=== PATIENT | male | born 1935 | race Caucasian/White ===

== ENCOUNTER 2018-08-16 12:52 | Emergency (ER) | payer MEDICARE, SELFPAY ==
[2018-08-16 13:16] VITALS: BP 107/66; PULSE 79; RESP 76; TEMP 36.6; O2SAT 97; BMI 37.2
--- NOTE | 2018-08-16 13:23 | PC.NURSE ---
Applied nose clamp in triage and educated correct way to try and stop nose bleeds.
[2018-08-16 15:07] VITALS: BP 114/58; PULSE 67; RESP 15; O2SAT 96
--- NOTE | 2018-08-16 15:34 | ED_ITS ---
HPI - Epistaxis <LARS Simeon-BC - Last Filed: 08/16/18 22:07> General Chief complaint: Nasal Problem Stated complaint: Bloody nose Time Seen by Provider: 08/16/18 15:15 Source: patient and family Mode of arrival: ambulatory Limitations: no limitations History of Present Illness HPI Narrative: Patient is an 83-year-old male with history of hypothyroid who presents with a chief complaint of a bloody nose. He states he blew his nose approximately 90 minutes prior to arrival and had a nose bleed. Patient states that he has been getting nose bleeds for the past couple months. Denies any lightheadedness or dizziness. Per family does not take any blood thinners, does have history of Parkinson's.Prior to arrival they put ice on his nose and put a towel over his nose. Related Data Home Medications Medication Instructions Recorded Confirmed atorvastatin [Lipitor] 20 mg PO DAILY #0 11/19/10 08/16/18 omeprazole 20 mg PO DAILY #0 11/19/10 08/16/18 tamsulosin [Flomax] 0.4 mg PO QDAY #0 03/13/11 hydrocodone-acetaminophen 2 tab PO Q6HP #0 12/24/11 levothyroxine [Synthroid] 112 mcg PO QAM #0 12/24/11 08/16/18 aspirin 81 mg PO QDAY #0 02/21/17 doxazosin [Cardura] 8 mg PO DAILY #0 02/21/17 08/16/18 sertraline 150 mg PO DAILY #0 02/21/17 08/16/18 carbidopa-levodopa 1 tab PO TID 08/16/18 08/16/18 Previous Rx's Medication Instructions Recorded folic acid 1 mg PO QDAY #90 tab 03/28/17 Review of Systems <AGUEDA SimeonBC - Last Filed: 08/16/18 22:07> Review of Systems GENERAL: Denies chills, fatigue, malaise, fever, sweats. HEENT: See HPI RESPIRATORY: Denies dyspnea, cough, wheezing, hemoptysis, sputum. CARDIOVASCULAR: Denies chest pain, palpitations, orthopnea, edema, GASTROINTESTINAL: Denies nausea, vomiting, abdominal pain, diarrhea, constipation, melena. : Denies dysuria, frequency, incontinence, hematuria, urinary retention. MUSCULOSKELETAL: denies weakness, joint pain, or bony pain SKIN: Denies rash, skin lesions, or other NEUROLOGIC: Denies weakness, headache, numbness, change in speech, confusion, seizures, incoordination. PSYCHIATRIC: No concerning psychosocial issues. 12 point review of systems is negative except for those stated above Exam <SWAPNIL SimeonP-BC - Last Filed: 08/16/18 22:07> Narrative Exam Narrative: GENERAL: This is a well-nourished, well-developed patient, with family at bedside HEAD: Atraumatic. Normocephalic. No temporal or scalp tenderness. EYES: Pupils equal round and reactive. Extraocular motions intact. No scleral icterus. No injection or drainage. ENT: Nose without purulent drainage or septal hematoma. Throat without erythema, tonsillar hypertrophy or exudate. Uvula midline. Airway patent. blood noted from right naris. Nose clamp is in place. NECK: Trachea midline. No JVD or lymphadenopathy. Supple, nontender, no meningeal signs. CARDIOVASCULAR: Regular rate and rhythm without murmurs, gallops, or rubs. RESPIRATORY: Clear to auscultation. Breath sounds equal bilaterally. No wheezes, rales, or rhonchi. GASTROINTESTINAL: Abdomen soft, non-tender, nondistended. No hepato- splenomegaly, or palpable masses. No guarding. EXTREMITIES: No clubbing, cyanosis, or edema. No joint tenderness, effusion, or edema noted. BACK: Nontender without deformity or crepitance. No flank tenderness. NEURO: AOx3. SKIN: No rash or erythema. Initial Vital Signs Initial Vital Signs: Vital Signs Temperature 98 F 08/16/18 13:16 Pulse Rate 79 08/16/18 13:16 Respiratory Rate 76 H 08/16/18 13:16 Blood Pressure 107/66 08/16/18 13:16 Pulse Oximetry 97 08/16/18 13:16 <Julieta Preston DO - Last Filed: 08/19/18 08:54> Initial Vital Signs Initial Vital Signs: Vital Signs Temperature 98 F 08/16/18 13:16 Pulse Rate 79 08/16/18 13:16 Respiratory Rate 76 H 08/16/18 13:16 Blood Pressure 107/66 08/16/18 13:16 Pulse Oximetry 97 08/16/18 13:16 Course <LARS Simeon-BC - Last Filed: 08/16/18 22:07> Orders Ordered: ED Orders 08/16/18 15:51 Complete Blood Count AUTO DIFF Stat Comprehensive Metabolic Panel Stat Vital Signs - 8 hr 08/16/18 15:07 08/16/18 16:57 Pulse Rate 67 60 Respiratory Rate 15 14 Blood Pressure [Right Arm] 114/58 L 138/83 Pulse Oximetry 96 98 <Julieta Preston DO - Last Filed: 08/19/18 08:54> Orders Ordered: ED Orders 08/16/18 15:51 Complete Blood Count AUTO DIFF Stat Comprehensive Metabolic Panel Stat Vital Signs - 8 hr 08/16/18 15:07 08/16/18 16:57 Pulse Rate 67 60 Respiratory Rate 15 14 Blood Pressure [Right Arm] 114/58 L 138/83 Pulse Oximetry 96 98 MDM - Epistaxis <LARS Simeon-BC - Last Filed: 08/16/18 22:07> Lab Data Result diagrams: 08/16/18 15:51 08/16/18 15:51 Lab Results 08/16/18 08/16/18 Range/Units 15:51 15:51 WBC 4.6 (4.5-11.0) X10^3/uL RBC 4.04 L (4.5-5.9) X10^6/uL Hgb 12.2 L (13.5-17.5) g/dL Hct 35.6 L (41-53) % MCV 88.3 (80-100) fL MCH 30.1 (26-34) PG MCHC 34.1 (30-36) % RDW 15.2 H (11.6-14.8) % Plt Count 92 L (150-400) X10^3/uL Neut % (Auto) 64.7 (50-75) % Lymph % (Auto) 25.3 (25-40) % [place] % (Auto) 6.5 (3-14) % Eos % (Auto) 3.3 (2-4) % Baso % (Auto) 0.2 (0-2) % Neut # (Auto) 3000 (1580-3202) /uL Lymph # (Auto) 1200 (0900-5850) /uL [place] # (Auto) 300 (0-900) /uL Eos # (Auto) 200 (0-450) /uL Baso # (Auto) 0 (0-100) /uL Sodium 138 (137-145) mmol/L Potassium 4.3 (3.4-5.1) mmol/L Chloride 104 (98-107) mmol/L Carbon Dioxide 29 (22-32) mmol/L BUN 26 H (9-20) mg/dL Creatinine 1.20 (0.66-1.25) mg/dL Estimated GFR 57.7 L (>60) mL/min BUN/Creatinine Ratio 21.7 (6-22) Glucose 98 (80-110) mg/dL Calcium 9.1 (8.4-10.2) mg/dL Total Bilirubin 0.7 (0.2-1.3) mg/dL AST 19 (17-59) IU/L ALT 20 L (21-72) IU/L Alkaline Phosphatase 52 (38-126) U/L Total Protein 6.7 (6.3-8.2) g/dL Albumin 3.8 (3.5-5.0) g/dL Globulin 2.9 (1.7-4.1) g/dL Albumin/Globulin Ratio 1.3 (1.0-2.8) MDM Narrative Medical decision making narrative: The patient has 83-year-old male who presents with chief complaint of epistaxis. After his nose was clamped, and he stepped blowing his nose and picking at his clamp, his nose bleed stopped. He had no drainage noted the back of his throat and had no bleeding from his nares. I discussed at length about what his nose, not picking at his nose, etc. Patient and family stated understanding. I encouraged them to follow up with primary care provider. We obtained a CBC in order to check his blood counts, they are comparable to baseline. Patient family had no questions or concerns upon disc harge return precautions were discussed. I encouraged him to follow up with with his primary care provider in a few days. <Julieta Preston, DO - Last Filed: 08/19/18 08:54> Lab Data Lab Results 08/16/18 08/16/18 Range/Units 15:51 15:51 WBC 4.6 (4.5-11.0) X10^3/uL RBC 4.04 L (4.5-5.9) X10^6/uL Hgb 12.2 L (13.5-17.5) g/dL Hct 35.6 L (41-53) % MCV 88.3 (80-100) fL MCH 30.1 (26-34) PG MCHC 34.1 (30-36) % RDW 15.2 H (11.6-14.8) % Plt Count 92 L (150-400) X10^3/uL Neut % (Auto) 64.7 (50-75) % Lymph % (Auto) 25.3 (25-40) % [place] % (Auto) 6.5 (3-14) % Eos % (Auto) 3.3 (2-4) % Baso % (Auto) 0.2 (0-2) % Neut # (Auto) 3000 (4019-4838) /uL Lymph # (Auto) 1200 (2645-5262) /uL [place] # (Auto) 300 (0-900) /uL Eos # (Auto) 200 (0-450) /uL Baso # (Auto) 0 (0-100) /uL Sodium 138 (137-145) mmol/L Potassium 4.3 (3.4-5.1) mmol/L Chloride 104 (98-107) mmol/L Carbon Dioxide 29 (22-32) mmol/L BUN 26 H (9-20) mg/dL Creatinine 1.20 (0.66-1.25) mg/dL Estimated GFR 57.7 L (>60) mL/min BUN/Creatinine Ratio 21.7 (6-22) Glucose 98 (80-110) mg/dL Calcium 9.1 (8.4-10.2) mg/dL Total Bilirubin 0.7 (0.2-1.3) mg/dL AST 19 (17-59) IU/L ALT 20 L (21-72) IU/L Alkaline Phosphatase 52 (38-126) U/L Total Protein 6.7 (6.3-8.2) g/dL Albumin 3.8 (3.5-5.0) g/dL Globulin 2.9 (1.7-4.1) g/dL Albumin/Globulin Ratio 1.3 (1.0-2.8) Discharge Plan Departure Patient Disposition: Home Clinical Impression: Epistaxis Discharge Date/Time: 08/16/18 17:10 Interventions: ED Discharge Assessment Last Done: 08/16/18 17:10 Instructions: DI for Nosebleed Activity Restrictions/Additional Instructions: Your nose bleed stopped today with the nose clip. Please do not blow her nose, pick at your nose, or do anything to remove the clot from her nose. please follow up with primary care provider in the next few days. Please come back to emergency department for any acute concerns. Prescriptions: No Action atorvastatin [Lipitor] 40 MG tablet 20 mg PO DAILY Qty: 0 RF: 0 omeprazole 20 MG capsule,delayed release(DR/EC) 20 mg PO DAILY Qty: 0 RF: 0 tamsulosin [Flomax] 0.4 MG capsule,extended release 24hr 0.4 mg PO QDAY Qty: 0 RF: 0 hydrocodone-acetaminophen 5 MG/325 MG tablet 2 tab PO Q6HP Qty: 0 RF: 0 levothyroxine [Synthroid] 112 MCG tablet 112 mcg PO QAM Qty: 0 RF: 0 aspirin 81 MG tablet,delayed release (DR/EC) 81 mg PO QDAY Qty: 0 RF: 0 doxazosin [Cardura] 8 MG tablet 8 mg PO DAILY Qty: 0 RF: 0 sertraline 100 MG tablet 150 mg PO DAILY Qty: 0 RF: 0 folic acid 1 MG tablet 1 mg PO QDAY Qty: 90 RF: 1 carbidopa-levodopa 25-100 mg tablet 1 tab PO TID RF: 0 Referrals: Reena Meraz PA-C [Family Provider] - <Julieta Preston DO - Last Filed: 08/19/18 08:54> Cosign ED Attending Cosmeronature Attestation: I was immediately available in the department for consultation. This documentation has been reviewed and I agree with assessment and plan. Supervised by Julieta Preston DO
[2018-08-16 16:02] LABS: Add Manual Diff / Slide Review NO; Basophils Absolute Auto 0 /uL (0-100); Basophils Percent Auto 0.2 % (0-2); Eosinophils Absolute Auto 200 /uL (0-450); Eosinophils Percent Auto 3.3 % (2-4); Hematocrit 35.6 % (41-53); Hemoglobin 12.2 g/dL (13.5-17.5); Lymphocytes Absolute Auto 1200 /uL (1100-4500); Lymphocytes Percent Auto 25.3 % (25-40); Mean Corpuscular HGB Conc 34.1 % (30-36); Mean Corpuscular Hemoglobin 30.1 PG (26-34); Mean Corpuscular Volume 88.3 fL (80-100); Monocytes Absolute Auto 300 /uL (0-900); Monocytes Percent Auto 6.5 % (3-14); Neutrophils Absolute Auto 3000 /uL (1500-7000); Neutrophils Percent Auto 64.7 % (50-75); Red Blood Cell Count 4.04 X10^6/uL (4.5-5.9); Red Cell Distribution Width 15.2 % (11.6-14.8); White Blood Cell Count 4.6 X10^3/uL (4.5-11.0)
[2018-08-16 16:14] LABS: Alanine Aminotransferase 20 IU/L (21-72); Albumin 3.8 g/dL (3.5-5.0); Albumin Globulin Ratio 1.3 (1.0-2.8); Alkaline Phosphatase 52 U/L (38-126); Aspartate Aminotransferase 19 IU/L (17-59); BUN Creatinine Ratio 21.7 (6-22); Bilirubin Total 0.7 mg/dL (0.2-1.3); Blood Urea Nitrogen 26 mg/dL (9-20); Calcium 9.1 mg/dL (8.4-10.2); Carbon Dioxide 29 mmol/L (22-32); Chloride 104 mmol/L (98-107); Estimated Glomerular Filt Rate 57.7 mL/min (>60); Globulin 2.9 g/dL (1.7-4.1); Glucose 98 mg/dL (80-110); HEMOLYSIS < 15 (0-50); Potassium 4.3 mmol/L (3.4-5.1); Sodium 138 mmol/L (137-145); Total Protein 6.7 g/dL (6.3-8.2)
[2018-08-16 16:25] LABS: Platelet Count 92 X10^3/uL (150-400)
[2018-08-16 16:57] VITALS: BP 138/83; PULSE 60; RESP 14; O2SAT 98
== END 2018-08-16 17:10 | disposition home or self-care (01) ==
PROVIDERS: Emergency Provider Nurse Practitioner Family; Family Provider Physician Assistant
DX: R04.0 Epistaxis (principal)
CPT/HCPCS: 36415; 80053; 85025; 99282; 99283

== ENCOUNTER 2018-09-25 12:59 | Emergency (ER) | payer MEDICARE, SELFPAY ==
[2018-09-25 13:05] VITALS: BP 108/72; PULSE 73; RESP 16; TEMP 36.9; O2SAT 97; BMI 33.9
--- NOTE | 2018-09-25 13:50 | DI.RAD.S_ITS ---
PROCEDURE: XR RIBS LT MIN 3V W CXR1V INDICATIONS: fall 4 days ago, left rib pain TECHNIQUE: 4 views of the left ribs were acquired, along with a single view chest. COMPARISON: None. FINDINGS: Surgical changes and devices: None. Bones and chest wall: No fractures or dislocations. No suspicious bony lesions. Overlying soft tissues appear unremarkable. Lungs and pleura: No pleural effusions or pneumothorax. Lungs appear clear. Mediastinum: Mediastinal contours appear normal. Heart size is normal. IMPRESSION: No displaced rib fracture. No acute cardiopulmonary disease process. Dictated by: Sasha Howell MD, PhD on 09/25/2018 at 14:56 Approved by: Sasha Howell MD, PhD on 09/25/2018 at 14:57
--- NOTE | 2018-09-25 13:51 | DI.RAD.S_ITS ---
PROCEDURE: XR PELVIS 1-2V INDICATIONS: glf 4 days ago, pain TECHNIQUE: 1 view(s) of the pelvis acquired. COMPARISON: None. FINDINGS: Bones: No fractures or dislocations. No suspicious bony lesions. Soft tissues: Visualized bowel gas pattern is normal. No suspicious soft tissue calcifications. IMPRESSION: No fracture. No acute osseous lesion. If symptoms and/or clinical suspicion for pathology persists, further assessment with repeat radiographs (7-10 days) or advanced imaging (e.g. CT, MRI or bone scan) may be helpful. Dictated by: Sasha Howell MD, PhD on 09/25/2018 at 14:58 Approved by: Sasha Howell MD, PhD on 09/25/2018 at 14:58
--- NOTE | 2018-09-25 13:59 | ED_ITS ---
HPI - Fall <LARS Simeon-BC - Last Filed: 09/25/18 16:34> General Chief Complaint: Fall Stated Complaint: fall, thinks he broke his right side ribs Time Seen by Provider: 09/25/18 13:43 Source: patient and family Mode of arrival: ambulatory Limitations: no limitations History of Present Illness HPI Narrative: The patient is an 83-year-old male who presents with his with history of Parkinson's who presents with a chief complaint of left-sided rib pain since he fell approximately 5 days ago. He states he had a mechanical fall, landing on a hardwood and thinks he broke some of his ribs on his left side. He denies any neck pain or back pain loss of consciousness taking blood thinners or any other acute injury from the fall. He states he has bruising in the area. He occasionally took an [id number] pain medication. He denies any shortness of breath. and daughter note that the patient also has a red and goopy on his right side that they just noticed. The patient states his eye is itchy. He denies any trauma to the eye. He states his vision is normal denies blurry vision or double vision etc. Related Data Home Medications Medication Instructions Recorded Confirmed atorvastatin [Lipitor] 40 mg PO DAILY #0 11/19/10 09/25/18 omeprazole 20 mg PO DAILY #0 11/19/10 09/25/18 levothyroxine [Synthroid] 112 mcg PO QAM #0 12/24/11 09/25/18 aspirin 81 mg PO QDAY #0 02/21/17 09/25/18 doxazosin [Cardura] 8 mg PO BEDTIME #0 02/21/17 09/25/18 sertraline 150 mg PO DAILY #0 02/21/17 09/25/18 carbidopa-levodopa 1 tab PO TID 08/16/18 09/25/18 oxycodone-acetaminophen 1 tab PO 1-2XD PRN 09/25/18 09/25/18 Previous Rx's Medication Instructions Recorded erythromycin 1 applictn OPHTHALMIC (EYE) 6XD 10 09/25/18 Days #3.5 gram Allergies Allergy/AdvReac Type Severity Reaction Status Date / Time No Known Drug Allergies Allergy Verified 09/25/18 13:13 Review of Systems <SWAPNIL SimeonP-BC - Last Filed: 09/25/18 16:34> Review of Systems GENERAL: Denies chills, fatigue, malaise, fever, sweats. HEENT: See HPI RESPIRATORY: Denies dyspnea, cough, wheezing, hemoptysis, sputum. CARDIOVASCULAR: Denies chest pain, palpitations, orthopnea, edema, GASTROINTESTINAL: Denies nausea, vomiting, abdominal pain, diarrhea, constipation, melena. : Denies dysuria, frequency, incontinence, hematuria, urinary retention. MUSCULOSKELETAL: denies weakness, joint pain, or bony pain SKIN: See HPI NEUROLOGIC: Denies weakness, headache, numbness, change in speech, confusion, seizures, incoordination. PSYCHIATRIC: No concerning psychosocial issues. 12 point review of systems is negative except for those stated above Exam <Julieta Florez [facility]-BC - Last Filed: 09/25/18 16:34> Narrative Exam Narrative: GENERAL: This is a well-nourished, well-developed patient, in mild distress. HEAD: Atraumatic. Normocephalic. No temporal or scalp tenderness. EYES: Pupils equal round and reactive. Extraocular motions intact. No scleral icterus. Right eye with purulent exudate, injection. ENT: Nose without bleeding, purulent drainage or septal hematoma. Throat without erythema, tonsillar hypertrophy or exudate. Uvula midline. Airway patent. NECK: Trachea midline. No JVD or lymphadenopathy. Supple, nontender, no meningeal signs. CARDIOVASCULAR: Regular rate and rhythm without murmurs, gallops, or rubs. RESPIRATORY: Clear to auscultation. Breath sounds equal bilaterally. No wheezes, rales, or rhonchi. No cough. No increased respiratory effort. Pain to palpation left lower ribs. Pain on lateral chest wall compression. Pain on anterior posterior chest wall compression GASTROINTESTINAL: Abdomen soft, non-tender, nondistended. No hepato- splenomegaly, or palpable masses. No guarding. EXTREMITIES: Positive pedal pulses bilaterally. Pain on palpation left hip. BACK: Nontender without deformity or crepitance. No flank tenderness. NEURO: AOx3. SKIN: Ecchymosis noted over left lower ribs.. Initial Vital Signs Initial Vital Signs: Vital Signs Temperature 98.4 F 09/25/18 13:05 Pulse Rate 73 09/25/18 13:05 Respiratory Rate 16 09/25/18 13:05 Blood Pressure 108/72 09/25/18 13:05 Pulse Oximetry 97 09/25/18 13:05 <Delmar Dyson DO - Last Filed: 09/26/18 08:47> Initial Vital Signs Initial Vital Signs: Vital Signs Temperature 98.4 F 09/25/18 13:05 Pulse Rate 73 09/25/18 13:05 Respiratory Rate 16 09/25/18 13:05 Blood Pressure 108/72 09/25/18 13:05 Pulse Oximetry 97 09/25/18 13:05 PFSH <HARRISON Simeon - Last Filed: 09/25/18 16:34> Social History Smoking Status: Former smoker Social History Smoking Status: Former smoker Course <HARRISON Simeon - Last Filed: 09/25/18 16:34> Orders Ordered: ED Orders 09/25/18 13:50 XR ribs LT min 3V w CXR1V Stat 09/25/18 13:51 XR pelvis 1-2V Stat Vital Signs - 8 hr 09/25/18 13:05 09/25/18 15:45 Temperature 98.4 F Pulse Rate 73 77 Respiratory Rate 16 17 Blood Pressure 108/72 114/67 Pulse Oximetry 97 99 <Delmar Dyson DO - Last Filed: 09/26/18 08:47> Orders Ordered: ED Orders 09/25/18 13:50 XR ribs LT min 3V w CXR1V Stat 09/25/18 13:51 XR pelvis 1-2V Stat Vital Signs - 8 hr 09/25/18 13:05 09/25/18 15:45 Temperature 98.4 F Pulse Rate 73 77 Respiratory Rate 16 17 Blood Pressure 108/72 114/67 Pulse Oximetry 97 99 MDM - Fall <HARRISON Simeon - Last Filed: 09/25/18 16:34> Imaging Data pelvis xray : Radiologist's impression: [address] [address] XRay Report Signed Patient: Serge Hunt [facility]#: [id number] : 5Acct:[id number] Age/Sex: 83 / MDate of Service: 09/25/18 Loc: ED Accession Number: [id number] Procedure: XR pelvis 1-2V Ordering Provider: Julieta Florez-QAMAR PROCEDURE: XR PELVIS 1-2V INDICATIONS: glf 4 days ago, pain TECHNIQUE: 1 view(s) of the pelvis acquired. COMPARISON: None. FINDINGS: Bones: No fractures or dislocations. No suspicious bony lesions. Soft tissues: Visualized bowel gas pattern is normal. No suspicious soft tissue calcifications. IMPRESSION: No fracture. No acute osseous lesion. If symptoms and/or clinical suspicion for pathology persists, further assessment with repeat radiographs (7-10 days) or advanced imaging (e.g. CT, MRI or bone scan) may be helpful. Dictated by: Sasha Howell MD, PhD on 09/25/2018 at 14:58 Approved by: Sasha Howell MD, PhD on 09/25/2018 at 14:58 rib xray : Radiologist's impression: [place] [address] XRay Report Signed Patient: Serge Hunt [facility]#: [id number] : 5Acct:[id number] Age/Sex: 83 / MDate of Service: 09/25/18 Loc: ED Accession Number: [id number] Procedure: XR ribs LT min 3V w CXR1V Ordering Provider: Julieta Florez-BC PROCEDURE: XR RIBS LT MIN 3V W CXR1V INDICATIONS: fall 4 days ago, left rib pain TECHNIQUE: 4 views of the left ribs were acquired, along with a single view chest. COMPARISON: None. FINDINGS: Surgical changes and devices: None. Bones and chest wall: No fractures or dislocations. No suspicious bony lesions. Overlying soft tissues appear unremarkable. Lungs and pleura: No pleural effusions or pneumothorax. Lungs appear clear. Mediastinum: Mediastinal contours appear normal. Heart size is normal. IMPRESSION: No displaced rib fracture. No acute cardiopulmonary disease process. Dictated by: Sasha Howell MD, PhD on 09/25/2018 at 14:56 Approved by: Sasha Howell MD, PhD on 09/25/2018 at 14:57 MDM Narrative Medical decision making narrative: Patient is an 83-year-old male who presents with a chief complaint of ?I think I broke my rib.He does have ecchymosis, but negative chest x-ray. He is hemodynamically stable. he received incentive spirometer teaching in the emergency department to help prevent development of pneumonia. He also does appear to have conjunctivitis, which started today. Started him on erythromycin for this. I discussed at length follow up with his primary care provider as well as the importance of using [id number] pain medications etc. The patient left his room in a wheelchair, stating he was leaving immediately after incentive spirometry teaching, so I did not give him any pain medication on discharge as I did not the chance. Patient has no questions or concerns. Encouraged patient to come back to emergency department for any acute concerns and follow up with primary care provider. Discharge Plan Departure Patient Disposition: Home Clinical Impression: Fall from ground level Contusion of rib on left side Qualifiers: Encounter type: initial encounter Qualified Code(s): S20.212A - Contusion of left front wall of thorax, initial encounter Conjunctivitis Qualifiers: Conjunctivitis type: acute Acute conjunctivitis type: bacterial Laterality: right Qualified Code(s): H10.31 - Unspecified acute conjunctivitis, right eye Discharge Date/Time: 09/25/18 15:46 Interventions: ED Discharge Assessment Last Done: 09/25/18 15:45 Instructions: How to Use an Incentive Spirometer, DI for Conjunctivitis, DI for Rib Contusion, How to Prevent Falls Activity Restrictions/Additional Instructions: Your x-ray show no fracture today. Please keep doing deep breathing with the incentive spirometer. This will help prevent development of pneumonia. Please follow up with primary care provider in the next few days. Please come back to emergency department for any acute concerns such as chest pain, shortness of breath etc. Please follow up with your PCP if her eye is not improving, and/or you have extending redness from her eye. Prescriptions: New erythromycin 5 mg/gram (0.5 %) ointment 1 applictn ophthalmic (eye) 6XD 10 Days Qty: 3.5 RF: 0 No Action atorvastatin [Lipitor] 40 MG tablet 40 mg PO DAILY Qty: 0 RF: 0 omeprazole 20 MG capsule,delayed release(DR/EC) 20 mg PO DAILY Qty: 0 RF: 0 levothyroxine [Synthroid] 112 MCG tablet 112 mcg PO QAM Qty: 0 RF: 0 aspirin 81 MG tablet,delayed release (DR/EC) 81 mg PO QDAY Qty: 0 RF: 0 doxazosin [Cardura] 8 MG tablet 8 mg PO BEDTIME Qty: 0 RF: 0 sertraline 100 MG tablet 150 mg PO DAILY Qty: 0 RF: 0 carbidopa-levodopa 25-100 mg tablet 1 tab PO TID RF: 0 oxycodone-acetaminophen 10-325 mg tablet 1 tab PO 1-2XD PRN (Reason: Back Pain) RF: 0 Referrals: Reena Meraz PA-C [Family Provider] - <Delmar Dyson DO - Last Filed: 09/26/18 08:47> Cosign ED Attending Ck Attestation: I was immediately available in the department for consultation. Documentation has been reviewed. I agree with assessment and plan.
[2018-09-25 15:45] VITALS: BP 114/67; PULSE 77; RESP 17; O2SAT 99
== END 2018-09-25 15:46 | disposition home or self-care (01) ==
PROVIDERS: Emergency Provider Nurse Practitioner Family; Family Provider Physician Assistant
DX: S20.212A Contusion of left front wall of thorax, initial encounter (principal); H10.31 Unspecified acute conjunctivitis, right eye; W18.30XA Fall on same level, unspecified, initial encounter
CPT/HCPCS: 71101; 72170; 99282; 99283

== ENCOUNTER → 2019-01-31 12:32 | Outpatient (CLI) | payer MEDICARE, SELFPAY ==
--- NOTE | 2019-01-31 16:05 | PM.PFT.1 ---
Pulmonary Function Test Referral & Results Date Patient Seen: 01/31/19 Requesting provider: Dinora Sampson Results: The spirometry demonstrates an FVC of 4.09 L which is 100% of predicted. The FEV1 was measured at 3.47 L which is 120% of predicted. The FEV1/FVC ratio was 85 which is 119% of predicted. Following the administration of bronchodilator there was no appreciable change to above normal numbers. Lung volumes show an SVC of 4.25 L which is 93% of predicted. The diffusing capacity was measured at 22.35 which is 65% of predicted. No hemoglobin value was provided, so no correction for potential anemia could be made, if appropriate. The maximum voluntary ventilation was normal Interpretation: This study demonstrates normal spirometry but significantly reduced diffusing capacity Compared to PFTs performed in June 2014, spirometry was equally normal on previous study and diffusing capacity is essentially unchanged
== END ==
PROVIDERS: PCP Internal Medicine; Visit Provider Internal Medicine
DX: R06.02 Shortness of breath (principal)
CPT/HCPCS: 94060; 94726; 94729

== ENCOUNTER → 2019-03-07 18:33 | Outpatient (ROUT) | payer MEDICARE, SELFPAY ==
[2019-03-07 19:01] LABS: Add Manual Diff / Slide Review NO; Basophils Absolute Auto 0 /uL (0-100); Basophils Percent Auto 0.8 % (0-2); Bilirubin Urine UA NEGATIVE (NEGATIVE); Color Urine UA YELLOW; Eosinophils Absolute Auto 300 /uL (0-450); Eosinophils Percent Auto 5.3 % (2-4); Glucose Urine UA NEGATIVE (Negative); Hematocrit 37.8 % (41-53); Hemoglobin 12.3 g/dL (13.5-17.5); Ketones Urine UA NEGATIVE (NEGATIVE); Leukocyte Esterase Urine UA 3+ (NEGATIVE); Lymphocytes Absolute Auto 1100 /uL (1100-4500); Lymphocytes Percent Auto 20.1 % (25-40); Mean Corpuscular HGB Conc 32.6 % (30-36); Mean Corpuscular Hemoglobin 27.4 PG (26-34); Monocytes Absolute Auto 300 /uL (0-900); Monocytes Percent Auto 6.6 % (3-14); Neutrophils Absolute Auto 3600 /uL (1500-7000); Neutrophils Percent Auto 67.2 % (50-75); Nitrite Urine UA POSITIVE (Negative); Occult Blood Urine UA TRACE-INTACT (Negative); Platelet Count 128 X10^3/uL (150-400); Protein Urine UA NEGATIVE (Negative); Red Cell Distribution Width 15.6 % (11.6-14.8); Urobilinogen Urine UA 0.2 E.U./dL (0.2); White Blood Cell Count 5.3 X10^3/uL (4.5-11.0)
[2019-03-07 19:03] LABS: Alanine Aminotransferase 16 IU/L (21-72); Albumin 4.2 g/dL (3.5-5.0); Albumin Globulin Ratio 1.4 (1.0-2.8); Alkaline Phosphatase 72 U/L (38-126); Appearance Urine UA CLOUDY; Aspartate Aminotransferase 24 IU/L (17-59); BUN Creatinine Ratio 19.1 (6-22); Bilirubin Total 0.8 mg/dL (0.2-1.3); Blood Urea Nitrogen 21 mg/dL (9-20); Calcium 9.5 mg/dL (8.4-10.2); Carbon Dioxide 25 mmol/L (22-32); Chloride 105 mmol/L (98-107); Estimated Glomerular Filt Rate > 60.0 mL/min (>60); Globulin 3.1 g/dL (1.7-4.1); Glucose 102 mg/dL (80-110); HEMOLYSIS < 15 (0-50); Potassium 4.3 mmol/L (3.4-5.1); Sodium 140 mmol/L (137-145); Total Protein 7.3 g/dL (6.3-8.2)
[2019-03-07 19:09] LABS: Bacteria Urine Many (>30); Culture Indicated Urine Cult Not Indicated; RBC Urine 1-5/HPF (0-5/HPF); Squamous Epithelial Cell Urine 1-5 /HPF (0-5/HPF); WBC Urine 30-100/HPF (0-5/HPF)
[2019-03-07 19:23] LABS: B Type Natriuretic Peptide 118 (<100)
[2019-03-07 19:32] LABS: Thyroid Stimulating Hormone 1.01 uIU/mL (0.47-4.68)
[2019-03-07 19:53] LABS: Vitamin D 25 Hydroxy (D3) 45.1 ng/mL (30.0-100.0)
== END ==
PROVIDERS: PCP Internal Medicine; Visit Provider Internal Medicine
DX: R53.1 Weakness (principal); R06.02 Shortness of breath; R55 Syncope and collapse; E55.9 Vitamin D deficiency, unspecified
CPT/HCPCS: 80053; 81001; 82306; 83880; 84443; 85025

== ENCOUNTER → 2019-03-14 08:57 | Outpatient (CLI) | payer MEDICARE, SELFPAY ==
--- NOTE | 2019-03-14 10:17 | PM.TREADMILL ---
Cardiac Stress Test Report Referral & Results Date Patient Seen: 03/14/19 Requesting provider: Dinora aSmpson Indication: Dyspnea upon exertion Rest ECG: Right bundle branch block Procedure Note: After both written and verbal informed consent the patient had an IV started by the diagnostic imaging RN, and then was hooked up to the treadmill monitoring system. The Lexiscan material, and then the Cardiolite tracer, were administered sequentially. An additional 3 min was spent monitoring the patient while supine on the gurney. The patient had a normal response to all infused materials. Impression: See perfusion imaging for details regarding possible ischemia Please note: Actual ECG tracings can be found in the PACS system.
--- NOTE | 2019-03-17 17:38 | DI.NM.S_ITS ---
DATE OF SERVICE: 03/14/2019 PROCEDURE: Pharmacological perfusion study. INDICATIONS: Shortness of breath with known history of coronary artery disease, LAD stent, hypertension, hyperlipidemia. RADIOPHARMACEUTICAL: 24.3 mCi technetium-99m Myoview IV was injected at stress and 25.7 mCi technetium-99m Myoview IV was injected at rest. CARDIAC STRESS: Patient underwent pharmacological perfusion study under the supervision of an attending staff. Patient received IV Lexiscan as per standard protocol. He remained hemodynamically stable. Baseline EKG revealed sinus rhythm with first-degree AV block and right bundle-branch block. Stress EKG did not reveal any convincing inducible ischemic changes. There were no new significant arrhythmias. RAW DATA: There is increased subdiaphragmatic activity. Patient's weight is 250 pounds. GATED STUDY: Resting stress LV ejection fraction 67% and stress LV ejection fraction 75% without obvious wall motion abnormalities. Resting LV end- diastolic volume is 124 mL. On visual inspection, I don't see any significant transient ischemic dilatation. Lung/heart ratio is 0.46, which is mildly abnormal. MYOCARDIAL PERFUSION SCAN: Please note, this patient doesn't have any prone images. Stress supine and resting supine were compared to each other. The resting supine images revealed moderate-sized moderately decreased perfusion of inferior wall and inferior apex. During stress, there was moderate-sized moderately decreased perfusion of inferior wall and inferior apex with slight reversibility of inferior apex. Patient had perfusion study in 02/2013. At that time also, the patient has predominantly fixed inferior wall, inferior apical, as well as inferoseptal defect. Patient's weight is 250 pounds. Increased subdiaphragmatic activity during raw images seen. CONCLUSION: Predominantly fixed inferior wall and inferior apical defect which was seen during both stress supine and stress prone images with very slight reversibility of the inferior apex likely due to attenuation artifact. His weight is 250 pounds. Increased diaphragmatic activity is seen during raw images. Inferior wall is moving well; hence, most likely we are dealing with tissue attenuation artifact. Normal wall motion goes against the diagnosis of previous transmural myocardial infarction. Patient had perfusion study in 02/2013. At that time also had similar perfusion defect. This patient doesn't have any prone images. Patient has history of left anterior descending (LAD) stent, and I don't see any significant perfusion defect in the LAD territory as well. During resting study, there was basal anterior septal defect that was not seen during stress supine images. Overall, left ventricular (LV) function is preserved. Lung/heart ratio is slightly abnormal. Consider 2-D echocardiogram to make sure there is no diastolic dysfunction or valvular pathology. As far as perfusion scan is concerned, I'll call this study likely a normal myocardial perfusion study. Clinical correlation is recommended. Serge Hunt - MOHINDER/afua/ doc#: [id number]/job#: [id number] dd: 03/17/2019 17:16:00 dt: 03/17/2019 17:20:00 DICTATING /COPIES TO: Ceci Villanueva MD COPIES MNE: ARASH
== END ==
PROVIDERS: PCP Internal Medicine; Visit Provider Internal Medicine
DX: R06.02 Shortness of breath (principal); R06.09 Other forms of dyspnea; I45.10 Unspecified right bundle-branch block; I25.10 Atherosclerotic heart disease of native coronary artery without angina pectoris; I10 Essential (primary) hypertension; E78.5 Hyperlipidemia, unspecified; Z95.5 Presence of coronary angioplasty implant and graft
CPT/HCPCS: 78452; 93016; 93017; 93018; A9502; J2785

== ENCOUNTER 2019-08-02 23:32 | Inpatient (IN) | payer MEDICARE, SELFPAY ==
[2019-08-02 23:36] VITALS: BP 162/85; PULSE 71; RESP 16; TEMP 36.5; O2SAT 94
--- NOTE | 2019-08-02 23:40 | DI.RAD.S_ITS ---
PROCEDURE: XR HIP W PEL IF DONE LT 2V INDICATIONS: fall with pain TECHNIQUE: AP pelvis with lateral view(s) of the left hip(s). COMPARISON: [facility], , XR PELVIS 1-2V, 09/25/2018, 14:02. FINDINGS: Bones: There is a comminuted, moderately displaced fracture of the intertrochanteric region of the left femur. Both trochanters appear avulsed. No definite fractures of the bones of the pelvis can be seen. There is persistent hyperdensity seen involving the L3-L4 level. Soft tissues: The visualized bowel gas pattern is normal. No suspicious soft tissue calcifications. IMPRESSION: Comminuted, moderately displaced intertrochanteric left femur fracture. Note: No significant discrepancy from the preliminary report. Dictated by: Alfred Carpio M.D. on 08/03/2019 at 7:29 Approved by: Alfred Carpio M.D. on 08/03/2019 at 7:30
--- NOTE | 2019-08-02 23:45 | ED.FALL ---
HPI - Fall General Chief Complaint: Fall Stated Complaint: fall left hip pain Time Seen by Provider: 08/02/19 23:40 Source: patient and EMS Mode of arrival: EMS Limitations: no limitations History of Present Illness HPI Narrative: Patient is an 84-year-old male. Is brought in by EMS for evaluation of left hip pain. Earlier this evening patient got tangled up in his robe falling on his left side. Did not hit his head. Did not have chest pain or shortness of breath or lightheadedness before small. Was unable to walk afterwards. EMS was called. Received 100 mcg of fentanyl EN route secondary to pain. Related Data Home Medications Medication Instructions Recorded Confirmed atorvastatin [Lipitor] 40 mg PO DAILY #0 11/19/10 08/03/19 omeprazole 20 mg PO DAILY #0 11/19/10 08/03/19 levothyroxine [Synthroid] 112 mcg PO QAM #0 12/24/11 08/03/19 aspirin 81 mg PO QDAY #0 02/21/17 08/03/19 doxazosin [Cardura] 8 mg PO BEDTIME #0 02/21/17 08/03/19 sertraline 150 mg PO DAILY #0 02/21/17 08/03/19 Allergies Allergy/AdvReac Type Severity Reaction Status Date / Time Opioids - Morphine Analogues Allergy Unknown ITCHING Verified 08/03/19 01:25 Review of Systems Constitutional Constitutional: Denies headache(s) ENT Ears, Nose, Mouth, and Throat: Denies vertigo, Denies headache(s) and Denies disequilibrium Cardiovascular Cardiovascular: Denies chest pain, Denies syncope, Denies rapid heart rate, Denies palpitations and Denies dyspnea Respiratory Respiratory: Denies cough and Denies dyspnea Musculoskeletal Comments: Left hip pain Integumentary/Breasts Skin/Breast: Denies rash Neurologic Neurologic: Denies behavioral changes, Denies vertigo, Denies syncope, Denies headache(s) and Denies disequilibrium Psychiatric Psychiatric: Denies behavioral changes Endocrine Endocrine: Denies palpitations Hematologic/Lymphatic Hematologic/Lymphatic: Denies easy bleeding and Denies easy bruising Patient History Medical History Balance disorder (Chronic) CAD (coronary artery disease) (Chronic) Chronic GERD (Chronic) Depression (Chronic) Gait disorder (Chronic) Hypothyroidism (Chronic) Surgical History (Updated 08/03/19 @ 01:34 by AMY Marti) History of right knee joint replacement (Acute) Family History (Updated 08/03/19 @ 01:36 by AMY Marti) Mother Breast cancer Father Kidney infection Social History household members: spouse Smoking Status: Former smoker Smoking Status: Former smoker alcohol intake frequency: 0-2 drinks per day Substance Use Type: does not use Exam Initial Vital Signs Initial Vital Signs: Vital Signs Temperature 97.7 F 08/02/19 23:36 Pulse Rate 71 08/02/19 23:36 Respiratory Rate 16 08/02/19 23:36 Blood Pressure 162/85 H 08/02/19 23:36 Pulse Oximetry 94 08/02/19 23:36 Const General: cooperative and comfortable Limitations: mental status not altered Resp Effort & Inspection: normal respiratory effort Cardio Pulses: dorsalis pedis present on the left Skin Lesions: no lesions Rashes: no rashes Neuro General: alert, awake and oriented x3 Cognition: normal cognition Extrem Other: Tenderness to palpation around the left hip. Left leg shortened and somewhat internally rotated Psych Appearance: grossly normal and well kempt Scores GCS [place] coma scale eye opening: Spontaneous [place] coma scale verbal response: Orientated [place] coma scale motor response: Obey commands [place] coma scale total score: 15 Course Orders Ordered: ED Orders 08/02/19 23:40 XR hip w pel if done LT 2V Stat 08/02/19 23:59 Basic Metabolic Panel Stat Complete Blood Count AUTO DIFF Stat Type and Screen Stat 08/03/19 00:45 Consult to Orthopedic Surgery Stat Acetaminophen (Tylenol) 650 mg PO Q6HR PRN PRN Reason: Fever/Mild Pain (1-3) Last Admin: 08/03/19 02:17 Dose: 650 mg Documented by: TAMIR Atorvastatin Calcium (Lipitor) 40 mg PO DAILY ENRIQUE Docusate Sodium (Colace) 100 mg PO BID ENRIQUE Fentanyl (Sublimaze) 12.5 mcg IV Q3H PRN PRN Reason: Pain, Severe (7-10) Lactated Ringer's (Lactated Ringers) 1,000 mls @ 100 mls/hr IV CONT ENRIQUE Last Admin: 08/03/19 01:55 Dose: 100 mls/hr Documented by: TAMIR Levothyroxine Sodium (Synthroid) 112 mcg PO QACBREAK [facility] Naloxone HCl (Narcan) 0.2 mg IV Q2MIN PRN PRN Reason: Opiate Reversal Ondansetron HCl (Zofran) 4 mg IV Q8HR PRN PRN Reason: Nausea And Vomiting Sertraline HCl (Zoloft) 150 mg PO DAILY ENRIQUE Discontinued Medications Diphenhydramine HCl (Benadryl) 25 mg IV NOW ONE Stop: 08/03/19 01:23 Last Admin: 08/03/19 01:26 Dose: 25 mg Documented by: FERNANDO Morphine Sulfate (Morphine) 4 mg IV NOW ONE Stop: 08/03/19 01:10 Last Admin: 08/03/19 01:17 Dose: 4 mg Documented by: FERNANDO Morphine Sulfate (Morphine) 4 mg IV Q4HR PRN PRN Reason: Pain, Severe (7-10) Vital Signs Vital signs: Vital Signs - 8 hr 08/02/19 23:36 08/03/19 00:59 Temperature 97.7 F Pulse Rate 71 65 Respiratory Rate 16 16 Blood Pressure 162/85 H Blood Pressure [Left Arm] 162/85 H Pulse Oximetry 94 94 MDM - Fall Lab Data Attestation: I reviewed the patient's lab results. Result diagrams: 08/02/19 23:59 08/02/19 23:59 Labs: Lab Results 08/02/19 08/02/19 08/02/19 Range/Units 23:59 23:59 23:59 WBC 7.8 (4.5-11.0) X10^3/uL RBC 4.41 L (4.5-5.9) X10^6/uL Hgb 12.2 L (13.5-17.5) g/dL Hct 37.5 L (41-53) % MCV 85.0 (80-100) fL MCH 27.7 (26-34) PG MCHC 32.6 (30-36) % RDW 15.6 H (11.6-14.8) % Plt Count 120 L (150-400) X10^3/uL Neut % (Auto) Not Reportable Lymph % (Auto) Not Reportable [place] % (Auto) Not Reportable Eos % (Auto) Not Reportable Baso % (Auto) Not Reportable Lymph # (Auto) Not Reportable [place] # (Auto) Not Reportable Baso # (Auto) Not Reportable Total Counted 100 Seg Neutrophils % 76.0 H (38-70) % Lymphocytes % (Manual) 15.0 L (25-45) % Monocytes % (Manual) 5.0 (2-11) % Eosinophils % (Manual) 4.0 (2-4) % Neutrophils # (Manual) 5928 H (7568-7305) /uL Platelet Estimate Decreased on smear RBC Morphology Normal morphology Sodium 138 (137-145) mmol/L Potassium 4.1 (3.4-5.1) mmol/L Chloride 106 (98-107) mmol/L Carbon Dioxide 27 (22-32) mmol/L BUN 19 (9-20) mg/dL Creatinine 1.22 (0.66-1.25) mg/dL Estimated GFR 56.5 L (>60) mL/min BUN/Creatinine Ratio 15.6 (6-22) Glucose 106 (80-110) mg/dL Calcium 9.3 (8.4-10.2) mg/dL Blood Type A Positive Antibody Screen Negative Imaging Data Extremity x-ray #1: Attestation: I personally reviewed and interpreted this imaging study as follows: My Impression: Left intertrochanteric hip fracture MDM Narrative Medical decision making narrative: Neurovascular intact, intratrochanteric hip fracture noted on the x-ray. Discussed the case with Dr. Decker with Orthopedics who reviewed the x-ray. As patient be admitted to the medicine service. A consult was placed for orthopedics. Discussed the case with [facility] provider who will admit for further evaluation and treatment. I did discuss the x-ray findings with the patient and the family who are at bedside. They expressed understanding and agreement. Discharge Plan Departure Patient Disposition: Admitted As Inpatient Clinical Impression: Closed hip fracture Qualifiers: Encounter type: initial encounter Laterality: left Qualified Code(s): S72.002A - Fracture of unspecified part of neck of left femur, initial encounter for closed fracture Discharge Date/Time: 08/03/19 01:37 Admit Date/Time: 08/03/19 01:05 Admit Provider: Scarlett Carrington
[2019-08-03] VITALS (23 sets, daily range): BP systolic 96–162; BP diastolic 66–95; PULSE 63–87; RESP 9–90; TEMP 36.1–37.1; O2SAT 16–100; BMI 34.9
--- NOTE | 2019-08-03 | DI.RAD.S_ITS ---
PROCEDURE: XR HIP W PEL IF DONE LT 2V INDICATIONS: LEFT HIP NAILING TECHNIQUE: Fluoroscopic images were obtained during an operative procedure and submitted for interpretation following the completion of the procedure. COMPARISON: [facility], , XR HIP W PEL IF DONE LT 2V, 08/03/2019, 0:11. FINDINGS: These fluoroscopic images were performed for intraoperative localization. On these images, postoperative fixation hardware is seen involving the left proximal femur. There is improved anatomic alignment. Please correlate with intraoperative findings. IMPRESSION: Normal intraoperative examination. Dictated by: Alfred Carpio M.D. on 08/03/2019 at 10:49 Approved by: Alfred Carpio M.D. on 08/03/2019 at 10:50
[2019-08-03 00:28] LABS: Add Manual Diff / Slide Review YES; BUN Creatinine Ratio 15.6 (6-22); Blood Urea Nitrogen 19 mg/dL (9-20); Calcium 9.3 mg/dL (8.4-10.2); Carbon Dioxide 27 mmol/L (22-32); Chloride 106 mmol/L (98-107); Estimated Glomerular Filt Rate 56.5 mL/min (>60); Glucose 106 mg/dL (80-110); HEMOLYSIS 15 (0-50); Hematocrit 37.5 % (41-53); Hemoglobin 12.2 g/dL (13.5-17.5); Mean Corpuscular HGB Conc 32.6 % (30-36); Mean Corpuscular Hemoglobin 27.7 PG (26-34); Potassium 4.1 mmol/L (3.4-5.1); Red Blood Cell Count 4.41 X10^6/uL (4.5-5.9); Red Cell Distribution Width 15.6 % (11.6-14.8); Sodium 138 mmol/L (137-145); White Blood Cell Count 7.8 X10^3/uL (4.5-11.0)
[2019-08-03 01:10] LABS: Neutrophils Absolute Manual 5928 /uL (3000-5900); Platelet Estimate Decreased on smear; RBC Morphology Normal Morphology; Total Cells Counted 100
[2019-08-03 01:11] LABS: Platelet Count 120 X10^3/uL (150-400)
[2019-08-03] MEDS: MORPHINE 4 MG/ML INJ IV (01:17)
[2019-08-03] MEDS: diphenhydrAMINE 50 MG/ML VIAL 25 MG IV ×2 (01:26→17:12)
--- NOTE | 2019-08-03 01:28 | PM.HP.1 ---
History of Present Illness History of Present Illness Date Patient Seen: 08/03/19 Time Patient Seen: 01:15 Chief complaint: fall left hip pain Narrative: Serge Hunt is an 84-year-old male who lives at home with his and was in his usual state of health when he got up to go to the bathroom, assisted by his , and thinks he may have tripped on his bathrobe and sustained a fall, fracturing his left hip. Patient is slightly confused per his however he is also received 2 doses of pain medications since arriving here. He denies blacking out, visual changes, neck pain, chest pain, shortness of breath, abdominal pain, nausea or vomiting, diarrhea or constipation. He does endorse having slow urinary stream that has been going on for approximately a year, states is currently being worked up. He also indicated that he does not have a diagnosis of Parkinson's disease however his daughter in the room states that 1 of his providers states that he does and another provider states that he does not have Parkinson's disease. He was taking carbidopa levodopa but denies taking it now. He does ambulate in his home with a walker. Patient sees , administrative job titles. He has a history of a stent placement though states that is not in his heart and is somewhere in his right upper chest. States that was done about 10 years ago. Patient History Medical History (Updated 08/03/19 @ 01:33 by AMY Marti) Balance disorder (Chronic) CAD (coronary artery disease) (Chronic) Chronic GERD (Chronic) Depression (Chronic) Gait disorder (Chronic) Hypothyroidism (Chronic) Surgical History (Updated 08/03/19 @ 01:34 by AMY Marti) History of right knee joint replacement (Acute) Family & Social History Family History (Updated 08/03/19 @ 01:36 by AMY Marti) Mother Breast cancer Father Kidney infection Safety & Behavioral: Feels Safe in Current Yes Environment Been Physically Hurt or No Threatened By a Person Tobacco & Substance use: Smoking Status Former smoker 2-3 packs a day, quit 20 years ago alcohol intake frequency 0-2 drinks per day Substance Use Type does not use Meds Home Medications and Allergies Home Medications Medication Instructions Recorded Confirmed Type atorvastatin [Lipitor] 40 mg PO DAILY #0 11/19/10 08/03/19 History omeprazole 20 mg PO DAILY #0 11/19/10 08/03/19 History levothyroxine [Synthroid] 112 mcg PO QAM #0 12/24/11 08/03/19 History aspirin 81 mg PO QDAY #0 02/21/17 08/03/19 History doxazosin [Cardura] 8 mg PO BEDTIME #0 02/21/17 08/03/19 History sertraline 150 mg PO DAILY #0 02/21/17 08/03/19 History Allergies Allergy/AdvReac Type Severity Reaction Status Date / Time Opioids - Morphine Analogues Allergy Unknown ITCHING Verified 08/03/19 01:25 Review of Systems Review of Systems ROS: Yes All systems reviewed with the patient and are negative except as otherwise documented Exam Vital Signs (past 8 hours): - 08/02/19 23:36 08/03/19 00:59 Temperature 97.7 F Pulse Rate 71 65 Respiratory Rate 16 16 Blood Pressure 162/85 H Blood Pressure [Left Arm] 162/85 H Pulse Oximetry 94 94 Oxygen Delivery Method Room Air Narrative Exam Narrative: General: Alert mildly confused, very pleasant 84-year-old male in moderate pain, worse with movement HEENT: Normocephalic atraumatic, conjunctiva is nonicteric, oral and nasal mucosa mildly dry Neck: Supple, no JVD Respirations: Lung sounds are clear to auscultation bilaterally no wheezes or rhonchi CV: Regular rate and rhythm, no murmur rubs, normal S1-S2 Abdomen: Soft and nontender, normoactive bowel sounds Extremities: He has full mobility of his upper extremities, movement inhibits lower extremity mobility due to pain Neuro: Alert and oriented x3, mildly confused regarding longer term events, family states this is not normal for him so suspect is due to pain medications Psych: Normal mood and affect Objective Labs Result Diagrams: 08/02/19 23:59 08/02/19 23:59 Labs: Laboratory Results - last 24 hr 08/02/19 08/02/19 08/02/19 23:59 23:59 23:59 WBC 7.8 RBC 4.41 L Hgb 12.2 L Hct 37.5 L MCV 85.0 MCH 27.7 MCHC 32.6 RDW 15.6 H Plt Count 120 L Neut % (Auto) Not Reportable Lymph % (Auto) Not Reportable [place] % (Auto) Not Reportable Eos % (Auto) Not Reportable Baso % (Auto) Not Reportable Lymph # (Auto) Not Reportable [place] # (Auto) Not Reportable Baso # (Auto) Not Reportable Total Counted 100 Seg Neutrophils % 76.0 H Lymphocytes % (Manual) 15.0 L Monocytes % (Manual) 5.0 Eosinophils % (Manual) 4.0 Neutrophils # (Manual) 5928 H Platelet Estimate Decreased on smear RBC Morphology Normal morphology Sodium 138 Potassium 4.1 Chloride 106 Carbon Dioxide 27 BUN 19 Creatinine 1.22 Estimated GFR 56.5 L BUN/Creatinine Ratio 15.6 Glucose 106 Calcium 9.3 Blood Type A Positive Antibody Screen Negative Assessment & Plan Assessment & Plan narrative: Serge Hunt will be admitted as an inpatient for surgical correction of a left intertrochanteric hip fracture. 1. Left intertrochanteric hip fracture -Dr. Decker plans to take him into the OR tomorrow -NPO except for ice chips x1 -patient experience urticaria with administration of morphine. He is written for fentanyl 12.5 mg IV q.3 hours as needed for pain -Benadryl 25 mg IV as needed for itching 2. 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 Gait/balance disorder suspected of Parkinson's Disease -patient denies currently taking carbidopa levodopa 4. Hypothyroidism -continue home dose of levothyroxine 112 mcg p.o. daily 5. Hyperlipidemia -continue home dose of atorvastatin 40 mg p.o. daily Serge Hunt is admitted inpatient as his stay is likely to exceed 2 midnights FEN: Lactated Ringer's at 100 mL/hour, NPO, chemistries on 08/03 VTE: Bilateral SCDs Disposition: Likely to rehab prior to eventual discharge to home Code status: Full code Quality VTE Deep Vein Thrombosis/Pulmonary Embolism Present on Admission: No
--- NOTE | 2019-08-03 01:31 | PC.NURSE ---
Pt given 4mg morphine IV per verbal order from AMY Carrington. Pt developed itching to R arm and pt given 25mg benedryl IV per verbal order from Dr Carrington with good relief.
[2019-08-03] MEDS: LACTATED RINGERS 1,000 ML 100 ML IV ×2 (01:55→17:43)
[2019-08-03] MEDS: ACETAMINOPHEN 325 MG TABLET 650 MG PO ×2 (02:17→19:41)
[2019-08-03] MEDS: fentaNYL 100 MCG/2 ML INJ 12.5 MCG IV (06:43)
--- NOTE | 2019-08-03 07:55 | PC.NURSE ---
Addendum entered by Cruz Mir R.N. 08/03/19 14:08: Pt returned from OR at 12:00 Pt initially sleepy wakes easily, answers questions, follows commands. Surgical site intact with two dressings of aquacel. IV patent and intact. IVF per orders. and Daughter in to visit. Shown IV site, SCD's and surgical site. Explained plan for afternoon. Addendum entered by Cruz Mir R.N. 08/03/19 09:24: 09:00 report given to OR crew. Spoke with Dr. Decker. Dr. Decker in speaking with pt. Pt escorted to OR via bed with OR crew. Addendum entered by Cruz Mir R.N. 08/03/19 08:06: Pt does have history with Dr. Quarles and has had a stent in the past. Pt presently on Tele. NSR [address] Morales in seeing Pt. presently. Original Note: Pt alert and oriented. Asking appropriate questions regarding surgery this morning. OR planned for 09:00 per Histology Technologist [place]. Pt has IV LR at 100cc running right wrist. SCDs on presently. Skin clean dry and intact. BS's clear slightly diminished in bases. BT's Hypoactive, abdomen soft. Pt offers no overt c/o voiding. Pt watching tv presently. OR team called in.
--- NOTE | 2019-08-03 08:51 | CM.DANOTE ---
Addendum entered by Ivonne Montoya R.N. 08/03/19 12:53: Left a message for patient's , Ilsa, to call back in order to go over Medicare Choice List and discuss alf options. Original Note: DCP: Case received, EMR reviewed and met with patient. Introduced self and role. Was able to briefly meet with patient to obtain information regarding baseline activity and living situation. DCP assessment completed with information currently available. Patient is an 84 year old female who admitted early this morning to the care of the hospitalist/orthopedic team. PCP: Dr. Sampson. Payer: confirmed: [facility] Patient came to the hospital via ambulance secondary to a ground level fall. According to notes, patient had gotten tangled up in his bathroom, resulting in a fall. Patient had been complaining of left hip, and holds current diagnosis of intratrochanteric hip fracture. He is scheduled for surgery today. Dr. Decker here, and is performing the surgery. Met briefly with patient in his room. He was laying in bed, alert and oriented, stated, he was in some pain. Confirmed with patient that he resides in [facility], with his , Ilsa. Patient stated that he does not drive. Asked him if he uses a walker or cane at baseline, and he stated that he has a walker, but doesn't always use it. He stated that his assists with meals, showers, and takes him to appointments. P: Patient may need skilled rehab. Is scheduled for surgery today. Patient has [employer], so facility will need to pre-authorize. Have not yet discussed medicare choice list, but will attempt to do so today. Ivonne Montoya RN/Coater Hand
--- NOTE | 2019-08-03 09:15 | P.CONS_ITS ---
History of Present Illness Consult details Date Patient Seen: 08/03/19 Time Patient Seen: 09:15 Chief complaint: fall left hip pain Reason for consult: L IT fracture Narrative: Patient is an 84-year-old male who had a ground level fall yesterday evening. Patient states that he does recall falling but does not recall the reason why. He sustained a left intertrochanteric femur fracture. He was seen at [facility] ER and was admitted overnight in anticipation of surgery today. Meds Home Medications and Allergies Home Medications Medication Instructions Recorded Confirmed Type atorvastatin [Lipitor] 40 mg PO DAILY #0 11/19/10 08/03/19 History omeprazole 20 mg PO DAILY #0 11/19/10 08/03/19 History levothyroxine [Synthroid] 112 mcg PO QAM #0 12/24/11 08/03/19 History aspirin 81 mg PO QDAY #0 02/21/17 08/03/19 History doxazosin [Cardura] 8 mg PO BEDTIME #0 02/21/17 08/03/19 History sertraline 150 mg PO DAILY #0 02/21/17 08/03/19 History Allergies Allergy/AdvReac Type Severity Reaction Status Date / Time Opioids - Morphine Analogues Allergy Unknown ITCHING Verified 08/03/19 01:25 Exam Vital Signs (past 8 hours): - 08/03/19 01:45 08/03/19 04:53 08/03/19 07:45 Temperature 98.1 F 97.8 F 97.6 F Pulse Rate 63 67 68 Respiratory Rate 18 18 18 Blood Pressure 152/95 H 127/75 120/70 Pulse Oximetry 98 98 97 Oxygen Delivery Method Nasal Cannula Oxygen Flow Rate 2.5 Narrative Exam Narrative: Neurovascular intact in left lower extremity. No skin breaks over the left hip. Leg is held in slightly external rotation position. Patient is able to wiggle toes. Objective Labs Result Diagrams: 08/02/19 23:59 08/02/19 23:59 Labs: Laboratory Results - last 24 hr 08/02/19 08/02/19 08/02/19 23:59 23:59 23:59 WBC 7.8 RBC 4.41 L Hgb 12.2 L Hct 37.5 L MCV 85.0 MCH 27.7 MCHC 32.6 RDW 15.6 H Plt Count 120 L Neut % (Auto) Not Reportable Lymph % (Auto) Not Reportable [place] % (Auto) Not Reportable Eos % (Auto) Not Reportable Baso % (Auto) Not Reportable Lymph # (Auto) Not Reportable [place] # (Auto) Not Reportable Baso # (Auto) Not Reportable Total Counted 100 Seg Neutrophils % 76.0 H Lymphocytes % (Manual) 15.0 L Monocytes % (Manual) 5.0 Eosinophils % (Manual) 4.0 Neutrophils # (Manual) 5928 H Platelet Estimate Decreased on smear RBC Morphology Normal morphology Sodium 138 Potassium 4.1 Chloride 106 Carbon Dioxide 27 BUN 19 Creatinine 1.22 Estimated GFR 56.5 L BUN/Creatinine Ratio 15.6 Glucose 106 Calcium 9.3 Blood Type A Positive Antibody Screen Negative Assessment & Plan Assessment & Plan narrative: Patient is a 84-year-old male who had a ground l evel fall yesterday evening. He sustained a left intertrochanteric femur fracture. I discussed operative intervention with the patient including the risks and benefits. Risks of surgery include damage to local structures such as vessels nerves, malunion, nonunion, need for future surgeries, etc. Patient demonstrates understanding of these risks and wishes to proceed with a left hip cephalomedullary nail. Time Spent With Patient Time with patient: 15-24 minutes
[2019-08-03] MEDS: LACTATED RINGERS 1,000 ML 42 ML IV ×2 (09:20→11:20)
[2019-08-03] MEDS: CEFAZOLIN 2 GM/100 ML FROZ.PIGGY IV (09:30)
--- NOTE | 2019-08-03 10:36 | SUR.OPER ---
Head on pillow. Supine on fracture table ([place]) with operative leg secured in traction. Other leg secured in gel padded stirrup. Left arm across chest with pillow underneath, secured with tape over sheet.
--- NOTE | 2019-08-03 11:34 | PM.OP.1 ---
Operative Date/Time/Diagnoses Date of procedure: 08/03/19 Time of procedure: 11:35 Pre-op diagnosis: L IT fracture Post-op diagnosis: same Procedure & Clinicians Procedure: Left CMN left femur Same procedure as scheduled: Yes Indications: left IT fracture Surgeon: Bolivar Decker Click Yes if Unassisted: Yes Anesthesia Type: General Operative Notes Findings: Displaced intertrochanteric fracture with free subtroch fragment Closure Type: primary Specimen(s): none sent Prosthetic devices, grafts, tissues, transplants, or devices: [employer] intertan nail size 13 x 18cm 115mm lag screw 110mm comrpession screw 42.5mm distal bolt Estimated Blood Loss (mL): 100 Blood products transfused: none Procedure in detail: Patient was met in the preoperative holding area where the site and side of surgery were marked by . Consent was reviewed and signed with the patient. All questions were answered. Patient is then brought back in the operating room where he was induced under general anesthesia on the gurney. Patient was then transferred onto the [place] table. The left foot was but the [place] table boot and the right leg was placed in a well leg gutierrez. X-ray was brought in to get tangential views of the hip and reduction through the [place] table was performed with fluoroscopic guidance. The left hip was then prepped and draped in normal sterile fashion. A time-out was performed verifying the site and side of surgery as well as the name of the patient. A 4 cm long incision in line with the long axis of the femur and about 6 cm proximal to the tip of the greater trochanter was made using 10. Blade through the skin and through the fascia. A sharp tipped awl was then used to gain our starting point and a threaded tipped wire was then passed inside the femur below the level of the lesser troch. Tangential views were obtained verifying that was in good position AP as well as on the AP view. The starting Reamer was then used to swallow the threaded tip guidewire and both removed. A size 13 mm x 18 cm enter barcenas nail was selected. This was then placed under fluoroscopic guidance. The targeting arm was then used to pass a guidewire on the AP and lateral views to get center center depth. This measured a depth of 120 minutes mm but we selected 115 mm screw as without we get some compression to the fracture site. The compression screw was then drilled for followed by drilling for the lag screw. Lag screw was placed under fluoroscopic guidance followed by the compression screw with a compression screw started to impinge on the nail there by providing compression against the fracture site we removed all traction from the leg. Got good amount of compression across the fracture site. We then placed the distal interlocking screws through the targeting arm. The targeting arm was then removed and final films were obtained. The lag and compression screw construct was left in a nonlocked position allowing further compression with weight-bearing. The surgical incisions were then irrigated with normal saline followed by 1 0 Vicryl in the deep fascia followed by 2 Vicryl in the subcutaneous tissue followed by anibal and Aquacel dressings. Complications: none Post-operative Condition: stable Disposition: PACU Plan for aftercare: WBAT LLE. 24 hours post-op abx. Likely DC to SNF.
[2019-08-03] MEDS: fentaNYL 100 MCG/2 ML INJ IV ×2 (11:58→12:17)
--- NOTE | 2019-08-03 12:02 | SUR.PHASEI ---
1158 Dr Xie OK 1/2 dose of pain med given for c/o left hip pain, doesn't give a number. Half dose given r/t intermittent O2 desat, responds readily with reminders to deep breath. Denies nausea.
[2019-08-03] MEDS: OXYCODONE/ACETAMINOPHEN 5/325 TABLET 1 TAB PO (12:19)
--- NOTE | 2019-08-03 12:21 | SUR.PHASEI ---
Pain worsening, IV rx and PO (after applesauce was given) meds given.
--- NOTE | 2019-08-03 12:28 | SUR.PHASEI ---
Dozing, Resp even and regular, maintain sat in mid 90s on 2LNP, skin warm and dry, tolerated PO intake well.
--- NOTE | 2019-08-03 13:04 | SUR.PHASEI ---
1243 to room 206, bed down and locked, call light within reach. O2 on 2LNP, SCDs on. VSS, No questions from pt or staff. Stable, oriented, pt voiced appreciation for care.
--- NOTE | 2019-08-03 13:25 | PM.PN.1 ---
Exam Vital Signs (past 8 hours): - 08/03/19 07:45 08/03/19 11:34 08/03/19 11:39 Temperature 97.6 F 98.7 F Pulse Rate 68 72 85 Respiratory Rate 18 16 90 H Blood Pressure 120/70 108/74 124/72 Pulse Oximetry 97 100 16 L 08/03/19 11:44 08/03/19 11:49 08/03/19 11:54 Temperature Pulse Rate 66 72 84 Respiratory Rate 10 L 11 L 16 Blood Pressure 119/78 122/71 117/74 Pulse Oximetry 97 94 95 08/03/19 11:59 08/03/19 12:09 08/03/19 12:24 Temperature Pulse Rate 67 66 66 Respiratory Rate 13 16 9 L Blood Pressure 132/72 130/71 119/66 Pulse Oximetry 94 96 96 08/03/19 12:39 Temperature 97.5 F L Pulse Rate 86 Respiratory Rate 10 L Blood Pressure 111/72 Pulse Oximetry 95 Oxygen Delivery Method Nasal Cannula Oxygen Flow Rate 2 Objective Labs Result Diagrams: 08/02/19 23:59 08/02/19 23:59 Labs: Laboratory Results - last 24 hr 08/02/19 08/02/19 08/02/19 23:59 23:59 23:59 WBC 7.8 RBC 4.41 L Hgb 12.2 L Hct 37.5 L MCV 85.0 MCH 27.7 MCHC 32.6 RDW 15.6 H Plt Count 120 L Neut % (Auto) Not Reportable Lymph % (Auto) Not Reportable [place] % (Auto) Not Reportable Eos % (Auto) Not Reportable Baso % (Auto) Not Reportable Lymph # (Auto) Not Reportable [place] # (Auto) Not Reportable Baso # (Auto) Not Reportable Total Counted 100 Seg Neutrophils % 76.0 H Lymphocytes % (Manual) 15.0 L Monocytes % (Manual) 5.0 Eosinophils % (Manual) 4.0 Neutrophils # (Manual) 5928 H Platelet Estimate Decreased on smear RBC Morphology Normal morphology Sodium 138 Potassium 4.1 Chloride 106 Carbon Dioxide 27 BUN 19 Creatinine 1.22 Estimated GFR 56.5 L BUN/Creatinine Ratio 15.6 Glucose 106 Calcium 9.3 Blood Type A Positive Antibody Screen Negative Assessment & Plan Assessment & Plan narrative: I have seen and evaluated the patient today and agree with the previously documented assessment and plan. The patient is an 84-year-old male with past medical history of CAD, hypothyroidism, and depression who presented after a fall and suffered a left intertrochanteric hip fracture. Patient states that he is able to walk about 5-10 minutes before getting short of breath, but this is been stable over the past many years. He denies any chest pain, palpitations, dizziness prior to his fall. He underwent operative intervention this morning. Patient will recover today, and initiate physical therapy and occupational therapy. Given his medical comorbidities he is likely to require SNF placement pending physical and occupational therapy evaluations. Quality VTE Deep Vein Thrombosis/Pulmonary Embolism Present on Admission: No
--- NOTE | 2019-08-03 16:46 | PT-IP ANOTE ---
Received PT orders and reviewed chart. Pt returned from OR early afternoon. Nursing advised PT to hold evaluation until morning of 08/04/19.
--- NOTE | 2019-08-03 16:49 | P.OP_ITS ---
Operative Date/Time/Diagnoses Date of procedure: 08/03/19 Time of procedure: 16:49 Pre-op diagnosis: Left extra-articular spiral distal femur fracture Post-op diagnosis: same Procedure & Clinicians Procedure: ORIF L distal femur fracture Same procedure as scheduled: Yes Indications: Left extra-articular distal femur fracture below a CMN Surgeon: Bolivar Decker Diagnostic Cardiac Sonographer: Jr Sharif Anesthesia Type: General Operative Notes Findings: displaced extra-articular left distal femur fracture Closure Type: primary Specimen(s): none sent Prosthetic devices, grafts, tissues, transplants, or devices: Jaime NCB 15-hole left distal femur plate 1x cable 5.0 screws (distal) 4.0 screws (proximal) Estimated Blood Loss (mL): 600 Procedure in detail: Patient was met in the preoperative holding area where the site and side of surgery marked by . I reviewed the consent with the patient and the daughter the patient who was power of divorce attorney. We had a long discussion regarding expected outcomes of operative and non operative treatment. I do not think that treating this non operatively would benefit the patient even at her advanced age due to her inability to mobilize if this was treated non operatively. Patient is DNR DNI which is suspended in the perioperative period. Patient and patient's daughter who is [id number] agreed to proceed with open reduction internal fixation of left distal femur fracture. Patient then brought back in the operating room where she was induced under general anesthesia. She was then transferred onto the operating room table. The left lower extremity was then prepped and draped in normal sterile fashion. A long lateral/anterolateral incision was made in line with the femur curving anteriorly near the tibial tubercle. Skin incision was made using 10. Blade followed by electrocautery down to the level of the ITB and. ITB band was split using a 10. Blade in line with its fibers. The vastus lateralis was then elevated anteriorly off the septum and retail cosmetics sales beauty advisor vessels were identified and coagulated. The long spiral fracture was identified and reduction was achieved using traction and a bump underneath the fracture site as well as some rotational fine tuning. Two large lobster claw clamps were used to hold the reduction and then 3x 3.5 cortical lag screws were placed. 2x in an anterior to posterior orientation and 1x from lateral to medial. These were lagged by technique. The clamps were then removed and fluoroscopy was brought in to verify maintenance of reduction. A 15 hole left distal femur and CV plate was then selected. It was provisionally held onto the bone using K-wires and again tangential fluoroscopic views were used to verify the plate position. The distal holes in the plate were drilled for a 500 cortical screw. These had good purchase and helped to suck the plate down the bone. After 2 these were placed I then moved proximally and placed a 5 a cortical screw distal to the cephalomedullary nail and in the proximal segment. I then returned to the distal segment verifying that these 5.0 screws were out of the joint and placed several more under fluoroscopic guidance. I then returned to the proximal segment and on lateral view could see that the best trajectory would be to shoot 4.0 cortical screws anterior to the cephalo medullary nail these were then placed in the proximal holes of the plate with exception of the 2nd most proximal plate a cable was passed instead of the screw in the hopes of reducing stress riser. Once this was complete locking hub caps were placed on 5x of the distal screw heads and 2x on the proximal screw heads. Final imaging was taken to verify maintenance of reduction as well as screw placement. Satisfied with final imaging. The wound was then copiously irrigated with a L and half of normal saline and good hemostasis was verified. The ITB band was then closed with 1 0 Vicryl in an interrupted fashion followed by 1 0 Vicryl in a running locking fashion. Two 0 Vicryl used in subcutaneous tissue and anibal on skin. Two Aquacel dressings were then placed over the incision. Patient was brought to PACU in stable condition Complications: none Post-operative Condition: stable Disposition: PACU Plan for aftercare: 24 hours of postop antibiotics. Aspirin 81 mg b.i.d. as initial post-op prophylaxis. Nonweightbearing left lower extremity.
[2019-08-03] MEDS: HYDROMORPHONE 2 MG TABLET PO ×3 (17:12→23:57)
[2019-08-03] MEDS: DOCUSATE 100 MG CAPSULE PO (19:41)
[2019-08-03] MEDS: ATORVASTATIN 20 MG TABLET 40 MG PO (19:41)
[2019-08-04] VITALS (10 sets, daily range): BP systolic 100–128; BP diastolic 59–77; PULSE 74–110; RESP 16–20; TEMP 36.2–37.3; O2SAT 92–98
[2019-08-04] MEDS: HYDROMORPHONE 2 MG TABLET PO ×5 (02:30→14:21)
[2019-08-04] MEDS: LEVOTHYROXINE 112 MCG TABLET PO (05:33)
[2019-08-04 06:23] LABS: Add Manual Diff / Slide Review NO; Basophils Absolute Auto 100 /uL (0-100); Basophils Percent Auto 0.8 % (0-2); Eosinophils Absolute Auto 200 /uL (0-450); Eosinophils Percent Auto 2.6 % (2-4); Hematocrit 28.1 % (41-53); Hemoglobin 9.2 g/dL (13.5-17.5); Lymphocytes Absolute Auto 900 /uL (1100-4500); Mean Corpuscular HGB Conc 32.8 % (30-36); Mean Corpuscular Hemoglobin 27.5 PG (26-34); Mean Corpuscular Volume 84.1 fL (80-100); Monocytes Absolute Auto 600 /uL (0-900); Neutrophils Absolute Auto 5400 /uL (1500-7000); Neutrophils Percent Auto 75.6 % (50-75); Platelet Count 108 X10^3/uL (150-400); Red Blood Cell Count 3.35 X10^6/uL (4.5-5.9); Red Cell Distribution Width 15.6 % (11.6-14.8); White Blood Cell Count 7.2 X10^3/uL (4.5-11.0)
[2019-08-04] MEDS: ASPIRIN EC 81 MG TABLET PO (09:17)
[2019-08-04] MEDS: ATORVASTATIN 20 MG TABLET 40 MG PO (09:17)
[2019-08-04] MEDS: ACETAMINOPHEN 325 MG TABLET 650 MG PO (09:20)
[2019-08-04] MEDS: DOCUSATE 100 MG CAPSULE PO ×2 (09:20→21:31)
[2019-08-04] MEDS: SERTRALINE 50 MG TABLET 150 MG PO (09:20)
--- NOTE | 2019-08-04 09:28 | P.PN_ITS ---
Subjective Subjective Date Patient Seen: 08/04/19 Time Patient Seen: 09:30 Interval history: Pain mild. Denies fever chills. No nausea vomiting. Exam Vital Signs (past 8 hours): - 08/04/19 04:45 Temperature 97.7 F Pulse Rate 93 H Respiratory Rate 20 Blood Pressure 124/70 Pulse Oximetry 92 Oxygen Delivery Method Room Air,Nasal Cannula Oxygen Flow Rate 2 Narrative Exam Narrative: Leg dressings are clean, dry and intact. Motor functions intact distal left lower extremity. Left leg is warm and dry. Sensation grossly intact to light touch distal left lower extremity. Objective Labs Result Diagrams: 08/04/19 05:45 08/02/19 23:59 Labs: Laboratory Results - last 24 hr 08/04/19 05:45 WBC 7.2 RBC 3.35 L Hgb 9.2 L Hct 28.1 L MCV 84.1 MCH 27.5 MCHC 32.8 RDW 15.6 H Plt Count 108 L Neut % (Auto) 75.6 H Lymph % (Auto) 12.0 L [place] % (Auto) 9.0 Eos % (Auto) 2.6 Baso % (Auto) 0.8 Neut # (Auto) 5400 Lymph # (Auto) 900 L [place] # (Auto) 600 Eos # (Auto) 200 Baso # (Auto) 100 Assessment & Plan Post-op Postoperative Procedures: Procedures Operation Date: 08/03/19 08:35 Actual Procedures Side Surgeon p Intramedullary Nailing Femur Left Bolivar Decker MD Postop day 1 status post CMN left femure. Weightbearing as tolerated left lower extremity. Aspirin for DVT prophylaxis. Quality VTE Deep Vein Thrombosis/Pulmonary Embolism Present on Admission: No
--- NOTE | 2019-08-04 10:54 | OT.IP.EVAL ---
Current Diagnoses Displaced intertrochanteric fracture of left femur, initial encounter for closed fracture (08/03/19) Surgery Performed Operation Date: 08/03/19 08:35 Actual Procedures p Intramedullary Nailing Femur(Left) - Bolivar Decker MD Past Medical History (Last Reviewed 08/03/19 @ 09:17 by Bolivar Decker MD) Balance disorder (Chronic) CAD (coronary artery disease) (Chronic) Chronic GERD (Chronic) Depression (Chronic) Gait disorder (Chronic) Hypothyroidism (Chronic) Surgical History (Last Reviewed 08/03/19 @ 09:17 by Bolivar Decker MD) History of right knee joint replacement (Acute) Occupational Therapy Inpatient Evaluation/Re-Eval M1 PT/OT-IP Prior Functional Status Start: 08/04/19 17:31 Freq: NEEDED Status: Active Protocol: Document 08/04/19 10:02 [facility] (Rec: 08/04/19 17:59 [facility] [id number]) Medical Review Prior Functional Status Medical History Reviewed Yes Communication Pt is able to make needs known . Pt's daughter, Lily states she has noticed a slight decline in his cognition lately. He will tell stories that seem to come out of nowhere. Mobility and Gait Pt states he was modified independent with 4WW or SPC 100% of the time when out of the house but less often inside. He admits to using de anda and countertops to steady himself when not using an AD. Daughter states his mobility has declined recently and he has had outpatient PT at [facility] in [place] . Activities of Daily Living and IADL's Independent Prior Functional Level (Other details) Pt has a lift recliner at home but sleeps in a flat bed. He manages his own finances and medications. Social History Household Members spouse Living Arrangements House Number of Floors (Floors) One Floor Number of Stairs To Enter/Railing? 2 or 3 TRAMAINE depending on entrance with no railings. Home Environment High Toilet,Tub/Shower Home Equipment Four Wheel Walker,Straight Cane,Shower Seat without Backrest,Lift Recliner,Grab Bars In Shower Employment Status Retired Additional Social History Comment Pt lives with his spouse, Rochelle, in [place]. One daughter, Lily lives nearby and checks on the couple daily. Other daughters live in [place] and [place]. M2 OT-IP Current Condition Start: 08/04/19 17:31 Freq: Status: Active Protocol: Document 08/04/19 10:02 [facility] (Rec: 08/04/19 17:59 [facility] [id number]) Occupational Therapy Current Condition Current Condition Evaluation Date 08/04/19 Treatment Diagnosis Left intertrochanteric fracture Diagnosis Onset Date 08/03/19 Post Operative Precautions Other Precautions LLE PWB 50% Weight Bearing Status Weight Bearing Status Partial Weight Bearing Allowed Weight Bearing Amount (enter % 50% for LLE or #) (%) M3 OT- IP Subjective and Pain Start: 08/04/19 17:31 Freq: Status: Active Protocol: Document 08/04/19 10:02 [facility] (Rec: 08/04/19 17:59 [facility] [id number]) OT- Subjective Occupational Therapy Visit Type Type Initial Evaluation Visit Start Time 10:02 Visit Stop Time 10:54 Total Visit Minutes 52 Occupational Therapy Visit Comments Patient Comments Pt's daughter in the room for the OT/PT eval. She was requesting that pt not be seen from 10-11AM daily so family able to visit pt. Pt's daughter also states noted increased difficulty doing his check book and having more difficulty to get around and a lift chair was recently bought. Patient/Caregiver Goals To go home. OT Pain Assessment Pain When Pain Assessed At Rest Pain Present Pain Present Pain Reported Location Left Hip Intensity 7 Scale Used Numeric (1 - 10) M4 OT- IP ADL's Start: 08/04/19 17:31 Freq: Status: Active Protocol: Document 08/04/19 10:02 [facility] (Rec: 08/04/19 17:59 [facility] [id number]) OT [id number] Comments OT Self-Feeding Comments Not at meal time. OT ADL-Grooming Comments OT Grooming Comments Not performed. OT ADL-Dressing General Eval Lower Body Dressing Ability Total Assistance Areas Needing Assistance Socks M5 OT- IP IADL's Start: 08/04/19 17:31 Freq: Status: Active Protocol: Document 08/04/19 10:02 [facility] (Rec: 08/04/19 17:59 [facility] [id number]) OT-Instrumental Activities of Daily Living Medication Management Medication Management Comments Pt states able to do his own medications. Money Management Money Management Comments Pt states able to do his own finances, but his daughter states that he is having more difficulty with his checkbook. Meal Preparation Meal Preparation Comments Pt states he and his cook together. M6 OT- IP Functional Cognition Start: 08/04/19 17:31 Freq: Status: Active Protocol: Document 08/04/19 10:02 [facility] (Rec: 08/04/19 17:59 [facility] [id number]) Cognitive Factors Limiting Selfcare Function Cognitive Ability Level of Alertness Alert Patient Orientation Name,Place,Situation Attention Span Ability Capable of Focused Attention, Capable of Sustained Attention Ability to Follow Commands Able to Follow One Step Commands Cognitive Comments Cognitive Assessment Comments Pt able to follow simple commands, however during the eval would state, I need more time, just give me a moment. At times seems to take pt longer to process information as well. Pt needing vc, tactile and hand over hand assist for safety cues and awareness. OT- Vision and Hearing OT- Hearing Assessment OT- Hearing Assessment WFL M7 OT- IP Mobility and Balance Start: 08/04/19 17:31 Freq: Status: Active Protocol: Document 08/04/19 10:02 [facility] (Rec: 08/04/19 17:59 [facility] [id number]) OT- Bed Mobility Assessment Supine to Sit Supine to Sit Assist Total Assistance,2 Person Assistance,Head of Bed Elevated,Bedrails Sit to Supine Sit to Supine Assist Total Assistance,2 Person Assistance Scooting Scooting to Edge of Bed Total Assistance,2 Person Assistance OT-Transfer Assessment Comments Mobility Comments Pt dependent to help move his left LE and in addition needing assist to help bend and move his RLE as well. Assist from behind to pull on green pad to help get pt upright. While sitting pt having difficulty to sit upright and needing from initially MODA to close SBA when able to help scoot pt forwards via pad to midline. Pt not able to stand with assist x3 at this time. Able to help scoot pt up in the bed with assist of pad and bed tilted. Pt dependent x3 to help get from sitting to supine. Pt's BP initially 139 /66 and then after treatment 112/66. OT- Balance Assessment Sitting Balance and Reactions Static Sitting Balance Ability Fair Dynamic Sitting Balance Ability Poor M8 OT- IP Objective Assessments Start: 08/04/19 17:31 Freq: Status: Active Protocol: Document 08/04/19 10:02 [facility] (Rec: 08/04/19 17:59 [facility] [id number]) OT Gross Range of Motion Upper Extremity Range of Motion Assessment Within Functional Limits OT Strength Upper Extremity Strength Assessment Within Functional Limits M9 OT- IP Assessment and Plan Start: 08/04/19 17:31 Freq: Status: Active Protocol: Document 08/04/19 10:02 [facility] (Rec: 08/04/19 17:59 [facility] [id number]) OT Summary Assessment and Plan Potential Rehabilitation Potential Good Analytic Complexity at Evaluation Low Summary OT Impairments Pain,Balance,Functional Cognition,Functional Mobility, Grooming,Dressing,Toileting, Bathing,Toilet Transfers, Shower Transfers,Activity Tolerance Progress Towards Goals Progressing Toward Goals,Slow Progress due to Medical Issues ,Slow Progress due to Activity Tolerance,Slow Progress due to Cognition Assessment Summary Pt low complexity and main barriers are now having LLE 50% PWB ,just able to tolerate sitting at the edge of he bed and dependent 2-3 for bed mobility needs. Pt prior having more difficulty with balance and going to outpt therapy and having bought a lift recliner. Pt will benefit from extensive skilled rehab prior to going home as currently too great of care for his family to assist him at home. Goals Grooming Goal Standby Assistance Dressing Goal Moderate Assistance Toileting Goal Moderate Assistance Bathing Goal Moderate Assistance Toilet Transfer Goal Minimal Assistance Shower Transfer Goal Moderate Assistance Patient/Caregiver Education Goal Demonstrate Post-Op Precautions Days to Meet Goals 20 Frequency of Treatment Frequency Of Treatment Once a Day Treatment Plan OT Treatment Plan ADL Training,Functional Cognition Training,Functional Mobility,Patient/Family Education,Discharge Planning Other Treatment Recommendations and Next Transfer to [facility] with MAX A X 2 Treatment Focus with FWW or use of sliding board MODA X 2. Discharge Recommendations OT Discharge Recommendations SNF Rehab Home Equipment Needs Defer to SNF Transportation Needs at Discharge Stretcher/Ambulance
--- NOTE | 2019-08-04 11:00 | PT.IIE ---
Current Diagnoses Displaced intertrochanteric fracture of left femur, initial encounter for closed fracture (08/03/19) Surgery Performed Operation Date: 08/03/19 08:35 Actual Procedures p Intramedullary Nailing Femur(Left) - Bolivar Decker MD Surgical History (Last Reviewed 08/03/19 @ 09:17 by Bolivar Decker MD) History of right knee joint replacement (Acute) Medical History (Last Reviewed 08/03/19 @ 09:17 by Bolivar Decker MD) Balance disorder (Chronic) CAD (coronary artery disease) (Chronic) Chronic GERD (Chronic) Depression (Chronic) Gait disorder (Chronic) Hypothyroidism (Chronic) Physical Therapy Inpatient Evaluation/Re-Eval M1 PT/OT-IP Prior Functional Status Start: 08/03/19 16:39 Freq: NEEDED Status: Active Protocol: Document 08/04/19 11:00 AW (Rec: 08/04/19 12:44 AW [id number]) Medical Review Prior Functional Status Medical History Reviewed Yes Communication Pt is able to make needs known . Pt's daughter, Lily states she has noticed a slight decline in his cognition lately. He will tell stories that seem to come out of nowhere. Mobility and Gait Pt states he was modified independent with 4WW or SPC 100% of the time when out of the house but less often inside. He admits to using de anda and countertops to steady himself when not using an AD. Daughter states his mobility has declined recently and he has had outpatient PT at [facility] in [place] . Activities of Daily Living and IADL's Independent Prior Functional Level (Other details) Pt has a lift recliner at home but sleeps in a flat bed. He manages his own finances and medications. Social History Household Members spouse Living Arrangements House Number of Floors (Floors) One Floor Number of Stairs To Enter/Railing? 2 or 3 TRAMAINE depending on entrance with no railings. Home Environment High Toilet,Tub/Shower Home Equipment Four Wheel Walker,Straight Cane,Shower Seat without Backrest,Lift Recliner,Grab Bars In Shower Employment Status Retired Additional Social History Comment Pt lives with his spouse, Rochelle, in [place]. One daughter, Lily lives nearby and checks on the couple daily. Other daughters live in [place] and [place]. M2 PT-IP Current Condition Start: 08/03/19 16:39 Freq: NEEDED Status: Active Protocol: Document 08/04/19 11:00 AW (Rec: 08/04/19 12:44 AW [id number]) Physical Therapy Current Condition Current Condition Evaluation Date 08/04/19 Treatment Diagnosis L intertrochanteric femur fracture s/p CMN, difficulty in walking Onset Date 08/02/2019 Weight Bearing Status Weight Bearing Status Partial Weight Bearing Allowed Weight Bearing Amount (enter % 50% PWB LLE per Dr. Decker or #) (%) M3 PT-IP Subjective Start: 08/03/19 16:39 Freq: NEEDED Status: Active Protocol: Document 08/04/19 11:00 AW (Rec: 08/04/19 12:44 AW [id number]) Subjective Physical Therapy Visit Type Type Initial Evaluation Visit Start Time 10:02 Visit Stop Time 10:54 Total Visit Minutes 52 Notes Co-eval with OT Liliana Number of STATE [employer]ATIONS DEPUTY DIRECTOR Visits 0 Physical Therapy Visit Comments Patient Comments Pt reports 7/10 pain at rest but is willing to attempt mobility with PT and OT. Therapy Pain Assessment Pain When Pain Assessed At Rest Pain Present Pain Present Pain Reported Location Left Hip Intensity 7 Scale Used Numeric (1 - 10) Pain Behaviors Calling Out,Facial Grimacing, Guarding,Wincing Pain Management Techniques Re-positioning,Timing of Activity with Medications M4 PT-IP Mobility and Gait Start: 08/03/19 16:39 Freq: NEEDED Status: Active Protocol: Document 08/04/19 11:00 AW (Rec: 08/04/19 12:44 AW [id number]) PT-Bed Mobility Assessment Supine to Sit Supine to Sit Total Assistance Sit to Supine Sit to Supine Total Assistance Scooting Scooting to Edge of Bed Dependent Scooting Up and Down in Bed Dependent PT-Transfer Assessment Comments Mobility Comments Pt sitting up in bed upon therapy arrival. With HOB elevated, he was unable to move his left leg toward the edge of the bed, requiring total assist with OT supporting from behind and PT pivoting his legs to sit EOB. He required continuous support in sitting to keep from leaning posteriorly and max assist to scoot toward the edge of the bed. While in sitting, OT changed bed linens around him before attempting to stand. PT educated the patient on his 50% PWB restrictions. With max A x 2-3 (nursing was called in for additional help), pt was unable to bear weight on his legs, unable to stand due to increased pain. On three attempts to stand, he was unable to lean his trunk forward far enough to accept weight on his feet. The bed was placed in trendelenberg so that the patient could assist with scooting toward the HOB which he completed with max assist x 2, requiring assist to move his legs into position and then to pull his hips using the draw sheet. Sit to supine and scooting toward HOB in supine was completed total assist with three people. Pt was positioned on his right side with bed tilt feature and left with RN attending. Gait Assessment Comments Gait Comments Pt unable Stair Climbing Assessment Comments Stair Climbing Comments Pt unable PT-Balance Assessment Sitting Balance and Reactions Static Sitting Balance Ability Fair M5 PT-IP Objective Assessments Start: 08/03/19 16:39 Freq: NEEDED Status: Active Protocol: Document 08/04/19 11:00 AW (Rec: 08/04/19 12:44 AW [id number]) Orientation Orientation/Cognition Level of Alertness Alert Orientation Name,Month,Place,Situation Language Function Ability No Deficits Noted Safety Awareness Decreased Safety Awareness Memory Description Short Term Impaired Comments Pt was oriented to self, place , and situation. Also oriented to the month but not day of week or date. He used humor to deflect and possibly compensate for difficulty with short term memory. He also over-reported his baseline mobility status. Gross Range of Motion Lower Extremity ROM Assessment Left Impaired Strength Lower Extremity Strength Assessment Left Impaired Hip R 4+/5 Knee R 4+/5 Ankle B 4+/5 Coordination Assessment Gross Coordination Gross Coordination WNL Sensation Assessment Sensation Gross Sensation WNL M6 PT-IP Treatment Start: 08/03/19 16:39 Freq: NEEDED Status: Active Protocol: Document 08/04/19 11:00 AW (Rec: 08/04/19 12:44 AW [id number]) Physical Therapy Treatment Education Education Provided Precautions,Safety Equipment Issued Equipment Type and Company Provided education on role of PT, plan of care, weightbearing status. Also initiated conversation with pt and daughter regarding discharge planning and need for SNF rehab. M7 PT-IP Assessment and Plan Start: 08/03/19 16:39 Freq: NEEDED Status: Active Protocol: Document 08/04/19 11:00 AW (Rec: 08/04/19 12:44 AW [id number]) PT Summary Assessment and Plan Potential Rehabilitation Potential Good Status of Condition at Evaluation Evolving Summary Impairments Pain,ROM,Strength,Balance, Cognition,Bed Mobility, Transfers,Gait,Activity Tolerance Assessment Summary Serge is an 84 yo man who sustained an intertrochanteric femur fracture and was seen for PT evaluation on POD1 following cephalomedullary nail fixation. At baseline, pt lives with his and was modified independent with AD for household mobility and short bouts of community mobility although his daughter reports increasing difficulty with mobility recently. On evaluation, pt required total or max assist x 2-3 for bed mobility and was unable to accept weight on his feet for attempts to stand. He is unsafe to return home at this time regardless of level of assist. He requires SNF rehab at discharge for increase of independence with functional mobility, for LE strengthening , and to decrease risks associated with continued immobility. Goals Bed Mobility Goal Minimal Assistance Transfer Goal Minimal Assistance,Front Wheeled Walker Gait Goal Minimal Assistance,Front Wheel Walker Gait Distance 75 Other Goals - up/down 3 steps with SPC and min assist Days to Meet Goals 15 Frequency of Treatment Frequency Of Treatment Twice a Day Treatment Plan Physical Therapy Treatment Plan Bed Mobility Training,Transfer Training,Gait Training, Therapeutic Exercise,Balance Retraining,Post Op Education, Discharge Planning,Hot or Cold Pack,Manual Therapy Other Recommendations and Next Treatment bed mobility, attempt to stand Focus , transfer if able Recommendations To Nursing Amount of Assist Needed Mechanical Lift Discharge Recommendations PT Discharge Recommendations SNF Rehab Transportation Needs at Discharge Stretcher/Ambulance
[2019-08-04] MEDS: fentaNYL 100 MCG/2 ML INJ 12.5 MCG IV (11:16)
[2019-08-04] MEDS: LACTATED RINGERS 1,000 ML 100 ML IV ×2 (11:28)
--- NOTE | 2019-08-04 15:08 | PT.IPTN ---
Current Diagnoses Displaced intertrochanteric fracture of left femur, initial encounter for closed fracture (08/03/19) Surgery Performed Operation Date: 08/03/19 08:35 Actual Procedures p Intramedullary Nailing Femur(Left) - Bolivar Decker MD Physical Therapy Treatment Note M2 PT-IP Current Condition Start: 08/03/19 16:39 Freq: NEEDED Status: Active Protocol: Document 08/04/19 11:00 AW (Rec: 08/04/19 12:44 AW [id number]) Physical Therapy Current Condition Current Condition Evaluation Date 08/04/19 Treatment Diagnosis L intertrochanteric femur fracture s/p CMN, difficulty in walking Onset Date 08/02/2019 Weight Bearing Status Weight Bearing Status Partial Weight Bearing Allowed Weight Bearing Amount (enter % 50% PWB LLE per Dr. Decker or #) (%) M3 PT-IP Subjective Start: 08/03/19 16:39 Freq: NEEDED Status: Active Protocol: Document 08/04/19 15:08 [facility] (Rec: 08/04/19 15:57 CLB [id number]) Subjective Physical Therapy Visit Type Type Treatment Note Visit Start Time 15:08 Visit Stop Time 15:37 Total Visit Minutes 29 Notes Co-treat with PT Number of DRAG OUT MAN Visits 1 Physical Therapy Visit Comments Patient Comments Pt willing to work with therapy. Therapy Pain Assessment Pain When Pain Assessed At Rest Pain Present Pain Present Pain Reported M4 PT-IP Mobility and Gait Start: 08/03/19 16:39 Freq: NEEDED Status: Active Protocol: Document 08/04/19 15:08 [facility] (Rec: 08/04/19 15:57 CLB [id number]) PT-Bed Mobility Assessment Supine to Sit Supine to Sit Total Assistance Sit to Supine Sit to Supine Total Assistance Scooting Scooting to Edge of Bed Dependent Scooting Up and Down in Bed Dependent PT-Transfer Assessment Comments Mobility Comments Pt required Total assist with HOB elevated and use of trapeze during supine-sit. Pt unable to move LLE and required assist moving leg off bed and required assist sitting up and scooting to EOB with use of draw sheet. Pt sat on EOB for several minutes with Max A to prevent posterior lean. Pt required total assist to return to supine with bed in trendelenburg then use of draw sheet to scoot pt to HOB. Pt was left in bed with alarm on and all needs within reach. [employer]WORK[employer] present. Gait Assessment Comments Gait Comments Pt unable Stair Climbing Assessment Comments Stair Climbing Comments Pt unable PT-Balance Assessment Sitting Balance and Reactions Static Sitting Balance Ability Fair M5 PT-IP Objective Assessments Start: 08/03/19 16:39 Freq: NEEDED Status: Active Protocol: Document 08/04/19 11:00 AW (Rec: 08/04/19 12:44 AW [id number]) Orientation Orientation/Cognition Level of Alertness Alert Orientation Name,Month,Place,Situation Language Function Ability No Deficits Noted Safety Awareness Decreased Safety Awareness Memory Description Short Term Impaired Comments Pt was oriented to self, place , and situation. Also oriented to the month but not day of week or date. He used humor to deflect and possibly compensate for difficulty with short term memory. He also over-reported his baseline mobility status. Gross Range of Motion Lower Extremity ROM Assessment Left Impaired Strength Lower Extremity Strength Assessment Left Impaired Hip R 4+/5 Knee R 4+/5 Ankle B 4+/5 Coordination Assessment Gross Coordination Gross Coordination WNL Sensation Assessment Sensation Gross Sensation WNL M6 PT-IP Treatment Start: 08/03/19 16:39 Freq: NEEDED Status: Active Protocol: Document 08/04/19 11:00 AW (Rec: 08/04/19 12:44 AW [id number]) Physical Therapy Treatment Education Education Provided Precautions,Safety Equipment Issued Equipment Type and Company Provided education on role of PT, plan of care, weightbearing status. Also initiated conversation with pt and daughter regarding discharge planning and need for SNF rehab. M7 PT-IP Assessment and Plan Start: 08/03/19 16:39 Freq: NEEDED Status: Active Protocol: Document 08/04/19 15:08 [facility] (Rec: 08/04/19 15:57 CLB [id number]) PT Summary Assessment and Plan Potential Rehabilitation Potential Good Status of Condition at Evaluation Evolving Summary Impairments Pain,ROM,Strength,Balance, Cognition,Bed Mobility, Transfers,Gait,Activity Tolerance Assessment Summary Pt remains dependent requiring 2-3 persons with all bed mobility and is limited due to pain. Pt required total assist to get to EOB, pt unable to put full weight on left hip in seated position with right sided and posterior lean. At this time pt's mobility is limited due to pain and decreased activity toleranc. Pt will require SNF rehab to improve functional mobility and strength. Goals Bed Mobility Goal Minimal Assistance Transfer Goal Minimal Assistance,Front Wheeled Walker Gait Goal Minimal Assistance,Front Wheel Walker Gait Distance 75 Other Goals - up/down 3 steps with SPC and min assist Days to Meet Goals 15 Frequency of Treatment Frequency Of Treatment Twice a Day Treatment Plan Physical Therapy Treatment Plan Bed Mobility Training,Transfer Training,Gait Training, Therapeutic Exercise,Balance Retraining,Post Op Education, Discharge Planning,Hot or Cold Pack,Manual Therapy Other Recommendations and Next Treatment bed mobility, attempt to stand Focus , transfer if able Recommendations To Nursing Amount of Assist Needed Mechanical Lift Discharge Recommendations PT Discharge Recommendations SNF Rehab Transportation Needs at Discharge Stretcher/Ambulance
--- NOTE | 2019-08-04 15:37 | P.PN_ITS ---
Subjective Subjective Interval history: Patient is an 84-year-old male who is status post left intertrochanteric fracture. Patient had cmn nail placed. Patient is up with PT and OT and having exquisite pain. He is able to tolerate oral intake. Once he is able to mobilize weight-bearing as tolerated he will be deemed appropriate for transfer to retirement. Exam Vital Signs (past 8 hours): - 08/04/19 09:00 08/04/19 13:30 Temperature 98.7 F 98.7 F Pulse Rate 97 H 104 H Respiratory Rate 16 16 Blood Pressure 128/77 111/70 Pulse Oximetry 95 94 Oxygen Delivery Method Nasal Cannula Oxygen Flow Rate 0 Narrative Exam Narrative: Elderly gentleman uncomfortable with pain Lungs: Decreased breath sounds but clear to auscultation Cardiac exam: Regular rate and rhythm normal S1-S2 with a 2/6 systolic ejection Abdomen: Soft nontender nondistended Extremities: Trace edema Objective Labs Result Diagrams: 08/04/19 05:45 08/02/19 23:59 Labs: Laboratory Results - last 24 hr 08/04/19 05:45 WBC 7.2 RBC 3.35 L Hgb 9.2 L Hct 28.1 L MCV 84.1 MCH 27.5 MCHC 32.8 RDW 15.6 H Plt Count 108 L Neut % (Auto) 75.6 H Lymph % (Auto) 12.0 L [place] % (Auto) 9.0 Eos % (Auto) 2.6 Baso % (Auto) 0.8 Neut # (Auto) 5400 Lymph # (Auto) 900 L [place] # (Auto) 600 Eos # (Auto) 200 Baso # (Auto) 100 Assessment & Plan Assessment & Plan narrative: Left intertrochanteric hip fracture - Post op Day # 1 -Still with significant pain -will schedule tylenol around the clock -Tordal 30 mg times one now -oxycodone 10 mg q 3 hours prn -D/c dilaudid and fentanyl 2. History of unspecified stent placement -patient sees Dr. 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 Gait/balance disorder suspected of Parkinson's Disease -patient denies currently taking carbidopa levodopa 4. Hypothyroidism -continue home dose of levothyroxine 112 mcg p.o. daily 5. Hyperlipidemia -continue home dose of atorvastatin 40 mg p.o. daily Anticipate discharge to SNF 1-2 days Quality VTE Deep Vein Thrombosis/Pulmonary Embolism Present on Admission: No
[2019-08-04] MEDS: OXYCODONE IR 10 MG TABLET PO (15:58)
[2019-08-04] MEDS: KETOROLAC 30 MG/ML VIAL IV (15:59)
[2019-08-04] MEDS: ACETAMINOPHEN 325 MG TABLET 975 MG PO (15:59)
--- NOTE | 2019-08-04 16:06 | CM.DPC ---
DCP SNF Planning: Per MD, pt to work with PT today and tolerated surgery yesterday well but has some pain management issues today and will need SNF. Ortho and Hospitalist involved. MORENA called pt's spouse as she was attempting to determine SNF preference for d/c and she was planning to maybe determine SNF within the next couple days and SW stressed the importance of SNF preference today as pt has [facility] and will need auth which could take a couple days. Spouse will call her Dtr to determine SNF preference. MORENA met bedside with pt, spouse, and adult Dtr and explained role again and further discussed how SNF auth works. Preference is currently [facility] and maybe [facility] and they are agreeable with SNF referral. MORENA called [facility] and confirmed that they are not currently contracted with [facility]. MORENA called [facility] and they ARE contracted with pt's insurance and agreeable to review and they have male openings. SW faxed clinicals to review. [facility] previously completed. Plan: SW to follow closely tomorrow with [facility] to determine if they will accept and begin [facility] auth for SNF otherwise further SNF referral needed. Lizette Daniels, FIELD REPRESENTATIVE/HEALTH EDUCATION
--- NOTE | 2019-08-04 21:12 | PM.EVENT ---
Event Note Event Note: Informed by nursing that patient is retaining greater than 500 mls of urine. He is POD 0 introchanteric hip fracture repair today. I have ordered insertion of a tilley catheter to be removed once he is ambulatory with PT.
[2019-08-05] VITALS (14 sets, daily range): BP systolic 96–135; BP diastolic 46–70; PULSE 75–98; RESP 16–20; TEMP 36.2–37.1; O2SAT 90–96
[2019-08-05 03:14] LABS: Bilirubin Urine UA NEGATIVE (NEGATIVE); Color Urine UA YELLOW; Glucose Urine UA NEGATIVE (Negative); Ketones Urine UA NEGATIVE (NEGATIVE); Leukocyte Esterase Urine UA 2+ (NEGATIVE); Nitrite Urine UA NEGATIVE (Negative); Occult Blood Urine UA 3+ (Negative); Protein Urine UA 1+ (Negative); Urobilinogen Urine UA 0.2 E.U./dL (0.2)
[2019-08-05 03:18] LABS: Appearance Urine UA Cloudy
[2019-08-05 03:37] LABS: Bacteria Urine Many (>30); RBC Urine 1-5/HPF (0-5/HPF); WBC Urine >100/HPF (0-5/HPF)
[2019-08-05 03:38] LABS: Culture Indicated Urine Specimen Cultured
[2019-08-05] MEDS: OXYCODONE IR 10 MG TABLET PO ×3 (03:41→16:05)
[2019-08-05] MEDS: cefTRIAXone 1,000 MG in DEXTROSE 5 % IN WATER 50 ML 100 ML IV (05:52)
[2019-08-05] MEDS: LEVOTHYROXINE 112 MCG TABLET PO (05:53)
[2019-08-05] MEDS: ACETAMINOPHEN 325 MG TABLET 975 MG PO ×2 (05:53→16:05)
[2019-08-05 09:01] LABS: Hematocrit 22.9 % (41-53); Hemoglobin 7.5 g/dL (13.5-17.5)
--- NOTE | 2019-08-05 09:09 | PC.NURSE ---
Patient refused Breakfast Tray
--- NOTE | 2019-08-05 09:12 | OT.IP.TRT ---
Current Diagnoses Other postprocedural complications and disorders of genitourinary system (08/03/19) Displaced intertrochanteric fracture of left femur, initial encounter for closed fracture (08/03/19) Surgery Performed Operation Date: 08/03/19 08:35 Actual Procedures p Intramedullary Nailing Femur(Left) - Bolivar Decker MD Occupational Therapy Treatment Note M2 OT-IP Current Condition Start: 08/04/19 17:31 Freq: Status: Active Protocol: Document 08/04/19 10:02 [facility] (Rec: 08/04/19 17:59 [facility] [id number]) Occupational Therapy Current Condition Current Condition Evaluation Date 08/04/19 Treatment Diagnosis Left intertrochanteric fracture Diagnosis Onset Date 08/03/19 Post Operative Precautions Other Precautions LLE PWB 50% Weight Bearing Status Weight Bearing Status Partial Weight Bearing Allowed Weight Bearing Amount (enter % 50% for LLE or #) (%) M3 OT- IP Subjective and Pain Start: 08/04/19 17:31 Freq: Status: Active Protocol: Document 08/05/19 11:26 [facility] (Rec: 08/05/19 11:46 [facility] [email or web address]) OT- Subjective Occupational Therapy Visit Type Type Treatment Note Visit Start Time 09:12 Visit Stop Time 10:02 Total Visit Minutes 40 Occupational Therapy Visit Comments Patient Comments Pt confused and states that he wanted to get to the sink and brush his teeth as his family suppose to pick him up in an hour to go home. Patient/Caregiver Goals To go home. OT Pain Assessment Pain When Pain Assessed At Rest Pain Present Pain Present Denied Pain M4 OT- IP ADL's Start: 08/04/19 17:31 Freq: Status: Active Protocol: Document 08/05/19 11:26 [facility] (Rec: 08/05/19 11:46 [facility] [id number]) OT ADL-Grooming General Evaluation Grooming Ability Standby Assistance Areas Needing Assistance Retrieving/Set-up of Grooming Items Comments OT Grooming Comments Set-up assist for items in front on him while sitting with HOB up. OT ADL-Oral Care General Eval Oral Care Ability Independent OT ADL-Toileting General Evaluation Toileting Ability Total Assistance Comments OT Toileting Comments Pt has tilley in. M5 OT- IP IADL's Start: 08/04/19 17:31 Freq: Status: Active Protocol: Document 08/04/19 10:02 [facility] (Rec: 08/04/19 17:59 [facility] [email or web address]) OT-Instrumental Activities of Daily Living Medication Management Medication Management Comments Pt states able to do his own medications. Money Management Money Management Comments Pt states able to do his own finances, but his daughter states that he is having more difficulty with his checkbook. Meal Preparation Meal Preparation Comments Pt states he and his cook together. M6 OT- IP Functional Cognition Start: 08/04/19 17:31 Freq: Status: Active Protocol: Document 08/05/19 11:26 [facility] (Rec: 08/05/19 11:46 [facility] [email or web address]) Cognitive Factors Limiting Selfcare Function Cognitive Ability Level of Alertness Alert,Confusional State Patient Orientation Name,Place,Situation Attention Span Ability Capable of Focused Attention, Capable of Sustained Attention Ability to Follow Commands Able to Follow One Step Commands with Increased Time, Able to Follow One Step Commands with Repetition Cognitive Comments Cognitive Assessment Comments Pt confused and thinking that his cat was under the bed as making motions to pet it. Pt initially not aware that he was leaning to the right and at times after education and cues was aware. M7 OT- IP Mobility and Balance Start: 08/04/19 17:31 Freq: Status: Active Protocol: Document 08/05/19 11:26 [facility] (Rec: 08/05/19 11:46 [facility] [email or web address]) OT- Bed Mobility Assessment Supine to Sit Supine to Sit Assist Moderate Assistance,Maximum Assistance,2 Person Assistance Scooting Scooting to Edge of Bed Maximum Assistance,2 Person Assistance OT-Transfer Assessment Sit to and From Stand Sit to and from Stand Maximum Assistance,2 Person Assistance Transfers Transfer Ability Total Assistance Technique Transfer Technique Mechanical Lift Comments Mobility Comments MAX A X 3 to stand with wide FWW. Pt not able to move his left foot and needs therapist to help slide his foot over. OT- Balance Assessment Sitting Balance and Reactions Static Sitting Balance Ability Poor Dynamic Sitting Balance Ability Poor Standing Balance and Reactions Static Standing Balance Ability Poor M8 OT- IP Objective Assessments Start: 08/04/19 17:31 Freq: Status: Active Protocol: Document 08/04/19 10:02 [facility] (Rec: 08/04/19 17:59 [facility] [email or web address]) OT Gross Range of Motion Upper Extremity Range of Motion Assessment Within Functional Limits OT Strength Upper Extremity Strength Assessment Within Functional Limits M9 OT- IP Assessment and Plan Start: 08/04/19 17:31 Freq: Status: Active Protocol: Document 08/05/19 11:26 [facility] (Rec: 08/05/19 11:46 [facility] [email or web address]) OT Summary Assessment and Plan Potential Rehabilitation Potential Good Analytic Complexity at Evaluation Low Summary OT Impairments Pain,Balance,Functional Cognition,Functional Mobility, Grooming,Dressing,Toileting, Bathing,Toilet Transfers, Shower Transfers,Activity Tolerance Progress Towards Goals Slow Progress due to Activity Tolerance,Slow Progress due to Cognition Assessment Summary Pt able to stand today with MAX A X 3 to fww however at this time unable to transfer as not able to move his left leg without assist. Pt needing to use estela lift to transfer to the recliner at this time. Pt continues to have posterior lean and leaning more to the right today. Pt will benefit from skilled rehab prior to going home. Goals Grooming Goal Standby Assistance Dressing Goal Moderate Assistance Toileting Goal Moderate Assistance Bathing Goal Moderate Assistance Toilet Transfer Goal Minimal Assistance Shower Transfer Goal Moderate Assistance Patient/Caregiver Education Goal Demonstrate Post-Op Precautions Days to Meet Goals 19 Frequency of Treatment Frequency Of Treatment Once a Day Treatment Plan OT Treatment Plan ADL Training,Functional Cognition Training,Functional Mobility,Patient/Family Education,Discharge Planning Other Treatment Recommendations and Next Transfer to [facility] with MAX A X 2 Treatment Focus with FWW or use of sliding board MODA X 2. Discharge Recommendations OT Discharge Recommendations SNF Rehab Home Equipment Needs Defer to SNF Transportation Needs at Discharge Stretcher/Ambulance
[2019-08-05] MEDS: SERTRALINE 50 MG TABLET 150 MG PO (10:30)
[2019-08-05] MEDS: DOCUSATE 100 MG CAPSULE PO ×2 (10:30→20:50)
[2019-08-05] MEDS: ATORVASTATIN 20 MG TABLET 40 MG PO (10:30)
[2019-08-05] MEDS: ASPIRIN EC 81 MG TABLET PO (10:30)
--- NOTE | 2019-08-05 10:47 | P.PN_ITS ---
Subjective Subjective Date Patient Seen: 08/05/19 Interval history: Patient is 84-year-old male status post ORIF left intertrochanteric fracture. He is maximal assist at this time. Patient states his pain is better controlled. He had Martinez catheter placed last night due to 500 cc urinary retention. He has been mildly confused at times. Exam Vital Signs (past 8 hours): - 08/05/19 04:49 08/05/19 08:00 Temperature 98.6 F 98.3 F Pulse Rate 87 96 H Respiratory Rate 16 16 Blood Pressure 99/62 Pulse Oximetry 90 L 96 Oxygen Delivery Method Room Air,Nasal Cannula Oxygen Flow Rate 0 Narrative Exam Narrative: General: Elderly male alert and in no obvious distress Lungs: Clear to auscultation Heart: Regular rhythm Abdomen: Soft, nontender Extremities: Significant edema in the left thigh, mild distal pretibial edema bilaterally Objective Labs Result Diagrams: 08/05/19 08:42 08/02/19 23:59 Labs: Laboratory Results - last 24 hr 08/02/19 08/05/19 08/05/19 23:59 03:00 08:42 Hgb 7.5 L Hct 22.9 L Urine Color Yellow Urine Appearance Cloudy Urine pH 5.0 Ur Specific [place] 1.020 Urine Protein 1+ H Urine Glucose (UA) Negative Urine Ketones Negative Urine Occult Blood 3+ H Urine Nitrate Negative Urine Bilirubin Negative Urine Urobilinogen 0.2 Ur Leukocyte Esterase 2+ H Urine RBC 1-5/hpf Urine WBC >100/hpf H Urine Bacteria Many (>30) H Ur Culture Indicated? Specimen cultured Blood Type A Positive Antibody Screen Negative Crossmatch See Detail Assessment & Plan Assessment & Plan narrative: 1. Left intertrochanteric hip fracture - Post op Day # 2 -improved pain control on Tylenol and oxycodone -oxycodone 10 mg q 3 hours prn -continue PT/OT evaluation 2. History of unspecified stent placement -patient sees Dr. Villanueva, affiliate marketing manager -ASA 81 mg daily, atorvastatin 40 mg daily 3. Acute blood loss anemia secondary to hip fracture, active -significant drop in hemoglobin 12.2 to 7.5 with blood pressure is on low side -transfuse 2 units PRBC with Lasix 40 mg IV in between units 4. Hypothyroidism -continue home dose of levothyroxine 112 mcg p.o. daily 5. Postop urinary retention, active -patient has history of BPH and takes Cardura -continue Martinez catheter -resume Cardura 8 mg HS 6. Postop delirium/encephalopathy, mild, active -patient with some confusion, saw his cat in the room, has not been anxious or agitated, delirium could be secondary to opioid analgesics, anemia, urinary retention -continue to monitor DVT prophylaxis: Lovenox 40 mg subcu daily Anticipate discharge to SNF tomorrow if stable Quality VTE Deep Vein Thrombosis/Pulmonary Embolism Present on Admission: No
--- NOTE | 2019-08-05 11:45 | PT.IPTN ---
Current Diagnoses Other postprocedural complications and disorders of genitourinary system (08/03/19) Displaced intertrochanteric fracture of left femur, initial encounter for closed fracture (08/03/19) Surgery Performed Operation Date: 08/03/19 08:35 Actual Procedures p Intramedullary Nailing Femur(Left) - Bolivar Decker MD Physical Therapy Treatment Note M2 PT-IP Current Condition Start: 08/03/19 16:39 Freq: NEEDED Status: Active Protocol: Document 08/04/19 11:00 AW (Rec: 08/04/19 12:44 AW [id number]) Physical Therapy Current Condition Current Condition Evaluation Date 08/04/19 Treatment Diagnosis L intertrochanteric femur fracture s/p CMN, difficulty in walking Onset Date 08/02/2019 Weight Bearing Status Weight Bearing Status Partial Weight Bearing Allowed Weight Bearing Amount (enter % 50% PWB LLE per Dr. Decker or #) (%) M3 PT-IP Subjective Start: 08/03/19 16:39 Freq: NEEDED Status: Active Protocol: Document 08/05/19 11:09 AW (Rec: 08/05/19 11:45 AW [id number]) Subjective Physical Therapy Visit Type Type Treatment Note Visit Start Time 09:20 Visit Stop Time 09:51 Total Visit Minutes 31 Notes Co-treat with ROSANNA Ford Number of [place] OF E[place] Visits 0 Physical Therapy Visit Comments Patient Comments Pt reporting minimal pain at rest, willing to participate with therapy. Therapy Pain Assessment Pain When Pain Assessed At Rest Pain Present Pain Present Pain Reported M4 PT-IP Mobility and Gait Start: 08/03/19 16:39 Freq: NEEDED Status: Active Protocol: Document 08/05/19 11:09 AW (Rec: 08/05/19 11:45 AW [id number]) PT-Bed Mobility Assessment Supine to Sit Supine to Sit Moderate Assistance,Maximum Assistance,2 Person Assistance ,Head of Bed Elevated,Bedrails Scooting Scooting to Edge of Bed Dependent PT-Transfer Assessment Sit to and From Stand Sit to and from Stand Maximum Assistance,2 Person Assistance,Use of Upper Extremities Equipment Transfer Assistive Device Gait Belt,Front Wheeled Walker Orthotic/Prosthetic Devices or Brace: No Transfers Transfer Destination Chair Transfer Technique Mechanical Lift Comments Mobility Comments Pt required mod to max assist x 2 for supine to sit using the trapeze, HOB elevated. He was able to participate by using his right leg to push toward the edge of the bed but needed assist with the draw sheet to rotate his hips toward EOB. In sitting, he leaned to the right and posteriorly, requiring min to mod A at all times to avoid slumping. Pt reported he could feel himself leaning to the right but was unable to find and hold midline for more than 2 seconds. Using the FWW and max assist x 3, pt stood with cues for quad activation. GRID INSPECTOR stood in front pulling the patient's weight anteriorly while PT and OT stood on either side for support and to block his feet/knees. In standing, he continued to exhibit strong lean to the right and to the back. Pt attempted to advance his left foot, but was unable, requiring OT assist to facilitate knee flexion and limb advancement. At that point, his right knee began to buckle so he was assisted to seated position EOB. Pt was then transferred to the chair via mechanical lift and reclined with pillows placed to correct rightward lean, fresh ice pack applied, chair alarm armed, call light and all needs within reach. Gait Assessment Comments Gait Comments Pt unable Stair Climbing Assessment Comments Stair Climbing Comments Pt unable PT-Balance Assessment Sitting Balance and Reactions Static Sitting Balance Ability Poor Dynamic Sitting Balance Ability Poor Standing Balance and Reactions Static Standing Balance Ability Poor Comments Other Balance Tests/Deviations/Treatment See mobility comments for : notes on pt's rightward and posterior lean in sitting and standing. M5 PT-IP Objective Assessments Start: 08/03/19 16:39 Freq: NEEDED Status: Active Protocol: Document 08/04/19 11:00 AW (Rec: 08/04/19 12:44 AW [id number]) Orientation Orientation/Cognition Level of Alertness Alert Orientation Name,Month,Place,Situation Language Function Ability No Deficits Noted Safety Awareness Decreased Safety Awareness Memory Description Short Term Impaired Comments Pt was oriented to self, place , and situation. Also oriented to the month but not day of week or date. He used humor to deflect and possibly compensate for difficulty with short term memory. He also over-reported his baseline mobility status. Gross Range of Motion Lower Extremity ROM Assessment Left Impaired Strength Lower Extremity Strength Assessment Left Impaired Hip R 4+/5 Knee R 4+/5 Ankle B 4+/5 Coordination Assessment Gross Coordination Gross Coordination WNL Sensation Assessment Sensation Gross Sensation WNL M6 PT-IP Treatment Start: 08/03/19 16:39 Freq: NEEDED Status: Active Protocol: Document 08/05/19 11:09 AW (Rec: 08/05/19 11:45 AW [id number]) Physical Therapy Treatment Education Education Provided Precautions,Weight Bearing Status,Safety M7 PT-IP Assessment and Plan Start: 08/03/19 16:39 Freq: NEEDED Status: Active Protocol: Document 08/05/19 11:09 AW (Rec: 08/05/19 11:45 AW [id number]) PT Summary Assessment and Plan Potential Rehabilitation Potential Good Status of Condition at Evaluation Evolving Summary Impairments Pain,ROM,Strength,Balance, Cognition,Bed Mobility, Transfers,Gait,Activity Tolerance Progress Towards Goals Slow Progress due to Pain,Slow Progress due to Medical Issues Assessment Summary Pt able to participate more with bed mobility due to improvement in pain control. He tolerated standing with max support ~2 minutes and attempted to take a step but was unable. He tolerated mechanical lift transfer but continued to exhibit right and posterior lean in sitting and standing, unable to find and maintain midline. MD informed of pt's lean and of pt's confusion (talking about his cat, Nida, in the room, and persistently asking where his went). Goals Bed Mobility Goal Minimal Assistance Transfer Goal Minimal Assistance,Front Wheeled Walker Gait Goal Minimal Assistance,Front Wheel Walker Gait Distance 75 Other Goals - up/down 3 steps with SPC and min assist Days to Meet Goals 15 Frequency of Treatment Frequency Of Treatment Twice a Day Treatment Plan Physical Therapy Treatment Plan Bed Mobility Training,Transfer Training,Gait Training, Therapeutic Exercise,Balance Retraining,Post Op Education, Discharge Planning,Hot or Cold Pack,Manual Therapy Other Recommendations and Next Treatment bed mobility, attempt to stand Focus , transfer if able Recommendations To Nursing Amount of Assist Needed Mechanical Lift Discharge Recommendations PT Discharge Recommendations SNF Rehab Transportation Needs at Discharge Stretcher/Ambulance
--- NOTE | 2019-08-05 13:13 | PC.NURSE ---
Dayshift Note: Pt checked on and assessed. Pt noted to have pronounced confusion and experiencing hallucinations this am that were not present yesterday. Pt with tilley catheter in place, + UTI. Denies pain. PO oxycodone used for pain when present. Pt helped to chair with estela lift by PT. Blood transfusion 2 units ordered with iv lasix in between units. Pt is now sitting up in chair, tolerating diet. Call light in reach. Chair alarm on and functioning. Will continue to monitor, notify MD changes.
--- NOTE | 2019-08-05 14:22 | PT.IPTN ---
Current Diagnoses Other postprocedural complications and disorders of genitourinary system (08/03/19) Displaced intertrochanteric fracture of left femur, initial encounter for closed fracture (08/03/19) Surgery Performed Operation Date: 08/03/19 08:35 Actual Procedures p Intramedullary Nailing Femur(Left) - Bolivar Decker MD Physical Therapy Treatment Note M2 PT-IP Current Condition Start: 08/03/19 16:39 Freq: NEEDED Status: Active Protocol: Document 08/04/19 11:00 AW (Rec: 08/04/19 12:44 AW [id number]) Physical Therapy Current Condition Current Condition Evaluation Date 08/04/19 Treatment Diagnosis L intertrochanteric femur fracture s/p CMN, difficulty in walking Onset Date 08/02/2019 Weight Bearing Status Weight Bearing Status Partial Weight Bearing Allowed Weight Bearing Amount (enter % 50% PWB LLE per Dr. Decker or #) (%) M3 PT-IP Subjective Start: 08/03/19 16:39 Freq: NEEDED Status: Active Protocol: Document 08/05/19 13:50 SP (Rec: 08/05/19 15:09 SP [id number]) Subjective Physical Therapy Visit Type Type Treatment Note Visit Start Time 13:50 Visit Stop Time 14:22 Total Visit Minutes 32 Notes PT Aide assisted mobility during treatment. 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 Therapy Pain Assessment Pain When Pain Assessed During Mobility Pain Present Pain Present Pain Reported Location Left Hip Intensity 5 Pain Behaviors Facial Grimacing,Guarding, Moaning,Wincing Pain Management Techniques Re-positioning,Timing of Activity with Medications M4 PT-IP Mobility and Gait Start: 08/03/19 16:39 Freq: NEEDED Status: Active Protocol: Document 08/05/19 13:50 SP (Rec: 08/05/19 15:09 SP [id number]) PT-Bed Mobility Assessment Sit to Supine Sit to Supine Maximum Assistance,2 Person Assistance,Bedrails PT-Transfer Assessment Sit to and From Stand Sit to and from Stand Maximum Assistance,2 Person Assistance,Use of Upper Extremities Equipment Transfer Assistive Device Gait Belt,Front Wheeled Walker Orthotic/Prosthetic Devices or Brace: No Transfers Transfer Destination Bed Transfer Technique Squat Pivot Transfer Ability Level of Assist Maximum Assistance,2 Person Assistance,Use of Upper Extremities Comments Mobility Comments Pt was seated reclined in chair when arrived. Max A of 2 persons with Max cuing and [place] for proper hand placement and support for trunk forward lean within precautions <90deg hip flexion seated then come to standing using FWW,cued for hand placement to push up from chair arms then transtion to fWW. Pt required heavy Max A of 2 persons x2 repetitions but unable to reposition RLE to pivot chair to bed so changed to R squat pivot transfer with [place] RUE positioning to bed handle for self support. Pt demonstrated LLE out in front <50% WB throughout transfers as directed. Pt was unable to complete lateral scoot EOB with Max A of 2 person. Completed sitting to supine Max A of 2 persons with support for trunk to transition to laying onto pillow and BLE into bed then repositioning LLE to center in bed. Pt required Max of of 2 persons to roll to R to reposition transfer pad and use of support to complete scoot up in bed, patient was encouraged to use RLE WB into bed and BUE on trapeze over head to provide opportunity to self performance. Pt was laying in bed when with bed alarm on, calll light and all needs in reach. Nurse was in room starting IV when left. Gait Assessment Comments Gait Comments Pt unable to reposition BLE in standing using fWW and Max A of 2 person, complete squat pivot chair to bed to R. Stair Climbing Assessment Comments Stair Climbing Comments Pt unable PT-Balance Assessment Sitting Balance and Reactions Static Sitting Balance Ability Poor Dynamic Sitting Balance Ability Poor Standing Balance and Reactions Static Standing Balance Ability Poor Dynamic Standing Balance Ability Poor Device Used FWW Comments Other Balance Tests/Deviations/Treatment See mobility comments on : patient's rightward and posterior lean in sitting and standing, requiring Max A of 2 persons with Max cuing for hip hinge foward, proper hand placement and sequencing with difficulty understaning and following directions. M5 PT-IP Objective Assessments Start: 08/03/19 16:39 Freq: NEEDED Status: Active Protocol: Document 08/04/19 11:00 AW (Rec: 08/04/19 12:44 AW [id number]) Orientation Orientation/Cognition Level of Alertness Alert Orientation Name,Month,Place,Situation Language Function Ability No Deficits Noted Safety Awareness Decreased Safety Awareness Memory Description Short Term Impaired Comments Pt was oriented to self, place , and situation. Also oriented to the month but not day of week or date. He used humor to deflect and possibly compensate for difficulty with short term memory. He also over-reported his baseline mobility status. Gross Range of Motion Lower Extremity ROM Assessment Left Impaired Strength Lower Extremity Strength Assessment Left Impaired Hip R 4+/5 Knee R 4+/5 Ankle B 4+/5 Coordination Assessment Gross Coordination Gross Coordination WNL Sensation Assessment Sensation Gross Sensation WNL M6 PT-IP Treatment Start: 08/03/19 16:39 Freq: NEEDED Status: Active Protocol: Document 08/05/19 13:50 SP (Rec: 08/05/19 15:09 SP [id number]) Physical Therapy Treatment Education Education Provided Precautions,Weight Bearing Status,Safety M7 PT-IP Assessment and Plan Start: 08/03/19 16:39 Freq: NEEDED Status: Active Protocol: Document 08/05/19 13:50 SP (Rec: 08/05/19 15:09 SP [id number]) PT Summary Assessment and Plan Potential Rehabilitation Potential Good Status of Condition at Evaluation Evolving Summary Impairments Pain,ROM,Strength,Balance, Cognition,Bed Mobility, Transfers,Gait,Activity Tolerance Progress Towards Goals Slow Progress due to Pain,Slow Progress due to Medical Issues,Slow Progress due to Activity Tolerance Assessment Summary Pt able to participate more with sit to stands Max A of 2 persons and cuing for forward wt shift secondary to retro and R lateral lean using heavy BUE WB on FWW but unable to reposition RLE, completed squat pivot Max A of 2 persons chair to bed. Pt required Mod - Max A of 1 person to maintain sitting balance with cuing for self participation. PT transfers only, Nursing use of mechanical lift. Pt requires continued acite skilled PT to progress strength, ROM to progress functional mobility. Goals Bed Mobility Goal Minimal Assistance Transfer Goal Minimal Assistance,Front Wheeled Walker Gait Goal Minimal Assistance,Front Wheel Walker Gait Distance 75 Other Goals - up/down 3 steps with SPC and min assist Days to Meet Goals 15 Frequency of Treatment Frequency Of Treatment Twice a Day Treatment Plan Physical Therapy Treatment Plan Bed Mobility Training,Transfer Training,Gait Training, Therapeutic Exercise,Balance Retraining,Post Op Education, Discharge Planning,Hot or Cold Pack,Manual Therapy Other Recommendations and Next Treatment bed mobility, sit to stands, Focus attempt transfer if able Recommendations To Nursing Amount of Assist Needed Mechanical Lift Discharge Recommendations PT Discharge Recommendations SNF Rehab Transportation Needs at Discharge Stretcher/Ambulance
--- NOTE | 2019-08-05 14:30 | CM.DPC ---
DCP: continued: case received and discuss in Bedside Team Rounds. Noted that Maryam TAVAREZ was reviewing pt for acceptance. Received a call from Rita/[facility] stating that pt has been accepted and she will now be working on the [facility] MED Adv auth. Called her back now to check on status of that auth. PT and OT are working with pt. PASRR: completed 08/02 by Dominique Coronado: review at d/c as per protocol. DCP team to continue to follow.
--- NOTE | 2019-08-05 14:41 | PM.PN.1 ---
Subjective Subjective Date Patient Seen: 08/05/19 Interval history: Patient is POD#2 s/p Left hip intertan nail with Dr. Decker. Pain has been well controlled on Oxycodone and Tylenol. He has been OOB with PT today. Having some confusion and hallucinating his cat. Urinalysis positive for UTI. Exam Vital Signs (past 8 hours): - 08/05/19 08:00 08/05/19 11:00 08/05/19 11:07 Temperature 98.3 F 98.7 F 98.7 F Pulse Rate 96 H 97 H 97 H Respiratory Rate 16 18 18 Blood Pressure 99/62 107/57 L 107/57 L Pulse Oximetry 96 91 08/05/19 11:23 08/05/19 13:29 Temperature 97.9 F 98.4 F Pulse Rate 95 H 96 H Respiratory Rate 16 16 Blood Pressure 103/51 L 120/50 L Pulse Oximetry 95 Oxygen Delivery Method Room Air Oxygen Flow Rate 1 Narrative Exam Narrative: 84 year old male resting in bed. Aquacel dressings in place over left lateral thigh with minimal drainage. Patient able to flex/extend the toes. Palpable pedal pulse. Objective Labs Result Diagrams: 08/05/19 08:42 08/02/19 23:59 Labs: Laboratory Results - last 24 hr 08/02/19 08/05/19 08/05/19 23:59 03:00 08:42 Hgb 7.5 L Hct 22.9 L Urine Color Yellow Urine Appearance Cloudy Urine pH 5.0 Ur Specific [place] 1.020 Urine Protein 1+ H Urine Glucose (UA) Negative Urine Ketones Negative Urine Occult Blood 3+ H Urine Nitrate Negative Urine Bilirubin Negative Urine Urobilinogen 0.2 Ur Leukocyte Esterase 2+ H Urine RBC 1-5/hpf Urine WBC >100/hpf H Urine Bacteria Many (>30) H Ur Culture Indicated? Specimen cultured Blood Type A Positive Antibody Screen Negative Crossmatch See Detail Assessment & Plan Assessment & Plan narrative: Patient progressing as expected. He may WBAT with PT/OT. Medicine is primary team. Will likely require discharge to SNF when medically stable. Outpatient follow up in [address] Decker. Quality VTE Deep Vein Thrombosis/Pulmonary Embolism Present on Admission: No
[2019-08-05] MEDS: FUROSEMIDE 40 MG/4 ML VIAL IV (15:35)
--- NOTE | 2019-08-05 21:47 | PC.NURSE ---
Indu shift note: Patient awake and alert, oriented to self, place, date, and situation, however, occasionally having auditory hallucinations. Spoke with via phone after dinner. Second unit of PRBC administered this shift, no s/sx of transfusion reaction, afebrile. Lasix dose admin in between units of PRBCs, no change in WOB or adventitious breath sounds noted. Continue on O2 at 1L via NC, sats 93%. Repositioning while in bed, ate 100% on dinner, good PO intake. OUtput > 1500ml via FC. Hiccups noted for approximately an hour, then stopped. No c/o heartburn or chest discomfort. C/O pain to left hip, lower back, medicated with Oxycodone as ordered with adequate relief. Bed alarm active, call light within reach.
[2019-08-06] VITALS (8 sets, daily range): BP systolic 101–133; BP diastolic 56–79; PULSE 68–83; RESP 16–20; TEMP 36.3–37.1; O2SAT 91–94
--- NOTE | 2019-08-06 02:24 | PC.NURSE ---
Addendum entered by Jaclyn Lezama R.N. 08/06/19 06:43: Karen REYES notified of patient's sodium level and she ordered a regular diet instead of heart healthy. Patient mental status still the same, Karen added a consult to social work. Original Note: Patient is very confused this night, state's can you see my cat, can you help get my cat down, he's right up there watching me. Patient has had no sleep on this shift. Patient is very restless. Karen REYES notified, 3mg Melatonin ordered PRN for bed time.
[2019-08-06] MEDS: MELATONIN 3 MG TABLET PO (02:34)
[2019-08-06 05:33] LABS: Add Manual Diff / Slide Review NO; Basophils Absolute Auto 0 /uL (0-100); Basophils Percent Auto 0.6 % (0-2); Eosinophils Absolute Auto 200 /uL (0-450); Eosinophils Percent Auto 2.1 % (2-4); Hemoglobin 9.5 g/dL (13.5-17.5); Lymphocytes Absolute Auto 800 /uL (1100-4500); Lymphocytes Percent Auto 9.8 % (25-40); Mean Corpuscular HGB Conc 33.9 % (30-36); Mean Corpuscular Hemoglobin 28.6 PG (26-34); Mean Corpuscular Volume 84.2 fL (80-100); Monocytes Absolute Auto 600 /uL (0-900); Monocytes Percent Auto 6.8 % (3-14); Neutrophils Absolute Auto 7000 /uL (1500-7000); Neutrophils Percent Auto 80.7 % (50-75); Platelet Count 120 X10^3/uL (150-400); Red Blood Cell Count 3.34 X10^6/uL (4.5-5.9); Red Cell Distribution Width 15.7 % (11.6-14.8); White Blood Cell Count 8.6 X10^3/uL (4.5-11.0)
[2019-08-06 05:41] LABS: BUN Creatinine Ratio 22.4 (6-22); Blood Urea Nitrogen 32 mg/dL (9-20); Calcium 8.3 mg/dL (8.4-10.2); Carbon Dioxide 24 mmol/L (22-32); Chloride 102 mmol/L (98-107); Glucose 121 mg/dL (80-110); HEMOLYSIS < 15 (0-50); Sodium 133 mmol/L (137-145)
[2019-08-06 05:49] LABS: Hematocrit 28.1 % (41-53)
[2019-08-06] MEDS: LEVOTHYROXINE 112 MCG TABLET PO (06:10)
[2019-08-06] MEDS: CEFTRIAXONE 1 GM/50 ML FROZ.PIGGY IV (06:10)
[2019-08-06] MEDS: POTASSIUM CHLORIDE 20 MEQ TAB PO ×2 (09:03→17:40)
[2019-08-06] MEDS: ASPIRIN EC 81 MG TABLET PO (09:03)
[2019-08-06] MEDS: ACETAMINOPHEN 325 MG TABLET 975 MG PO ×2 (09:03→15:29)
[2019-08-06] MEDS: DOCUSATE 100 MG CAPSULE PO ×2 (09:04→20:22)
[2019-08-06] MEDS: SENNOSIDES 8.6 MG TABLET 17.2 MG PO (09:04)
[2019-08-06] MEDS: ENOXAPARIN 40 MG/0.4 ML SYRINGE SUBCUT (09:04)
[2019-08-06] MEDS: ATORVASTATIN 20 MG TABLET 40 MG PO (09:04)
[2019-08-06] MEDS: FUROSEMIDE 40 MG/4 ML VIAL IV (09:07)
[2019-08-06] MEDS: SERTRALINE 50 MG TABLET 150 MG PO (09:07)
[2019-08-06] MEDS: MAGNESIUM HYDROXIDE 30 ML UDC PO (09:22)
--- NOTE | 2019-08-06 09:40 | P.PN_ITS ---
Subjective Subjective Date Patient Seen: 08/06/19 Time Patient Seen: 09:40 Interval history: Pain is mild. Denies fever chills. No nausea vomiting. Exam Vital Signs (past 8 hours): - 08/06/19 05:45 08/06/19 07:35 Temperature 97.4 F L 98.6 F Pulse Rate 75 75 Respiratory Rate 16 17 Blood Pressure 127/79 120/66 Pulse Oximetry 91 94 Oxygen Delivery Method Nasal Cannula Oxygen Flow Rate 1 Narrative Exam Narrative: 84-year-old male resting comfortably in bed in no apparent distress. Mild drainage noted on the dressing. Dressings are otherwise intact. Ecchymosis present generally about the left hip. Motor functions intact distal left lower extremity. Sensation grossly intact to light touch. Objective Labs Result Diagrams: 08/06/19 05:25 08/06/19 05:25 Labs: Laboratory Results - last 24 hr 08/02/19 08/06/19 08/06/19 23:59 05:25 05:25 WBC 8.6 RBC 3.34 L Hgb 9.5 L Hct 28.1 L MCV 84.2 MCH 28.6 MCHC 33.9 RDW 15.7 H Plt Count 120 L Neut % (Auto) 80.7 H Lymph % (Auto) 9.8 L Jackson % (Auto) 6.8 Eos % (Auto) 2.1 Baso % (Auto) 0.6 Neut # (Auto) 7000 Lymph # (Auto) 800 L Jackson # (Auto) 600 Eos # (Auto) 200 Baso # (Auto) 0 Sodium 133 L Potassium 4.0 Chloride 102 Carbon Dioxide 24 BUN 32 H Creatinine 1.43 H Estimated GFR 47.0 L BUN/Creatinine Ratio 22.4 H Glucose 121 H Calcium 8.3 L Blood Type A Positive Antibody Screen Negative Crossmatch See Detail Assessment & Plan Post-op Postoperative Procedures: Procedures Operation Date: 08/03/19 08:35 Actual Procedures Side Surgeon p Intramedullary Nailing Femur Left Bolivar Decker MD Postop day 3 status post CMN left femur. WBAT left LE. Follow-up with Dr. chandra PT in 2 weeks. Discharge per hospitalist when medically stable. Quality VTE Deep Vein Thrombosis/Pulmonary Embolism Present on Admission: No
--- NOTE | 2019-08-06 11:02 | P.PN_ITS ---
Subjective Subjective Date Patient Seen: 08/06/19 Interval history: Patient is 84-year-old male status post ORIF left intertrochanteric fracture. He remains maximal assist. Hospital course complicated by delirium. He has not been sleeping at nights. He wants to get his keys and drive himself home. He also had Martinez catheter reinserted due to 500 cc urinary retention. He has not had bowel movement for 4 days. Exam Vital Signs (past 8 hours): - 08/06/19 05:45 08/06/19 07:35 Temperature 97.4 F L 98.6 F Pulse Rate 75 75 Respiratory Rate 16 17 Blood Pressure 127/79 120/66 Pulse Oximetry 91 94 Oxygen Delivery Method Room Air Oxygen Flow Rate 1 Narrative Exam Narrative: General: Elderly male alert who is alert and in no obvious distress other than confusion Lungs: Bilateral expiratory wheeze Heart: Regular rhythm Abdomen: Soft, nontender Extremities: Significant edema in the left thigh, mild distal pretibial edema bilaterally Neurological: Oriented to person and place Objective Labs Result Diagrams: 08/06/19 05:25 08/06/19 05:25 Labs: Laboratory Results - last 24 hr 08/02/19 08/06/19 08/06/19 23:59 05:25 05:25 WBC 8.6 RBC 3.34 L Hgb 9.5 L Hct 28.1 L MCV 84.2 MCH 28.6 MCHC 33.9 RDW 15.7 H Plt Count 120 L Neut % (Auto) 80.7 H Lymph % (Auto) 9.8 L [place] % (Auto) 6.8 Eos % (Auto) 2.1 Baso % (Auto) 0.6 Neut # (Auto) 7000 Lymph # (Auto) 800 L [place] # (Auto) 600 Eos # (Auto) 200 Baso # (Auto) 0 Sodium 133 L Potassium 4.0 Chloride 102 Carbon Dioxide 24 BUN 32 H Creatinine 1.43 H Estimated GFR 47.0 L BUN/Creatinine Ratio 22.4 H Glucose 121 H Calcium 8.3 L Blood Type A Positive Antibody Screen Negative Crossmatch See Detail Assessment & Plan Assessment & Plan narrative: 1. Left intertrochanteric hip fracture - Post op Day # 3 -improved pain control on schedule Tylenol -oxycodone 5 mg q.6 hours as needed (dose reduced from 10 mg) -continue PT/OT evaluation 2. Acute postop delirium/encephalopathy, active -reasons unclear, urinary retention treated with Martinez catheter, urine culture negative, has received only a couple of doses of oxycodone a day, may be constipated -not agitated or combative but has not been sleeping at night -no diagnosis of dementia -melatonin 3 mg HS as needed -decreased oxycodone from 10 mg to 5 mg q.6 hours as needed -address constipation with MOM and senna 3. Acute pulmonary edema due to fluid overload, active -wheezing on exam and weight is up 5 kg since admission, sat 91% room air -received Lasix IV after blood transfusion 08/05/2019 -Lasix 40 mg IV reordered for a.m. 08/06/2019 with oral K supplementation 4. Postop urinary retention, active -patient has history of BPH and takes Cardura -continue Martinez catheter -continue Cardura 8 mg HS 5. Acute blood loss anemia secondary to hip fracture, active -significant drop in hemoglobin 12.2 to 7.5 with blood pressure on low side -transfused 2 units PRBC on 08/05/2019 with Lasix 40 mg IV in between units -improved H&H 6. History of unspecified stent placement -patient sees Dr. Villanueva, staff respiratory therapist -ASA 81 mg daily, atorvastatin 40 mg daily 7. Hypothyroidism -continue home dose of levothyroxine 112 mcg p.o. daily DVT prophylaxis: Lovenox 40 mg subcu daily Awaiting SNF rehab authorization. Anticipate discharge in next 1-2 days. I spoke by phone and updated Ilsa on patient's status and plan of care. Quality VTE Deep Vein Thrombosis/Pulmonary Embolism Present on Admission: No
--- NOTE | 2019-08-06 11:05 | OT.IP.TRT ---
Current Diagnoses Other postprocedural complications and disorders of genitourinary system (08/03/19) Displaced intertrochanteric fracture of left femur, initial encounter for closed fracture (08/03/19) Surgery Performed Operation Date: 08/03/19 08:35 Actual Procedures p Intramedullary Nailing Femur(Left) - Bolivar Decker MD Occupational Therapy Treatment Note M2 OT-IP Current Condition Start: 08/04/19 17:31 Freq: Status: Active Protocol: Document 08/04/19 10:02 [facility] (Rec: 08/04/19 17:59 [facility] [id number]) Occupational Therapy Current Condition Current Condition Evaluation Date 08/04/19 Treatment Diagnosis Left intertrochanteric fracture Diagnosis Onset Date 08/03/19 Post Operative Precautions Other Precautions LLE PWB 50% Weight Bearing Status Weight Bearing Status Partial Weight Bearing Allowed Weight Bearing Amount (enter % 50% for LLE or #) (%) M3 OT- IP Subjective and Pain Start: 08/04/19 17:31 Freq: Status: Active Protocol: Document 08/06/19 11:05 [facility] (Rec: 08/06/19 16:27 [facility] [id number]) OT- Subjective Occupational Therapy Visit Type Type Treatment Note Visit Start Time 10:15 Visit Stop Time 11:05 Total Visit Minutes 50 Notes Pt in bed when therapist arrived, leaning far to R in bed. Occupational Therapy Visit Comments Patient Comments Where is my family? Patient/Caregiver Goals pt unable to verbalize goal due to confusion OT Pain Assessment Pain When Pain Assessed After Treatment Pain Present Pain Present Reassessed FLACC Pain Scale Face Frequent/constant frown Legs Uneasy, restless, tense Activity Squirming,shifting Cry No cry (awake or asleep) Consolability Reassurable with touch FLACC Total 5 M4 OT- IP ADL's Start: 08/04/19 17:31 Freq: Status: Active Protocol: Document 08/06/19 11:05 [facility] (Rec: 08/06/19 16:27 [facility] [id number]) OT [id number] General Evaluation Self-Feeding Ability Maximum Assistance Comments OT Self-Feeding Comments Pt needs 1:1 assist for eating due to confusion, inability to attend to task and apraxia. Pt needs max verbal cues to attend to drinking protein shake from straw and needs hand over hand assist to bring container with straw to mouth . Discussed with RN/[employer]PECT[employer] FINAL. OT ADL-Grooming General Evaluation Grooming Ability Moderate Assistance Areas Needing Assistance Combing/Brushing Hair,Face Washing Comments OT Grooming Comments Pt uses washcloth and comb correctly when presented but with poor throughness due to inattention to task. OT ADL-Oral Care Comments Oral Care Comments did not occur this session OT ADL-Dressing General Eval Upper Body Dressing Ability Total Assistance Lower Body Dressing Ability Total Assistance Comments OT Dressing Comments total assist with gown management due to confusion OT ADL-Toileting General Evaluation Toileting Ability Total Assistance Comments OT Toileting Comments tilley in place OT ADL-Bathing Bathing Type Bathing Type Bed Bath General Evaluation Bathing Ability Total Assistance M6 OT- IP Functional Cognition Start: 08/04/19 17:31 Freq: Status: Active Protocol: Document 08/06/19 11:[address] [facility] (Rec: 08/06/19 16:[address] [facility] [id number]) Cognitive Factors Limiting Selfcare Function Cognitive Ability Level of Alertness Confusional State Patient Orientation Name Attention Span Ability Capable of Focused Attention, Unable to Sustain Attention Ability to Follow Commands Able to Follow One Step Commands with Increased Time, Able to Follow One Step Commands with Repetition Memory Description Immediate Impaired,Short Term Impaired,Working Impaired Safety Awareness Decreased Recall of Precautions Problem Solving Ability Unable to Identify Errors Executive Function Ability Unable to Hold Focus,Unable to Filter Distractions,Unable to Remember Details Cognitive Comments Cognitive Assessment Comments Pt oriented to self only and appears delirious with some visual hallucinations noted. Pt appears to be seeing persons in room that are not there, and later pt reported seeing live monkey in room. RN aware. M7 OT- IP Mobility and Balance Start: 08/04/19 17:31 Freq: Status: Active Protocol: Document 08/06/19 11:05 [facility] (Rec: 08/06/19 16:[address] [facility] [id number]) OT- Bed Mobility Assessment Rolling Type of Rolling Roll to Right,Roll to Left Level of Assistance Maximum Assistance,2 Person Assistance OT-Transfer Assessment Transfers Transfer Ability Total Assistance Technique Transfer Technique Mechanical Lift Comments Mobility Comments Ceiling lift needed for transfers at present due to poor sitting balance and inability to bring trunk to midline in sitting.Pt leaning away from painful L hip. OT- Gait Assessment Comments Gait Ability Comments pt non ambulatory at present OT- Balance Assessment Sitting Balance and Reactions Static Sitting Balance Ability Poor Comments Other Balance Tests/Deviations/Treatment Worked on bringing trunk towards midline in chair via dynamic reaching activities to L. Pt does best with sub cortical automatic tasks due to current level of confusion. M8 OT- IP Objective Assessments Start: 08/04/19 17:31 Freq: Status: Active Protocol: Document 08/04/19 10:02 [facility] (Rec: 08/04/19 17:59 [facility] [id number]) OT Gross Range of Motion Upper Extremity Range of Motion Assessment Within Functional Limits OT Strength Upper Extremity Strength Assessment Within Functional Limits M9 OT- IP Assessment and Plan Start: 08/04/19 17:31 Freq: Status: Active Protocol: Document 08/06/19 11:05 [facility] (Rec: 08/06/19 16:27 [facility] [id number]) OT Summary Assessment and Plan Summary OT Impairments Pain,Strength,Balance, Functional Cognition, Functional Mobility,Self- Feeding,Grooming,Dressing, Toileting,Bathing,Toilet Transfers,Shower Transfers, Activity Tolerance Progress Towards Goals Slow Progress due to Pain,Slow Progress due to Medical Issues,Slow Progress due to Activity Tolerance,Slow Progress due to Cognition Assessment Summary Pt oriented to self only this session and appears delirious with visual hallucinations noted as described above with RN/MD aware. Pt does follow one step commands with increased time and repetition. Pt total assist with all self care at present including self feeding due to inability to sustain attention to task. Nursing aware and will provide 1:1 assist to pt for meals to ensure adequate oral intake. Pt able to participate in dynamic sitting balance activities after ceiling lift transfer to chair. Pt tends to lean away from painful L hip. He does best with subcortical automatic tasks at present due to current cognitive status. Pt will need SNF for further care and rehab services at d/c . Goals Self-Feeding Goal Standby Assistance Grooming Goal Standby Assistance Dressing Goal Moderate Assistance Toileting Goal Moderate Assistance Bathing Goal Moderate Assistance Toilet Transfer Goal Minimal Assistance Shower Transfer Goal Moderate Assistance Patient/Caregiver Education Goal Demonstrate Post-Op Precautions Days to Meet Goals 20 Frequency of Treatment Frequency Of Treatment Once a Day Treatment Plan OT Treatment Plan ADL Training,Functional Cognition Training,Functional Mobility,Patient/Family Education,Discharge Planning Other Treatment Recommendations and Next see at meal, ceiling lift to Treatment Focus chair Discharge Recommendations OT Discharge Recommendations SNF Rehab Home Equipment Needs Defer to SNF Transportation Needs at Discharge Stretcher/Ambulance
--- NOTE | 2019-08-06 11:12 | CM.DPC ---
DCP Cont: Was informed that patient has noted some confusion here in hospital. At times, will ask where his car is. Last conversation between this planner intern and , she did mention that patient does have history of some confusion, but not diagnosed with dementia. Attempted to call today to discuss further, but phone continued to ring with no voice mail. Spoke to Nury at [facility] to follow up with admission. Nury stated that she should hear back from insurance today, but not sure what time. They are confirming that they will accept patient once authorization is complete. P: DCP to continue to follow. Plan is for [facility] once that insurance authorization is complete. Ivonne Montoya RN/Nuclear Powerplant Mechanic Helper
--- NOTE | 2019-08-06 11:15 | PT.IPTN ---
Current Diagnoses Other postprocedural complications and disorders of genitourinary system (08/03/19) Displaced intertrochanteric fracture of left femur, initial encounter for closed fracture (08/03/19) Surgery Performed Operation Date: 08/03/19 08:35 Actual Procedures p Intramedullary Nailing Femur(Left) - Bolivar Decker MD Physical Therapy Treatment Note M2 PT-IP Current Condition Start: 08/03/19 16:39 Freq: NEEDED Status: Active Protocol: Document 08/04/19 11:00 AW (Rec: 08/04/19 12:44 AW [id number]) Physical Therapy Current Condition Current Condition Evaluation Date 08/04/19 Treatment Diagnosis L intertrochanteric femur fracture s/p CMN, difficulty in walking Onset Date 08/02/2019 Weight Bearing Status Weight Bearing Status Partial Weight Bearing Allowed Weight Bearing Amount (enter % 50% PWB LLE per Dr. Decker or #) (%) M3 PT-IP Subjective Start: 08/03/19 16:39 Freq: NEEDED Status: Active Protocol: Document 08/06/19 12:04 AW (Rec: 08/06/19 12:26 AW [id number]) Subjective Physical Therapy Visit Type Type Treatment Note Visit Start Time 10:20 Visit Stop Time 11:01 Total Visit Minutes 41 Notes Co-treat with OT Shy. ALEX's progress note states pt may WBAT, but activity order has not been changed from 50% PWB. Number of SKIDDER Visits 0 Physical Therapy Visit Comments Patient Comments Pt not complaining of pain, but winces with movement. Willing to work with therapy. Therapy Pain Assessment Pain When Pain Assessed During Mobility Pain Present Pain Present Pain Reported Location Left Hip Pain Behaviors Facial Grimacing,Guarding, Wincing Pain Management Techniques Re-positioning,Timing of Activity with Medications M4 PT-IP Mobility and Gait Start: 08/03/19 16:39 Freq: NEEDED Status: Active Protocol: Document 08/06/19 12:04 AW (Rec: 08/06/19 12:26 AW [id number]) PT-Bed Mobility Assessment Rolling Type of Rolling Bilateral Level of Assist Maximal Assistance,2 Person Assistance PT-Transfer Assessment Transfers Transfer Destination Chair Transfer Technique Mechanical Lift Comments Mobility Comments Pt sitting up in bed upon PT/ OT arrival. He required max assist x 2 to roll side to side for placement of the lift sling. Using the estela, he was transferred to the chair where he was noted to be leaning toward the right. The chair was moved to in front of the sink/mirror for visual feedback. Pt asked if he could see his rightward lean. He stated Yes, of course, I've always been like that. However, any shift toward midline resulted in visible facial grimacing. Pt was asked to correct his lean. He reached for the sink with his right arm but did not shift toward midline. OT positioned herself on pt's left side and encouraged him to lean toward her, using wadded up paper towels and asking pt to reach and place them in the waste basket at first and then in a cup. She held the cup below the pt's sight line so that he had to attempt to lean toward his left to view the target. On 10 attempts, pt had 3 successful trials, requiring PT min assist from the right to push toward his left. He was encouraged with simple commands and tactile cues to push himself with his right hand toward his left. At end of treatment, pt was positioned in the chair with pillows on his right side to partially correct his lean. Table with all needs was placed to his left in an attempt to habituate him to leftward leaning. Pt was able to use his left hand to hold an Ensure bottle and use a straw to finish the entire serving with no overt signs of aspiration. Gait Assessment Comments Gait Comments Holding standing attempts and gait until pt able to find and maintain midline in sitting. PT-Balance Assessment Sitting Balance and Reactions Static Sitting Balance Ability Poor Dynamic Sitting Balance Ability Poor Comments Other Balance Tests/Deviations/Treatment See mobility comments : M5 PT-IP Objective Assessments Start: 08/03/19 16:39 Freq: NEEDED Status: Active Protocol: Document 08/04/19 11:00 AW (Rec: 08/04/19 12:44 AW [id number]) Orientation Orientation/Cognition Level of Alertness Alert Orientation Name,Month,Place,Situation Language Function Ability No Deficits Noted Safety Awareness Decreased Safety Awareness Memory Description Short Term Impaired Comments Pt was oriented to self, place , and situation. Also oriented to the month but not day of week or date. He used humor to deflect and possibly compensate for difficulty with short term memory. He also over-reported his baseline mobility status. Gross Range of Motion Lower Extremity ROM Assessment Left Impaired Strength Lower Extremity Strength Assessment Left Impaired Hip R 4+/5 Knee R 4+/5 Ankle B 4+/5 Coordination Assessment Gross Coordination Gross Coordination WNL Sensation Assessment Sensation Gross Sensation WNL M6 PT-IP Treatment Start: 08/03/19 16:39 Freq: NEEDED Status: Active Protocol: Document 08/06/19 12:04 AW (Rec: 08/06/19 12:26 AW [id number]) Physical Therapy Treatment Education Education Provided Safety M7 PT-IP Assessment and Plan Start: 08/03/19 16:39 Freq: NEEDED Status: Active Protocol: Document 08/06/19 12:04 AW (Rec: 08/06/19 12:26 AW [id number]) PT Summary Assessment and Plan Summary Impairments Pain,ROM,Strength,Balance, Cognition,Bed Mobility, Transfers,Gait,Activity Tolerance Progress Towards Goals Slow Progress due to Pain,Slow Progress due to Medical Issues,Slow Progress due to Activity Tolerance Assessment Summary Pt unable to find and maintain midline in sitting. Will change focus of treatment to sitting balance and dynamic weight shift at this time in preparation for standing and gait activities. Also awaiting clarification from ortho on weightbearing status. Pt is confused and reports auditory and visual hallucinations (I found a live monkey. Look. Over there). He does best with simple one-step commands coming from a single source. Recommend all items be placed to his left side as much as possible at this time and 1:1 feeds due to pt's poor ability to attend to task. Discussed these recommendations with nursing. Added new sitting goal to POC. Goals Bed Mobility Goal Minimal Assistance Transfer Goal Minimal Assistance,Front Wheeled Walker Gait Goal Minimal Assistance,Front Wheel Walker Gait Distance 75 Other Goals - Pt will sit midline with or without UE support for 1 minute - up/down 3 steps with SPC and min assist Days to Meet Goals 15 Frequency of Treatment Frequency Of Treatment Twice a Day Treatment Plan Physical Therapy Treatment Plan Bed Mobility Training,Transfer Training,Gait Training, Therapeutic Exercise,Balance Retraining,Post Op Education, Discharge Planning,Hot or Cold Pack,Manual Therapy Other Recommendations and Next Treatment bed mobility, sitting balance, Focus dynamic weight shift to the left side Recommendations To Nursing Amount of Assist Needed Mechanical Lift Discharge Recommendations PT Discharge Recommendations SNF Rehab Transportation Needs at Discharge Stretcher/Ambulance
--- NOTE | 2019-08-06 15:03 | PT.IPTN ---
Current Diagnoses Other postprocedural complications and disorders of genitourinary system (08/03/19) Displaced intertrochanteric fracture of left femur, initial encounter for closed fracture (08/03/19) Surgery Performed Operation Date: 08/03/19 08:35 Actual Procedures p Intramedullary Nailing Femur(Left) - Bolivar Decker MD Physical Therapy Treatment Note M2 PT-IP Current Condition Start: 08/03/19 16:39 Freq: NEEDED Status: Active Protocol: Document 08/04/19 11:00 AW (Rec: 08/04/19 12:44 AW [id number]) Physical Therapy Current Condition Current Condition Evaluation Date 08/04/19 Treatment Diagnosis L intertrochanteric femur fracture s/p CMN, difficulty in walking Onset Date 08/02/2019 Weight Bearing Status Weight Bearing Status Partial Weight Bearing Allowed Weight Bearing Amount (enter % 50% PWB LLE per Dr. Decker or #) (%) M3 PT-IP Subjective Start: 08/03/19 16:39 Freq: NEEDED Status: Active Protocol: Document 08/06/19 14:39 SP (Rec: 08/06/19 15:41 SP [id number]) Subjective Physical Therapy Visit Type Type Treatment Note Visit Start Time 14:39 Visit Stop Time 15:03 Total Visit Minutes 36 Notes WELT BUTTER HAND in room assisting mobility with during tx. Physical Therapy Visit Comments Patient Comments Pt no complaints of pain at rest but winces and little moaning with movement. Pt willing to work with therapy. Therapy Pain Assessment Pain When Pain Assessed During Mobility Pain Present Pain Present Pain Reported Location Left Hip Intensity 5 Scale Used 0/10 at rest, 5/10 with movement Pain Behaviors Facial Grimacing,Moaning, Wincing Pain Management Techniques Re-positioning,Timing of Activity with Medications M4 PT-IP Mobility and Gait Start: 08/03/19 16:39 Freq: NEEDED Status: Active Protocol: Document 08/06/19 14:39 SP (Rec: 08/06/19 15:41 SP [id number]) PT-Bed Mobility Assessment Rolling Type of Rolling Bilateral Level of Assist Moderate Assistance,Maximal Assistance,2 Person Assistance PT-Transfer Assessment Comments Mobility Comments Pt was reclined in chair when arrived. WELT BUTTER HAND in room answering call light and willing to assist with mobility during treatment. PT placed hold on standing and transfers until able to increase sitting self performance and finding midline. Pt required total assist of LLE gently descent to floor while Max A of 2 person repostioned chair upright. Pt required Max A of 2 persons to assist trunk flexion to sit upright in chair for sititng balance then repositioning of sling downward behind his back with cuing and Max A of 1 for L>R wt shift and [place] cues for BUE use of chair arms for self assist. GENERALIST and WELT BUTTER HAND assisted patient to bed via mechanical lift, support by GENERALIST to L>R LE during transfer. Pt required Max A x1, Mod A x1 while educating patient use bed rails and trapeze and RLE bent WB on bed for self performance during log roll L then R to remove gait belt and sling from under patient. GENERALIST instructed patient on LE exercises with dependence support to LLE required, see notes. GENERALIST donned SCD's to calves for circulation support BLE. Pt had bed alarm on and call light and all needs in reach. Gait Assessment Comments Gait Comments Holding standing attempts and gait until pt able to find and maintain midline in sitting. Stair Climbing Assessment Comments Stair Climbing Comments Pt unable PT-Balance Assessment Sitting Balance and Reactions Static Sitting Balance Ability Poor Dynamic Sitting Balance Ability Poor Comments Other Balance Tests/Deviations/Treatment See mobility comments : M5 PT-IP Objective Assessments Start: 08/03/19 16:39 Freq: NEEDED Status: Active Protocol: Document 08/04/19 11:00 AW (Rec: 08/04/19 12:44 AW [id number]) Orientation Orientation/Cognition Level of Alertness Alert Orientation Name,Month,Place,Situation Language Function Ability No Deficits Noted Safety Awareness Decreased Safety Awareness Memory Description Short Term Impaired Comments Pt was oriented to self, place , and situation. Also oriented to the month but not day of week or date. He used humor to deflect and possibly compensate for difficulty with short term memory. He also over-reported his baseline mobility status. Gross Range of Motion Lower Extremity ROM Assessment Left Impaired Strength Lower Extremity Strength Assessment Left Impaired Hip R 4+/5 Knee R 4+/5 Ankle B 4+/5 Coordination Assessment Gross Coordination Gross Coordination WNL Sensation Assessment Sensation Gross Sensation WNL M6 PT-IP Treatment Start: 08/03/19 16:39 Freq: NEEDED Status: Active Protocol: Document 08/06/19 14:39 SP (Rec: 08/06/19 15:41 SP [id number]) Physical Therapy Treatment Exercises Exercises Ankle Pumps,Gluteal Sets,Quad Sets,Heel Slides,Seated Knee Flexion/Extension Education Education Provided Safety M7 PT-IP Assessment and Plan Start: 08/03/19 16:39 Freq: NEEDED Status: Active Protocol: Document 08/06/19 14:39 SP (Rec: 08/06/19 15:41 SP [id number]) PT Summary Assessment and Plan Potential Rehabilitation Potential Good Status of Condition at Evaluation Evolving Summary Impairments Pain,ROM,Strength,Balance, Cognition,Bed Mobility, Transfers,Gait,Activity Tolerance Progress Towards Goals Slow Progress due to Pain,Slow Progress due to Medical Issues,Slow Progress due to Activity Tolerance Assessment Summary Pt unable to find and maintain midline in sitting. Will change focus of treatment to sitting balance and dynamic weight shift at this time in preparation for standing and gait activities. Also awaiting clarification from ortho on weightbearing status. Pt is confused and makes statements not appropriate to task at hand move that can I kicked it, can 3 feet away from him when trying to report what will try to complete in PT session. He does best with simple one-step commands coming from a single source. Recommend all items be placed to his left side as much as possible at this time and 1:1 feeds due to pt's poor ability to attend to task. Goals Bed Mobility Goal Minimal Assistance Transfer Goal Minimal Assistance,Front Wheeled Walker Gait Goal Minimal Assistance,Front Wheel Walker Gait Distance 75 Other Goals - Pt will sit midline with or without UE support for 1 minute - up/down 3 steps with SPC and min assist Days to Meet Goals 15 Frequency of Treatment Frequency Of Treatment Twice a Day Treatment Plan Physical Therapy Treatment Plan Bed Mobility Training,Transfer Training,Gait Training, Therapeutic Exercise,Balance Retraining,Post Op Education, Discharge Planning,Hot or Cold Pack,Manual Therapy Other Recommendations and Next Treatment bed mobility, sitting balance, Focus dynamic weight shift to the left side Recommendations To Nursing Amount of Assist Needed Mechanical Lift Discharge Recommendations PT Discharge Recommendations SNF Rehab Transportation Needs at Discharge Stretcher/Ambulance
--- NOTE | 2019-08-06 18:43 | PC.NURSE ---
Addendum entered by Anitra Jefferson R.N. 08/06/19 21:24: No BM this shift, last noted BM documented on 08/01, notified Karen REYES, suggested AR Supp. No new order obtained. Patient taking senna, MOM, and colace as ordered PO. Original Note: Indu shift note: Patient awake, alert, oriented to self, situation, and year only. He is calm, and cooperative, confused at times and needs reorientation. He is wide awake at each recheck, encouraged to nap and decreased environmental stimuli. On RA, 96%, exp WH noted diffused. Clear yellow urine to FC, draining. Large bruising post op to left lateral thigh, healing. SCDs in place. No c/o pain, no discomfort noted. High fall risk precautions maintained. Repositioning frequently, cooperative with staff. Edema to Left upper thigh, 4+, CMS intact to LLE.
[2019-08-06] MEDS: DOXAZOSIN 4 MG TABLET 8 MG PO (20:22)
[2019-08-06] MEDS: OLANZapine 2.5 MG TABLET 5 MG PO (20:24)
[2019-08-07] MEDS: ACETAMINOPHEN 325 MG TABLET 975 MG PO ×2 (00:02→09:54)
--- NOTE | 2019-08-07 00:16 | PC.NURSE ---
Patient is awake; oriented to self, birthdate and year only. Seems to be hallucinating as picking at things in the air and talking in room when no one in there; states he needs to talk with his people. Breath sounds with expiratory wheezing throughout; RA sat 92%. HRR. Denies nausea. BT present; abdomen is soft. Has had no BM since 08/01 and has received MOM, Colace and Senna. Indwelling catheter is patent; urine is clear yellow. Aquacel dressings to left hip are intact with drainage noted and outlined. Left LE is edematous. Bruising around dressings, posterior knee, back and coccyx. Small abrasion on left cheek noted. Denies pain when asked; medicated with scheduled Tylenol. Wearing bilateral calf SCD's. Is assisted to reposition as making only small changes by himself. Out of bed with PT only. Fall risk score is high and bed alarm is activated.
[2019-08-07 03:00] VITALS: BP 102/55; PULSE 71; RESP 16; TEMP 37.3; O2SAT 94
[2019-08-07] MEDS: LEVOTHYROXINE 112 MCG TABLET PO (06:10)
[2019-08-07] MEDS: PANTOPRAZOLE 20 MG TABLET PO (06:11)
[2019-08-07 07:40] VITALS: BP 133/62; PULSE 80; RESP 17; TEMP 37.3; O2SAT 93
--- NOTE | 2019-08-07 08:55 | PC.NURSE ---
Addendum entered by Norma Chatterjee R.N. 08/07/19 13:35: Patient appears to still be sleeping, breathing unlabored, resting comfortably. Brief checked post suppository. No BM at this time. FC is patent and draining. Bed alarm on, SCD's on. Original Note: Patient appears asleep at this time. Snoring, breathing is unlabored. Eyes are closed. SCD's on bilaterally. Saline locked. FC is patent and draining. Patient appears comfortable, no signs of pain. Once patient is awake, this RN will administer AM medications
--- NOTE | 2019-08-07 09:19 | CM.DPC ---
Addendum entered by Ivonne Montoya R.N. 08/07/19 10:42: Nury from [facility] left a message during team rounds. Stated that she has been having a hard time getting authorization due to his plan, but is continuing to work on it. Discussed patient during team rounds, and according to hospitalist, Dr. Correa, should be stable for discharge tomorrow. Left Nury at [facility] a message, for she didn't answer, letting her know that patient will be stable for discharge, and inquired if she needed any assistance getting this authorization. Awaiting return call back. Discussed patient with Diane in P.T, who mentioned that patient is slow to progress, and max assist, and will not be able to sit up in wheel-chair, recommending stretcher transfer. Called , Ilsa, and let her know that this would be the safest transfer, and that it is most likely not covered by his insurance. She is aware of this. Updated her on discharge, and that [facility] is continuing to work on his insurance authorization. Original Note: DCP Cont: Left a message with Nury at [facility] to inquire if they have received authorization as of yet. If no response from [facility] in a couple of hours, will have Nadya, care program resident, call [facility] to check on status. P: DCP will continue to follow up with [facility] and will attempt to call insurance company as well, if no response within the next couple of hours. Ivonne Montoya RN/Airbrush Artist Technical
[2019-08-07] MEDS: ENOXAPARIN 40 MG/0.4 ML SYRINGE SUBCUT (09:52)
[2019-08-07] MEDS: SENNOSIDES 8.6 MG TABLET 17.2 MG PO (09:52)
[2019-08-07] MEDS: ATORVASTATIN 20 MG TABLET 40 MG PO (09:52)
[2019-08-07] MEDS: DOCUSATE 100 MG CAPSULE PO ×2 (09:52→22:19)
[2019-08-07] MEDS: ASPIRIN EC 81 MG TABLET PO (09:52)
[2019-08-07] MEDS: SODIUM CHLORIDE 0.9% FLUSH 10 ML IV ×2 (09:53→20:08)
[2019-08-07] MEDS: SERTRALINE 50 MG TABLET 150 MG PO (09:53)
[2019-08-07] MEDS: BISACODYL 10 MG SUPP PR ×2 (10:00→10:09)
--- NOTE | 2019-08-07 10:09 | PM.PN.1 ---
Subjective Subjective Date Patient Seen: 08/07/19 Time Patient Seen: 10:09 Interval history: Patient is 84-year-old male status post CMN left intertrochanteric fracture. He remains maximal assist. He has not had bowel movement for 4 days. Very tired this am. Exam Vital Signs (past 8 hours): - 08/07/19 03:00 08/07/19 07:40 Temperature 99.1 F 99.1 F Pulse Rate 71 80 Respiratory Rate 16 17 Blood Pressure 102/55 L 133/62 Pulse Oximetry 94 93 Oxygen Delivery Method Room Air Oxygen Flow Rate 0 Narrative Exam Narrative: NV intact in LLE. Able to wiggle toes and ankle. Dressings c/d/i with small amount of strike-through Objective Labs Result Diagrams: 08/06/19 05:25 08/06/19 05:25 Assessment & Plan Assessment & Plan narrative: Postop day 4 status post CMN left femur. 50% weight bearing on LLE. Follow-up with Dr. Decker in 2 weeks. Discharge per hospitalist when medically stable. Time Spent With Patient Time with patient: less than 15 minutes Quality VTE Deep Vein Thrombosis/Pulmonary Embolism Present on Admission: No
--- NOTE | 2019-08-07 10:29 | P.PN_ITS ---
Subjective Subjective Date Patient Seen: 08/07/19 Interval history: Serge Hunt is an 84-year-old male with a past medical history significant for CAD status post stenting, hypothyroidism, GERD, and depression who presented after ground level fall with left hip fracture. Patient is sitting in bed sleeping but arousable. His confusion seems to be resolving and he is alert oriented to person and time. He is no longer having hallucinations. He has no complaints and denies headache, chest pain, shortness of breath, abdominal pain, nausea, vomiting, fever, chills, dysuria or diarrhea. He is voiding via Martinez catheter without difficulty. He has not had a bowel movement since admission and a bowel regimen has been implemented and plan to use suppository today. Continue physical and occupational therapy. Exam Vital Signs (past 8 hours): - 08/07/19 03:00 08/07/19 07:40 Temperature 99.1 F 99.1 F Pulse Rate 71 80 Respiratory Rate 16 17 Blood Pressure 102/55 L 133/62 Pulse Oximetry 94 93 Oxygen Delivery Method Room Air Oxygen Flow Rate 0 Narrative Exam Narrative: General: Elderly gentleman sitting in bed and in no acute distress, mildly somnolent but arousable, well-developed, well-nourished, confusion resolving and appropriately interactive. HEENT: Normocephalic, atraumatic. External ears without defect. Pupils equal, round, and reactive to light. Anicteric sclerae, moist conjunctivae, and no lid lag. Oropharynx free of erythema and cobble stoning with moist mucosa. Neck: Supple with full range of motion. No jugular venous distension. No lymphadenopathy or thyromegaly. Cardiovascular: Regular rate and rhythm without murmurs, rubs, or gallops appreciated Pulmonary: Clear to auscultation bilaterally without crackles, wheezes, or rhonchi. Normal respiratory effort with no use of accessory muscles. Abdomen: Soft, bowel sounds present, nontender, nondistended. No hepatosplenomegaly or masses appreciated. Extremities: No clubbing, cyanosis, or edema. Left hip with bandage in place C/D/I without significant surrounding erythema or edema. Skin: Normal temperature, turgor, and texture; no rash, ulcers, or subcutaneous nodules appreciated. Neurological: Cranial nerves grossly intact. Psychiatric: Normal mood and affect. Alert and oriented to person and time. Confusion resolving. Objective Labs Result Diagrams: 08/06/19 05:25 08/06/19 05:25 Assessment & Plan Assessment & Plan narrative: Serge Hunt is an 84-year-old male with a past medical history significant for CAD status post stenting, hypothyroidism, GERD, and depression who presented after ground level fall with left hip fracture. 1. Acute pathological left intertrochanteric hip fracture, present on admission. Active. -patient presented after ground level fall with left hip pain and inability to ambulate. -left hip x-ray demonstrated comminuted, moderately displaced intertrochanteric left femur fracture. -Continue postoperative, DVT and pain management per per Orthopedic surgery. Continue scheduled Tylenol 975 mg every 8 hours and oxycodone 5 mg every 6 hours as needed for severe breakthrough pain. -Continue vitamin-D and calcium supplementation. Patient will need to be worked up and treated for osteoporosis. -Continue physical therapy and occupational therapy evaluation and treatment. 2. Acute postop delirium/encephalopathy, not present on admission. Active -Likely multifactorial and secondary to significant sleep deprivation, narcotic administration, possibly urinary retention treated with Martinez catheter with urine culture negative, and possibly constipation. -The patient is not agitated or combative and his confusion seems to be improving now that he has slept once given Zyprexa. -No previous diagnosis of dementia but likely has mild cognitive impairment v ersus dementia. -Decreased oxycodone from 10 mg to 5 mg every 6 hours as needed. -Continue to address constipation and plan to give suppository today. 3. Acute pulmonary edema due to fluid overload, not present on admission. Resolved. -Patient was previously wheezing on exam with increase in weight by 5 kg since admission. -Received Lasix 40 mg IV x 2 on 08/05/2019. 4. Postop urinary retention, present on admission. Active -Patient has history of BPH and takes Cardura. -Continue Martinez catheter and will plan voiding trial prior to discharge. -Continue Cardura 8 mg daily at bedtime. 5. Acute blood loss anemia, secondary to hip fracture, present on admission. Stable. -Significant drop in hemoglobin 12.2 to 7.5 with blood pressure on low side. -Received 2 units PRBC on 08/05/2019 with Lasix 40 mg IV in between units. Transfusion goal hemoglobin > 8.0. -Hemoglobin and hematocrit have improved. Patient is hemodynamically stable and no overt signs of bleeding. 6. Coronary artery disease with history of stent placement. -Followed by cardiology, Dr. Villanueva. -Continue aspirin 81 mg daily and atorvastatin 40 mg daily. 7. Hypothyroidism, chronic, present on admission. Stable. -Continue home dose of levothyroxine 112 mcg daily. DVT prophylaxis: Lovenox 40 mg subcu daily Disposition: Awaiting insurance authorization for intermediate facility for continued rehabilitation. Patient will likely discharge tomorrow. Quality VTE Deep Vein Thrombosis/Pulmonary Embolism Present on Admission: No
--- NOTE | 2019-08-07 11:23 | OT.IPNOTE ---
Per nursing to allow pt to sleep this AM, therefore to check on pt in PM for OT.
--- NOTE | 2019-08-07 11:29 | PT-IP ANOTE ---
OT discussed this pt with nursing who noted he was sleeping soundly for the first time in days and asked to let him sleep. Will check on this pt for PM treatment.
[2019-08-07 12:30] VITALS: BP 114/55; PULSE 65; RESP 17; TEMP 37.2; O2SAT 95
[2019-08-07 15:00] VITALS: BP 110/67; PULSE 82; RESP 18; TEMP 36.6
--- NOTE | 2019-08-07 15:30 | CM.DPC ---
Addendum entered by Ivonne Montoya R.N. 08/07/19 15:38: Confirmed with Yaneli Desouza, and Erickson Ford that patient should go BLS. Original Note: DCP Cont: Caldwell back from [facility] in admissions. Confirmed that she did receive authorization and can accept tomorrow. Let her know that BLS transportation would need to be arranged by care management, due to decreased mobility and inability to sit up, unless any changes are noted tomorrow. [facility] is stating that they would like to take patient in the morning if possible. P: BLS form is completed. Can call [facility] to set up, was updated regarding transportation not being covered. Update hospitalist, and have orders signed. Send to [employer] with [employer]. Call [employer] back with time of rock picker, and update , Ilsa. Ivonne Montoya, RN/[place] [facility]
--- NOTE | 2019-08-07 16:08 | OT.IP.TRT ---
Current Diagnoses Other postprocedural complications and disorders of genitourinary system (08/03/19) Displaced intertrochanteric fracture of left femur, initial encounter for closed fracture (08/03/19) Surgery Performed Operation Date: 08/03/19 08:35 Actual Procedures p Intramedullary Nailing Femur(Left) - Bolivar Decker MD Occupational Therapy Treatment Note M2 OT-IP Current Condition Start: 08/04/19 17:31 Freq: Status: Active Protocol: Document 08/04/19 10:02 [facility] (Rec: 08/04/19 17:59 [facility] [id number]) Occupational Therapy Current Condition Current Condition Evaluation Date 08/04/19 Treatment Diagnosis Left intertrochanteric fracture Diagnosis Onset Date 08/03/19 Post Operative Precautions Other Precautions LLE PWB 50% Weight Bearing Status Weight Bearing Status Partial Weight Bearing Allowed Weight Bearing Amount (enter % 50% for LLE or #) (%) M3 OT- IP Subjective and Pain Start: 08/04/19 17:31 Freq: Status: Active Protocol: Document 08/07/19 15:46 [facility] (Rec: 08/07/19 16:08 [facility] [id number]) OT- Subjective Occupational Therapy Visit Type Type Treatment Note Visit Start Time 14:45 Visit Stop Time 15:34 Total Visit Minutes 49 Occupational Therapy Visit Comments Patient Comments Pt very sleepy, groggy and having difficulty to wake up, but once awake agreeable to try to get up. OT Pain Assessment Pain When Pain Assessed During Mobility Pain Present Pain Present Pain Reported Location Left Hip Pain Behaviors Facial Grimacing,Wincing M4 OT- IP ADL's Start: 08/04/19 17:31 Freq: Status: Active Protocol: Document 08/07/19 15:46 [facility] (Rec: 08/07/19 16:08 [facility] [id number]) OT [id number] Comments OT Self-Feeding Comments Not at meal time, however based on grooming needs, pt will continue to benefit from 1:1 feeding at this time due to confusion. OT ADL-Grooming General Evaluation Grooming Ability Minimal Assistance Areas Needing Assistance Combing/Brushing Hair,Face Washing Comments OT Grooming Comments Assist for completeness to brush his hair. OT ADL-Oral Care General Eval Oral Care Ability Minimal Assistance Comments Oral Care Comments Assist to put toothpaste on the toothbrush, cues to sequence through task as pt very groggy and having trouble following directions. OT ADL-Dressing General Eval Lower Body Dressing Ability Total Assistance OT ADL-Toileting General Evaluation Toileting Ability Total Assistance Comments OT Toileting Comments tilley in place M5 OT- IP IADL's Start: 08/04/19 17:31 Freq: Status: Active Protocol: Document 08/04/19 10:02 [facility] (Rec: 08/04/19 17:59 [facility] [id number]) OT-Instrumental Activities of Daily Living Medication Management Medication Management Comments Pt states able to do his own medications. Money Management Money Management Comments Pt states able to do his own finances, but his daughter states that he is having more difficulty with his checkbook. Meal Preparation Meal Preparation Comments Pt states he and his cook together. M6 OT- IP Functional Cognition Start: 08/04/19 17:31 Freq: Status: Active Protocol: Document 08/07/19 15:46 [facility] (Rec: 08/07/19 16:08 [facility] [id number]) Cognitive Factors Limiting Selfcare Function Cognitive Ability Level of Alertness Confusional State Patient Orientation Name Attention Span Ability Capable of Focused Attention, Unable to Sustain Attention Ability to Follow Commands Able to Follow One Step Commands with Increased Time, Able to Follow One Step Commands with Repetition Memory Description Short Term Impaired,Working Impaired Safety Awareness Decreased Recall of Precautions Problem Solving Ability Unable to Identify Errors Executive Function Ability Unable to Hold Focus,Unable to Filter Distractions,Unable to Remember Details Cognitive Comments Cognitive Assessment Comments Pt did not have any hallucinations today and appropriate to follow simple commands. Pt when told to wait before trying to get up, able to wait . Pt also able to states his needs better today as able to tell therapist that he needed a blanket and also told therapist not to talk too loud. M7 OT- IP Mobility and Balance Start: 08/04/19 17:31 Freq: Status: Active Protocol: Document 08/07/19 15:46 [facility] (Rec: 08/07/19 16:08 [facility] [id number]) OT- Bed Mobility Assessment Supine to Sit Supine to Sit Assist Maximum Assistance,2 Person Assistance,Head of Bed Elevated,Bedrails Scooting Scooting to Edge of Bed Moderate Assistance,2 Person Assistance OT-Transfer Assessment Sit to and From Stand Sit to and from Stand Moderate Assistance,2 Person Assistance Transfers Transfer Ability Total Assistance Technique Transfer Technique Mechanical Lift Comments Mobility Comments Pt able to initiate a little more to move his left LE, and able to use RLE to help bridge for bed mobility but needing therapist to use the green pad to help slide him over. Today much improved to come to stand from high bed MAX A X 2 to MODA X 2 with FWW and able with assist from therapist able to help slide his left foot inward. Pt able to stand with MODA X 2 with FWW for 1 minute x2. Use of mechanical lift to transfer to the recliner. OT- Gait Assessment Comments Gait Ability Comments pt non ambulatory at present OT- Balance Assessment Sitting Balance and Reactions Static Sitting Balance Ability Fair Dynamic Sitting Balance Ability Poor Standing Balance and Reactions Static Standing Balance Ability Poor Comments Other Balance Tests/Deviations/Treatment Pt sitting balance improved : after getting him positioned to the edge of the bed and bed raised to accommodate his long legs. Pt still leans to the rignt to off weight his left hip due to pain. Pt able to sit with SBA from initial MODA . Pt will still benefit from stretcher/ambulance for transfers due to decreased sitting balance, and safety awareness. M8 OT- IP Objective Assessments Start: 08/04/19 17:31 Freq: Status: Active Protocol: Document 08/04/19 10:02 [facility] (Rec: 08/04/19 17:59 [facility] [id number]) OT Gross Range of Motion Upper Extremity Range of Motion Assessment Within Functional Limits OT Strength Upper Extremity Strength Assessment Within Functional Limits M9 OT- IP Assessment and Plan Start: 08/04/19 17:31 Freq: Status: Active Protocol: Document 08/07/19 15:46 [facility] (Rec: 08/07/19 16:08 [facility] [id number]) OT Summary Assessment and Plan Potential Rehabilitation Potential Good Analytic Complexity at Evaluation Low Summary OT Impairments Pain,Strength,Balance, Functional Cognition, Functional Mobility,Self- Feeding,Grooming,Dressing, Toileting,Bathing,Toilet Transfers,Shower Transfers, Activity Tolerance Progress Towards Goals Progressing Toward Goals,Slow Progress due to Pain,Slow Progress due to Activity Tolerance,Slow Progress due to Cognition Assessment Summary Pt able to tolerate standing with FWW x2 for one minute with MODA X 2 today. Pt not able to transfer at this time due to pain and inability to lift up his LLE at this time. Pt still needing extensive assist for ADl needs due to decreased ability to sequence through tasks and having trouble coordination his LUE> RUE movement due to being groggy. Pt will benefit from skilled rehab prior to going home. Goals Self-Feeding Goal Standby Assistance Grooming Goal Standby Assistance Dressing Goal Moderate Assistance Toileting Goal Moderate Assistance Bathing Goal Moderate Assistance Toilet Transfer Goal Minimal Assistance Shower Transfer Goal Moderate Assistance Patient/Caregiver Education Goal Demonstrate Post-Op Precautions Days to Meet Goals 20 Frequency of Treatment Frequency Of Treatment Once a Day Treatment Plan OT Treatment Plan ADL Training,Functional Cognition Training,Functional Mobility,Patient/Family Education,Discharge Planning Other Treatment Recommendations and Next see at meal, ceiling lift to Treatment Focus chair Discharge Recommendations OT Discharge Recommendations SNF Rehab Home Equipment Needs Defer to SNF Transportation Needs at Discharge Stretcher/Ambulance
--- NOTE | 2019-08-07 16:51 | PT.IPTN ---
Current Diagnoses Other postprocedural complications and disorders of genitourinary system (08/03/19) Displaced intertrochanteric fracture of left femur, initial encounter for closed fracture (08/03/19) Surgery Performed Operation Date: 08/03/19 08:35 Actual Procedures p Intramedullary Nailing Femur(Left) - Bolivar Decker MD Physical Therapy Treatment Note M2 PT-IP Current Condition Start: 08/03/19 16:39 Freq: NEEDED Status: Active Protocol: Document 08/04/19 11:00 AW (Rec: 08/04/19 12:44 AW [id number]) Physical Therapy Current Condition Current Condition Evaluation Date 08/04/19 Treatment Diagnosis L intertrochanteric femur fracture s/p CMN, difficulty in walking Onset Date 08/02/2019 Weight Bearing Status Weight Bearing Status Partial Weight Bearing Allowed Weight Bearing Amount (enter % 50% PWB LLE per Dr. Decker or #) (%) M3 PT-IP Subjective Start: 08/03/19 16:39 Freq: NEEDED Status: Active Protocol: Document 08/07/19 16:29 AW (Rec: 08/07/19 16:51 AW [id number]) Subjective Physical Therapy Visit Type Type Treatment Note Visit Start Time 14:45 Visit Stop Time 15:25 Total Visit Minutes 40 Notes Co-treat with OT Carolyn. ALARCON also assisted with mobility Physical Therapy Visit Comments Patient Comments Pt has been sleeping soundly all day, was difficult to rouse initially, but was fully oriented to time of day and self once awake. Therapy Pain Assessment Pain When Pain Assessed During Mobility Pain Present Pain Present Pain Reported FLACC Pain Scale Face Occasional grimace/frown Legs Uneasy, restless, tense Activity Squirming,shifting Cry No cry (awake or asleep) Consolability Reassurable with touch FLACC Total 4 M4 PT-IP Mobility and Gait Start: 08/03/19 16:39 Freq: NEEDED Status: Active Protocol: Document 08/07/19 16:29 AW (Rec: 08/07/19 16:51 AW [id number]) PT-Bed Mobility Assessment Rolling Type of Rolling Bilateral Level of Assist Moderate Assistance,Maximal Assistance,2 Person Assistance Supine to Sit Supine to Sit Maximum Assistance,2 Person Assistance,Head of Bed Elevated,Bedrails Scooting Scooting to Edge of Bed Moderate Assistance PT-Transfer Assessment Sit to and From Stand Sit to and from Stand Maximum Assistance,2 Person Assistance Transfers Transfer Destination Chair Transfer Technique Mechanical Lift Comments Mobility Comments Pt sleeping in bed upon PT and OT arrival, requiring verbal and tactile stimulation to rouse. Once awake, he required max A x 2 to roll side to side for change of briefs. HOB was then fully elevated and pt was able to abduct his left leg weakly with therapist support to guide the limb. Supine to sit required max A x 2 with HOB elevated. In sitting, pt had improved ability to support himself both with hands on the bed and with arms resting on the FWW in front of him. With bed height raised, pt was able to shift his weight forward in order to initiate weight acceptance on his feet bilaterally. He completed sit to stand twice with max A x 2 and was able to shift his weight toward the right in order to move his left foot a few inches. Each standing trial lasted ~60 seconds. After second trial, pt was transferred to the chair with mechanical lift and positioned with legs elevated. Rightward lean was less significant at this session. Pt was left with OT for further treatment. Gait Assessment Comments Gait Comments Pt unable at this time M5 PT-IP Objective Assessments Start: 08/03/19 16:39 Freq: NEEDED Status: Active Protocol: Document 08/04/19 11:00 AW (Rec: 08/04/19 12:44 AW [id number]) Orientation Orientation/Cognition Level of Alertness Alert Orientation Name,Month,Place,Situation Language Function Ability No Deficits Noted Safety Awareness Decreased Safety Awareness Memory Description Short Term Impaired Comments Pt was oriented to self, place , and situation. Also oriented to the month but not day of week or date. He used humor to deflect and possibly compensate for difficulty with short term memory. He also over-reported his baseline mobility status. Gross Range of Motion Lower Extremity ROM Assessment Left Impaired Strength Lower Extremity Strength Assessment Left Impaired Hip R 4+/5 Knee R 4+/5 Ankle B 4+/5 Coordination Assessment Gross Coordination Gross Coordination WNL Sensation Assessment Sensation Gross Sensation WNL M6 PT-IP Treatment Start: 08/03/19 16:39 Freq: NEEDED Status: Active Protocol: Document 08/07/19 16:29 AW (Rec: 08/07/19 16:51 AW [id number]) Physical Therapy Treatment Education Education Provided Safety M7 PT-IP Assessment and Plan Start: 08/03/19 16:39 Freq: NEEDED Status: Active Protocol: Document 08/07/19 16:29 AW (Rec: 08/07/19 16:51 AW [id number]) PT Summary Assessment and Plan Potential Rehabilitation Potential Good Status of Condition at Evaluation Evolving Summary Impairments Pain,ROM,Strength,Balance, Cognition,Bed Mobility, Transfers,Gait,Activity Tolerance Progress Towards Goals Slow Progress due to Pain,Slow Progress due to Medical Issues,Slow Progress due to Activity Tolerance Assessment Summary Pt more attentive this session and did not exbibit any signs of delirium during treatment. He was better able to approximate midline sitting and then to stand ~ 1 minute with successful rightward weight shift in order to move his left foot, even if only a few inches. Pt remains an excellent candidate for SNF rehab. Due to seated balance concerns and pt's size, he is not appropriate for wheelchair transport and will likely require BLS at discharge to SNF setting. Goals Bed Mobility Goal Minimal Assistance Transfer Goal Minimal Assistance,Front Wheeled Walker Gait Goal Minimal Assistance,Front Wheel Walker Gait Distance 75 Other Goals - Pt will sit midline with or without UE support for 1 minute - up/down 3 steps with SPC and min assist Days to Meet Goals 15 Frequency of Treatment Frequency Of Treatment Twice a Day Treatment Plan Physical Therapy Treatment Plan Bed Mobility Training,Transfer Training,Gait Training, Therapeutic Exercise,Balance Retraining,Post Op Education, Discharge Planning,Hot or Cold Pack,Manual Therapy Other Recommendations and Next Treatment bed mobility, seated balance, Focus standing tolerance, lateral weight shifts in standing Recommendations To Nursing Amount of Assist Needed Mechanical Lift Discharge Recommendations PT Discharge Recommendations SNF Rehab Transportation Needs at Discharge Stretcher/Ambulance
[2019-08-07 19:25] VITALS: BP 123/60; PULSE 72; RESP 18; TEMP 36.9; O2SAT 93
[2019-08-07] MEDS: MINERAL OIL 1 EACH ENEMA PR (20:20)
[2019-08-07] MEDS: DOXAZOSIN 4 MG TABLET 8 MG PO (22:19)
[2019-08-07] MEDS: OLANZapine 2.5 MG TABLET 5 MG PO (22:20)
[2019-08-07] MEDS: OXYCODONE IR 10 MG TABLET 5 MG PO (22:42)
[2019-08-07 23:15] VITALS: BP 122/70; PULSE 66; RESP 18; TEMP 36.7; O2SAT 94
--- NOTE | 2019-08-08 00:52 | PC.NURSE ---
Patient's mentation much improved tonight; is oriented except to day of week. Able to carry on conversation. Minimally forgetful stating I need to go to my bed but very cooperative when told he was going to sleep here tonight. Breath sounds still with expiratory wheezes but denies SOB and RA sat is 94%. HRR. Denies nausea. BT present but still has not had BM since 08/01; did have suppository + enema yesterday without results. Indwelling catheter is patent. Is able to turn with assist but wanting to lie on back. Bruises noted to coccyx and right buttock as well as around incision site on left thigh. Aquacel dressings to left thigh are intact with no new drainage. Leg is swollen. CMS is intact. Wearing bilateral calf SCD's. Denies pain. Refused scheduled Tylenol stating it upsets his stomach. Fall risk score is high and bed alarm is activated.
[2019-08-08 03:29] VITALS: BP 112/67; PULSE 71; RESP 18; TEMP 36.9; O2SAT 96
[2019-08-08] MEDS: LEVOTHYROXINE 112 MCG TABLET PO (06:06)
[2019-08-08 07:25] VITALS: BP 139/67; PULSE 67; RESP 18; TEMP 37.2; O2SAT 93
--- NOTE | 2019-08-08 08:20 | CM.DPNOTE ---
Addendum entered by Karla Kothari LPN 08/08/19 11:19: Just received a call from Rita saying she did not received any of the orders expect for one page. Do have fax receipt showing 15 and then 5 pages went through at 10:45 and 11:05. She says they have been very busy and she cannot find the pages. Nadya kindly agrees to remove needed documents from the snf packet, refax them, and return them to the packet. Ambulance is expected within 15 minutes. Addendum entered by Karla Kothari LPN 08/08/19 10:49: PASRR: reviewed and updated. DC summary still in draft and [facility] agrees to fax this when it is availble to [facility]. Addendum entered by Karla Kothari LPN 08/08/19 09:18: Dr. Stovall is here seeing pt and is updated re the d/c plan for today. He is doing the orders now. Ambulance/NW is set for draft roller picker at 1145. Have spoken now with Ilsa and given her the [facility] phone number. She will try to contact pt by phone in his room. Agreed to let him know that she is aware of the d/c today. RN Dena confirms bowels are still needing to move. [facility] is aware and says their facility will follow up re this process. Martinez catheter remains in place at this time. PASRR: still to be addressed pending d/c orders. Have discussed with Dr. Stovall. Original Note: DCP: continued: case received, EMR for last few days is reviewed. See that a d/c to [facility] is anticipated for today and that snf admission has been auth'd by [facility]. Left a this morning 0800 for admissions/[facility] to confirm this. ? of no bowel movement since admission and with the care team members working with pt on this. See also that ambulance is anticipated. Note that [id number] has been used in the hospital. Unclear how this will affect PASRR: will discuss in Bedside Rounds with Dr. Correa, following today as hospitalist. Will update pt and spouse Ilsa when more is known. No d/c order is in place at this time.
[2019-08-08] MEDS: SENNOSIDES 8.6 MG TABLET 17.2 MG PO (08:27)
[2019-08-08] MEDS: polyethylene glycoL 3350 17 GM POWD.PACK PO (08:27)
--- NOTE | 2019-08-08 09:19 | P.PN_ITS ---
Subjective Subjective Date Patient Seen: 08/08/19 Time Patient Seen: 09:19 Interval history: He is doing better. Still requiring assist for any mobility, even moving his leg out of bed. Exam Vital Signs (past 8 hours): - 08/08/19 03:29 08/08/19 07:25 Temperature 98.5 F 98.9 F Pulse Rate 71 67 Respiratory Rate 18 18 Blood Pressure 112/67 139/67 Pulse Oximetry 96 93 Oxygen Delivery Method Room Air Oxygen Flow Rate 0 Const Orientation: alert Extrem Other: Left hip dressing mild dry drainage. Soft calf. Easily wiggles toes Objective Labs Result Diagrams: 08/06/19 05:25 08/06/19 05:25 Assessment & Plan Post-op Postoperative Procedures: Procedures Operation Date: 08/03/19 08:35 Actual Procedures Side Surgeon p Intramedullary Nailing Femur Left Bolivar Decker MD postoperative day 5 after left hip ORIF. Still requiring maximal assistance. Stable from an orthopedic standpoint. Plan for discharge to custodial when cleared medically. Quality VTE Deep Vein Thrombosis/Pulmonary Embolism Present on Admission: No
--- NOTE | 2019-08-08 09:30 | P.DS_ITS ---
History of Present Illness History of Present Illness Date Patient Seen: 08/08/19 Chief complaint: fall left hip pain Narrative: Serge Hunt is an 84-year-old male who lives at home with his and was in his usual state of health when he got up to go to the bathroom, assisted by his , and thinks he may have tripped on his bathrobe and sustained a fall, fracturing his left hip. Patient is slightly confused per his however he is also received 2 doses of pain medications since arriving here. He denies blacking out, visual changes, neck pain, chest pain, shortness of agata ath, abdominal pain, nausea or vomiting, diarrhea or constipation. He does endorse having slow urinary stream that has been going on for approximately a year, states is currently being worked up. He also indicated that he does not have a diagnosis of Parkinson's disease however his daughter in the room states that 1 of his providers states that he does and another provider states that he does not have Parkinson's disease. He was taking carbidopa levodopa but denies taking it now. He does ambulate in his home with a walker. Patient sees , real estate account executive. He has a history of a stent placement though states that is not in his heart and is somewhere in his right upper chest. States that was done about 10 years ago. Discharge Providers Provider Date of admission: 08/03/19 01:05 Discharge Date: 08/08/19 Primary care physician: Dinora Sampson MD Consults: 08/03/19 00:45 Consult to Orthopedic Surgery Stat Comment: Consulting Provider: Bolivar Decker Reason for consultation: hip fx Has provider been notified: Yes 08/03/19 01:16 Consult to Physician Routine Comment: Consulting Provider: Bolivar Decker Reason for consultation: left hip intertrochanteric fracture Has provider been notified: Yes 08/03/19 13:28 Consult to Occupational Therapy Evaluate & Treat Comment: Physician Instructions: Evaluate and treat Consult to Physical Therapy Evaluate & Treat Comment: Physician Instructions: Evaluate and Treat 08/06/19 Consult to LIGHT EQUIPMENT OPERATOR - Search Engine Optimization Specialist Urgent Comment: Confusion, need to disc w/family re: baseline LIGHT EQUIPMENT OPERATOR Consult: Behavioral Health Assess Discharge provider: Harley Stovall MD Summary Hospital Course Discharge Diagnosis: 1. Acute pathological left intertrochanteric hip fracture, present on admission. Active. 2. Acute postop delirium/encephalopathy, not present on admission. Active 3. Acute pulmonary edema due to fluid overload, not present on admission. Resolved. 4. Postop urinary retention, present on admission. Active 5. Acute blood loss anemia, secondary to hip fracture, present on admission. Stable. 6. Coronary artery disease with history of stent placement. 7. Hypothyroidism, chronic, present on admission. Stable. DVT prophylaxis: Lovenox 40 mg subcu daily Hospital Course: 1. Acute pathological left intertrochanteric hip fracture, present on admission. Active. -patient presented after ground level fall with left hip pain and inability to ambulate. -left hip x-ray demonstrated comminuted, moderately displaced intertrochanteric left femur fracture. -Continue scheduled Tylenol 975 mg every 8 hours and oxycodone 5 mg every 6 hours as needed for severe breakthrough pain. -Continue vitamin-D and calcium supplementation. Patient will need to be worked up and treated for osteoporosis. -Continue physical therapy and occupational therapy evaluation and treatment. -discharge to [facility] for rehab today 2. Acute postop delirium/encephalopathy, not present on admission. Active -Likely multifactorial and secondary to significant sleep deprivation, narcotic administration, possibly urinary retention treated with Martinez catheter with urine culture negative, and possibly constipation. -The patient is not agitated or combative and his confusion seems to be improving now that he has slept once given Zyprexa - that will be stopped in 10 days. -No previous diagnosis of dementia but likely has mild cognitive impairment versus dementia. -Decreased oxycodone from 10 mg to 5 mg every 6 hours as needed. -Continue to address constipation 3. Acute pulmonary edema due to fluid overload, not present on admission. Resolved. -Patient was previously wheezing on exam with increase in weight by 5 kg since admission. -Received Lasix 40 mg IV x 2 on 08/05/2019. 4. Postop urinary retention, present on admission. Active -Patient has history of BPH and takes Cardura. -Continue Martinez catheter and will plan voiding trial after 2 days at [facility] as the SNF facility requested he be discharged early today instead of waiting for his voiding trial this morning. -Continue Cardura 8 mg daily at bedtime. 5. Acute blood loss anemia, secondary to hip fracture, present on admission. Stable. -Significant drop in hemoglobin 12.2 to 7.5 with blood pressure on low side. -Received 2 units PRBC on 08/05/2019 with Lasix 40 mg IV in between units. Now 9.5. -Hemoglobin and hematocrit have improved. Patient is hemodynamically stable and no overt signs of bleeding. 6. Coronary artery disease with history of stent placement. -Followed by cardiology, Dr. Villanueva. -Continue aspirin 81 mg daily and atorvastatin 40 mg daily. 7. Hypothyroidism, chronic, present on admission. Stable. -Continue home dose of levothyroxine 112 mcg daily. DVT prophylaxis: Lovenox 40 mg subcu daily Status at Discharge Cognitive/behavioral status at discharge: confused Functional status at discharge: uses cane/walker Overall status at discharge: patient is not back to baseline Time Spent with Patient Time spent: Greater than 30 minutes Exam Vital Signs (past 8 hours): - 08/08/19 03:29 08/08/19 07:25 Temperature 98.5 F 98.9 F Pulse Rate 71 67 Respiratory Rate 18 18 Blood Pressure 112/67 139/67 Pulse Oximetry 96 93 Oxygen Delivery Method Room Air Oxygen Flow Rate 0 Narrative Exam Narrative: He is alert and asks me appropriate questions such as, Is there anything else I have to do before I leave today? but at the same time is not oriented to location or date. Heart: RRR without murmur Lungs: CTAB Ext: No ankle edema. Left hip surgery site negative. Martinez Catheter in place. Objective Labs Result Diagrams: 08/06/19 05:25 08/06/19 05:25 Discharge Plan Discharge Plan Patient Disposition: SNF Transfer to: [facility] Under care of provider: Dr. Zacarias Discharge comment: Make appointment with Dr. Decker in 2 weeks. Plan trial off of Olanzapine in 10 days. Trial of removal of Martinez catheter in 2 days. Discharge orders & Medications Prescriptions: New sennosides [senna] 8.6 mg Tablet 17.2 mg PO DAILY Qty: 60 RF: 0 acetaminophen 325 mg Tablet 975 mg PO Q8H Qty: 90 RF: 0 polyethylene glycol 3350 17 gram Powder In Packet 17 gram PO DAILY PRN (Reason: Constipation) Qty: 510 RF: 0 olanzapine 2.5 mg Tablet 5 mg PO BEDTIME Qty: 10 RF: 0 docusate sodium [DOK] 100 mg Capsule 100 mg PO BID Qty: 60 RF: 0 enoxaparin [Lovenox] 40 mg/0.4 mL Syringe 40 mg SUBCUT DAILY Qty: 10 RF: 0 calcium carbonate-vitamin D3 [Oyster Shell Calcium-Vit D3] 500 mg(1,250mg) -200 unit Tablet 1 tab PO BIDWM Qty: 60 RF: 0 ondansetron HCl (PF) 4 mg/2 mL Solution 4 mg IV Q8HR PRN (Reason: Nausea And Vomiting) Qty: 30 RF: 0 oxycodone 10 mg Tablet 5 mg PO Q6H PRN (Reason: Pain, Severe (7-10)) Qty: 30 RF: 0 Continued atorvastatin [Lipitor] 40 MG tablet 40 mg PO DAILY Qty: 0 RF: 0 omeprazole 20 MG capsule,delayed release(DR/EC) 20 mg PO DAILY Qty: 0 RF: 0 levothyroxine [Synthroid] 112 MCG tablet 112 mcg PO QAM Qty: 0 RF: 0 aspirin 81 MG tablet,delayed release (DR/EC) 81 mg PO QDAY Qty: 0 RF: 0 doxazosin [Cardura] 8 MG tablet 8 mg PO BEDTIME Qty: 0 RF: 0 sertraline 100 MG tablet 150 mg PO DAILY Qty: 0 RF: 0 Follow up/Referrals: Dinora Sampson MD [Primary Care Provider] - Diet/Activity/Treatments Diet: Diet as Tolerated Activity: 50% weight bearing on left leg [facility] Rehab type: Physical therapy, Occupational therapy and Speech therapy Restrictions to mobility: 50% weight bearing on left leg until appointment with Dr. Decker in 2 weeks Discharge Data Primary Care Provider: Dinora Sampson Quality VTE Deep Vein Thrombosis/Pulmonary Embolism Present on Admission: No
--- NOTE | 2019-08-08 09:32 | PT.IPTN ---
Current Diagnoses Other postprocedural complications and disorders of genitourinary system (08/03/19) Displaced intertrochanteric fracture of left femur, initial encounter for closed fracture (08/03/19) Surgery Performed Operation Date: 08/03/19 08:35 Actual Procedures p Intramedullary Nailing Femur(Left) - Bolivar Decker MD Physical Therapy Treatment Note M2 PT-IP Current Condition Start: 08/03/19 16:39 Freq: NEEDED Status: Active Protocol: Document 08/04/19 11:00 AW (Rec: 08/04/19 12:44 AW [id number]) Physical Therapy Current Condition Current Condition Evaluation Date 08/04/19 Treatment Diagnosis L intertrochanteric femur fracture s/p CMN, difficulty in walking Onset Date 08/02/2019 Weight Bearing Status Weight Bearing Status Partial Weight Bearing Allowed Weight Bearing Amount (enter % 50% PWB LLE per Dr. Decker or #) (%) M3 PT-IP Subjective Start: 08/03/19 16:39 Freq: NEEDED Status: Active Protocol: Document 08/08/19 09:06 DCW (Rec: 08/08/19 10:33 DCW [id number]) Subjective Physical Therapy Visit Type Type Treatment Note Visit Start Time 09:06 Visit Stop Time 09:32 Total Visit Minutes 26 Notes Co-treat with ROSANNA Ford. TAX FORM PREPARER also assisted with mobility Physical Therapy Visit Comments Patient Comments Pt complaining that he would be able to move around with no difficulty if it weren't for all his medications. Therapy Pain Assessment Pain When Pain Assessed During Mobility Pain Present Pain Present Pain Reported M4 PT-IP Mobility and Gait Start: 08/03/19 16:39 Freq: NEEDED Status: Active Protocol: Document 08/08/19 09:06 DCW (Rec: 08/08/19 10:33 DCW [id number]) PT-Bed Mobility Assessment Supine to Sit Supine to Sit Moderate Assistance,Maximum Assistance,2 Person Assistance ,Head of Bed Elevated,Bedrails PT-Transfer Assessment Sit to and From Stand Sit to and from Stand Moderate Assistance,2 Person Assistance Transfers Transfer Destination Bed,Bedside Commode Transfer Technique Stand Step Pivot Transfer Ability Level of Assist Maximum Assistance,2 Person Assistance,Use of Upper Extremities Comments Mobility Comments Max A for supine->sit due to need for PT to move LE, although pt was able to partivipate in AAROM of hip. Pt performed sit<->stand transfer Mod Ax2, verbal cues to lean forward and limit retropulsion, which pt was performing due to hip pain. Stand-pivot transfer to [facility] Max Ax2 with additional TAX FORM PREPARER support, VCs to remind pt to move left foot during pivot and steps. Gait Assessment Comments Gait Comments Pt unable at this time PT-Balance Assessment Sitting Balance and Reactions Static Sitting Balance Ability Poor Dynamic Sitting Balance Ability Poor M5 PT-IP Objective Assessments Start: 08/03/19 16:39 Freq: NEEDED Status: Active Protocol: Document 08/04/19 11:00 AW (Rec: 08/04/19 12:44 AW [id number]) Orientation Orientation/Cognition Level of Alertness Alert Orientation Name,Month,Place,Situation Language Function Ability No Deficits Noted Safety Awareness Decreased Safety Awareness Memory Description Short Term Impaired Comments Pt was oriented to self, place , and situation. Also oriented to the month but not day of week or date. He used humor to deflect and possibly compensate for difficulty with short term memory. He also over-reported his baseline mobility status. Gross Range of Motion Lower Extremity ROM Assessment Left Impaired Strength Lower Extremity Strength Assessment Left Impaired Hip R 4+/5 Knee R 4+/5 Ankle B 4+/5 Coordination Assessment Gross Coordination Gross Coordination WNL Sensation Assessment Sensation Gross Sensation WNL M6 PT-IP Treatment Start: 08/03/19 16:39 Freq: NEEDED Status: Active Protocol: Document 08/08/19 09:06 DCW (Rec: 08/08/19 10:33 DCW [id number]) Physical Therapy Treatment Education Education Provided Safety M7 PT-IP Assessment and Plan Start: 08/03/19 16:39 Freq: NEEDED Status: Active Protocol: Document 08/08/19 09:06 DCW (Rec: 08/08/19 10:33 DCW [id number]) PT Summary Assessment and Plan Summary Impairments Pain,ROM,Strength,Balance, Cognition,Bed Mobility, Transfers,Gait,Activity Tolerance Progress Towards Goals Slow Progress due to Pain,Slow Progress due to Medical Issues,Slow Progress due to Activity Tolerance Assessment Summary Pt exhibited improved mobility today, was able to follow direction better and was able to transfer to [facility] with Max Ax2-3. Pt still requires near- constant verbal cues during pivot and stepping, as well as sequencing for FWW use. Planning for pt to d/c to SNF later today, will still recommend stretcher transport vs W/C, although pt is showing potential to improve. Goals Bed Mobility Goal Minimal Assistance Transfer Goal Minimal Assistance,Front Wheeled Walker Gait Goal Minimal Assistance,Front Wheel Walker Gait Distance 75 Other Goals - Pt will sit midline with or without UE support for 1 minute - up/down 3 steps with SPC and min assist Days to Meet Goals 15 Frequency of Treatment Frequency Of Treatment Twice a Day Treatment Plan Physical Therapy Treatment Plan Bed Mobility Training,Transfer Training,Gait Training, Therapeutic Exercise,Balance Retraining,Post Op Education, Discharge Planning,Hot or Cold Pack,Manual Therapy Other Recommendations and Next Treatment bed mobility, seated balance, Focus standing tolerance, lateral weight shifts in standing Recommendations To Nursing Amount of Assist Needed Mechanical Lift Discharge Recommendations PT Discharge Recommendations SNF Rehab Transportation Needs at Discharge Stretcher/Ambulance
--- NOTE | 2019-08-08 09:32 | OT.IP.TRT ---
Current Diagnoses Other postprocedural complications and disorders of genitourinary system (08/03/19) Displaced intertrochanteric fracture of left femur, initial encounter for closed fracture (08/03/19) Surgery Performed Operation Date: 08/03/19 08:35 Actual Procedures p Intramedullary Nailing Femur(Left) - Bolivar Decker MD Occupational Therapy Treatment Note M2 OT-IP Current Condition Start: 08/04/19 17:31 Freq: Status: Active Protocol: Document 08/04/19 10:02 [facility] (Rec: 08/04/19 17:59 [facility] [id number]) Occupational Therapy Current Condition Current Condition Evaluation Date 08/04/19 Treatment Diagnosis Left intertrochanteric fracture Diagnosis Onset Date 08/03/19 Post Operative Precautions Other Precautions LLE PWB 50% Weight Bearing Status Weight Bearing Status Partial Weight Bearing Allowed Weight Bearing Amount (enter % 50% for LLE or #) (%) M3 OT- IP Subjective and Pain Start: 08/04/19 17:31 Freq: Status: Active Protocol: Document 08/08/19 09:38 [facility] (Rec: 08/08/19 09:58 [facility] [id number]) OT- Subjective Occupational Therapy Visit Type Type Treatment Note Visit Start Time 09:06 Visit Stop Time 09:32 Total Visit Minutes 26 Occupational Therapy Visit Comments Patient Comments Pt agreeable to try to get up. PT/OT able to see together due to needing extensive assist for mobility needs. Patient/Caregiver Goals Pt wanting to go home. OT Pain Assessment Pain When Pain Assessed At Rest Pain Present Pain Present Denied Pain M4 OT- IP ADL's Start: 08/04/19 17:31 Freq: Status: Active Protocol: Document 08/08/19 09:38 [facility] (Rec: 08/08/19 09:58 [facility] [id number]) OT [id number] Comments OT Self-Feeding Comments Pt states not hungry and has been refusing to eat , however per aid has been drinking some ensure. OT ADL-Grooming General Evaluation Grooming Ability Standby Assistance Areas Needing Assistance Combing/Brushing Hair,Face Washing Comments OT Grooming Comments Set-up assist. OT ADL-Oral Care Comments Oral Care Comments Did not occur during the session. OT ADL-Dressing General Eval Lower Body Dressing Ability Total Assistance OT ADL-Toileting General Evaluation Toileting Ability Total Assistance Areas Needing Assistance Manage Clothing,Perform Perineal Hygiene Comments OT Toileting Comments tilley in place M5 OT- IP IADL's Start: 08/04/19 17:31 Freq: Status: Active Protocol: Document 08/04/19 10:02 [facility] (Rec: 08/04/19 17:59 [facility] [id number]) OT-Instrumental Activities of Daily Living Medication Management Medication Management Comments Pt states able to do his own medications. Money Management Money Management Comments Pt states able to do his own finances, but his daughter states that he is having more difficulty with his checkbook. Meal Preparation Meal Preparation Comments Pt states he and his cook together. M6 OT- IP Functional Cognition Start: 08/04/19 17:31 Freq: Status: Active Protocol: Document 08/08/19 09:38 [facility] (Rec: 08/08/19 09:58 [facility] [id number]) Cognitive Factors Limiting Selfcare Function Cognitive Ability Level of Alertness Alert Patient Orientation Name Attention Span Ability Capable of Focused Attention, Capable of Sustained Attention Ability to Follow Commands Able to Follow One Step Commands with Increased Time, Able to Follow One Step Commands with Repetition Memory Description Short Term Impaired Safety Awareness Decreased Recall of Precautions Problem Solving Ability Unable to Identify Errors Executive Function Ability Unable to Hold Focus,Unable to Filter Distractions,Unable to Remember Details Cognitive Comments Cognitive Assessment Comments Pt doing better to follow directions for bed mobility and transfer needs today. Pt does appear to need increased time to process information and for motor planning during mobility needs. M7 OT- IP Mobility and Balance Start: 08/04/19 17:31 Freq: Status: Active Protocol: Document 08/08/19 09:38 [facility] (Rec: 08/08/19 09:58 [facility] [id number]) OT- Bed Mobility Assessment Supine to Sit Supine to Sit Assist Moderate Assistance,Maximum Assistance,2 Person Assistance ,Head of Bed Elevated OT-Transfer Assessment Sit to and From Stand Sit to and from Stand Moderate Assistance,2 Person Assistance Transfers Transfer Ability Maximum Assistance,2 Person Assistance,Use of Upper Extremities Technique Transfer Destination Bed,Bedside Commode Transfer Technique Stand Step Pivot Devices Transfer Assistive Devices Gait Belt,Front Wheeled Walker Comments Mobility Comments Pt able to help initiate movement of LLE more today and needing less assist for therapist to move his left leg to the edge of the bed. Sit to stand MOD X 2 from the high bed and also from the [facility] when having armrest to help push up from. Pt needing MAX AX 2-3 and with FWW and able to take small steps and at times sliding his feet from side to side to help to transfer. MAX A x2 for balance, helping to keep pt upright, vc for safety awareness, assist to guide fww and at times assist to help move his feet. OT- Gait Assessment Comments Gait Ability Comments Just able to transfer only at this time OT- Balance Assessment Sitting Balance and Reactions Static Sitting Balance Ability Fair Dynamic Sitting Balance Ability Poor Standing Balance and Reactions Static Standing Balance Ability Poor Comments Other Balance Tests/Deviations/Treatment Pt still lean to the right due : to left hip pain, however better sitting balance and able to sit unsupported after scooting pt forwards to the edge of the bed close SBA. M8 OT- IP Objective Assessments Start: 08/04/19 17:31 Freq: Status: Active Protocol: Document 08/04/19 10:02 [facility] (Rec: 08/04/19 17:59 [facility] [id number]) OT Gross Range of Motion Upper Extremity Range of Motion Assessment Within Functional Limits OT Strength Upper Extremity Strength Assessment Within Functional Limits M9 OT- IP Assessment and Plan Start: 08/04/19 17:31 Freq: Status: Active Protocol: Document 08/08/19 09:38 [facility] (Rec: 08/08/19 09:58 [facility] [id number]) OT Summary Assessment and Plan Potential Rehabilitation Potential Good Analytic Complexity at Evaluation Low Summary OT Impairments Pain,Strength,Balance, Functional Cognition, Functional Mobility,Self- Feeding,Grooming,Dressing, Toileting,Bathing,Toilet Transfers,Shower Transfers, Activity Tolerance Progress Towards Goals Progressing Toward Goals Assessment Summary Pt able to tolerate transfer today MAX X 2-3 with FWW. Pt very cooperative and motivated to get better and wanting to get to the next stop,rehab. Pt will benefit form extensive skilled rehab prior to going home. Goals Self-Feeding Goal Independent Grooming Goal Independent Dressing Goal Moderate Assistance Toileting Goal Moderate Assistance Bathing Goal Moderate Assistance Toilet Transfer Goal Minimal Assistance Patient/Caregiver Education Goal Demonstrate Post-Op Precautions Days to Meet Goals 18 Frequency of Treatment Frequency Of Treatment Once a Day Treatment Plan OT Treatment Plan ADL Training,Functional Cognition Training,Functional Mobility,Patient/Family Education,Discharge Planning Other Treatment Recommendations and Next Go over LB dressing equipment Treatment Focus needs. Discharge Recommendations OT Discharge Recommendations SNF Rehab Home Equipment Needs Defer to SNF Transportation Needs at Discharge Stretcher/Ambulance
--- NOTE | 2019-08-08 10:33 | PT.IPTN ---
Current Diagnoses Other postprocedural complications and disorders of genitourinary system (08/03/19) Displaced intertrochanteric fracture of left femur, initial encounter for closed fracture (08/03/19) Surgery Performed Operation Date: 08/03/19 08:35 Actual Procedures p Intramedullary Nailing Femur(Left) - Bolivar Decker MD Physical Therapy Treatment Note M2 PT-IP Current Condition Start: 08/03/19 16:39 Freq: NEEDED Status: Active Protocol: Document 08/04/19 11:00 AW (Rec: 08/04/19 12:44 AW [id number]) Physical Therapy Current Condition Current Condition Evaluation Date 08/04/19 Treatment Diagnosis L intertrochanteric femur fracture s/p CMN, difficulty in walking Onset Date 08/02/2019 Weight Bearing Status Weight Bearing Status Partial Weight Bearing Allowed Weight Bearing Amount (enter % 50% PWB LLE per Dr. Decker or #) (%) M3 PT-IP Subjective Start: 08/03/19 16:39 Freq: NEEDED Status: Active Protocol: Document 08/08/19 09:06 [facility] (Rec: 08/08/19 10:33 [facility] [id number]) Subjective Physical Therapy Visit Type Type Treatment Note Visit Start Time 09:06 Visit Stop Time 09:32 Total Visit Minutes 26 Notes Co-treat with ROSANNA Ford. PHARMACY INFORMATICS MANAGER also assisted with mobility Physical Therapy Visit Comments Patient Comments Pt complaining that he would be able to move around with no difficulty if it weren't for all his medications. Therapy Pain Assessment Pain When Pain Assessed During Mobility Pain Present Pain Present Pain Reported M4 PT-IP Mobility and Gait Start: 08/03/19 16:39 Freq: NEEDED Status: Active Protocol: Document 08/08/19 09:06 [facility] (Rec: 08/08/19 10:33 [facility] [id number]) PT-Bed Mobility Assessment Supine to Sit Supine to Sit Moderate Assistance,Maximum Assistance,2 Person Assistance ,Head of Bed Elevated,Bedrails PT-Transfer Assessment Sit to and From Stand Sit to and from Stand Moderate Assistance,2 Person Assistance Transfers Transfer Destination Bed,Bedside Commode Transfer Technique Stand Step Pivot Transfer Ability Level of Assist Maximum Assistance,2 Person Assistance,Use of Upper Extremities Comments Mobility Comments Max A for supine->sit due to need for PT to move LE, although pt was able to partivipate in AAROM of hip. Pt performed sit<->stand transfer Mod Ax2, verbal cues to lean forward and limit retropulsion, which pt was performing due to hip pain. Stand-pivot transfer to [facility] Max Ax2 with additional PHARMACY INFORMATICS MANAGER support, VCs to remind pt to move left foot during pivot and steps. Gait Assessment Comments Gait Comments Pt unable at this time PT-Balance Assessment Sitting Balance and Reactions Static Sitting Balance Ability Poor Dynamic Sitting Balance Ability Poor M5 PT-IP Objective Assessments Start: 08/03/19 16:39 Freq: NEEDED Status: Active Protocol: Document 08/04/19 11:00 AW (Rec: 08/04/19 12:44 AW [id number]) Orientation Orientation/Cognition Level of Alertness Alert Orientation Name,Month,Place,Situation Language Function Ability No Deficits Noted Safety Awareness Decreased Safety Awareness Memory Description Short Term Impaired Comments Pt was oriented to self, place , and situation. Also oriented to the month but not day of week or date. He used humor to deflect and possibly compensate for difficulty with short term memory. He also over-reported his baseline mobility status. Gross Range of Motion Lower Extremity ROM Assessment Left Impaired Strength Lower Extremity Strength Assessment Left Impaired Hip R 4+/5 Knee R 4+/5 Ankle B 4+/5 Coordination Assessment Gross Coordination Gross Coordination WNL Sensation Assessment Sensation Gross Sensation WNL M6 PT-IP Treatment Start: 08/03/19 16:39 Freq: NEEDED Status: Active Protocol: Document 08/08/19 09:06 DC[facility] (Rec: 08/08/19 10:33 DCW [id number]) Physical Therapy Treatment Education Education Provided Safety M7 PT-IP Assessment and Plan Start: 08/03/19 16:39 Freq: NEEDED Status: Active Protocol: Document 08/08/19 09:06 [facility] (Rec: 08/08/19 10:33 DCW [id number]) PT Summary Assessment and Plan Summary Impairments Pain,ROM,Strength,Balance, Cognition,Bed Mobility, Transfers,Gait,Activity Tolerance Progress Towards Goals Slow Progress due to Pain,Slow Progress due to Medical Issues,Slow Progress due to Activity Tolerance Assessment Summary Pt exhibited improved mobility today, was able to follow direction better and was able to transfer to [facility] with Max Ax2-3. Pt still requires near- constant verbal cues during pivot and stepping, as well as sequencing for FWW use. Planning for pt to d/c to SNF later today, will still recommend stretcher transport vs W/C, although pt is showing potential to improve. Goals Bed Mobility Goal Minimal Assistance Transfer Goal Minimal Assistance,Front Wheeled Walker Gait Goal Minimal Assistance,Front Wheel Walker Gait Distance 75 Other Goals - Pt will sit midline with or without UE support for 1 minute - up/down 3 steps with SPC and min assist Days to Meet Goals 15 Frequency of Treatment Frequency Of Treatment Twice a Day Treatment Plan Physical Therapy Treatment Plan Bed Mobility Training,Transfer Training,Gait Training, Therapeutic Exercise,Balance Retraining,Post Op Education, Discharge Planning,Hot or Cold Pack,Manual Therapy Other Recommendations and Next Treatment bed mobility, seated balance, Focus standing tolerance, lateral weight shifts in standing Recommendations To Nursing Amount of Assist Needed Mechanical Lift Discharge Recommendations PT Discharge Recommendations SNF Rehab Transportation Needs at Discharge Stretcher/Ambulance
--- NOTE | 2019-08-08 11:46 | PC.NURSE ---
Am shift Pt is A/o to self only, refusing AM meds. Denies pain, though wincing noted with movement. Martinez patent with yellow urine. IV removed for pending DC. Pt took Miralax in juice, and senna refused with other am meds. Feels these have added to his confusion since coming to hospital. BA active. Pt on bedpan, unable to have BM. PT in to assist Pt into BSC, [facility] lift used. Ensure given, as Pt ate less than 25% of meal. Transported to [facility] via Ambulance @ 1145 am.
== END 2019-08-08 12:45 | DRG 480 ==
LOC: ED 08-03 01:00 → AC 08-03 01:07
PROVIDERS: Internal Medicine; Orthopaedic Surgery Adult Reconstructive Orthopaedic Surgery; Admitting Provider Nurse Practitioner Family; Emergency Provider Emergency Medicine; PCP Internal Medicine; Referring Provider Emergency Medicine; Visit Provider Nurse Practitioner Family
PROC: 0QS706Z Reposition Left Upper Femur with Intramedullary Internal Fixation Device, Open Approach (ICD-10-PCS; CPT 27245; principal; 2019-08-03 08:35)
DX: M84.452A Pathological fracture, left femur, initial encounter for fracture (principal); G92 Toxic encephalopathy; J81.0 Acute pulmonary edema; D62 Acute posthemorrhagic anemia; G93.49 Other encephalopathy; N40.1 Benign prostatic hyperplasia with lower urinary tract symptoms; R33.8 Other retention of urine; T40.605A Adverse effect of unspecified narcotics, initial encounter; W01.0XXA Fall on same level from slipping, tripping and stumbling without subsequent striking against object, initial encounter; Y92.009 Unspecified place in unspecified non-institutional (private) residence as the place of occurrence of the external cause; I25.10 Atherosclerotic heart disease of native coronary artery without angina pectoris; K21.9 Gastro-esophageal reflux disease without esophagitis; R26.9 Unspecified abnormalities of gait and mobility; E03.9 Hypothyroidism, unspecified; Z87.891 Personal history of nicotine dependence; E78.5 Hyperlipidemia, unspecified; E87.70 Fluid overload, unspecified; Z95.818 Presence of other cardiac implants and grafts
CPT/HCPCS: 36415; 36430; 73502; 76000; 80048; 81001; 85014; 85018; 85025; 86850; 86900; 86901; 87086; 94760; 94762; 96374; 97110; 97161; 97165; 97530; 97535; 99283; 99284; P9016; J0690; J0696; J1200; J1650; J1885; J1940; J2270; J2704; J3010

== ENCOUNTER 2019-09-20 15:35 | Emergency (ER) | payer MEDICARE, SELFPAY ==
[2019-08-03 01:12] VITALS: BMI 34.9
[2019-09-20 15:45] VITALS: BP 126/61; PULSE 72; RESP 14; TEMP 36.8; O2SAT 98; BMI 31.8
[2019-09-20 16:05] VITALS: BP 117/71; PULSE 68; RESP 20; O2SAT 96
--- NOTE | 2019-09-20 16:09 | DI.RAD.S_ITS ---
PROCEDURE: XR HIP W PEL IF DONE LT 2V INDICATIONS: pain sp fall TECHNIQUE: 2 views of the hip were acquired. COMPARISON: [facility] Outside Film, RG, HIP COMP MIN 2VW (LT), 08/22/2019, 16:40. FINDINGS: Bones: Postoperative changes are again identified related to previous open reduction and internal fixation of a proximal intertrochanteric left femur fracture. There is a trochanteric nail secured in place by a dynamic hip screw device and the distal interlocking screw. An additional orthopedic screw is seen along the proximal aspect of the femur. Orthopedic hardware is intact. The alignment of the fracture fragments is unchanged. No new fractures are identified. Avulsion of the lesser trochanter is evident. No suspicious osseous lesions are identified. Soft tissues: No suspicious soft tissue calcifications or masses. No radiopaque foreign bodies are evident. Previous skin anibal have been removed. IMPRESSION: Unchanged alignment of an intertrochanteric left femur fracture, status post ORIF. Dictated by: Fidel Zavala M.D. on 09/20/2019 at 15:44 Approved by: Fidel Zavala M.D. on 09/20/2019 at 15:48
[2019-09-20] MEDS: ACETAMINOPHEN 325 MG TABLET 975 MG PO (17:48)
[2019-09-20] MEDS: LIDOCAINE PATCH 1 EACH ADH..PATCH TOP (17:48)
[2019-09-20 18:03] VITALS: BP 126/65; PULSE 73; RESP 16; O2SAT 97
--- NOTE | 2019-09-20 18:05 | ED.LOWEXIN ---
HPI - Extremity Injury (Lower) <Julietachrissie Sheamer, VISITOR SERVICES INFORMATION ASSISTANT-BC - Last Filed: 09/20/19 19:05> General Chief Complaint: Extremity Injury, Lower Stated Complaint: Can't walk after fall out of bed 3 days ago Time Seen by Provider: 09/20/19 15:59 Source: patient Mode of arrival: Wheelchair Limitations: no limitations History of Present Illness HPI Narrative: The patient is an 83-year-old male former smoker status post ORIF from a left hip fracture. The patient and comes with his they state that the patient slid out of bed of 5 days ago landed on his left hip. They state that he was here in mid July with a hip fracture had surgery with repair. They are concerned about increasing pain, were seen by visiting nurse yesterday who encourage them to get an x-ray done. He has not taken anything for pain. He states it hurts with ambulation. He has not had anything for pain today as he does not like to take pain medications. He landed slowly on his hip, did not hit his head or his neck denies any neck or back pain. He recalls the entire event his was with him also witnessed the event as she was helping him transition from wheelchair to the bed. She states that the patient just missed his bed and slid down the side of his bed landing on his hip. Related Data Home Medications Medication Instructions Recorded Confirmed atorvastatin [Lipitor] 40 mg PO DAILY #0 11/19/10 08/03/19 omeprazole 20 mg PO DAILY #0 11/19/10 08/03/19 levothyroxine [Synthroid] 112 mcg PO QAM #0 12/24/11 08/03/19 aspirin 81 mg PO QDAY #0 02/21/17 08/03/19 doxazosin [Cardura] 8 mg PO BEDTIME #0 02/21/17 08/03/19 sertraline 150 mg PO DAILY #0 02/21/17 08/03/19 Previous Rx's Medication Instructions Recorded acetaminophen 975 mg PO Q8H #90 tab 08/08/19 calcium carbonate-vitamin D3 1 tab PO BIDWM #60 tab 08/08/19 [Oyster Shell Calcium-Vit D3] docusate sodium [DOK] 100 mg PO BID #60 cap 08/08/19 enoxaparin [Lovenox] 40 mg SUBCUT DAILY #10 ml 08/08/19 olanzapine 5 mg PO BEDTIME #10 tab 08/08/19 ondansetron HCl (PF) 4 mg IV Q8HR PRN #30 ml 08/08/19 oxycodone 5 mg PO Q6H PRN #30 tab 08/08/19 polyethylene glycol 3350 17 gram PO DAILY PRN #510 gram 08/08/19 sennosides [senna] 17.2 mg PO DAILY #60 tab 08/08/19 lidocaine 1 patch TOP DAILY PRN #15 each 09/20/19 Allergies Allergy/AdvReac Type Severity Reaction Status Date / Time Opioids - Morphine Analogues Allergy Unknown ITCHING Verified 09/20/19 15:52 Review of Systems <HARRISON Simeon - Last Filed: 09/20/19 19:05> Review of Systems Narrative: GENERAL: Denies chills, fatigue, malaise, fever, sweats. HEENT: Denies sinus pain, ear pain, sore throat, difficulty swallowing, dizziness. RESPIRATORY: Denies dyspnea, cough, wheezing, hemoptysis, sputum. CARDIOVASCULAR: Denies chest pain, palpitations, orthopnea, edema, GASTROINTESTINAL: Denies nausea, vomiting, abdominal pain, diarrhea, constipation, melena. : Denies dysuria, frequency, incontinence, hematuria, urinary retention. MUSCULOSKELETAL: See HPI SKIN: Denies rash, skin lesions, or other NEUROLOGIC: Denies weakness, headache, numbness, change in speech, confusion, seizures, incoordination. PSYCHIATRIC: No concerning psychosocial issues. 12 point review of systems is negative except for those stated above Patient History <HARRISON Simeon - Last Filed: 09/20/19 19:05> Medical History Balance disorder (Chronic) CAD (coronary artery disease) (Chronic) Chronic GERD (Chronic) Depression (Chronic) Gait disorder (Chronic) Hypothyroidism (Chronic) Surgical History History of right knee joint replacement (Acute) Family History Mother Breast cancer Father Kidney infection Social History household members: spouse Smoking Status: Former smoker Smoking Status: Former smoker alcohol intake frequency: 0-2 drinks per day Substance Use Type: does not use Exam <HARRISON Simeon - Last Filed: 09/20/19 19:05> Narrative Exam Narrative: GENERAL: This is a well-nourished, well-developed patient, in no acute distress HEAD: Atraumatic. Normocephalic. No temporal or scalp tenderness. EYES: Pupils equal round and reactive. Extraocular motions intact. No scleral icterus. No injection or drainage. ENT: Nose without bleeding, purulent drainage or septal hematoma. Throat without erythema, tonsillar hypertrophy or exudate. Uvula midline. Airway patent. NECK: Trachea midline. No JVD or lymphadenopathy. Supple, nontender, no meningeal signs. CARDIOVASCULAR: Regular rate and rhythm without murmurs, gallops, or rubs. RESPIRATORY: Clear to auscultation. Breath sounds equal bilaterally. No wheezes, rales, or rhonchi. No cough. No increased respiratory effort. No accessory muscle use. GASTROINTESTINAL: Abdomen soft, non-tender, nondistended. No hepato-splenomegaly, or palpable masses. No guarding. Urine catheter in place through pants. EXTREMITIES: Decreased range of motion all castaneda left hip. Positive pedal pulses. General pain to palpation left hip. BACK: Nontender without deformity or crepitance. No flank tenderness. No pain to CT or L-spine palpation. NEURO: AOx3. SKIN: No rash or erythema or ecchymosis on visible skin. Surgical scar on the left hip clean, dry, well approximated with no signs or symptoms of infection, no erythema no drainage Initial Vital Signs Initial Vital Signs: Vital Signs Temperature 98.2 F 09/20/19 15:45 Pulse Rate 72 09/20/19 15:45 Respiratory Rate 14 09/20/19 15:45 Blood Pressure 126/61 09/20/19 15:45 Pulse Oximetry 98 09/20/19 15:45 <Jozef Moreno DO - Last Filed: 09/20/19 19:21> Initial Vital Signs Initial Vital Signs: Vital Signs Temperature 98.2 F 09/20/19 15:45 Pulse Rate 72 09/20/19 15:45 Respiratory Rate 14 09/20/19 15:45 Blood Pressure 126/61 09/20/19 15:45 Pulse Oximetry 98 09/20/19 15:45 Course <LARS Simeon-BC - Last Filed: 09/20/19 19:05> Orders Ordered: ED Orders 09/20/19 16:09 XR hip w pel if done LT 2V Stat Discontinued Medications Acetaminophen (Tylenol) 975 mg PO NOW ONE Stop: 09/20/19 17:17 Last Admin: 09/20/19 17:48 Dose: 975 mg Documented by: CTRFRANKY Lidocaine (Lidoderm) 1 each TOP NOW ONE Stop: 09/20/19 17:16 Last Admin: 09/20/19 17:48 Dose: 1 each Documented by: CTRFRANKY Vital Signs Vital signs: Vital Signs - 8 hr 09/20/19 15:45 09/20/19 16:05 09/20/19 18:03 Temperature 98.2 F Pulse Rate 72 68 73 Respiratory Rate 14 20 16 Blood Pressure 126/61 Blood Pressure [Right Arm] 117/71 126/65 Pulse Oximetry 98 96 97 09/20/19 18:55 Temperature Pulse Rate 71 Respiratory Rate 20 Blood Pressure 106/67 Blood Pressure [Right Arm] Pulse Oximetry 96 <Jozef Moreno DO - Last Filed: 09/20/19 19:21> Orders Ordered: ED Orders 09/20/19 16:09 XR hip w pel if done LT 2V Stat Discontinued Medications Acetaminophen (Tylenol) 975 mg PO NOW ONE Stop: 09/20/19 17:17 Last Admin: 09/20/19 17:48 Dose: 975 mg Documented by: CTRFRANKY Lidocaine (Lidoderm) 1 each TOP NOW ONE Stop: 09/20/19 17:16 Last Admin: 09/20/19 17:48 Dose: 1 each Documented by: CTRFRANKY Vital Signs Vital signs: Vital Signs - 8 hr 09/20/19 15:45 09/20/19 16:05 09/20/19 18:03 Temperature 98.2 F Pulse Rate 72 68 73 Respiratory Rate 14 20 16 Blood Pressure 126/61 Blood Pressure [Right Arm] 117/71 126/65 Pulse Oximetry 98 96 97 09/20/19 18:55 Temperature Pulse Rate 71 Respiratory Rate 20 Blood Pressure 106/67 Blood Pressure [Right Arm] Pulse Oximetry 96 MDM - Extremity Injury (Lower) <HARRISON Simeon - Last Filed: 09/20/19 19:05> Imaging Data Extremity x-ray #1: Radiologist's Impression: [address] [place] [id number] XRay Report Signed Patient: Serge Hunt DMR#: [id number] : 5Acct:[id number] Age/Sex: 84 / MDate of Service: 09/20/19 Loc: ED Accession Number: [id number] Procedure: XR hip w pel if done LT 2V Ordering Provider: Julieta Florez PROCEDURE: XR HIP W PEL IF DONE LT 2V INDICATIONS: pain sp fall TECHNIQUE: 2 views of the hip were acquired. COMPARISON: [facility] Outside Film, RG, HIP COMP MIN 2VW (LT), 08/22/2019, 16:40. FINDINGS: Bones: Postoperative changes are again identified related to previous open reduction and internal fixation of a proximal intertrochanteric left femur fracture. There is a trochanteric nail secured in place by a dynamic hip screw device and the distal interlocking screw. An additional orthopedic screw is seen along the proximal aspect of the femur. Orthopedic hardware is intact. The alignment of the fracture fragments is unchanged. No new fractures are identified. Avulsion of the lesser trochanter is evident. No suspicious osseous lesions are identified. Soft tissues: No suspicious soft tissue calcifications or masses. No radiopaque foreign bodies are evident. Previous skin anibal have been removed. IMPRESSION: Unchanged alignment of an intertrochanteric left femur fracture, status post ORIF. Dictated by: Fidel Zavala M.D. on 09/20/2019 at 15:44 Approved by: Fidel Zavala M.D. on 09/20/2019 at 15:48 [facility] Narrative Medical decision making narrative: The patient is an 84-year-old male who presents with a chief complaint of left-sided hip pain. He has history of a broken hip with repair back in July. He presents 5 days after sliding out of bed and landing on his hip with a chief complaint of pain and concern for fracture. His fall was witnessed, by his family and they reaffirmed that it was a slide out of the bed, did not fall and hit his head or neck. They stated was a soft impact. Patient has been able to bear weight home. X-ray confirms no fracture. He is able to ambulate with no acute distress and would like to go home. I discussed at length the importance of following up with primary care provider and surgeon. Coming back to the emergency department for any acute concerns and provided a prescription of lidocaine patches. Patient and daughter have no questions or concerns upon discharge states understanding return precautions as well as follow-up care. Discharge Plan Departure Patient Disposition: Home Clinical Impression: Acute hip pain Qualifiers: Laterality: left Qualified Code(s): M25.552 - Pain in left hip Discharge Date/Time: 09/20/19 18:55 Instructions: Help for Hip Pain, How to Prevent Falls, DI for Hip Pain Activity Restrictions/Additional Instructions: Thank you for trusting us with your care today As I discussed, your x-ray shows no new fracture. This does not rule out a soft tissue injury such as a ligament or tendon injury. It is important that you follow up with primary care provider, especially if worsening or no improvement. There can be fractures that did not show up on initial x-ray. Please follow-up with primary care provider and surgeon as we discussed I sent a prescription of lidocaine patches to [facility] Please come back to the emergency department for any acute concerns Prescriptions: New lidocaine 5 % adhesive patch,medicated 1 patch TOP DAILY PRN (Reason: pain) Qty: 15 RF: 0 No Action atorvastatin [Lipitor] 40 MG tablet 40 mg PO DAILY Qty: 0 RF: 0 omeprazole 20 MG capsule,delayed release(DR/EC) 20 mg PO DAILY Qty: 0 RF: 0 levothyroxine [Synthroid] 112 MCG tablet 112 mcg PO QAM Qty: 0 RF: 0 aspirin 81 MG tablet,delayed release (DR/EC) 81 mg PO QDAY Qty: 0 RF: 0 doxazosin [Cardura] 8 MG tablet 8 mg PO BEDTIME Qty: 0 RF: 0 sertraline 100 MG tablet 150 mg PO DAILY Qty: 0 RF: 0 sennosides [senna] 8.6 mg Tablet 17.2 mg PO DAILY Qty: 60 RF: 0 acetaminophen 325 mg Tablet 975 mg PO Q8H Qty: 90 RF: 0 polyethylene glycol 3350 17 gram Powder In Packet 17 gram PO DAILY PRN (Reason: Constipation) Qty: 510 RF: 0 olanzapine 2.5 mg Tablet 5 mg PO BEDTIME Qty: 10 RF: 0 docusate sodium [DOK] 100 mg Capsule 100 mg PO BID Qty: 60 RF: 0 enoxaparin [Lovenox] 40 mg/0.4 mL Syringe 40 mg SUBCUT DAILY Qty: 10 RF: 0 calcium carbonate-vitamin D3 [Oyster Shell Calcium-Vit D3] 500 mg(1,250mg) -200 unit Tablet 1 tab PO BIDWM Qty: 60 RF: 0 ondansetron HCl (PF) 4 mg/2 mL Solution 4 mg IV Q8HR PRN (Reason: Nausea And Vomiting) Qty: 30 RF: 0 oxycodone 10 mg Tablet 5 mg PO Q6H PRN (Reason: Pain, Severe (7-10)) Qty: 30 RF: 0 Referrals: Dinora Sampson MD [Primary Care Provider] - <Jozef Moreno DO - Last Filed: 09/20/19 19:21> Cosign ED Attending Cosignature Attestation: Dr Moreno Co-Sign Statement: I was available for consultation during this patient's emergency department visit. This chart is signed by myself for administrative purposes only. I did not have direct contact with this patient during this visit. They were seen independently by the APC.
[2019-09-20 18:55] VITALS: BP 106/67; PULSE 71; RESP 20; O2SAT 96
== END 2019-09-20 18:55 | disposition home or self-care (01) ==
PROVIDERS: Emergency Provider Nurse Practitioner Family; PCP Internal Medicine
DX: M25.552 Pain in left hip (principal); W06.XXXA Fall from bed, initial encounter
CPT/HCPCS: 73502; 99283

== ENCOUNTER 2019-09-24 14:36 | Emergency (ER) | payer MEDICARE, SELFPAY ==
[2019-08-03 01:12] VITALS: BMI 34.9
--- NOTE | 2019-09-24 14:41 | ED_ITS ---
HPI - Nausea/Vomiting/Diarrhea General Chief complaint: Nausea/Vomiting/Diarrhea Stated complaint: N/V/D Time Seen by Provider: 09/24/19 14:50 History of Present Illness HPI Narrative: 84-year-old gentleman with a history of Parkinson's, dementia, hyperlipidemia, hypertension, BPH with a hip fracture sustained after a fall on August 03. Had ORIF of the hip done and was discharged to [facility]. During his hospital stay his BPH caused postop retention and a Martinez catheter was placed. He also had some difficulty with pulmonary edema. He states that after [facility] stay he was discharged home was seen again in the emergency department on September 19 with a complaint of falling out of bed 5 days prior and increasing hip pain. There is no evidence of additional fracture and hardware looked to be appropriately placed he was able to ambulate and he was discharged home. He presents today saying he has been having significant vomiting. His dementia makes his history somewhat challenging to fully understand he tells me he has not taken pain medication for at least 5 days because he was vomiting from it. He tells the nurse that he took some this morning. Says that a doctor saw him at home today and suggested he come to the ER because he was continuing to vomit and not do well. Will need to corroborate story with his . 16:20 daughter is now available. She notes that since his episode on September 19 where he slid out of bed he has been increasingly weak, unable to get out of bed or ambulate by himself, refusing to take any of his medications, not eating or drinking and globally declining. She states that his is no longer able to care for him at home. Related Data Home Medications Medication Instructions Recorded Confirmed atorvastatin [Lipitor] 40 mg PO DAILY #0 11/19/10 08/03/19 omeprazole 20 mg PO DAILY #0 11/19/10 08/03/19 levothyroxine [Synthroid] 112 mcg PO QAM #0 12/24/11 08/03/19 aspirin 81 mg PO QDAY #0 02/21/17 08/03/19 doxazosin [Cardura] 8 mg PO BEDTIME #0 02/21/17 08/03/19 sertraline 150 mg PO DAILY #0 02/21/17 08/03/19 Previous Rx's Medication Instructions Recorded acetaminophen 975 mg PO Q8H #90 tab 08/08/19 calcium carbonate-vitamin D3 1 tab PO BIDWM #60 tab 08/08/19 [Oyster Shell Calcium-Vit D3] docusate sodium [DOK] 100 mg PO BID #60 cap 08/08/19 enoxaparin [Lovenox] 40 mg SUBCUT DAILY #10 ml 08/08/19 olanzapine 5 mg PO BEDTIME #10 tab 08/08/19 ondansetron HCl (PF) 4 mg IV Q8HR PRN #30 ml 08/08/19 oxycodone 5 mg PO Q6H PRN #30 tab 08/08/19 polyethylene glycol 3350 17 gram PO DAILY PRN #510 gram 08/08/19 sennosides [senna] 17.2 mg PO DAILY #60 tab 08/08/19 lidocaine 1 patch TOP DAILY PRN #15 each 09/20/19 Allergies Allergy/AdvReac Type Severity Reaction Status Date / Time Opioids - Morphine Analogues Allergy Unknown ITCHING Verified 09/20/19 15:52 Review of Systems Review of Systems Narrative: His dementia makes reliable review of systems questions challenging Is fairly consistent that he has been vomiting ROS Unobtainable: Unobtainable due to mental condition Patient History Medical History (Updated 09/24/19 @ 17:53 by Siri Lux MD) Balance disorder (Chronic) CAD (coronary artery disease) (Chronic) Chronic GERD (Chronic) Closed hip fracture (Inactive) Depression (Chronic) Gait disorder (Chronic) Hypothyroidism (Chronic) Surgical History History of right knee joint replacement (Acute) Social History household members: spouse Smoking Status: Former smoker Smoking Status: Former smoker alcohol intake frequency: 0-2 drinks per day Substance Use Type: does not use Exam Narrative Exam Narrative: General: Healthy appearing, in no acute distress. Mild dysarthria with a slight accent (daughter states this is his baseline) HEENT: Moist mucous membranes, normal sclera with reactive pupils, Neck: No JVD, supple Respiratory: Lungs are clear to auscultation, no wheezing no rales no rhonchi. Full and symmetrical air movement Cardiac: Regular rate and rhythm no murmurs no bruits Abdomen: Soft nontender good bowel tones, no flank pain Skin: Warm and dry, no rashes Neurologic: Grossly neurologically intact with no obvious asymmetries or abnormalities, mild dementia with some confusion Extremities: No trauma, well perfused, 3+ lower extremity edema on the left (surgical site) and 2+ on the right. Surgical site is healing nicely on the left Psych: Cooperative, mildly confused Initial Vital Signs Initial Vital Signs: Vital Signs Temperature 98.5 F 09/24/19 14:43 Pulse Rate 65 09/24/19 14:43 Respiratory Rate 16 09/24/19 14:43 Blood Pressure 127/65 09/24/19 14:43 Pulse Oximetry 94 09/24/19 14:43 Course Orders Ordered: ED Orders 09/24/19 14:55 Complete Blood Count AUTO DIFF Stat Comprehensive Metabolic Panel Stat NT-proBNP (BNP-Adult 18+) Stat Troponin I Stat 09/24/19 16:30 Consult to STEEL CUTTER - Geek Squad Manager Stat 09/24/19 16:31 XR chest 1V Stat 09/24/19 16:33 Urine Culture Stat Urine Microscopic Stat Discontinued Medications Sodium Chloride (Normal Saline 0.9%) 1,000 mls @ 1,000 mls/hr IV BOLUS ONE Stop: 09/24/19 16:19 Last Infusion: 09/24/19 17:26 Dose: 0 mls/hr Documented by: Admin: 09/24/19 15:30 Dose: 1,000 mls/hr Documented by: PATRICK Ondansetron HCl (Zofran) 4 mg IV NOW ONE Stop: 09/24/19 15:21 Last Admin: 09/24/19 17:26 Dose: Not Given Documented by: PATRICK Vital Signs Vital signs: Vital Signs - 8 hr 09/24/19 14:43 09/24/19 16:30 09/24/19 18:00 Temperature 98.5 F Pulse Rate 65 64 69 Respiratory Rate 16 18 17 Blood Pressure 127/65 Blood Pressure [Left Arm] 136/62 107/61 Pulse Oximetry 94 98 100 MDM - Nausea/Vomiting/Diarrhea Medical Records Attestation: I reviewed the patient's medical records. Lab Data Attestation: I reviewed the patient's lab results. Lab results narrative: Improving anemia postop without elevated white blood cell count Urine does have leukocyte esterase, bacteria, white cells however Martinez catheter is in place. No elevated white cell count, no suprapubic or flank tenderness. No significant electrolyte abnormalities and normal renal function Result diagrams: 09/24/19 14:55 09/24/19 14:55 Labs: Lab Results 09/24/19 09/24/19 09/24/19 Range/Units 14:55 14:55 14:55 WBC 7.6 (4.5-11.0) X10^3/uL RBC 3.96 L (4.5-5.9) X10^6/uL Hgb 11.3 L (13.5-17.5) g/dL Hct 33.3 L (41-53) % MCV 84.1 (80-100) fL MCH 28.5 (26-34) PG MCHC 33.9 (30-36) % RDW 15.8 H (11.6-14.8) % Plt Count 157 (150-400) X10^3/uL Neut % (Auto) 73.0 (50-75) % Lymph % (Auto) 14.3 L (25-40) % Divide % (Auto) 8.1 (3-14) % Eos % (Auto) 4.1 H (2-4) % Baso % (Auto) 0.5 (0-2) % Neut # (Auto) 5500 (3280-1858) /uL Lymph # (Auto) 1100 (5975-4659) /uL Divide # (Auto) 600 (0-900) /uL Eos # (Auto) 300 (0-450) /uL Baso # (Auto) 0 (0-100) /uL Sodium 138 (137-145) mmol/L Potassium 4.1 (3.4-5.1) mmol/L Chloride 101 (98-107) mmol/L Carbon Dioxide 27 (22-32) mmol/L BUN 23 H (9-20) mg/dL Creatinine 1.02 (0.66-1.25) mg/dL Estimated GFR > 60.0 (>60) mL/min BUN/Creatinine Ratio 22.5 H (6-22) Glucose 105 (80-110) mg/dL Calcium 9.0 (8.4-10.2) mg/dL Total Bilirubin 0.6 (0.2-1.3) mg/dL AST 29 (17-59) IU/L ALT 13 (<50) IU/L Alkaline Phosphatase 115 (38-126) U/L Troponin I < 0.012 (0.01-0.034) ng/mL NT-Pro-B Natriuret Pep 1340 H (<450) pg/mL Total Protein 7.2 (6.3-8.2) g/dL Albumin 3.5 (3.5-5.0) g/dL Globulin 3.7 (1.7-4.1) g/dL Albumin/Globulin Ratio 0.9 L (1.0-2.8) Urine RBC (0-5/HPF) Urine WBC (0-5/HPF) Ur Squamous Epith Cells (0-5/HPF) Amorphous Sediment Urine Bacteria (None) Urine Mucus (Negative) Ur Culture Indicated? 09/24/19 Range/Units 16:33 WBC (4.5-11.0) X10^3/uL RBC (4.5-5.9) X10^6/uL Hgb (13.5-17.5) g/dL Hct (41-53) % MCV (80-100) fL MCH (26-34) PG MCHC (30-36) % RDW (11.6-14.8) % Plt Count (150-400) X10^3/uL Neut % (Auto) (50-75) % Lymph % (Auto) (25-40) % Divide % (Auto) (3-14) % Eos % (Auto) (2-4) % Baso % (Auto) (0-2) % Neut # (Auto) (1128-4850) /uL Lymph # (Auto) (8943-1440) /uL Divide # (Auto) (0-900) /uL Eos # (Auto) (0-450) /uL Baso # (Auto) (0-100) /uL Sodium (137-145) mmol/L Potassium (3.4-5.1) mmol/L Chloride (98-107) mmol/L Carbon Dioxide (22-32) mmol/L BUN (9-20) mg/dL Creatinine (0.66-1.25) mg/dL Estimated GFR (>60) mL/min BUN/Creatinine Ratio (6-22) Glucose (80-110) mg/dL Calcium (8.4-10.2) mg/dL Total Bilirubin (0.2-1.3) mg/dL AST (17-59) IU/L ALT (<50) IU/L Alkaline Phosphatase (38-126) U/L Troponin I (0.01-0.034) ng/mL NT-Pro-B Natriuret Pep (<450) pg/mL Total Protein (6.3-8.2) g/dL Albumin (3.5-5.0) g/dL Globulin (1.7-4.1) g/dL Albumin/Globulin Ratio (1.0-2.8) Urine RBC 5-10/hpf H (0-5/HPF) Urine WBC >100/hpf H (0-5/HPF) Ur Squamous Epith Cells 0-1 /hpf (0-5/HPF) Amorphous Sediment 1+ Urine Bacteria Many (>30) H (None) Urine Mucus 1+ H (Negative) Ur Culture Indicated? Specimen cultured Urine Dip Bedside Urine Glucose Negative Bedside Urine Bilirubin - Negative Bedside Urine Ketone - Negative Urine Specific [place] 1.015 Bedside Urine Occult Blood +++ Bedside Urine pH 6.0 Bedside Urine Protein ++ 100 Bedside Urine Urobilinogen +/- 1mg Bedside Urine Nitrite + Positive Bedside Urine Leukocytes +++ 500 Esterase MDM Narrative Medical decision making narrative: Pt has home health/OT/PT at home currently. Since his hip fracture August 03 with subsequent hospitalization, 3 weeks at [facility], discharged and readmitted for another 3 weeks, discharge home with subsequent fall and than home health services set up to our current situation of not able to get out of bed by himself, not able to walk, not eating not drinking and unable to physically lift him and adjust him and daughter trying to help as much as possible STEEL CUTTER consult: discussed with Daughter and . They have [facility]. They are concerned about finances (too much money for medicaid and not enough to pay for memory care). Just started home health, OT/PT first visit is tomorrow. Aid will come out weekly to help with bathing. Offered help with sheild medical care to help with incontinence supplies. Our STEEL CUTTER will call and request help with medical reception specialist to help with looking for long wall shear operator care options. felt this was a reasonable compromise, daughter was a bit more frustrated. Discharge Plan Departure Patient Disposition: Home Clinical Impression: Adult failure to thrive, Weakness Instructions: DI for Failure to Thrive Activity Restrictions/Additional Instructions: Thank you for coming in today I am sorry I was unable to find an acute issue that I could help with or fixed today. It is very frustrating when everything seems to be working wrong and are family members are not doing well. This older adult social work specialist was involved today. She is going to do a consult to home health medical social work to continue that discussion. We will also work on increasing some of your home health services including help with supplies for incontinence so that you do not have to work so hard in getting your up to the bathroom regularly. If you notice a new or different change, he has another significant fall, develops a significant cough or fevers please feel free to have him return to the emergency department for further evaluation I wish you the best Prescriptions: No Action atorvastatin [Lipitor] 40 MG tablet 40 mg PO DAILY Qty: 0 RF: 0 omeprazole 20 MG capsule,delayed release(DR/EC) 20 mg PO DAILY Qty: 0 RF: 0 levothyroxine [Synthroid] 112 MCG tablet 112 mcg PO QAM Qty: 0 RF: 0 aspirin 81 MG tablet,delayed release (DR/EC) 81 mg PO QDAY Qty: 0 RF: 0 doxazosin [Cardura] 8 MG tablet 8 mg PO BEDTIME Qty: 0 RF: 0 sertraline 100 MG tablet 150 mg PO DAILY Qty: 0 RF: 0 sennosides [senna] 8.6 mg Tablet 17.2 mg PO DAILY Qty: 60 RF: 0 acetaminophen 325 mg Tablet 975 mg PO Q8H Qty: 90 RF: 0 polyethylene glycol 3350 17 gram Powder In Packet 17 gram PO DAILY PRN (Reason: Constipation) Qty: 510 RF: 0 olanzapine 2.5 mg Tablet 5 mg PO BEDTIME Qty: 10 RF: 0 docusate sodium [DOK] 100 mg Capsule 100 mg PO BID Qty: 60 RF: 0 enoxaparin [Lovenox] 40 mg/0.4 mL Syringe 40 mg SUBCUT DAILY Qty: 10 RF: 0 calcium carbonate-vitamin D3 [Oyster Shell Calcium-Vit D3] 500 mg(1,250mg) - 200 unit Tablet 1 tab PO BIDWM Qty: 60 RF: 0 ondansetron HCl (PF) 4 mg/2 mL Solution 4 mg IV Q8HR PRN (Reason: Nausea And Vomiting) Qty: 30 RF: 0 oxycodone 10 mg Tablet 5 mg PO Q6H PRN (Reason: Pain, Severe (7-10)) Qty: 30 RF: 0 lidocaine 5 % adhesive patch,medicated 1 patch TOP DAILY PRN (Reason: pain) Qty: 15 RF: 0 Referrals: Dinora Sampson MD [Primary Care Provider] -
[2019-09-24 14:43] VITALS: BP 127/65; PULSE 65; RESP 16; TEMP 36.9; O2SAT 94; BMI 31.6
[2019-09-24 15:29] LABS: Add Manual Diff / Slide Review NO; Basophils Absolute Auto 0 /uL (0-100); Basophils Percent Auto 0.5 % (0-2); Eosinophils Absolute Auto 300 /uL (0-450); Eosinophils Percent Auto 4.1 % (2-4); Hematocrit 33.3 % (41-53); Hemoglobin 11.3 g/dL (13.5-17.5); Lymphocytes Absolute Auto 1100 /uL (1100-4500); Lymphocytes Percent Auto 14.3 % (25-40); Mean Corpuscular HGB Conc 33.9 % (30-36); Mean Corpuscular Hemoglobin 28.5 PG (26-34); Mean Corpuscular Volume 84.1 fL (80-100); Monocytes Absolute Auto 600 /uL (0-900); Monocytes Percent Auto 8.1 % (3-14); Neutrophils Absolute Auto 5500 /uL (1500-7000); Platelet Count 157 X10^3/uL (150-400); Red Blood Cell Count 3.96 X10^6/uL (4.5-5.9); Red Cell Distribution Width 15.8 % (11.6-14.8); White Blood Cell Count 7.6 X10^3/uL (4.5-11.0)
[2019-09-24] MEDS: SODIUM CHLORIDE 0.9% 1,000 ML 1000 ML IV (15:30)
[2019-09-24 15:32] LABS: Alanine Aminotransferase 13 IU/L (<50); Albumin 3.5 g/dL (3.5-5.0); Albumin Globulin Ratio 0.9 (1.0-2.8); Alkaline Phosphatase 115 U/L (38-126); Aspartate Aminotransferase 29 IU/L (17-59); BUN Creatinine Ratio 22.5 (6-22); Bilirubin Total 0.6 mg/dL (0.2-1.3); Blood Urea Nitrogen 23 mg/dL (9-20); Carbon Dioxide 27 mmol/L (22-32); Chloride 101 mmol/L (98-107); Estimated Glomerular Filt Rate > 60.0 mL/min (>60); Globulin 3.7 g/dL (1.7-4.1); Glucose 105 mg/dL (80-110); HEMOLYSIS < 15 (0-50); Potassium 4.1 mmol/L (3.4-5.1); Sodium 138 mmol/L (137-145); Total Protein 7.2 g/dL (6.3-8.2)
[2019-09-24 16:30] VITALS: BP 136/62; PULSE 64; RESP 18; O2SAT 98
--- NOTE | 2019-09-24 16:31 | DI.RAD.S_ITS ---
PROCEDURE: XR CHEST 1V INDICATIONS: Failure to thrive TECHNIQUE: One view of the chest was acquired. COMPARISON: [facility], , CHEST 2 VIEW, 01/11/2017, 12:11. FINDINGS: Surgical changes and devices: None. Lungs and pleura: Scattered subsegmental atelectasis and/or scarring. No focal consolidation. No pleural effusions or pneumothorax. Mediastinum: Mediastinal contours appear normal. Heart size is normal. Bones and chest wall: No suspicious bony lesions. Overlying soft tissues appear unremarkable. IMPRESSION: Scattered subsegmental atelectasis and/or scarring. No focal consolidation. Dictated by: Pepe Carrington M.D. on 09/24/2019 at 17:07 Approved by: Pepe Carrington M.D. on 09/24/2019 at 17:08
[2019-09-24 17:14] LABS: NT-proBNP (BNP-Adult 18+) 1340 pg/mL (<450); Troponin I < 0.012 ng/mL (0.01-0.034)
[2019-09-24 17:37] LABS: Amorphous Sediment Urine 1+; Bacteria Urine Many (>30); Culture Indicated Urine Specimen Cultured; Mucus Urine 1+ (Negative); RBC Urine 5-10/HPF (0-5/HPF); Squamous Epithelial Cell Urine 0-1 /HPF (0-5/HPF); WBC Urine >100/HPF (0-5/HPF)
[2019-09-24 18:00] VITALS: BP 107/61; PULSE 69; RESP 17; O2SAT 100
--- NOTE | 2019-09-24 18:04 | CM.SWNOTE ---
[employer] note: CM/RN: EMR reviewed: patient is a 84 yr old male who was brought into the ED for failure to thrive after a hip fracture and SNF stay at [facility]. Patient returned home two weeks ago and has been steadily going down hill since then. CM/Rn met with patients and daughter to discuss a plan for D/C home from the ED. Patient is currently medically cleared to go home according to ED provider. During this discussion patients daughter explained that patient was at [facility] for 6 weeks then D/C home after that. Patient daughter and do not feel they are capable of caring for the patient at home any longer. CM/Rn discussed options for resources that maybe available to them. CM/RN gave information to the family about private pay Caregivers, [facility] to help with incontinence supply and a medicaid application to see if they would qualify for some added help like CRICKET or assistant terminal manager health care. Patient currently gets HH services from [facility]. He gets Nursing, OT, PT and a shower aid currently. Family also asked if CM/Rn would call [facility] and add protective services case worker to services they provide. CM/Rn called [facility] and asked for the ED provider for them to add a protective services case worker to services the patient receives so maybe they can get some help with long-term placement options for the patient. Libra Harrell RN.
[2019-09-24 18:35] VITALS: BP 114/71; PULSE 89; RESP 14; O2SAT 98
== END 2019-09-24 18:54 | disposition home or self-care (01) ==
PROVIDERS: Emergency Provider Emergency Medicine; PCP Internal Medicine
DX: R62.7 Adult failure to thrive (principal); R53.1 Weakness; G20 Parkinson's disease; F02.80 Dementia in other diseases classified elsewhere, unspecified severity, without behavioral disturbance, psychotic disturbance, mood disturbance, and anxiety; E78.5 Hyperlipidemia, unspecified; I10 Essential (primary) hypertension
CPT/HCPCS: 36415; 71045; 80053; 81003; 81015; 83880; 84484; 85025; 87077; 87086; 87186; 96360; 96361; 99284

== ENCOUNTER → 2019-11-27 10:28 | Outpatient (CLI) | payer MEDICARE, SELFPAY ==
[2019-08-03 01:12] VITALS: BMI 34.9
--- NOTE | 2019-11-27 | DI.RAD.S_ITS ---
PROCEDURE: XR KNEE RT 3V INDICATIONS: BILATERAL KNEE PAIN TECHNIQUE: 2 views of the knee were acquired. COMPARISON: [facility], , KNEE 3V RIGHT, 04/17/2017, 10:18. [facility], , KNEE 3V LEFT, 04/17/2017, 10:18. FINDINGS: Bones: Tibial fixation plate and multiple fixation screws present in expected unchanged positions. No periprosthetic fractures or evidence of loosening/infection. Moderate tricompartmental knee joint narrowing with periarticular osteophyte formation. Soft tissues: Small joint effusion. No suspicious soft tissue calcifications. IMPRESSION: 1. Stable postsurgical sequelae of the proximal tibia and tricompartmental knee joint degeneration. Dictated by: Stevie Travis [facility] Interpreted: Sumeet Guzman MD on 11/27/2019 at 11:17 Approved by: Sumeet Guzman M.D. on 11/27/2019 at 12:28
--- NOTE | 2019-11-27 | DI.RAD.S_ITS ---
PROCEDURE: XR KNEE LT 3V INDICATIONS: BILATERAL KNEE PAIN TECHNIQUE: 2 views of the knee were acquired. COMPARISON: [facility], , KNEE 3V LEFT, 04/17/2017, 10:18. FINDINGS: Bones: No fractures or dislocations. No suspicious bony lesions. Mild tricompartmental knee joint narrowing with periarticular osteophyte formation. Soft tissues: No joint effusion. No suspicious soft tissue calcifications. IMPRESSION: 1. Mild tricompartmental knee joint degeneration. 2. Chondrocalcinosis. Differential diagnosis includes but is not limited to hemochromatosis, hyperparathyroidism and CPPD. Dictated by: Stevie Travis [facility] Interpreted: Sumeet Guzman MD on 11/27/2019 at 11:18 Approved by: Sumeet Guzman M.D. on 11/27/2019 at 12:28
== END ==
PROVIDERS: PCP Internal Medicine; Referring Provider Internal Medicine; Visit Provider Internal Medicine
DX: M25.561 Pain in right knee (principal); M25.562 Pain in left knee; M17.0 Bilateral primary osteoarthritis of knee; M11.262 Other chondrocalcinosis, left knee
CPT/HCPCS: 73562

== ENCOUNTER 2020-04-24 16:53 | Observation (INO) | payer MEDICARE, MEDICAID, SELFPAY ==
[2019-08-03 01:12] VITALS: BMI 34.9
[2020-04-24] VITALS (17 sets, daily range): BP systolic 116–169; BP diastolic 58–75; PULSE 51–64; RESP 14–27; TEMP 36.2–37.1; O2SAT 95–98; BMI 34.8; BMI 34.7
--- NOTE | 2020-04-24 17:10 | DI.RAD.S_ITS ---
PROCEDURE: XR CHEST 1V INDICATIONS: leg swelling TECHNIQUE: One view of the chest was acquired. COMPARISON: [facility], , CHEST 2 VIEW, 03/17/2013, 13:49. [facility], , CHEST 2 VIEW, 01/11/2017, 12:11. [facility], , XR CHEST 1V, 09/24/2019, 16:36. FINDINGS: Surgical changes and devices: None. Lungs and pleura: Minimal interstitial prominence can be seen, right worse than left. No pleural effusions or pneumothorax. Mediastinum: The cardiac contours are mildly enlarged. The aorta demonstrates calcification and tortuosity. Bones and chest wall: No suspicious bony lesions. Degenerative changes are seen throughout, which are worst involving the right shoulder. Overlying soft tissues appear unremarkable. IMPRESSION: Minimal interstitial prominence can be seen, right worse than left. Please consider pulmonary edema versus atypical/viral infection. Mild cardiomegaly. Dictated by: Alfred Carpio M.D. on 04/24/2020 at 16:59 Approved by: Alfred Carpio M.D. on 04/24/2020 at 17:00
--- NOTE | 2020-04-24 17:10 | DI.US.S_ITS ---
PROCEDURE: US PERIPH VENOUS LOW EXTREM BI INDICATIONS: EDEMA, PAIN TECHNIQUE: Real-time imaging, as well as color and pulse Doppler interrogation, were performed of the deep veins of both legs from the inguinal ligament to the popliteal fossa. COMPARISON: None. FINDINGS: There is thrombus seen within the left common femoral and superficial femoral veins. No evidence of DVT within the right lower extremity. IMPRESSION: 1. Left lower extremity DVT. 2. No evidence of right lower extremity DVT. Dictated by: Jaquan Cervantes M.D. on 04/24/2020 at 19:08 Approved by: Jaquan Cervantes M.D. on 04/24/2020 at 19:09
--- NOTE | 2020-04-24 17:15 | ED_ITS ---
HPI - Extremity Injury (Lower) <AMY Nieves - Last Filed: 04/24/20 20:54> General Chief Complaint: Extremity Problem,Nontraumatic Stated Complaint: Bilateral Lower Extremity Swelling Time Seen by Provider: 04/24/20 17:10 Source: EMS Mode of arrival: EMS Limitations: no limitations History of Present Illness HPI Narrative: This is a 84 year male, former smoker, who has past medical history significant for CAD, depression, GERD, BPH, gait disorder, hypothyroidism presents to ED with chief complain of bilateral leg swelling and pain. Patient reports he has not been ambulatory for last 2 weeks using a walker as usual. Patient used to walk to the bathroom at least using a walker. Patient reports intact sensation in bilateral foot and is able to move toes. Now he has been staying in the living room and make a bed as a recliner during day which flattens out as a bed at night. Patient denies chest pain, dyspnea, abdominal pain, back pain, fever, chills, nausea or vomiting. Denies symptoms of COVID illness. Patient denies recent trauma or falls and stating last fall was in September. He states otherwise everything is fine. Patient denies recent weight gain or abdominal bloatedness. He has history of left hip replacement in July this year by Dr. Decker and right tibia surgery in 1999. Patient denies taking anticoagulants. Patient states he has taken oxycodone a few doses for pain. Is not able to recall current medications. He lives at home with his . PCP Dr. Sampson. 1845-The patient's arrived with daughter, she states patient has not been able to walk last 5-6 weeks rather than 2 weeks. She has been his caregiver and she is not able to take him home. The patient not able to even ambulate to the bathroom, he uses urinal and he has bowel movements in chair and she cleans him up after. Currently, patient is not receiving any home health or physical therapy services and these services ended in November. Related Data Home Medications Medication Instructions Recorded Confirmed omeprazole 20 mg PO DAILY #0 11/19/10 04/24/20 levothyroxine [Synthroid] 112 mcg PO QAM #0 12/24/11 04/24/20 aspirin 81 mg PO QDAY #0 02/21/17 04/25/20 doxazosin [Cardura] 8 mg PO BEDTIME #0 02/21/17 04/24/20 sertraline 150 mg PO DAILY #0 02/21/17 04/24/20 atorvastatin 40 mg PO BEDTIME 04/24/20 04/24/20 mirtazapine 15 mg ONCE HS 04/24/20 04/24/20 Previous Rx's Medication Instructions Recorded calcium carbonate-vitamin D3 1 tab PO BIDWM #60 tab 08/08/19 [Oyster Shell Calcium-Vit D3] docusate sodium [DOK] 100 mg PO BID #60 cap 08/08/19 polyethylene glycol 3350 17 gram PO DAILY PRN #510 gram 08/08/19 sennosides [senna] 17.2 mg PO DAILY #60 tab 08/08/19 acetaminophen 650 mg PO Q6HR PRN 30 Days #60 tab 04/26/20 apixaban See Rx Instructions .ROUTE 04/26/20 .COMPLEX 30 Days #120 tab furosemide 20 mg PO DAILY 30 Days #30 tab 04/26/20 oxycodone 5 mg PO Q4HR PRN 7 Days #25 tab 04/26/20 Allergies Allergy/AdvReac Type Severity Reaction Status Date / Time Opioids - Morphine Analogues Allergy Unknown ITCHING Verified 09/20/19 15:52 Review of Systems <AMY Nieves - Last Filed: 04/24/20 20:54> Review of Systems Narrative: General: Denies fever, chills, fatigue, malaise, sweats. HEENT: Denies sinus pain, ear pain, sore throat, difficulty swallowing, dizziness. Respiratory: Denies dyspnea, cough, wheezing, hemoptysis, sputum. Cardiovascular: Denies chest pain, palpitations, orthopnea, edema. Gastrointestinal: Denies nausea, vomiting, abdominal pain, diarrhea, constipation, melena. : Denies dysuria, frequency, incontinence, hematuria, urinary retention. Musculoskeletal: See HPI Skin: Denies rash, skin lesions, or other. Neurologic: Denies weakness, headache, numbness, change in speech, confusion, seizures, incoordination. Psychiatric: No concerning psychosocial issues. 12-point review of systems is negative except for those stated above. Patient History <AMY Nieves - Last Filed: 04/24/20 20:54> Medical History Balance disorder CAD (coronary artery disease) Chronic GERD Closed hip fracture Depression Gait disorder Hypothyroidism Surgical History History of right knee joint replacement Family History Mother Breast cancer Father Kidney infection Social History household members: spouse Smoking Status: Former smoker alcohol intake: current Smoking Status: Former smoker alcohol intake frequency: 0-2 drinks per day Substance Use Type: does not use Exam <AMY Nieves - Last Filed: 04/24/20 20:54> Narrative Exam Narrative: GEN: Alert, oriented x 3, well nourished, and in no acute distress. Head: Normal cephalic, atraumatic. No scalp or temporal tenderness, palpable mass or rash. EYES: Pupils are equal, round, and reactive to light and accommodation. Extraocular muscles are intact bilaterally. There is no subconjunctival hemorrhage, exudate and sclera non-icteric. ENT: Hearing grossly intact. Nose without bleeding, purulent discharge or deviation. Facial sinuses nontender to palpate. Mucous membrane moist, no mucosal lesion. Throat without erythema, tonsillar hypertrophy or exudate. Uvula in midline, airway patent. Neck: Trachea in midline. No JVD, non-tender without lymphadenopathy. No masses or thyroid megaly. Supple, non-tender and no meningeal signs. CARDIAC: Normal gustavo rate and regular rhythm without murmurs, gallops, or rubs. No chest wall tenderness. 2+ bilateral leg edema RESPIRATORY: Lungs are clear to auscultate bilaterally. No cough, wheezes, rales, or rhonchi. No stridor, respiratory distress, increase work of breathing, or accessary muscle used. ABD: Abdomen soft, nontender and non-distended. No guarding or rebound tenderness to palpate. Bowel sounds are normal in all 4 quadrants. There is no palpable masses or organomegaly. EXT: Cool extremities and in skye color. Faint pulse in bilateral dorsalis pedis worse in left foot. Intact sensation in lower extremities bilaterally. Is able to plantar and dorsal flex. SKIN: Warm, dry, normal color for patient except lower extremities. No erythema, lesions or rash over visible areas. No pressure lesions on back, buttocks. BACK: Nontender without deformity or crepitance. No flank tenderness. NEUROLOGICAL: Alert and oriented to place, time and person. Sensation and motor function intact bilaterally. No facial droops, dysphasia. PSYCHIATRIC: Good judgement and reason, without hallucinations, abnormal affect or abnormal behaviors during the examination. Patient is not suicidal. Initial Vital Signs Initial Vital Signs: Vital Signs Pulse Oximetry 97 04/24/20 16:56 <Live Morales DO - Last Filed: 04/25/20 11:07> Initial Vital Signs Initial Vital Signs: Vital Signs Pulse Oximetry 97 04/24/20 16:56 <Siri Lux MD - Last Filed: 05/01/20 07:26> Initial Vital Signs Initial Vital Signs: Vital Signs Pulse Oximetry 97 04/24/20 16:56 Scores <AMY Nieves - Last Filed: 04/24/20 20:54> GCS Kobe coma scale eye opening: Spontaneous Kobe coma scale verbal response: Orientated Kobe coma scale motor response: Obey commands [place] coma scale total score: 15 PERC Score Age greater than or equal to 50 years: Yes Heart rate greater than or equal to 100 bpm: No Room Air O2 Sat less than 95%: No Unilateral leg swelling: No Recent trauma or surgery: No Hemoptysis: No Prior PE or DVT: No Hormone Use: No Total PERC Score: 1 qSOFA Altered Mental Status (GCS <15): No Respiratory rate greater than/equal to 22: No Systolic blood pressure less than or equal to 100: No qSOFA Total: 0 0-1 Not High Risk 1-3 High risk Wells' Criteria for DVT Active Cancer (Treatment within 6 months): No Bedridden recently >3 days or major surgery within 4 weeks: Yes Calf Swelling >3cm compared to other leg: No Collateral (nonvericose) superficial veins present: No Entire leg swollen: Yes Localized tenderness along the deep vein system: Yes Pitting edema, confined to symtomatic leg: Yes Paralysis, paresis, or recent plaster immobilization of ext: No Previously documented DVT: No Alternative dx to DVT as likely or more likely: No Wells' criteria for DVT: 4 Course <AMY Nieves - Last Filed: 04/24/20 20:54> Orders Ordered: Discontinued Medications Acetaminophen (Acetaminophen 325 Mg Tablet) 650 mg PO Q6HR PRN PRN Reason: Fever/Mild Pain (1-3) Last Admin: 04/25/20 18:31 Dose: 650 mg Documented by: JASMINA Al Hydrox/Mg Hydrox/Simethicone (Mag Hydrox/Alum/Simeth 30 Ml Udc) 30 ml PO Q6HR PRN PRN Reason: Dyspepsia Last Admin: 04/26/20 09:59 Dose: 30 ml Documented by: CURT Apixaban (Apixaban 5 Mg Tablet) 10 mg PO NOW ONE Stop: 04/24/20 19:42 Last Admin: 04/24/20 20:05 Dose: 10 mg Documented by: JASON Apixaban (Apixaban 5 Mg Tablet) 10 mg PO BID [facility] Apixaban (Apixaban 5 Mg Tablet) 10 mg PO BID [facility] Last Admin: 04/27/20 08:48 Dose: 10 mg Documented by: Admin: 04/26/20 21:10 Dose: 10 mg Documented by: Admin: 04/26/20 09:58 Dose: 10 mg Documented by: Admin: 04/25/20 20:18 Dose: 10 mg Documented by: Admin: 04/25/20 09:44 Dose: 10 mg Documented by: CURT Atorvastatin Calcium (Atorvastatin 20 Mg Tablet) 40 mg PO BEDTIME [facility] Last Admin: 04/26/20 21:10 Dose: 40 mg Documented by: Admin: 04/25/20 20:18 Dose: 40 mg Documented by: Admin: 04/24/20 21:48 Dose: 40 mg Documented by: JASMINA Bisacodyl (Bisacodyl 5 Mg Tablet) 10 mg PO DAILY PRN PRN Reason: Constipation Last Admin: 04/26/20 10:39 Dose: 10 mg Documented by: CURT Bisacodyl (Bisacodyl 10 Mg Supp) 10 mg [place] DAILY PRN PRN Reason: Constipation Calcium Carbonate (Calcium Carbonate 500 Mg Tab) 1,000 mg PO Q4HR PRN PRN Reason: Dyspepsia Docusate Sodium (Docusate 100 Mg Capsule) 100 mg PO BID [facility] Last Admin: 04/27/20 08:46 Dose: 100 mg Documented by: Admin: 04/26/20 21:10 Dose: 100 mg Documented by: Admin: 04/26/20 09:58 Dose: 100 mg Documented by: Admin: 04/25/20 20:18 Dose: 100 mg Documented by: Admin: 04/25/20 09:44 Dose: 100 mg Documented by: Admin: 04/24/20 21:48 Dose: 100 mg Documented by: JASMINA Doxazosin Mesylate (Doxazosin 4 Mg Tablet) 8 mg PO BEDTIME [facility] Last Admin: 04/26/20 21:10 Dose: 8 mg Documented by: Admin: 04/25/20 20:18 Dose: 8 mg Documented by: Admin: 04/24/20 21:47 Dose: 8 mg Documented by: JASMINA Famotidine (Famotidine 20 Mg Tablet) 20 mg PO BEDTIME [facility] Last Admin: 04/26/20 21:10 Dose: 20 mg Documented by: Admin: 04/25/20 20:18 Dose: 20 mg Documented by: JASMINA Furosemide (Furosemide 20 Mg/2 Ml Vial) 20 mg IV NOW ONE Stop: 04/24/20 20:17 Last Admin: 04/24/20 21:49 Dose: 20 mg Documented by: JASMINA Furosemide (Furosemide 20 Mg/2 Ml Vial) 20 mg IV DAILY [facility] Last Admin: 04/27/20 08:46 Dose: 20 mg Documented by: Admin: 04/26/20 09:58 Dose: 20 mg Documented by: Admin: 04/25/20 09:45 Dose: 20 mg Documented by: CURT Levofloxacin (Levaquin) 750 mg in 150 mls @ 100 mls/hr IV Q24H [facility] Last Infusion: 04/26/20 22:45 Dose: 0 mls/hr Documented by: Admin: 04/26/20 21:11 Dose: 100 mls/hr Documented by: Infusion: 04/25/20 23:22 Dose: 100 mls/hr Documented by: Admin: 04/25/20 21:52 Dose: 100 mls/hr Documented by: Infusion: 04/24/20 23:19 Dose: 100 mls/hr Documented by: Admin: 04/24/20 21:49 Dose: 100 mls/hr Documented by: JASMINA Levothyroxine Sodium (Levothyroxine 112 Mcg Tablet) 112 mcg PO QACBREAK [facility] Last Admin: 04/27/20 06:38 Dose: 112 mcg Documented by: Admin: 04/26/20 06:17 Dose: 112 mcg Documented by: Admin: 04/25/20 06:51 Dose: 112 mcg Documented by: ROBERT Naloxone HCl (Naloxone 0.4 Mg/Ml Vial) 0.2 mg IV Q2MIN PRN PRN Reason: Opiate Reversal Ondansetron HCl (Ondansetron 4 Mg/2 Ml Inj) 4 mg IV Q8HR PRN PRN Reason: Nausea And Vomiting Oxycodone HCl (Oxycodone Ir 5 Mg Tablet) 5 mg PO Q4HR PRN PRN Reason: Pain, Moderate (4-6) Last Admin: 04/25/20 23:57 Dose: 5 mg Documented by: Admin: 04/25/20 18:32 Dose: 5 mg Documented by: JASMINA Polyethylene Glycol (Polyethylene Glycol 3350 17 Gm Powd.Pack) 17 gm PO DAILY PRN PRN Reason: Constipation Last Admin: 04/26/20 10:39 Dose: 17 gm Documented by: CURT Polyethylene Glycol (Polyethylene Glycol 3350 17 Gm Powd.Pack) 17 gm PO NOW ONE Stop: 04/26/20 06:11 Last Admin: 04/26/20 06:17 Dose: 17 gm Documented by: JUANCARLOS Prochlorperazine (Prochlorperazine 10 Mg/2 Ml Vial) 10 mg IV Q6HR PRN PRN Reason: Nausea Sertraline HCl (Sertraline 50 Mg Tablet) 150 mg PO DAILY [facility] Last Admin: 04/27/20 08:45 Dose: 150 mg Documented by: Admin: 04/26/20 09:58 Dose: 150 mg Documented by: Admin: 04/25/20 09:47 Dose: 150 mg Documented by: CURT Consultations Consultation #1: Consulted with Dr. Morales and [facility] for admission for DVT, new onset of CHF, immobility and requiring physical therapy evaluation and social Work consult for home assistance. After reviewing the new findings, past visit history, home situations thoroughly, [facility] kindly accepted the patient's care. Time: 20:23 Vital Signs Vital signs: Vital Signs - 8 hr 04/24/20 16:56 04/24/20 16:57 04/24/20 16:59 Temperature 98.3 F Pulse Rate 63 64 Respiratory Rate 14 Blood Pressure 169/74 H 169/74 H Pulse Oximetry 97 97 96 04/24/20 17:00 04/24/20 17:30 04/24/20 17:31 Temperature Pulse Rate 60 59 L 61 Respiratory Rate 18 22 Blood Pressure 157/59 H 116/61 Pulse Oximetry 98 95 95 04/24/20 18:00 04/24/20 18:01 04/24/20 18:30 Temperature Pulse Rate 58 L 58 L 52 L Respiratory Rate 23 18 18 Blood Pressure 119/58 L 132/60 Pulse Oximetry 95 96 95 04/24/20 19:00 04/24/20 19:15 04/24/20 19:29 Temperature Pulse Rate 51 L 52 L 62 Respiratory Rate 18 27 H Blood Pressure 139/69 139/63 Pulse Oximetry 97 96 97 04/24/20 19:30 Temperature Pulse Rate Respiratory Rate Blood Pressure 144/66 H Pulse Oximetry <Live Morales, DO - Last Filed: 04/25/20 11:07> Orders Ordered: Discontinued Medications Acetaminophen (Acetaminophen 325 Mg Tablet) 650 mg PO Q6HR PRN PRN Reason: Fever/Mild Pain (1-3) Last Admin: 04/25/20 18:31 Dose: 650 mg Documented by: JASMINA Al Hydrox/Mg Hydrox/Simethicone (Mag Hydrox/Alum/Simeth 30 Ml Udc) 30 ml PO Q6HR PRN PRN Reason: Dyspepsia Last Admin: 04/26/20 09:59 Dose: 30 ml Documented by: CURT Apixaban (Apixaban 5 Mg Tablet) 10 mg PO NOW ONE Stop: 04/24/20 19:42 Last Admin: 04/24/20 20:05 Dose: 10 mg Documented by: JASON Apixaban (Apixaban 5 Mg Tablet) 10 mg PO BID [facility] Apixaban (Apixaban 5 Mg Tablet) 10 mg PO BID [facility] Last Admin: 04/27/20 08:48 Dose: 10 mg Documented by: Admin: 04/26/20 21:10 Dose: 10 mg Documented by: Admin: 04/26/20 09:58 Dose: 10 mg Documented by: Admin: 04/25/20 20:18 Dose: 10 mg Documented by: Admin: 04/25/20 09:44 Dose: 10 mg Documented by: CURT Atorvastatin Calcium (Atorvastatin 20 Mg Tablet) 40 mg PO BEDTIME [facility] Last Admin: 04/26/20 21:10 Dose: 40 mg Documented by: Admin: 04/25/20 20:18 Dose: 40 mg Documented by: Admin: 04/24/20 21:48 Dose: 40 mg Documented by: JASMINA Bisacodyl (Bisacodyl 5 Mg Tablet) 10 mg PO DAILY PRN PRN Reason: Constipation Last Admin: 04/26/20 10:39 Dose: 10 mg Documented by: CURT Bisacodyl (Bisacodyl 10 Mg Supp) 10 mg [place] DAILY PRN PRN Reason: Constipation Calcium Carbonate (Calcium Carbonate 500 Mg Tab) 1,000 mg PO Q4HR PRN PRN Reason: Dyspepsia Docusate Sodium (Docusate 100 Mg Capsule) 100 mg PO BID [facility] Last Admin: 04/27/20 08:46 Dose: 100 mg Documented by: Admin: 04/26/20 21:10 Dose: 100 mg Documented by: Admin: 04/26/20 09:58 Dose: 100 mg Documented by: Admin: 04/25/20 20:18 Dose: 100 mg Documented by: Admin: 04/25/20 09:44 Dose: 100 mg Documented by: Admin: 04/24/20 21:48 Dose: 100 mg Documented by: JASMINA Doxazosin Mesylate (Doxazosin 4 Mg Tablet) 8 mg PO BEDTIME [facility] Last Admin: 04/26/20 21:10 Dose: 8 mg Documented by: Admin: 04/25/20 20:18 Dose: 8 mg Documented by: Admin: 04/24/20 21:47 Dose: 8 mg Documented by: JASMINA Famotidine (Famotidine 20 Mg Tablet) 20 mg PO BEDTIME [facility] Admin: 04/26/20 21:10 Dose: 20 mg Documented by: Admin: 04/25/20 20:18 Dose: 20 mg Documented by: JASMINA Furosemide (Furosemide 20 Mg/2 Ml Vial) 20 mg IV NOW ONE Stop: 04/24/20 20:17 Last Admin: 04/24/20 21:49 Dose: 20 mg Documented by: JASMINA Furosemide (Furosemide 20 Mg/2 Ml Vial) 20 mg IV DAILY [facility] Admin: 04/27/20 08:46 Dose: 20 mg Documented by: Admin: 04/26/20 09:58 Dose: 20 mg Documented by: Admin: 04/25/20 09:45 Dose: 20 mg Documented by: CURT Levofloxacin (Levaquin) 750 mg in 150 mls @ 100 mls/hr IV Q24H [facility] Infusion: 04/26/20 22:45 Dose: 0 mls/hr Documented by: Admin: 04/26/20 21:11 Dose: 100 mls/hr Documented by: Infusion: 04/25/20 23:22 Dose: 100 mls/hr Documented by: Admin: 04/25/20 21:52 Dose: 100 mls/hr Documented by: Infusion: 04/24/20 23:19 Dose: 100 mls/hr Documented by: Admin: 04/24/20 21:49 Dose: 100 mls/hr Documented by: JASMINA Levothyroxine Sodium (Levothyroxine 112 Mcg Tablet) 112 mcg PO QACBREAK [facility] Admin: 04/27/20 06:38 Dose: 112 mcg Documented by: Admin: 04/26/20 06:17 Dose: 112 mcg Documented by: Admin: 04/25/20 06:51 Dose: 112 mcg Documented by: ROBERT Naloxone HCl (Naloxone 0.4 Mg/Ml Vial) 0.2 mg IV Q2MIN PRN PRN Reason: Opiate Reversal Ondansetron HCl (Ondansetron 4 Mg/2 Ml Inj) 4 mg IV Q8HR PRN PRN Reason: Nausea And Vomiting Oxycodone HCl (Oxycodone Ir 5 Mg Tablet) 5 mg PO Q4HR PRN PRN Reason: Pain, Moderate (4-6) Last Admin: 04/25/20 23:57 Dose: 5 mg Documented by: Admin: 04/25/20 18:32 Dose: 5 mg Documented by: JASMINA Polyethylene Glycol (Polyethylene Glycol 3350 17 Gm Powd.Pack) 17 gm PO DAILY PRN PRN Reason: Constipation Last Admin: 04/26/20 10:39 Dose: 17 gm Documented by: CURT Polyethylene Glycol (Polyethylene Glycol 3350 17 Gm Powd.Pack) 17 gm PO NOW ONE Stop: 04/26/20 06:11 Last Admin: 04/26/20 06:17 Dose: 17 gm Documented by: JUANCARLOS Prochlorperazine (Prochlorperazine 10 Mg/2 Ml Vial) 10 mg IV Q6HR PRN PRN Reason: Nausea Sertraline HCl (Sertraline 50 Mg Tablet) 150 mg PO DAILY [facility] Last Admin: 04/27/20 08:45 Dose: 150 mg Documented by: Admin: 04/26/20 09:58 Dose: 150 mg Documented by: Admin: 04/25/20 09:47 Dose: 150 mg Documented by: CURT Vital Signs Vital signs: Vital Signs - 8 hr 04/24/20 16:56 04/24/20 16:57 04/24/20 16:59 Temperature 98.3 F Pulse Rate 63 64 Respiratory Rate 14 Blood Pressure 169/74 H 169/74 H Pulse Oximetry 97 97 96 04/24/20 17:00 04/24/20 17:30 04/24/20 17:31 Temperature Pulse Rate 60 59 L 61 Respiratory Rate 18 22 Blood Pressure 157/59 H 116/61 Pulse Oximetry 98 95 95 04/24/20 18:00 04/24/20 18:01 04/24/20 18:30 Temperature Pulse Rate 58 L 58 L 52 L Respiratory Rate 23 18 18 Blood Pressure 119/58 L 132/60 Pulse Oximetry 95 96 95 04/24/20 19:00 04/24/20 19:15 04/24/20 19:29 Temperature Pulse Rate 51 L 52 L 62 Respiratory Rate 18 27 H Blood Pressure 139/69 139/63 Pulse Oximetry 97 96 97 04/24/20 19:30 Temperature Pulse Rate Respiratory Rate Blood Pressure 144/66 H Pulse Oximetry <Siri Lux MD - Last Filed: 05/01/20 07:26> Orders Ordered: Discontinued Medications Acetaminophen (Acetaminophen 325 Mg Tablet) 650 mg PO Q6HR PRN PRN Reason: Fever/Mild Pain (1-3) Last Admin: 04/25/20 18:31 Dose: 650 mg Documented by: JASMINA Al Hydrox/Mg Hydrox/Simethicone (Mag Hydrox/Alum/Simeth 30 Ml Udc) 30 ml PO Q6HR PRN PRN Reason: Dyspepsia Last Admin: 04/26/20 09:59 Dose: 30 ml Documented by: CURT Apixaban (Apixaban 5 Mg Tablet) 10 mg PO NOW ONE Stop: 04/24/20 19:42 Last Admin: 04/24/20 20:05 Dose: 10 mg Documented by: JASON Apixaban (Apixaban 5 Mg Tablet) 10 mg PO BID [facility] Apixaban (Apixaban 5 Mg Tablet) 10 mg PO BID [facility] Last Admin: 04/27/20 08:48 Dose: 10 mg Documented by: Admin: 04/26/20 21:10 Dose: 10 mg Documented by: Admin: 04/26/20 09:58 Dose: 10 mg Documented by: Admin: 04/25/20 20:18 Dose: 10 mg Documented by: Admin: 04/25/20 09:44 Dose: 10 mg Documented by: CURT Atorvastatin Calcium (Atorvastatin 20 Mg Tablet) 40 mg PO BEDTIME [facility] Last Admin: 04/26/20 21:10 Dose: 40 mg Documented by: Admin: 04/25/20 20:18 Dose: 40 mg Documented by: Admin: 04/24/20 21:48 Dose: 40 mg Documented by: JASMINA Bisacodyl (Bisacodyl 5 Mg Tablet) 10 mg PO DAILY PRN PRN Reason: Constipation Last Admin: 04/26/20 10:39 Dose: 10 mg Documented by: CURT Bisacodyl (Bisacodyl 10 Mg Supp) 10 mg [place] DAILY PRN PRN Reason: Constipation Calcium Carbonate (Calcium Carbonate 500 Mg Tab) 1,000 mg PO Q4HR PRN PRN Reason: Dyspepsia Docusate Sodium (Docusate 100 Mg Capsule) 100 mg PO BID [facility] Last Admin: 04/27/20 08:46 Dose: 100 mg Documented by: Admin: 04/26/20 21:10 Dose: 100 mg Documented by: Admin: 04/26/20 09:58 Dose: 100 mg Documented by: Admin: 04/25/20 20:18 Dose: 100 mg Documented by: Admin: 04/25/20 09:44 Dose: 100 mg Documented by: Admin: 04/24/20 21:48 Dose: 100 mg Documented by: JASMNIA Doxazosin Mesylate (Doxazosin 4 Mg Tablet) 8 mg PO BEDTIME [facility] Last Admin: 04/26/20 21:10 Dose: 8 mg Documented by: Admin: 04/25/20 20:18 Dose: 8 mg Documented by: Admin: 04/24/20 21:47 Dose: 8 mg Documented by: JASMINA Famotidine (Famotidine 20 Mg Tablet) 20 mg PO BEDTIME [facility] Last Admin: 04/26/20 21:10 Dose: 20 mg Documented by: Admin: 04/25/20 20:18 Dose: 20 mg Documented by: JASMINA Furosemide (Furosemide 20 Mg/2 Ml Vial) 20 mg IV NOW ONE Stop: 04/24/20 20:17 Last Admin: 04/24/20 21:49 Dose: 20 mg Documented by: JASMINA Furosemide (Furosemide 20 Mg/2 Ml Vial) 20 mg IV DAILY [facility] Last Admin: 04/27/20 08:46 Dose: 20 mg Documented by: Admin: 04/26/20 09:58 Dose: 20 mg Documented by: Admin: 04/25/20 09:45 Dose: 20 mg Documented by: CURT Levofloxacin (Levaquin) 750 mg in 150 mls @ 100 mls/hr IV Q24H [facility] Last Infusion: 04/26/20 22:45 Dose: 0 mls/hr Documented by: Admin: 04/26/20 21:11 Dose: 100 mls/hr Documented by: Infusion: 04/25/20 23:22 Dose: 100 mls/hr Documented by: Admin: 04/25/20 21:52 Dose: 100 mls/hr Documented by: Infusion: 04/24/20 23:19 Dose: 100 mls/hr Documented by: Admin: 04/24/20 21:49 Dose: 100 mls/hr Documented by: JASMINA Levothyroxine Sodium (Levothyroxine 112 Mcg Tablet) 112 mcg PO QACBREAK [facility] Last Admin: 04/27/20 06:38 Dose: 112 mcg Documented by: Admin: 04/26/20 06:17 Dose: 112 mcg Documented by: Admin: 04/25/20 06:51 Dose: 112 mcg Documented by: ROBERT Naloxone HCl (Naloxone 0.4 Mg/Ml Vial) 0.2 mg IV Q2MIN PRN PRN Reason: Opiate Reversal Ondansetron HCl (Ondansetron 4 Mg/2 Ml Inj) 4 mg IV Q8HR PRN PRN Reason: Nausea And Vomiting Oxycodone HCl (Oxycodone Ir 5 Mg Tablet) 5 mg PO Q4HR PRN PRN Reason: Pain, Moderate (4-6) Last Admin: 04/25/20 23:57 Dose: 5 mg Documented by: Admin: 04/25/20 18:32 Dose: 5 mg Documented by: JASMINA Polyethylene Glycol (Polyethylene Glycol 3350 17 Gm Powd.Pack) 17 gm PO DAILY PRN PRN Reason: Constipation Last Admin: 04/26/20 10:39 Dose: 17 gm Documented by: CURT Polyethylene Glycol (Polyethylene Glycol 3350 17 Gm Powd.Pack) 17 gm PO NOW ONE Stop: 04/26/20 06:11 Last Admin: 04/26/20 06:17 Dose: 17 gm Documented by: JUANCARLOS Prochlorperazine (Prochlorperazine 10 Mg/2 Ml Vial) 10 mg IV Q6HR PRN PRN Reason: Nausea Sertraline HCl (Sertraline 50 Mg Tablet) 150 mg PO DAILY [facility] Last Admin: 04/27/20 08:45 Dose: 150 mg Documented by: Admin: 04/26/20 09:58 Dose: 150 mg Documented by: Admin: 04/25/20 09:47 Dose: 150 mg Documented by: CURT Vital Signs Vital signs: Vital Signs - 8 hr 04/24/20 16:56 04/24/20 16:57 04/24/20 16:59 Temperature 98.3 F Pulse Rate 63 64 Respiratory Rate 14 Blood Pressure 169/74 H 169/74 H Pulse Oximetry 97 97 96 04/24/20 17:00 04/24/20 17:30 04/24/20 17:31 Temperature Pulse Rate 60 59 L 61 Respiratory Rate 18 22 Blood Pressure 157/59 H 116/61 Pulse Oximetry 98 95 95 04/24/20 18:00 04/24/20 18:01 04/24/20 18:30 Temperature Pulse Rate 58 L 58 L 52 L Respiratory Rate 23 18 18 Blood Pressure 119/58 L 132/60 Pulse Oximetry 95 96 95 04/24/20 19:00 04/24/20 19:15 04/24/20 19:29 Temperature Pulse Rate 51 L 52 L 62 Respiratory Rate 18 27 H Blood Pressure 139/69 139/63 Pulse Oximetry 97 96 97 04/24/20 19:30 Temperature Pulse Rate Respiratory Rate Blood Pressure 144/66 H Pulse Oximetry MDM - Extremity Injury (Lower) <AYM Nieves - Last Filed: 04/24/20 20:54> Differential Diagnosis Differential diagnosis: Likely other (DVT, venous insufficiency, CHF, cellulitis, fraility) Medical Records Attestation: I reviewed the patient's medical records. Lab Data Attestation: I reviewed the patient's lab results. Result diagrams: 04/27/20 05:25 04/27/20 05:25 Labs: Lab Results 04/24/20 04/24/20 04/24/20 Range/Units 17:15 17:15 17:15 WBC 6.1 (4.5-11.0) X10^3/uL RBC 4.49 L (4.5-5.9) X10^6/uL Hgb 12.2 L (13.5-17.5) g/dL Hct 38.4 L (41-53) % MCV 85.6 (80-100) fL MCH 27.2 (26-34) PG MCHC 31.8 (30-36) % RDW 15.4 H (11.6-14.8) % Plt Count 121 L (150-400) X10^3/uL Neut % (Auto) 66.3 (50-75) % Lymph % (Auto) 21.3 L (25-40) % [place] % (Auto) 5.2 (3-14) % Eos % (Auto) 5.6 H (2-4) % Baso % (Auto) 1.6 (0-2) % Neut # (Auto) 4000 (5450-6693) /uL Lymph # (Auto) 1300 (9798-5295) /uL [place] # (Auto) 300 (0-900) /uL Eos # (Auto) 300 (0-450) /uL Baso # (Auto) 100 (0-100) /uL PT 12.4 (10.1-12.7) SECONDS INR 1.1 (0.9-1.3) APTT 32 (26.4-36.2) SECONDS Sodium 140 (137-145) mmol/L Potassium 4.2 (3.4-5.1) mmol/L Chloride 106 (98-107) mmol/L Carbon Dioxide 27 (22-32) mmol/L BUN 27 H (9-20) mg/dL Creatinine 1.18 (0.66-1.25) mg/dL Estimated GFR 58.7 L (>60) mL/min BUN/Creatinine Ratio 22.9 H (6-22) Glucose 107 (80-110) mg/dL Lactate (0.7-2.1) mmol/L Calcium 9.4 (8.4-10.2) mg/dL Magnesium 2.0 (1.6-2.3) mg/dL Total Bilirubin 0.7 (0.2-1.3) mg/dL AST 22 (17-59) IU/L ALT 12 (<50) IU/L Alkaline Phosphatase 92 (38-126) U/L Total Creatine Kinase 52 L (55-170) U/L CK-MB (CK-2) TNP CK-MB (CK-2) Rel Index TNP Troponin I < 0.012 (0.01-0.034) ng/mL NT-Pro-B Natriuret Pep (<450) pg/mL Total Protein 8.2 (6.3-8.2) g/dL Albumin 4.3 (3.5-5.0) g/dL Globulin 3.9 (1.7-4.1) g/dL Albumin/Globulin Ratio 1.1 (1.0-2.8) TSH (0.47-4.68) uIU/mL Free T4 (0.78-2.19) ng/dL Urine RBC (0-5/HPF) Urine WBC (0-5/HPF) Ur Transition Epith Cell (0-5/HPF) Urine Bacteria (None) Ur Culture Indicated? COVID-19 PCR (Negative) 04/24/20 04/24/20 04/24/20 Range/Units 17:15 17:15 17:15 WBC (4.5-11.0) X10^3/uL RBC (4.5-5.9) X10^6/uL Hgb (13.5-17.5) g/dL Hct (41-53) % MCV (80-100) fL MCH (26-34) PG MCHC (30-36) % RDW (11.6-14.8) % Plt Count (150-400) X10^3/uL Neut % (Auto) (50-75) % Lymph % (Auto) (25-40) % [place] % (Auto) (3-14) % Eos % (Auto) (2-4) % Baso % (Auto) (0-2) % Neut # (Auto) (4991-9420) /uL Lymph # (Auto) (4256-6718) /uL [place] # (Auto) (0-900) /uL Eos # (Auto) (0-450) /uL Baso # (Auto) (0-100) /uL PT (10.1-12.7) SECONDS INR (0.9-1.3) APTT (26.4-36.2) SECONDS Sodium (137-145) mmol/L Potassium (3.4-5.1) mmol/L Chloride (98-107) mmol/L Carbon Dioxide (22-32) mmol/L BUN (9-20) mg/dL Creatinine (0.66-1.25) mg/dL Estimated GFR (>60) mL/min BUN/Creatinine Ratio (6-22) Glucose (80-110) mg/dL Lactate 1.8 (0.7-2.1) mmol/L Calcium (8.4-10.2) mg/dL Magnesium (1.6-2.3) mg/dL Total Bilirubin (0.2-1.3) mg/dL AST (17-59) IU/L ALT (<50) IU/L Alkaline Phosphatase (38-126) U/L Total Creatine Kinase (55-170) U/L CK-MB (CK-2) CK-MB (CK-2) Rel Index Troponin I (0.01-0.034) ng/mL NT-Pro-B Natriuret Pep (<450) pg/mL Total Protein (6.3-8.2) g/dL Albumin (3.5-5.0) g/dL Globulin (1.7-4.1) g/dL Albumin/Globulin Ratio (1.0-2.8) TSH 8.08 H (0.47-4.68) uIU/mL Free T4 (0.78-2.19) ng/dL Urine RBC (0-5/HPF) Urine WBC (0-5/HPF) Ur Transition Epith Cell (0-5/HPF) Urine Bacteria (None) Ur Culture Indicated? COVID-19 PCR Negative (Negative) 04/24/20 04/24/20 04/24/20 Range/Units 17:15 17:15 19:20 WBC (4.5-11.0) X10^3/uL RBC (4.5-5.9) X10^6/uL Hgb (13.5-17.5) g/dL Hct (41-53) % MCV (80-100) fL MCH (26-34) PG MCHC (30-36) % RDW (11.6-14.8) % Plt Count (150-400) X10^3/uL Neut % (Auto) (50-75) % Lymph % (Auto) (25-40) % [place] % (Auto) (3-14) % Eos % (Auto) (2-4) % Baso % (Auto) (0-2) % Neut # (Auto) (4843-3788) /uL Lymph # (Auto) (1421-4269) /uL [place] # (Auto) (0-900) /uL Eos # (Auto) (0-450) /uL Baso # (Auto) (0-100) /uL PT (10.1-12.7) SECONDS INR (0.9-1.3) APTT (26.4-36.2) SECONDS Sodium (137-145) mmol/L Potassium (3.4-5.1) mmol/L Chloride (98-107) mmol/L Carbon Dioxide (22-32) mmol/L BUN (9-20) mg/dL Creatinine (0.66-1.25) mg/dL Estimated GFR (>60) mL/min BUN/Creatinine Ratio (6-22) Glucose (80-110) mg/dL Lactate (0.7-2.1) mmol/L Calcium (8.4-10.2) mg/dL Magnesium (1.6-2.3) mg/dL Total Bilirubin (0.2-1.3) mg/dL AST (17-59) IU/L ALT (<50) IU/L Alkaline Phosphatase (38-126) U/L Total Creatine Kinase (55-170) U/L CK-MB (CK-2) CK-MB (CK-2) Rel Index Troponin I (0.01-0.034) ng/mL NT-Pro-B Natriuret Pep 1130 H (<450) pg/mL Total Protein (6.3-8.2) g/dL Albumin (3.5-5.0) g/dL Globulin (1.7-4.1) g/dL Albumin/Globulin Ratio (1.0-2.8) TSH (0.47-4.68) uIU/mL Free T4 1.07 (0.78-2.19) ng/dL Urine RBC 5-10/hpf H (0-5/HPF) Urine WBC 10-30/hpf H (0-5/HPF) Ur Transition Epith Cell 5-10/hpf H (0-5/HPF) Urine Bacteria Many (>30) H (None) Ur Culture Indicated? Specimen cultured COVID-19 PCR (Negative) Urine Dip Bedside Urine Glucose Negative Bedside Urine Bilirubin - Negative Bedside Urine Ketone - Negative Urine Specific [place] 1.020 Bedside Urine Occult Blood +/- Bedside Urine pH 6.5 Bedside Urine Protein +/- 15 Bedside Urine Urobilinogen - Negative Bedside Urine Nitrite - Negative Bedside Urine Leukocytes ++ 125 Esterase ECG Data Attestation: I personally reviewed and interpreted this ECG as follows: Prior ECG tracings: available for review Interpretation: Sinus Gustavo rare at 56 with PVC RBB. Normal [place]. QRS duration 162, QT QTC 448/432. No acute ST changes Baseline artifacts. Previous EKGs in December 2011 and 2010 first-degree AV block with right bundle- branch block. MDM Narrative Medical decision making narrative: This is a 84 year male presents to ED with from home with chief complain of nontraumatic bilateral leg pain that is so bad that he has not been able to walk for last 5-6 weeks according to the patient's spouse and the patient. Physical exam appreciated bilteral leg swelling, cool bilateral foot, skye color with faint pulses in bilateral foot worse in left and concerned for DVT, heart failure and less likely cellulitis. Well's criteria for DVT score is 4 with PERC score 1. CBC shows mild anemia with H/H of 12.2/38.4. Mild thrombocytopenia with platelet count 121. Normal PT and PTT. Chemistry test indicates mild dehydration with elevated BUN of 27 with BUN/creatinine ratio of 22.9. Normal kidney function test with creatinine of 1.18. Today's TSH level is 8.08 but has normal FT4 of 1.07 and is currently taking levothyroxine daily. Cardiac enzyme was negative. ProBNP was elevated to 1130. US test on bilateral lower extremity ordered and shows DVT on left common femoral and superficial femoral veins. There was no evidence of DVT within right lower extremity. Chest x-ray showed mild cardiomegaly with minimal interstitial prominence for worsen right-sided than left. The patient was started on Eliquis 10 mg this evening. Urine POC test shows leuks of 125 without nitrite. Urine micro test shows 10- 30/hpf and many bacteria but also 5-10hpf of epithelia cells. Urine culture is pending. Previous urine culture in September came back with E coli, Pseudomonas aeruginosa, Klebsiella pneumonia. The patient was admitted to hospitalist for new onset of CHF for futher evaluation, DVT with leg pain, inability to ambulate and is requiring physical therapy evaluation, social consult to set up home health, PT services. <Live Morales, DO - Last Filed: 04/25/20 11:07> Lab Data Labs: Lab Results 04/24/20 04/24/20 04/24/20 Range/Units 17:15 17:15 17:15 WBC 6.1 (4.5-11.0) X10^3/uL RBC 4.49 L (4.5-5.9) X10^6/uL Hgb 12.2 L (13.5-17.5) g/dL Hct 38.4 L (41-53) % MCV 85.6 (80-100) fL MCH 27.2 (26-34) PG MCHC 31.8 (30-36) % RDW 15.4 H (11.6-14.8) % Plt Count 121 L (150-400) X10^3/uL Neut % (Auto) 66.3 (50-75) % Lymph % (Auto) 21.3 L (25-40) % [place] % (Auto) 5.2 (3-14) % Eos % (Auto) 5.6 H (2-4) % Baso % (Auto) 1.6 (0-2) % Neut # (Auto) 4000 (4013-9163) /uL Lymph # (Auto) 1300 (4598-4543) /uL [place] # (Auto) 300 (0-900) /uL Eos # (Auto) 300 (0-450) /uL Baso # (Auto) 100 (0-100) /uL PT 12.4 (10.1-12.7) SECONDS INR 1.1 (0.9-1.3) APTT 32 (26.4-36.2) SECONDS Sodium 140 (137-145) mmol/L Potassium 4.2 (3.4-5.1) mmol/L Chloride 106 (98-107) mmol/L Carbon Dioxide 27 (22-32) mmol/L BUN 27 H (9-20) mg/dL Creatinine 1.18 (0.66-1.25) mg/dL Estimated GFR 58.7 L (>60) mL/min BUN/Creatinine Ratio 22.9 H (6-22) Glucose 107 (80-110) mg/dL Lactate (0.7-2.1) mmol/L Calcium 9.4 (8.4-10.2) mg/dL Magnesium 2.0 (1.6-2.3) mg/dL Total Bilirubin 0.7 (0.2-1.3) mg/dL AST 22 (17-59) IU/L ALT 12 (<50) IU/L Alkaline Phosphatase 92 (38-126) U/L Total Creatine Kinase 52 L (55-170) U/L CK-MB (CK-2) TNP CK-MB (CK-2) Rel Index TNP Troponin I < 0.012 (0.01-0.034) ng/mL NT-Pro-B Natriuret Pep (<450) pg/mL Total Protein 8.2 (6.3-8.2) g/dL Albumin 4.3 (3.5-5.0) g/dL Globulin 3.9 (1.7-4.1) g/dL Albumin/Globulin Ratio 1.1 (1.0-2.8) TSH (0.47-4.68) uIU/mL Free T4 (0.78-2.19) ng/dL Urine RBC (0-5/HPF) Urine WBC (0-5/HPF) Ur Transition Epith Cell (0-5/HPF) Urine Bacteria (None) Ur Culture Indicated? COVID-19 PCR (Negative) 04/24/20 04/24/20 04/24/20 Range/Units 17:15 17:15 17:15 WBC (4.5-11.0) X10^3/uL RBC (4.5-5.9) X10^6/uL Hgb (13.5-17.5) g/dL Hct (41-53) % MCV (80-100) fL MCH (26-34) PG MCHC (30-36) % RDW (11.6-14.8) % Plt Count (150-400) X10^3/uL Neut % (Auto) (50-75) % Lymph % (Auto) (25-40) % [place] % (Auto) (3-14) % Eos % (Auto) (2-4) % Baso % (Auto) (0-2) % Neut # (Auto) (7178-6821) /uL Lymph # (Auto) (7923-9222) /uL [place] # (Auto) (0-900) /uL Eos # (Auto) (0-450) /uL Baso # (Auto) (0-100) /uL PT (10.1-12.7) SECONDS INR (0.9-1.3) APTT (26.4-36.2) SECONDS Sodium (137-145) mmol/L Potassium (3.4-5.1) mmol/L Chloride (98-107) mmol/L Carbon Dioxide (22-32) mmol/L BUN (9-20) mg/dL Creatinine (0.66-1.25) mg/dL Estimated GFR (>60) mL/min BUN/Creatinine Ratio (6-22) Glucose (80-110) mg/dL Lactate 1.8 (0.7-2.1) mmol/L Calcium (8.4-10.2) mg/dL Magnesium (1.6-2.3) mg/dL Total Bilirubin (0.2-1.3) mg/dL AST (17-59) IU/L ALT (<50) IU/L Alkaline Phosphatase (38-126) U/L Total Creatine Kinase (55-170) U/L CK-MB (CK-2) CK-MB (CK-2) Rel Index Troponin I (0.01-0.034) ng/mL NT-Pro-B Natriuret Pep (<450) pg/mL Total Protein (6.3-8.2) g/dL Albumin (3.5-5.0) g/dL Globulin (1.7-4.1) g/dL Albumin/Globulin Ratio (1.0-2.8) TSH 8.08 H (0.47-4.68) uIU/mL Free T4 (0.78-2.19) ng/dL Urine RBC (0-5/HPF) Urine WBC (0-5/HPF) Ur Transition Epith Cell (0-5/HPF) Urine Bacteria (None) Ur Culture Indicated? COVID-19 PCR Negative (Negative) 04/24/20 04/24/20 04/24/20 Range/Units 17:15 17:15 19:20 WBC (4.5-11.0) X10^3/uL RBC (4.5-5.9) X10^6/uL Hgb (13.5-17.5) g/dL Hct (41-53) % MCV (80-100) fL MCH (26-34) PG MCHC (30-36) % RDW (11.6-14.8) % Plt Count (150-400) X10^3/uL Neut % (Auto) (50-75) % Lymph % (Auto) (25-40) % [place] % (Auto) (3-14) % Eos % (Auto) (2-4) % Baso % (Auto) (0-2) % Neut # (Auto) (6699-3892) /uL Lymph # (Auto) (4721-0727) /uL [place] # (Auto) (0-900) /uL Eos # (Auto) (0-450) /uL Baso # (Auto) (0-100) /uL PT (10.1-12.7) SECONDS INR (0.9-1.3) APTT (26.4-36.2) SECONDS Sodium (137-145) mmol/L Potassium (3.4-5.1) mmol/L Chloride (98-107) mmol/L Carbon Dioxide (22-32) mmol/L BUN (9-20) mg/dL Creatinine (0.66-1.25) mg/dL Estimated GFR (>60) mL/min BUN/Creatinine Ratio (6-22) Glucose (80-110) mg/dL Lactate (0.7-2.1) mmol/L Calcium (8.4-10.2) mg/dL Magnesium (1.6-2.3) mg/dL Total Bilirubin (0.2-1.3) mg/dL AST (17-59) IU/L ALT (<50) IU/L Alkaline Phosphatase (38-126) U/L Total Creatine Kinase (55-170) U/L CK-MB (CK-2) CK-MB (CK-2) Rel Index Troponin I (0.01-0.034) ng/mL NT-Pro-B Natriuret Pep 1130 H (<450) pg/mL Total Protein (6.3-8.2) g/dL Albumin (3.5-5.0) g/dL Globulin (1.7-4.1) g/dL Albumin/Globulin Ratio (1.0-2.8) TSH (0.47-4.68) uIU/mL Free T4 1.07 (0.78-2.19) ng/dL Urine RBC 5-10/hpf H (0-5/HPF) Urine WBC 10-30/hpf H (0-5/HPF) Ur Transition Epith Cell 5-10/hpf H (0-5/HPF) Urine Bacteria Many (>30) H (None) Ur Culture Indicated? Specimen cultured COVID-19 PCR (Negative) Urine Dip Bedside Urine Glucose Negative Bedside Urine Bilirubin - Negative Bedside Urine Ketone - Negative Urine Specific [place] 1.020 Bedside Urine Occult Blood +/- Bedside Urine pH 6.5 Bedside Urine Protein +/- 15 Bedside Urine Urobilinogen - Negative Bedside Urine Nitrite - Negative Bedside Urine Leukocytes ++ 125 Esterase <Siri Lux MD - Last Filed: 05/01/20 07:26> Lab Data Labs: Lab Results 04/24/20 04/24/20 04/24/20 Range/Units 17:15 17:15 17:15 WBC 6.1 (4.5-11.0) X10^3/uL RBC 4.49 L (4.5-5.9) X10^6/uL Hgb 12.2 L (13.5-17.5) g/dL Hct 38.4 L (41-53) % MCV 85.6 (80-100) fL MCH 27.2 (26-34) PG MCHC 31.8 (30-36) % RDW 15.4 H (11.6-14.8) % Plt Count 121 L (150-400) X10^3/uL Neut % (Auto) 66.3 (50-75) % Lymph % (Auto) 21.3 L (25-40) % [place] % (Auto) 5.2 (3-14) % Eos % (Auto) 5.6 H (2-4) % Baso % (Auto) 1.6 (0-2) % Neut # (Auto) 4000 (1194-5432) /uL Lymph # (Auto) 1300 (5662-8065) /uL [place] # (Auto) 300 (0-900) /uL Eos # (Auto) 300 (0-450) /uL Baso # (Auto) 100 (0-100) /uL PT 12.4 (10.1-12.7) SECONDS INR 1.1 (0.9-1.3) APTT 32 (26.4-36.2) SECONDS Sodium 140 (137-145) mmol/L Potassium 4.2 (3.4-5.1) mmol/L Chloride 106 (98-107) mmol/L Carbon Dioxide 27 (22-32) mmol/L BUN 27 H (9-20) mg/dL Creatinine 1.18 (0.66-1.25) mg/dL Estimated GFR 58.7 L (>60) mL/min BUN/Creatinine Ratio 22.9 H (6-22) Glucose 107 (80-110) mg/dL Lactate (0.7-2.1) mmol/L Calcium 9.4 (8.4-10.2) mg/dL Magnesium 2.0 (1.6-2.3) mg/dL Total Bilirubin 0.7 (0.2-1.3) mg/dL AST 22 (17-59) IU/L ALT 12 (<50) IU/L Alkaline Phosphatase 92 (38-126) U/L Total Creatine Kinase 52 L (55-170) U/L CK-MB (CK-2) TNP CK-MB (CK-2) Rel Index TNP Troponin I < 0.012 (0.01-0.034) ng/mL NT-Pro-B Natriuret Pep (<450) pg/mL Total Protein 8.2 (6.3-8.2) g/dL Albumin 4.3 (3.5-5.0) g/dL Globulin 3.9 (1.7-4.1) g/dL Albumin/Globulin Ratio 1.1 (1.0-2.8) TSH (0.47-4.68) uIU/mL Free T4 (0.78-2.19) ng/dL Urine RBC (0-5/HPF) Urine WBC (0-5/HPF) Ur Transition Epith Cell (0-5/HPF) Urine Bacteria (None) Ur Culture Indicated? COVID-19 PCR (Negative) 04/24/20 04/24/20 04/24/20 Range/Units 17:15 17:15 17:15 WBC (4.5-11.0) X10^3/uL RBC (4.5-5.9) X10^6/uL Hgb (13.5-17.5) g/dL Hct (41-53) % MCV (80-100) fL MCH (26-34) PG MCHC (30-36) % RDW (11.6-14.8) % Plt Count (150-400) X10^3/uL Neut % (Auto) (50-75) % Lymph % (Auto) (25-40) % [place] % (Auto) (3-14) % Eos % (Auto) (2-4) % Baso % (Auto) (0-2) % Neut # (Auto) (6368-8442) /uL Lymph # (Auto) (3356-7752) /uL [place] # (Auto) (0-900) /uL Eos # (Auto) (0-450) /uL Baso # (Auto) (0-100) /uL PT (10.1-12.7) SECONDS INR (0.9-1.3) APTT (26.4-36.2) SECONDS Sodium (137-145) mmol/L Potassium (3.4-5.1) mmol/L Chloride (98-107) mmol/L Carbon Dioxide (22-32) mmol/L BUN (9-20) mg/dL Creatinine (0.66-1.25) mg/dL Estimated GFR (>60) mL/min BUN/Creatinine Ratio (6-22) Glucose (80-110) mg/dL Lactate 1.8 (0.7-2.1) mmol/L Calcium (8.4-10.2) mg/dL Magnesium (1.6-2.3) mg/dL Total Bilirubin (0.2-1.3) mg/dL AST (17-59) IU/L ALT (<50) IU/L Alkaline Phosphatase (38-126) U/L Total Creatine Kinase (55-170) U/L CK-MB (CK-2) CK-MB (CK-2) Rel Index Troponin I (0.01-0.034) ng/mL NT-Pro-B Natriuret Pep (<450) pg/mL Total Protein (6.3-8.2) g/dL Albumin (3.5-5.0) g/dL Globulin (1.7-4.1) g/dL Albumin/Globulin Ratio (1.0-2.8) TSH 8.08 H (0.47-4.68) uIU/mL Free T4 (0.78-2.19) ng/dL Urine RBC (0-5/HPF) Urine WBC (0-5/HPF) Ur Transition Epith Cell (0-5/HPF) Urine Bacteria (None) Ur Culture Indicated? COVID-19 PCR Negative (Negative) 04/24/20 04/24/20 04/24/20 Range/Units 17:15 17:15 19:20 WBC (4.5-11.0) X10^3/uL RBC (4.5-5.9) X10^6/uL Hgb (13.5-17.5) g/dL Hct (41-53) % MCV (80-100) fL MCH (26-34) PG MCHC (30-36) % RDW (11.6-14.8) % Plt Count (150-400) X10^3/uL Neut % (Auto) (50-75) % Lymph % (Auto) (25-40) % [place] % (Auto) (3-14) % Eos % (Auto) (2-4) % Baso % (Auto) (0-2) % Neut # (Auto) (9067-2089) /uL Lymph # (Auto) (4147-9357) /uL [place] # (Auto) (0-900) /uL Eos # (Auto) (0-450) /uL Baso # (Auto) (0-100) /uL PT (10.1-12.7) SECONDS INR (0.9-1.3) APTT (26.4-36.2) SECONDS Sodium (137-145) mmol/L Potassium (3.4-5.1) mmol/L Chloride (98-107) mmol/L Carbon Dioxide (22-32) mmol/L BUN (9-20) mg/dL Creatinine (0.66-1.25) mg/dL Estimated GFR (>60) mL/min BUN/Creatinine Ratio (6-22) Glucose (80-110) mg/dL Lactate (0.7-2.1) mmol/L Calcium (8.4-10.2) mg/dL Magnesium (1.6-2.3) mg/dL Total Bilirubin (0.2-1.3) mg/dL AST (17-59) IU/L ALT (<50) IU/L Alkaline Phosphatase (38-126) U/L Total Creatine Kinase (55-170) U/L CK-MB (CK-2) CK-MB (CK-2) Rel Index Troponin I (0.01-0.034) ng/mL NT-Pro-B Natriuret Pep 1130 H (<450) pg/mL Total Protein (6.3-8.2) g/dL Albumin (3.5-5.0) g/dL Globulin (1.7-4.1) g/dL Albumin/Globulin Ratio (1.0-2.8) TSH (0.47-4.68) uIU/mL Free T4 1.07 (0.78-2.19) ng/dL Urine RBC 5-10/hpf H (0-5/HPF) Urine WBC 10-30/hpf H (0-5/HPF) Ur Transition Epith Cell 5-10/hpf H (0-5/HPF) Urine Bacteria Many (>30) H (None) Ur Culture Indicated? Specimen cultured COVID-19 PCR (Negative) Urine Dip Bedside Urine Glucose Negative Bedside Urine Bilirubin - Negative Bedside Urine Ketone - Negative Urine Specific [place] 1.020 Bedside Urine Occult Blood +/- Bedside Urine pH 6.5 Bedside Urine Protein +/- 15 Bedside Urine Urobilinogen - Negative Bedside Urine Nitrite - Negative Bedside Urine Leukocytes ++ 125 Esterase Discharge Plan Departure Patient Disposition: Admitted as Observation Clinical Impression: New onset of congestive heart failure DVT (deep venous thrombosis) Qualifiers: DVT location: lower extremity Affected thrombotic vein of extremity: femoral C hronicity: acute Laterality: left Qualified Code(s): I82.412 - Acute embolism and thrombosis of left femoral vein Admit Date/Time: 04/24/20 20:15 Admit Provider: Live Morales <Siri Lux MD - Last Filed: 05/01/20 07:26> Cosign ED Attending Cosignature Attestation: I was immediately available in the department for consultation throughout this patient's visit. I agree with documentation as above. Siri Lux MD
[2020-04-24 17:27] LABS: Add Manual Diff / Slide Review NO; Basophils Absolute Auto 100 /uL (0-100); Basophils Percent Auto 1.6 % (0-2); Eosinophils Absolute Auto 300 /uL (0-450); Eosinophils Percent Auto 5.6 % (2-4); Hematocrit 38.4 % (41-53); Hemoglobin 12.2 g/dL (13.5-17.5); Lymphocytes Absolute Auto 1300 /uL (1100-4500); Lymphocytes Percent Auto 21.3 % (25-40); Mean Corpuscular HGB Conc 31.8 % (30-36); Mean Corpuscular Hemoglobin 27.2 PG (26-34); Mean Corpuscular Volume 85.6 fL (80-100); Monocytes Absolute Auto 300 /uL (0-900); Monocytes Percent Auto 5.2 % (3-14); Neutrophils Absolute Auto 4000 /uL (1500-7000); Neutrophils Percent Auto 66.3 % (50-75); Platelet Count 121 X10^3/uL (150-400); Red Blood Cell Count 4.49 X10^6/uL (4.5-5.9); Red Cell Distribution Width 15.4 % (11.6-14.8); White Blood Cell Count 6.1 X10^3/uL (4.5-11.0)
[2020-04-24 17:30] LABS: INR 1.1 (0.9-1.3); Prothrombin Time 12.4 SECONDS (10.1-12.7)
[2020-04-24 17:32] LABS: Lactate (Lactic Acid) 1.8 mmol/L (0.7-2.1)
[2020-04-24 17:33] LABS: PTT Partial Thromboplastin Tim 32 SECONDS (26.4-36.2)
[2020-04-24 17:34] LABS: Alanine Aminotransferase 12 IU/L (<50); Albumin 4.3 g/dL (3.5-5.0); Albumin Globulin Ratio 1.1 (1.0-2.8); Alkaline Phosphatase 92 U/L (38-126); Aspartate Aminotransferase 22 IU/L (17-59); BUN Creatinine Ratio 22.9 (6-22); Bilirubin Total 0.7 mg/dL (0.2-1.3); Blood Urea Nitrogen 27 mg/dL (9-20); Calcium 9.4 mg/dL (8.4-10.2); Carbon Dioxide 27 mmol/L (22-32); Chloride 106 mmol/L (98-107); Creatine Kinase 52 U/L (55-170); Estimated Glomerular Filt Rate 58.7 mL/min (>60); Globulin 3.9 g/dL (1.7-4.1); Glucose 107 mg/dL (80-110); HEMOLYSIS 27 (0-50); Potassium 4.2 mmol/L (3.4-5.1); Sodium 140 mmol/L (137-145); Total Protein 8.2 g/dL (6.3-8.2)
[2020-04-24 17:39] LABS: COVID19 -Nasal RAPID Negative (Negative)
[2020-04-24 17:45] LABS: Troponin I < 0.012 ng/mL (0.01-0.034)
[2020-04-24 18:23] LABS: Thyroid Stimulating Hormone 8.08 uIU/mL (0.47-4.68)
[2020-04-24 19:27] LABS: NT-proBNP (BNP-Adult 18+) 1130 pg/mL (<450)
[2020-04-24 19:34] LABS: Free T4, Direct Thyroxine 1.07 ng/dL (0.78-2.19)
[2020-04-24] MEDS: APIXABAN 5 MG TABLET 10 MG PO (20:05)
--- NOTE | 2020-04-24 20:19 | DI.ECHO.S_ITS ---
[facility] +---------+ : : [address] : : : : [place], : : : : [place] [id number] : : : : Phone: [phone] Echocardiogram Report + + :Name: EMIR WOOTEN Study Date: 04/25/2020 Height: 70 in : :[facility] Weight: 250 lb : : Gender: Male BSA: 2.3 m2 : :: 1935 Age: 84 yrs BP: 141/71 mmHg: :Reason For Study: Heart failure and A-Fib : :Ordering Physician: Barak : :Hospitalist Performed By: Breanna Page : :Referring: PARAM DYER : + + Interpretation Summary The patient was in atrial fibrillation with heart rates between 52-68 bpm during the exam. A. fib is new. The left ventricle is normal in size. Left ventricular ejection fraction is estimated to be 65 +/- 5%. The right ventricle is mildly dilated. The right ventricular systolic function is normal. No significant valvular pathology seen. 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 4.6 cm in diameter. In July 2013, it was 4.2 cm in diameter. Procedure: A two-dimensional transthoracic echocardiogram with color flow and Doppler was performed. The study quality was technically adequate. Comparison is made with the echocardiogram of 07/29/2013. The patient was in atrial fibrillation with heart rates between 52-68 bpm during the exam. The patient had a bundle branch block rhythm during the exam. Left Ventricle: The left ventricle is normal in size. Proximal septal thickening is noted. There is no echo evidence for significant left ventricular outflow tract obstruction. There is no thrombus. Left ventricular ejection fraction is estimated to be 65 +/- 5%. There is basal inferior wall hypokinesis. Compared to the prior exam, the left ventricular wall motion has not changed. Diastolic function could not be accurately assessed due to atrial fibrillation. Right Ventricle: The right ventricle is mildly dilated. The right ventricular systolic function is normal. Atria: The left atrium is severely dilated. The left atrium has significantly increased in size since the prior echo exam. Right atrium not well visualized. There is no Doppler evidence for an interatrial shunt. Mitral Valve: There is mild mitral annular calcification. The mitral valve leaflets appear mildly thickened, but open well. There is trace mitral regurgitation. Aortic Valve: The aortic valve is trileaflet. The aortic valve is mildly calcified. There is mildly reduced leaflet mobility. There is no hemodynamically significant valvular aortic stenosis. There is trace aortic regurgitation. Tricuspid Valve: The tricuspid valve is normal in structure and function. Pulmonary artery pressures cannot be estimated because of the lack of a measurable TR jet velocity. There is trace tricuspid regurgitation. Pulmonic Valve: The pulmonic valve is not well visualized. Great Vessels: The aortic root is mildly dilated. 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 The pulmonary artery is not well visualized, but is probably normal size. The IVC is of normal diameter and collapses greater than 50% with a sniff. This suggests a low right atrial pressure of 3 mm Hg. Pericardium/ Pleura There is no pericardial effusion. There is no pleural effusion. MMode/2D Measurements & Calculations LVIDd: 5.4 cm AoV Openin.9 cm LVIDs: 3.6 cm LVOT diam: 2.7 cm IVSd: 0.88 cm Ao root diam: 4.1 cm LVPWd: 0.82 cm asc Aorta Diam: 4.6 cm LV murillo. diameter/BSA (cm/m^2): 2.3 LV sys. diameter/BSA (cm/m^2): 1.6 FS: 33.2 % LA A2 area: 32.6 cm2 RVD1 (basal): 4.4 cm LA A4 area: 36.1 cm2 TAPSE: 2.1 cm LA length (vol): 7.2 cm LA vol: 139.2 ml LA vol index: 60.6 ml/m2 IVC diam: 1.5 cm Doppler Measurements & Calculations Ao V2 max: 158.5 cm/sec LVOT Max Tyler: 103.6 cm/sec Ao V2 mean: 108.0 cm/sec LV V1 max P.3 mmHg Ao V2 VTI: 33.4 cm LV V1 VTI: 20.9 cm Ao max P.1 mmHg Ao mean P.3 mmHg MAKAYLA(I,D): 3.7 cm2 MV P1/2t: 69.3 msec MAKAYLA(V,D): 3.8 cm2 MVA(P1/2t): 3.2 cm2 MAKAYLA indexed to BSA (cm^2/m^2): 1.6 sev ratio: 0.63 PA V2 max: 100.1 cm/sec SV(LVOT): 122.6 ml PA V2 mean: 62.9 cm/sec PA mean P.8 mmHg PA Accel Time: 0.12 sec Reading Physician:03:05 PM
[2020-04-24 20:28] LABS: RBC Urine 5-10/HPF (0-5/HPF); WBC Urine 10-30/HPF (0-5/HPF)
[2020-04-24 20:29] LABS: Bacteria Urine Many (>30); Culture Indicated Urine Specimen Cultured; Transitional Epi Cells Urine 5-10/HPF (0-5/HPF)
--- NOTE | 2020-04-24 21:18 | PM.HP.1 ---
History of Present Illness History of Present Illness Date Patient Seen: 04/24/20 Time Patient Seen: 20:49 Chief complaint: Bilateral Lower Extremity Swelling Narrative: Mr. Serge Hunt is an 84-year-old male with a past medical history significant for coronary artery disease, hypothyroidism, GERD, depression, balance and gait disorder who presents to the ER via EMS with inability to walk. The patient has had longstanding chronic problem with debility since he sustaining hip fracture in July of 2019. The underwent left hip surgery and was discharged to [facility] for rehabilitation and was discharged home only to return for an additional 3 weeks of therapy. The patient has had decreasing mobility for the last 2 months and has previously had home health care which is no longer in place. Describes increased leg swelling the last 2 weeks. He denies any other complaints and in fact repeatedly states everything is fine. He denies recent cold or flu symptoms, fevers or chills or known COVID-19 exposures. He denies headaches or dizziness and has no visual changes, nasal congestion or sore throat. He denies neck or back pain, recent falls or trauma. He has had no chest pain and denies palpitations. He reports no shortness of breath cough or wheezing though the patient is inactive and not aerobically challenged. She denies complaints of epigastric or abdominal pain, no nausea vomiting. He denies difficulty urinating and is status post TURP which resolved prior nocturia, endorses urinary frequency. He states his last bowel movement was 2 days ago but denies discomfort. The patient has previously been evaluated for failure to thrive on admission in September at which time was noted the patient could not get out of bed or walk. The patient reports up until 2 weeks ago he could mobilize minimally with a walker and is now too weak to mobilize. Upon arrival to the ER the patient is afebrile with a temperature of 98.3?, heart rate of 64, pressure 169/74, respirations of 16 saturating 96% on room air. Imaging reveals cardiomegaly on chest x-ray with minimal interstitial prominence, venous duplex obtained today finds a left lower extremity DVT. Previous venous duplex completed 04/14/2020 was negative for DVT. On laboratory analysis he has white count of 6.1 with no shift, hemoglobin 12.2, hematocrit 38.4 platelets 121. He has a PT of 12.4, INR 1.1 and a PTT of 32. On chemistries is electrolytes are within normal limits and has a potassium of 4.2 and magnesium of 2.0. He has a BUN elevated 27 with a creatinine of 118 consistent with baseline. He has a nonfasting glucose of 107. His liver functions are all within normal limits and has an albumin of 4.3. Lactic acid is 1.8. He has a total CK of 52 and a troponin that is less than 0.012. ProBNP is 1135. TSH is elevated at 8.08 with a normal T4 at 1.57. Urinalysis is positive for leukocyte esterase, wbc's and many bacteria, negative for nitrates. Twelve lead EKG is obtained personally reviewed finding atrial fibrillation-flutter with Kirt slow ventricular response at 55, right bundle branch block without evidence of ischemia or infarct. The patient is started on Eliquis 10 mg p.o. twice daily for DVT the emergency department in the patient is admitted to the medicine service for new onset atrial fibrillation with new onset congestive heart failure and DVT. Patient History Medical History Balance disorder CAD (coronary artery disease) Chronic GERD Closed hip fracture Depression Gait disorder Hypothyroidism Surgical History History of right knee joint replacement Family & Social History Family History Mother Breast cancer Father Kidney infection Social History: household members spouse Safety & Behavioral: Feels Safe in Current Yes Environment Been Physically Hurt or No Threatened By a Person Tobacco & Substance use: Smoking Status Former smoker alcohol intake frequency 0-2 drinks per day Substance Use Type does not use Meds Home Medications and Allergies Home Medications Medication Instructions Recorded Confirmed Type omeprazole 20 mg PO DAILY #0 11/19/10 04/24/20 History levothyroxine [Synthroid] 112 mcg PO QAM #0 12/24/11 04/24/20 History aspirin 81 mg PO QDAY #0 02/21/17 08/03/19 History doxazosin [Cardura] 8 mg PO BEDTIME #0 02/21/17 04/24/20 History sertraline 150 mg PO DAILY #0 02/21/17 04/24/20 History calcium carbonate-vitamin D3 1 tab PO BIDWM #60 tab 08/08/19 Rx [Oyster Shell Calcium-Vit D3] docusate sodium [DOK] 100 mg PO BID #60 cap 08/08/19 Rx polyethylene glycol 3350 17 gram PO DAILY PRN #510 gram 08/08/19 Rx sennosides [senna] 17.2 mg PO DAILY #60 tab 08/08/19 Rx atorvastatin 40 mg PO BEDTIME 04/24/20 04/24/20 History mirtazapine 15 mg ONCE HS 04/24/20 04/24/20 History Allergies Allergy/AdvReac Type Severity Reaction Status Date / Time Opioids - Morphine Analogues Allergy Unknown ITCHING Verified 09/20/19 15:52 Review of Systems Review of Systems ROS: Yes All systems reviewed with the patient and are negative except as otherwise documented Exam Vital Signs (past 8 hours): - 04/24/20 16:56 04/24/20 16:57 04/24/20 16:59 Temperature 98.3 F Pulse Rate 63 64 Respiratory Rate 14 Blood Pressure 169/74 H 169/74 H Pulse Oximetry 97 97 96 04/24/20 17:00 04/24/20 17:30 04/24/20 17:31 Temperature Pulse Rate 60 59 L 61 Respiratory Rate 18 22 Blood Pressure 157/59 H 116/61 Pulse Oximetry 98 95 95 04/24/20 18:00 04/24/20 18:01 04/24/20 18:30 Temperature Pulse Rate 58 L 58 L 52 L Respiratory Rate 23 18 18 Blood Pressure 119/58 L 132/60 Pulse Oximetry 95 96 95 04/24/20 19:00 04/24/20 19:15 04/24/20 19:29 Temperature Pulse Rate 51 L 52 L 62 Respiratory Rate 18 27 H Blood Pressure 139/69 139/63 Pulse Oximetry 97 96 97 04/24/20 19:30 04/24/20 20:20 04/24/20 21:05 Temperature 98.7 F Pulse Rate 52 L Respiratory Rate 24 Blood Pressure 144/66 H 141/71 H Pulse Oximetry 96 96 Oxygen Delivery Method Room Air Narrative Exam Narrative: GENERAL APPEARANCE: well developed, adequately nourished male, lying semi recumbent in bed briskly responsive and in no acute distress. HEENT: Normocephalic, PERRLA, conjunctiva clear, EOMs intact without nystagmus, no sinus tenderness to percussion, no rhinorrhea, mucous membranes are moist and pink without lesions or exudate. NECK/THYROID: neck supple, no JVD, no thyromegaly, trachea midline. LYMPH NODES: no cervical or supraclavicular lymphadenopathy. SKIN: Plummer, warm and dry, no visible lesions, rashes, no venous stasis ulcers or evidence of chronic skin changes bilateral lower extremities HEART: Irregular rhythm with bradycardic rate, S1-S2, 1/6 systolic murmur, no rubs or gallops, brisk capillary refill, 2 to 3+ edema extending to the knee. LUNGS: clear to auscultation bilaterally, no coarseness crackles or wheezing, no cough present CHEST: Symmetrical movement, no accessory muscle use, good tidal volume. ABDOMEN: Soft, round and nontender to palpation, no guarding or peritoneal signs, no organomegaly, no flank or suprapubic tenderness, active bowel tones. BACK: Normal curvature, nontender to palpation. EXTREMITIES: Distal CMS intact, strength is 2/5 and symmetrical, no deformities or joint effusions. NEUROLOGIC: AAO x person place situation, impaired recall with intermittent perseveration, no lateralizing neurologic deficits, cranial nerves II-XII grossly intact, sensation intact to light touch, hearing grossly normal to speech. PSYCH: Good eye contact, cooperative, stable behavior. Objective Labs Result Diagrams: 04/24/20 17:15 04/24/20 17:15 Labs: Laboratory Results - last 24 hr 04/24/20 04/24/20 04/24/20 17:15 17:15 17:15 WBC 6.1 RBC 4.49 L Hgb 12.2 L Hct 38.4 L MCV 85.6 MCH 27.2 MCHC 31.8 RDW 15.4 H Plt Count 121 L Neut % (Auto) 66.3 Lymph % (Auto) 21.3 L Gladwin % (Auto) 5.2 Eos % (Auto) 5.6 H Baso % (Auto) 1.6 Neut # (Auto) 4000 Lymph # (Auto) 1300 Gladwin # (Auto) 300 Eos # (Auto) 300 Baso # (Auto) 100 PT 12.4 INR 1.1 APTT 32 Sodium 140 Potassium 4.2 Chloride 106 Carbon Dioxide 27 BUN 27 H Creatinine 1.18 Estimated GFR 58.7 L BUN/Creatinine Ratio 22.9 H Glucose 107 Lactate Calcium 9.4 Magnesium 2.0 Total Bilirubin 0.7 AST 22 ALT 12 Alkaline Phosphatase 92 Total Creatine Kinase 52 L CK-MB (CK-2) TNP CK-MB (CK-2) Rel Index TNP Troponin I < 0.012 NT-Pro-B Natriuret Pep Total Protein 8.2 Albumin 4.3 Globulin 3.9 Albumin/Globulin Ratio 1.1 TSH Free T4 Urine RBC Urine WBC Ur Transition Epith Cell Urine Bacteria Ur Culture Indicated? COVID-19 PCR 04/24/20 04/24/20 04/24/20 17:15 17:15 17:15 WBC RBC Hgb Hct MCV MCH MCHC RDW Plt Count Neut % (Auto) Lymph % (Auto) Gladwin % (Auto) Eos % (Auto) Baso % (Auto) Neut # (Auto) Lymph # (Auto) Gladwin # (Auto) Eos # (Auto) Baso # (Auto) PT INR APTT Sodium Potassium Chloride Carbon Dioxide BUN Creatinine Estimated GFR BUN/Creatinine Ratio Glucose Lactate 1.8 Calcium Magnesium Total Bilirubin AST ALT Alkaline Phosphatase Total Creatine Kinase CK-MB (CK-2) CK-MB (CK-2) Rel Index Troponin I NT-Pro-B Natriuret Pep Total Protein Albumin Globulin Albumin/Globulin Ratio TSH 8.08 H Free T4 Urine RBC Urine WBC Ur Transition Epith Cell Urine Bacteria Ur Culture Indicated? COVID-19 PCR Negative 04/24/20 04/24/20 04/24/20 17:15 17:15 19:20 WBC RBC Hgb Hct MCV MCH MCHC RDW Plt Count Neut % (Auto) Lymph % (Auto) Gladwin % (Auto) Eos % (Auto) Baso % (Auto) Neut # (Auto) Lymph # (Auto) Gladwin # (Auto) Eos # (Auto) Baso # (Auto) PT INR APTT Sodium Potassium Chloride Carbon Dioxide BUN Creatinine Estimated GFR BUN/Creatinine Ratio Glucose Lactate Calcium Magnesium Total Bilirubin AST ALT Alkaline Phosphatase Total Creatine Kinase CK-MB (CK-2) CK-MB (CK-2) Rel Index Troponin I NT-Pro-B Natriuret Pep 1130 H Total Protein Albumin Globulin Albumin/Globulin Ratio TSH Free T4 1.07 Urine RBC 5-10/hpf H Urine WBC 10-30/hpf H Ur Transition Epith Cell 5-10/hpf H Urine Bacteria Many (>30) H Ur Culture Indicated? Specimen cultured COVID-19 PCR Assessment & Plan Assessment & Plan narrative: This is an 84-year-old male patient who has been living at home under the care of his who has had previous visits for debility and immobility and can no longer be care for by his at home. Patient describes weakness and immobility for 2 months with increased leg swelling over the last 2 weeks. Is unable to walk or stand. 1. New onset atrial fibrillation, slow ventricular response, present on admission, active. -patient denies complaints of chest pain, palpitations or shortness of breath. -12 lead EKG finds atrial fibrillation with, atrial flutter with a slow ventricular response at 55 with a right bundle branch block without evidence of ischemia or infarct. Previous EKGs show sinus rhythm with first-degree AVB and right bundle branch block. -total CK is 52, troponin is less than 0.012. Electrolytes are within normal range, Potassium is 4.2 and magnesium is 2.0. TSH is elevated 8.08 however T4 is normal range at 1.07. Will obtain a lipid panel. -patient with new onset symptoms of congestive heart failure discussed below likely related to onset of atrial fibrillation without prior history. -patient has been started on therapeutic at Eliquis for left lower extremity DVT. Chads2 Vasc score is 5 for high risk, has bled score is 2 for intermediate risk. -will obtain echocardiogram. -will closely follow hemodynamic stability with ventricular rate variable from mid 40s to 60s. 2. New onset congestive heart failure, unknown if systolic or diastolic, present on admission, active. -patient with new onset congestive heart failure with the patient reporting bilateral lower extremity swelling onset 2 weeks ago. Patient denies chest pain shortness of breath cough or wheezing. -bilateral lower extremity edema 2 to 3+ to the level of the knee. Patient denies weight gain. No lower extremity venous stasis skin changes and no ulcers. -chest x-ray finds cardiomegaly with minimal interstitial prominence. -ordered Lasix 20 mg now and 20 mg daily. -will closely follow electrolytes with diuretic therapy. 3. Acute Left lower extremity DVT, present on admission, active. -patient has been immobile for 2 weeks and reports symmetrical bilateral leg swelling. -venous duplex completed on 04/14/2020 was negative for DVT. Venous duplex repeated today finding thrombus in the left common femoral and superficial femoral veins. -ordered Eliquis 10 mg by mouth twice daily for 7 days to be followed by Eliquis 5 mg twice daily. -will monitor for complications of bleeding. 4. Urinary tract infection, acute, present on admission, active -patient with weakness and urinary frequency and found to have urinary tract infection. -previous UTI isolates included E coli, Pseudomonas arthrosis and Klebsiella pneumoniae. -based on sensitivities from previous culture ordered Levaquin 750 mg IV daily. 4. Immobility, debilitated, chronic, stable. -patient has decreased mobility since his hip fracture in July of 2019. -post fracture of the patient 1 through rehabilitation at [facility], was discharged only to return for additional 3 weeks therapy due to inability to maintain in the home environment. -patient subsequently discharged and had home health services. Patient presented to the ER in September 2019 for failure to thrive with inability to get out of bed or walk, home health services escalated at that time. -patient has no further home support services and his and daughter have been attempting to manage his care. The patient has had increasing debility secondary to problems noted above. -discussion previously surrounded long-term care setting but was deemed too expensive therefore patient returned to home. -PT and OT requested to consult, evaluate and treat. -requested consult with UN[facility] ASSISTANT and home health, to evaluate the potential for long-term care setting versus home with home health previously provided by [facility]. 5. Acquired Hypothyroidism, chronic, stable. -TSH is elevated 8.08, T4 is within normal range at 1.07. -will continue home regimen of levothyroxine 112 mcg daily. 6. GERD, chronic, stable. -patient is asymptomatic for GI symptoms no nausea or epigastric tenderness. -patient has been taking omeprazole 20 mg daily, ordered famotidine 20 mg daily to avoid complications of PPI therapy in the geriatric population. 7. Depression, chronic, stable -patient denies depression symptoms, no thoughts of self-harm or suicidality. -continue sertraline 150 mg daily. VTE prophylaxis: Eliquis IV fluid: Saline lock Diet: Heart healthy 2 g low-sodium Code status: Full code, the patient designates his is surrogate decision maker. The patient is admitted to the hospital due to new onset a cardiac arrhythmia likely precipitating new onset congestive heart failure in the setting of chronic cardiovascular disease and DVT with the associated risk wrist for complications and adverse events and complex care plan. The patient is admitted as an inpatient with expected length of stay to be greater than 2 midnights. COVID-19 COVID-19 status: Negative Result date/Date tested (Pos, Neg/Pending): 04/24/20 Scores GCS Tyler coma scale eye opening: Spontaneous Tyler coma scale verbal response: Orientated Kobe coma scale motor response: Obey commands Tyler coma scale total score: 15
[2020-04-24] MEDS: DOXAZOSIN 4 MG TABLET 8 MG PO (21:47)
[2020-04-24] MEDS: ATORVASTATIN 20 MG TABLET 40 MG PO (21:48)
[2020-04-24] MEDS: DOCUSATE 100 MG CAPSULE PO (21:48)
[2020-04-24] MEDS: levoFLOXacin 750 MG/150 ML PIGGYBACK 100 MG IV (21:49)
[2020-04-24] MEDS: FUROSEMIDE 20 MG/2 ML VIAL IV (21:49)
--- NOTE | 2020-04-24 22:52 | PC.NURSE ---
Admit/Evening Shift Note- Patient arrived to room via stretcher from ER at 2019. Slider board used to transfer to bed. Patient alert and oriented with occasional forgetfullness/confusion. Admission questions done, physical assessment done, skin check completed. Unable to review medication list due to patient inability to remember what hi takes. Oriented patient to bed and bed controls, room, bathroom, lights, menu, phone, and callbell/tv remote. Safety measures in place. Patient agrees to call for assistance. bed alarm activated. Call wilder and phone within reach. will continue to monitor.
[2020-04-25] VITALS (11 sets, daily range): BP systolic 102–142; BP diastolic 61–85; PULSE 50–58; RESP 16–19; TEMP 36.1–37.2; O2SAT 92–100
--- NOTE | 2020-04-25 | DI.CT.S_ITS ---
PROCEDURE: CT ANGIO CHEST PE PROTOCOL INDICATIONS: arrhythmia and elevated D-dimer TECHNIQUE: After the administration of intravenous contrast, 2 mm thick sections acquired from the pulmonary apices to the posterior costophrenic angles. 3-dimensional maximum intensity projection (MIP) coronal and sagittal reformats were then acquired through the thorax. For radiation dose reduction, the following was used: automated exposure control, adjustment of mA and/or kV according to patient size. COMPARISON: [facility], CT, PE STUDY (CTA CHEST), 12/27/2011, 10:03. [facility], CR, XR CHEST 1V, 04/24/2020, 17:43. FINDINGS: Image quality: Excellent. Pulmonary arteries: Pulmonary arteries are normal in size, and demonstrate no intraluminal filling defects to suggest central pulmonary embolism. Lungs and pleura: No alfredo, focal infiltrates are seen. Areas of focal pleural thickening are seen, with mild calcification. These are more prominent on the right side than on the left. No pleural effusions or pneumothorax. Central and peripheral airways are patent. Mediastinum: Heart size is moderately enlarged, without pericardial effusion. Moderate to prominent coronary artery calcification can be seen. No mediastinal or hilar adenopathy. Ascending thoracic aorta is mildly aneurysmal, measuring 4.3 cm. Esophagus is normal in caliber. There is a moderate hiatal hernia. Bones and chest wall: No suspicious bony lesions. No alfredo, displaced rib fractures are seen. Several mild anterior wedge deformities are seen within the midthoracic spine, without acute features. Accentuated thoracic kyphosis is seen. Age-appropriate bony degenerative changes are seen. Thyroid gland is small in size. No axillary or supraclavicular adenopathy. Abdomen: Cholecystectomy clips are seen. There is a 4 mm nonobstructing right-sided kidney stone seen. 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 The visualized portions of the upper abdominal structures are otherwise unremarkable for imaging technique. IMPRESSION: Negative for pulmonary embolism. Mild ascending thoracic aortic aneurysm. There is moderate cardiomegaly. Areas of pleural thickening or seen, including calcification. Please correlate with a history of asbestos exposure. Incidental note is made of: Remote anterior wedge deformities Accentuated thoracic kyphosis Moderate hiatal hernia Moderate to prominent coronary artery calcification. Cholecystectomy Nonobstructing right-sided kidney stone Stable celiac trunk aneurysm Note: No significant discrepancy from the preliminary report. Dictated by: Alfred Carpio M.D. on 04/25/2020 at 7:34 Approved by: Alfred Carpio M.D. on 04/25/2020 at 7:42
--- NOTE | 2020-04-25 01:06 | PC.NURSE ---
Tele note: Notified Acute care RN, Lynn, at 0050 regarding patient's heart rate down to 44 bpm on tele - afib. Called AMY Love at 0103 regarding patient's heart rate dropping to 41 bpm. Orders received. RT notified of STAT EKG order.
[2020-04-25 01:35] LABS: Creatine Kinase 44 U/L (55-170)
[2020-04-25 01:48] LABS: Troponin I < 0.012 ng/mL (0.01-0.034)
[2020-04-25 03:19] LABS: Add Manual Diff / Slide Review NO; Basophils Absolute Auto 100 /uL (0-100); Basophils Percent Auto 1.2 % (0-2); Eosinophils Absolute Auto 300 /uL (0-450); Eosinophils Percent Auto 6.7 % (2-4); Hematocrit 34.1 % (41-53); Lymphocytes Absolute Auto 1200 /uL (1100-4500); Mean Corpuscular HGB Conc 32.2 % (30-36); Mean Corpuscular Hemoglobin 27.4 PG (26-34); Monocytes Absolute Auto 500 /uL (0-900); Monocytes Percent Auto 8.9 % (3-14); Neutrophils Absolute Auto 3100 /uL (1500-7000); Neutrophils Percent Auto 60.2 % (50-75); Platelet Count 111 X10^3/uL (150-400); Red Blood Cell Count 4.01 X10^6/uL (4.5-5.9); Red Cell Distribution Width 15.3 % (11.6-14.8); White Blood Cell Count 5.1 X10^3/uL (4.5-11.0)
[2020-04-25 03:26] LABS: BUN Creatinine Ratio 22.8 (6-22); Blood Urea Nitrogen 29 mg/dL (9-20); Calcium 8.8 mg/dL (8.4-10.2); Carbon Dioxide 30 mmol/L (22-32); Chloride 106 mmol/L (98-107); Cholesterol 115 mg/dL (140-199); Estimated Glomerular Filt Rate 53.9 mL/min (>60); Glucose 99 mg/dL (80-110); HDL Cholesterol 39 mg/dL (40-60); HEMOLYSIS < 15 (0-50); LDL Cholesterol Calculated 55 mg/dL (<100); Magnesium 1.8 mg/dL (1.6-2.3); Potassium 4.3 mmol/L (3.4-5.1); Sodium 138 mmol/L (137-145); Triglycerides 107 mg/dL (35-150)
[2020-04-25 03:29] LABS: D Dimer 893 ng/mL (<230)
[2020-04-25 03:35] LABS: NT-proBNP (BNP-Adult 18+) 932 pg/mL (<450)
--- NOTE | 2020-04-25 05:33 | PC.NURSE ---
Patient had CT angio chest. Per hospitalist, no PE noted.
[2020-04-25] MEDS: LEVOTHYROXINE 112 MCG TABLET PO (06:51)
[2020-04-25] MEDS: APIXABAN 5 MG TABLET 10 MG PO ×2 (09:44→20:18)
[2020-04-25] MEDS: DOCUSATE 100 MG CAPSULE PO ×2 (09:44→20:18)
[2020-04-25] MEDS: FUROSEMIDE 20 MG/2 ML VIAL IV (09:45)
[2020-04-25] MEDS: SERTRALINE 50 MG TABLET 150 MG PO (09:47)
--- NOTE | 2020-04-25 12:05 | PT.IIE ---
Surgical History (Last Reviewed 04/24/20 @ 22:16 by AMY Durbin) History of right knee joint replacement Medical History (Last Reviewed 04/24/20 @ 22:16 by AMY Durbin) Balance disorder CAD (coronary artery disease) Chronic GERD Closed hip fracture Depression Gait disorder Hypothyroidism Physical Therapy Inpatient Evaluation/Re-Eval M1 PT/OT-IP Prior Functional Status Start: 04/25/20 09:04 Freq: NEEDED Status: Active Protocol: Document 04/25/20 12:00 AW (Rec: 04/25/20 13:31 AW [id number]) Medical Review Prior Functional Status Medical History Reviewed Yes Diet/Fluid Consistency Regular Communication WFL, able to make needs known. Mobility and Gait Patient with progressive immobility with patient essentially chair bound prior to admission. Activities of Daily Living and IADL's Prior to admission was completing all ADL/IADLs for patient. Prior Functional Level (Other details) Patient had had a progressive decline starting in about July of 2019 after his R IT fracture s/p CMN. He has ambulated since surgery and participated with ADLs, but has progressively declined and was dependent prior to this hospitalization. Social History Household Members spouse Living Arrangements House Number of Floors (Floors) One Floor Number of Stairs To Enter/Railing? 2 TRAMAINE no railings Home Environment High Toilet,Tub/Shower Home Equipment Front Wheel Walker,Four Wheel Walker,Straight Cane,Tub Transfer Bench,Shower Seat without Backrest,Hand Held Shower,Geology Technician,Grab Bars Near Toilet,Grab Bars In Shower Employment Status Retired Additional Social History Comment Pt lives with his , Rochelle. He has daughter who reside in [facility], and [facility]. Pt has been spending day and night in his lift recliner. M2 PT-IP Current Condition Start: 04/25/20 09:04 Freq: NEEDED Status: Active Protocol: Document 04/25/20 12:00 AW (Rec: 04/25/20 12:20 AW [id number]) Physical Therapy Current Condition Current Condition Evaluation Date 04/25/20 Treatment Diagnosis BLE edema, LLE DVT, a fib, CHF , difficulty in walking Onset Date 02/19/20 M3 PT-IP Subjective Start: 04/25/20 09:04 Freq: NEEDED Status: Active Protocol: Document 04/25/20 12:00 AW (Rec: 04/25/20 12:20 AW [id number]) Subjective Physical Therapy Visit Type Type Initial Evaluation Visit Start Time 10:12 Visit Stop Time 10:50 Total Visit Minutes 38 Notes Co-eval with OT. Number of MERCHANDISING INTERN Visits 0 Physical Therapy Visit Comments Patient Comments Pt would like to use the BS Patient Goals Pt feels he would benefit from rehab Therapy Pain Assessment Pain When Pain Assessed During Mobility Pain Present Pain Present Pain Reported Location BLE Intensity 7 Scale Used 0/10 at rest; 7/10 with mobility Pain Behaviors Facial Grimacing,Guarding, Wincing Pain Management Techniques Re-positioning,Timing of Activity with Medications M4 PT-IP Mobility and Gait Start: 04/25/20 09:04 Freq: NEEDED Status: Active Protocol: Document 04/25/20 12:00 AW (Rec: 04/25/20 12:20 AW [id number]) PT-Transfer Assessment Sit to and From Stand Sit to and from Stand Maximum Assistance,2 Person Assistance,Use of Upper Extremities Equipment Transfer Assistive Device Gait Belt,Front Wheeled Walker Orthotic/Prosthetic Devices or Brace: No Transfers Transfer Destination Bedside Commode Transfer Ability Level of Assist Maximum Assistance,2 Person Assistance,Use of Upper Extremities Comments Mobility Comments Pt was seated in the chair as PT and OT arrived. He requested to use the BSC. He was able to scoot himself forward on the chair and to pull his feet back into position for standing. With max 2PA, pt attempted to stand and cleared his hips from the chair. In half-squat position , pt was able to move his feet back into more advantageous position which allowed him to extend his hips and knees. In standing, pt required max 2PA for weight shifting and max cues to move his left foot forward in order to facilitate transfer to the BSC set up at 90 degrees to his right. [place] through the 90-degree turn, pt attempted to sit before he was properly positioned. He was able to stand long enough for PT and OT to move the BSC into position. Pt required max 2PA to control descent to the commode. Pt was left on the BSC with chair alarm armed and call light within reach. PT/ OT notified RN that pt was on the commode and would likely need estela transfer back to the chair or bed. Gait Assessment Gait Gait Assistance Required: Maximum Assistance,2 Person Assist Distance (Feet) 2 Assistive Devices Assistive Device Gait Belt,Front Wheeled Walker Orthotic/Prosthetic Devices or Brace: No Gait Deviations General Gait Pattern Antalgic,Decreased Stride Length,Decreased Feet Clearance,Flexed Trunk Factors Limiting Gait Function Factors Limiting Gait Function Decreased Sensation,Decreased Strength,Difficulty Following Directions,Limited Range of Motion,Pain,Poor Balance,Poor Safety Awareness Comments Gait Comments Transfer only. See mobility comments for details. Stair Climbing Assessment Comments Stair Climbing Comments Not assessed. PT-Balance Assessment Sitting Balance and Reactions Static Sitting Balance Ability Good Dynamic Sitting Balance Ability Fair Standing Balance and Reactions Static Standing Balance Ability Poor Dynamic Standing Balance Ability Poor M5 PT-IP Objective Assessments Start: 04/25/20 09:04 Freq: NEEDED Status: Active Protocol: Document 04/25/20 12:00 AW (Rec: 04/25/20 12:20 AW [id number]) Orientation Orientation/Cognition Level of Alertness Confusional State Orientation Name,Month,Year,Place, Situation Language Function Ability Hard of Hearing Safety Awareness Decreased Safety Awareness Memory Description Short Term Impaired,Varsity Baseball Coach Impaired Gross Range of Motion Lower Extremity ROM Assessment Bilaterally Impaired Strength Lower Extremity Strength Assessment Bilaterally Impaired Comments Strength Comments RLE grosslly 4/5. LLE grossly 4-/5 except ankle dorsiflexion and hip 3-/5. Sensation Assessment Sensation Gross Sensation Right LE Impaired,Left LE Impaired Light Touch Impaired Muscle Tone Muscle Tone WNL Yes Other Assessments Other Other Assessments Pitting edema 2+ to 3+ BLE M6 PT-IP Treatment Start: 04/25/20 09:04 Freq: NEEDED Status: Active Protocol: Document 04/25/20 12:00 AW (Rec: 04/25/20 12:20 AW [id number]) Physical Therapy Treatment Education Education Provided Safety Other Treatments Other Treatment Performed Provided education on role of PT, plan of care, and rehab potential. M7 PT-IP Assessment and Plan Start: 04/25/20 09:04 Freq: NEEDED Status: Active Protocol: Document 04/25/20 12:00 AW (Rec: 04/25/20 12:20 AW [id number]) PT Summary Assessment and Plan Potential Rehabilitation Potential Fair Status of Condition at Evaluation Stable Summary Impairments Pain,ROM,Strength,Balance, Sensation,Cognition,Bed Mobility,Transfers,Gait, Activity Tolerance Assessment Summary Serge is an 84 yo man with history of left intertroch femur fracture s/p CMN in July 2019. He went to SNF following that admission and ultimately returned for a second rehab stay. Per chart review, pt's mobility has declined since that time. Home health is no longer seeing him. He lives with his , Rochelle, in [place]. He has daughters who live in [place], [place], and [facility]. On evaluation, pt is confused but oriented to self, time, and place. He requires extra time for cognitive processing but communicates well. He is requiring max 2PA for transfers. He will need SNF rehab before possible return to home. Pt states he and his have talked extensively about planning for long-term care but have not made any significant decisions. Goals Bed Mobility Goal Contact Guard Assistance Transfer Goal Minimal Assistance,Front Wheeled Walker Gait Goal Minimal Assistance,Front Wheel Walker Gait Distance 50 Frequency of Treatment Frequency Of Treatment Once a Day Treatment Plan Physical Therapy Treatment Plan Bed Mobility Training,Transfer Training,Gait Training, Therapeutic Exercise,Balance Retraining,Discharge Planning, Hot or Cold Pack,Neuromuscular Re-ed Other Recommendations and Next Treatment transfers, ther ex Focus Recommendations To Nursing Amount of Assist Needed Mechanical Lift Discharge Recommendations PT Discharge Recommendations SNF Rehab Transportation Needs at Discharge Wheelchair/Cabulance,Stretcher /Ambulance
--- NOTE | 2020-04-25 12:34 | CM.DANOTE ---
Patient is an 84 year old male who was admitted on 04/24/20 for Weakness. Pt has [employer] MCR for insurance and his PCP is Dr. Dinora Sampson. EMR was reviewed. Per , pt with hx of hip fx in July 2019 this year and has had ongoing difficulty with mobility since that time. Pt now admitted for AFIB, CHF, and UTI. PT ordered and recommending SNF at d/c. SW met bedside with pt and explained role and pt confirms that he still lives at home with his spouse in [facility] and has been mostly independent with ADL's at baseline but has had gradual decline in his strength and become more weak and fatigued. Pt denies any current services in place like HH or caregivers. Pt has 2 somewhat local Dtrs, Lily and Alea, who are his DPOA's but both work and are quite busy. Pt has a hx of [facility] in July 2019 after his hip surgery and then had HH afterwards and pt states he is aware that he likely will need SNF at d/c before safe return home. Pt states his spouse is medically doing well but exhausted from having to care for me so much lately. [facility] provided the SNF Choice List but discussed that SW will need to confirm [employer] contracted SNF's and that currently not all have availability or able to accept due to COVID 19 restrictions at their facilities. Pt acknowledges understanding and willing for SW to make referrals based on insurance and availability. SW contacted [facility] and confirmed they accept [employer] MCR and they are willing to review. SW faxed referral. SW called [facility] and left [facility] with admission on new referral and pt's insurance and faxed referral to review. PASRR completed in anticipation of SNF. Plan: SW to follow closely tomorrow (Sun) morning with J[facility] and [facility] to determine if either can accept and that they will begin working on insurance auth ruby. MARY Posada Discharge Planning/Care Management Advanced directive, confirm from FAMILY Start: 04/24/20 22:27 Freq: Q24H Status: Active Protocol: Document 04/24/20 22:27 AGW (Rec: 04/24/20 22:50 AGW [id number]) Advance Directive, confirm on record Time 21:00 Person contacted spouse Copy received No CM Discharge Assessment Start: 04/25/20 12:32 Freq: Status: Active Protocol: Document 04/25/20 12:32 BF (Rec: 04/25/20 12:34 BF [id number]) Discharge Planning Assessment Assigned Gamb Cutter MARY Bauer DPOA/Assigned Designee Name Dtjennifer Lily xin Alea Contact Information [phone] Advance Directives? Yes Advance Directives on File No History Provided By Patient,Medical Record Has Patient been admitted in last 30 No days? Prior Living Arrangements House Household Members spouse Type of transporation used prior to Relies on Others admit Independent with ADL's Yes: mostly, but increasing weakness Is patient alert and oriented? Yes: mild memory issues Needs Assistance With Managing Medications,Home Chores / Shopping Caregiver for Another No Patient/Family Preference [facility] Barriers to Discharge Yes Comment Availability of skilled facilities Discharge Plan [facility] Transportation Arrangement Facility If patient plan is SNF: Has PASSR been Yes completed? Medicare Choice List Provided Yes SNF/HH Preference [facility] Has Agency SNF been contacted Yes Comment [facility] and [facility] Whiteboard Updated in Patient Room with Yes name and ext. # of Gamb Cutter Review Status In Process Please Provide Date Initial DC 04/25/20 Assessment Was Performed Next Review Type Continued Stay Review
--- NOTE | 2020-04-25 12:48 | OT.IP.EVAL ---
Past Medical History (Last Reviewed 04/24/20 @ 22:16 by AMY Durbin) Balance disorder CAD (coronary artery disease) Chronic GERD Closed hip fracture Depression Gait disorder Hypothyroidism Surgical History (Last Reviewed 04/24/20 @ 22:16 by AMY Durbin) History of right knee joint replacement Occupational Therapy Inpatient Evaluation/Re-Eval M1 PT/OT-IP Prior Functional Status Start: 04/25/20 12:07 Freq: NEEDED Status: Active Protocol: Document 04/25/20 12:08 RM (Rec: 04/25/20 12:48 RM [id number]) Medical Review Prior Functional Status Medical History Reviewed Yes Diet/Fluid Consistency Regular Communication WFL, able to make needs known. Mobility and Gait Patient with progressive immobility with patient essentially chair bound prior to admission. Activities of Daily Living and IADL's Prior to admission was completing all ADL/IADLs for patient. Prior Functional Level (Other details) Patient had had a progressive decline starting in about July of 2019 after his R CARLOTA. He has ambulated since surgery and participated with ADLs, but has progressively declined and was dependent prior to this hospitalization. Social History Household Members spouse Living Arrangements House Number of Floors (Floors) One Floor Number of Stairs To Enter/Railing? 2 Home Environment Tub/Shower Home Equipment Front Wheel Walker,Four Wheel Walker,Tub Transfer Bench,Hand Held Shower,Rn Internal Medicine,Sock Aid, Grab Bars Near Toilet,Grab Bars In Shower Employment Status Retired Additional Social History Comment Patient reports DME/AE related to his CARLOTA, he states however that he was not using his long handled dressing equipment. At AL he demonstrates potential to progress with self-care and would benefit from integration of these tools w/ his ADL routine. M2 OT-IP Current Condition Start: 04/25/20 12:07 Freq: Status: Active Protocol: Document 04/25/20 12:08 RM (Rec: 04/25/20 12:48 RM [id number]) Occupational Therapy Current Condition Current Condition Evaluation Date 04/25/20 Treatment Diagnosis CHF w/ LLE DVT and UTI Diagnosis Onset Date 04/24/20 Weight Bearing Status Weight Bearing Status Weight Bear as Tolerated M3 OT- IP Subjective and Pain Start: 04/25/20 12:07 Freq: Status: Active Protocol: Document 04/25/20 12:08 RM (Rec: 04/25/20 12:48 RM [id number]) OT- Subjective Occupational Therapy Visit Type Type Initial Evaluation Visit Start Time 10:10 Visit Stop Time 10:50 Total Visit Minutes 55 Notes Patient seen over 2 sessions 10:10-10:50, 11:10-11:25 Occupational Therapy Visit Comments Patient Comments It was hard for me to get up. Patient/Caregiver Goals Return home with his , but interested in rehab to improve his function. OT Pain Assessment Pain When Pain Assessed During Mobility Pain Present Pain Present Pain Reported Location Bilateral Knees Intensity 7 Scale Used Numeric (0 - 10) M4 OT- IP ADL's Start: 04/25/20 12:07 Freq: Status: Active Protocol: Document 04/25/20 12:08 RM (Rec: 04/25/20 12:48 RM [id number]) OT [id number] Comments OT Self-Feeding Comments NT- demonstrates adequate UE for function to complete self- feeding OT ADL-Grooming Comments OT Grooming Comments NT- demonstrates adequate UE for function to complete seated grooming routine OT ADL-Oral Care Comments Oral Care Comments NT- demonstrates adequate UE for function to complete seated oral care routine OT ADL-Dressing General Eval Upper Body Dressing Ability Standby Assistance Lower Body Dressing Ability Total Assistance Areas Needing Assistance Retrieving/Set-up of Clothing, Underpants/Brief,Pants/Shorts, Socks,Shoes OT ADL-Toileting General Evaluation Toileting Ability Maximum Assistance Areas Needing Assistance Empty Catheter or Colostomy, Manage Clothing,Perform Perineal Hygiene Devices Toileting Assistive Devices Commode Comments OT Toileting Comments Recommend trial of sit>stand lift for toileting routine at next session OT ADL-Bathing Comments OT Bathing Comments NT- demonstrates adequate UE to complete face and upper body, but anticipate need for assist with back, perineal area, and lower extremities M5 OT- IP IADL's Start: 04/25/20 12:07 Freq: Status: Active Protocol: Document 04/25/20 12:08 RM (Rec: 04/25/20 12:48 RM [id number]) OT-Instrumental Activities of Daily Living Deficits IADL Deficits Identified Deficits Home Safety Awareness Awareness of Need for Assistance at Home Good Awareness Home Safety Comments Concern for adequate level of care at home d/t progressive functional decline. Recommend support to discuss long-term care planning as he may be appropriate to transition to a higher level of care following his rehab stay. M6 OT- IP Functional Cognition Start: 04/25/20 12:07 Freq: Status: Active Protocol: Document 04/25/20 12:08 RM (Rec: 04/25/20 12:48 RM [id number]) Cognitive Factors Limiting Selfcare Function Cognitive Ability Level of Alertness Alert Patient Orientation Name,Month,Year,Place, Situation Attention Span Ability Capable of Focused Attention, Capable of Sustained Attention Ability to Follow Commands Able to Follow One Step Commands Memory Description Short Term Impaired Safety Awareness Underestimates Need for Assistance Problem Solving Ability Needs Assist to Identify Solutions Cognitive Comments Cognitive Assessment Comments Mini-Cog completed 04/25/20 Word Recall: 2/3 Clock Draw: 1/2 TOTAL SCORE: 3/5 A cut point of <3 on Mini-Cog has been validated for dementia screening. When greater sensitivity is desired , a cut point of <4 is recommended as it may indicate a need for further evaluation of cognitive status OT- Vision and Hearing OT- Hearing Assessment OT- Hearing Assessment Hearing Impaired OT- Vision Assessment Visual Acuity Glasses For Reading Visual Attentiveness WFL M7 OT- IP Mobility and Balance Start: 04/25/20 12:07 Freq: Status: Active Protocol: Document 04/25/20 12:08 RM (Rec: 04/25/20 12:48 RM [id number]) OT- Bed Mobility Assessment Sit to Supine Sit to Supine Assist Maximum Assistance,2 Person Assistance Scooting Scooting Up and Down in Bed Maximum Assistance,2 Person Assistance OT-Transfer Assessment Sit to and From Stand Sit to and from Stand Maximum Assistance,2 Person Assistance Transfers Transfer Ability Maximum Assistance,2 Person Assistance Technique Transfer Destination Bed,Bedside Commode,Chair Transfer Technique Stand Step Pivot Devices Transfer Assistive Devices Front Wheeled Walker Comments Mobility Comments Patient requires verbal cues for positioning feet and bringing COG over MASON with transition to stand. He also benefits from cues for initiation of foot placement with stand-step. On transfer chair>BSC able to take 2 steps . Transfer BSC>bed with some improvement tolerating 4 steps. Overall recommending trial of sit>stand for ADL transfers to promote WB and help with neuromuscular re- education for COG over MASON. OT- Balance Assessment Sitting Balance and Reactions Static Sitting Balance Ability Good Dynamic Sitting Balance Ability Fair Standing Balance and Reactions Static Standing Balance Ability Poor Dynamic Standing Balance Ability Poor M8 OT- IP Objective Assessments Start: 12/06/20 12:07 Freq: Status: Active Protocol: Document 04/25/20 12:08 RM (Rec: 04/25/20 12:48 RM [id number]) OT Gross Range of Motion Upper Extremity Range of Motion Assessment Right Impaired ROM Impairments Decreased shld flex on RUE to approx 100* w/ shld elevation w/ flex and suspect rotator cuff injury. OT Strength Upper Extremity Strength Assessment Bilaterally Impaired Shoulder 4-/5 Elbow 5/5 Forearm 5/5 Hand 4-/5 Hand Rock Climbing Team Member Strength Hand Dominance Right OT Sensation Assessment Edema Edema Present Edema Comments BLE edema, L worse than R M9 OT- IP Assessment and Plan Start: 04/25/20 12:07 Freq: Status: Active Protocol: Document 04/25/20 12:08 RM (Rec: 04/25/20 12:48 RM [id number]) OT Summary Assessment and Plan Potential Rehabilitation Potential Good Analytic Complexity at Evaluation High Summary OT Impairments Pain,Range of Motion,Strength, Balance,Functional Cognition, Functional Mobility,Dressing, Toileting,Bathing,Toilet Transfers,Shower Transfers, Activity Tolerance Assessment Summary Patient is an 84 year old male who presented to the hospital with BLE pain and edema w/ new onset CHF, LLE DVT, and UTI. He has had difficulties since his R CARLOTA in July of this year with progressive functional decline, which has recently accelerated and patient primarily confined to his chair and dependent for all ADLs and IADLs. He demonstrates potential to improve function for mobility and self-care and is agreeable to plan for discharge to SNF. I also recommend additional cognitive assessment with score of 3/5 on Mini-Cog. Also given complexity of his case and length of decline feel he would benefit from further discussions to consider possible transition to higher level of care following rehab course. Goals Dressing Goal Moderate Assistance,Dressing Stick,Long Handled Shoe Horn, Rn Internal Medicine,Sock Aid Toileting Goal Moderate Assistance Toilet Transfer Goal Moderate Assistance,Bedside Commode Days to Meet Goals 7 Frequency of Treatment Frequency Of Treatment Once a Day Treatment Plan OT Treatment Plan ADL Training,Functional Cognition Training,Functional Mobility,Neuromuscular Re- education,Therapeutic Exercises,Patient/Family Education,Discharge Planning Other Treatment Recommendations and Next Recommend trial of sit>stand Treatment Focus lift with toileting at next session to assist with neuro- muscular re-ed for improving movement of COG over MASON. Discharge Recommendations OT Discharge Recommendations SNF Rehab Other Discharge Recommendations Concern for adequate level of care at home d/t progressive functional decline. Recommend support to discuss long-term care planning as he may be appropriate to transition to a higher level of care following his rehab stay. Home Equipment Needs Defer to SNF, reports multiple DME/AE items already in place at home. Will benefit from further clarification with family. Transportation Needs at Discharge Wheelchair/Cabulance
--- NOTE | 2020-04-25 14:04 | P.PN_ITS ---
Subjective Subjective Date Patient Seen: 04/25/20 Time Patient Seen: 14:39 Interval history: Mr. Serge Hunt is an 84-year-old male with a past medical history significant for coronary artery disease, hypothyroidism, GERD, depression, balance and gait disorder who is admitted for inability to walk due to worsening LE swelling in the setting of new DVT vs possible new CHF. He was also found to have new atrial fibrillation but is rate controlled without medications. He has been started on apixaban for his DVT and afib. He still states he is quite weak and has pain in his legs that is relieved when flat but worsened with ambulation. Exam Vital Signs (past 8 hours): - 04/25/20 09:15 04/25/20 11:09 04/25/20 12:00 Temperature 97.8 F 98 F Pulse Rate 56 L 56 L 55 L Respiratory Rate 16 18 16 Blood Pressure 142/62 H 138/61 Pulse Oximetry 97 97 96 Oxygen Delivery Method Room Air Oxygen Flow Rate 0 Narrative Exam Narrative: GENERAL APPEARANCE: well developed, adequately nourished male, lying semi recumbent in bed briskly responsive and in no acute distress. HEENT: Normocephalic, PERRLA, conjunctiva clear, EOMs intact without nystagmus, no sinus tenderness to percussion, no rhinorrhea, mucous membranes are moist and pink without lesions or exudate. NECK/THYROID: neck supple, no JVD, no thyromegaly, trachea midline. LYMPH NODES: no cervical or supraclavicular lymphadenopathy. SKIN: [place], warm and dry, no visible lesions, rashes, no venous stasis ulcers or evidence of chronic skin changes bilateral lower extremities HEART: Irregular rhythm with bradycardic rate, S1-S2, 1/6 systolic murmur, no rubs or gallops, brisk capillary refill, RLE non-pitting edema and swelling, LLE 1+ pitting edema more prominent in the ankles but also swollen. LUNGS: clear to auscultation bilaterally, no coarseness crackles or wheezing, no cough present CHEST: Symmetrical movement, no accessory muscle use, good tidal volume. ABDOMEN: Soft, round and nontender to palpation, no guarding or peritoneal signs, no organomegaly, no flank or suprapubic tenderness, active bowel tones. BACK: Normal curvature, nontender to palpation. EXTREMITIES: Distal CMS intact, strength is 4/5 and symmetrical slightly weaker in the distal extremities, no deformities or joint effusions. NEUROLOGIC: AAO x person place situation, impaired recall with intermittent perseveration, no lateralizing neurologic deficits, cranial nerves II-XII grossly intact, sensation intact to light touch, hearing grossly normal to speech. PSYCH: Good eye contact, cooperative, stable behavior. Objective Labs Result Diagrams: 04/25/20 03:05 04/25/20 03:05 Labs: Laboratory Results - last 24 hr 04/24/20 04/24/20 04/24/20 17:15 17:15 17:15 WBC 6.1 RBC 4.49 L Hgb 12.2 L Hct 38.4 L MCV 85.6 MCH 27.2 MCHC 31.8 RDW 15.4 H Plt Count 121 L Neut % (Auto) 66.3 Lymph % (Auto) 21.3 L [place] % (Auto) 5.2 Eos % (Auto) 5.6 H Baso % (Auto) 1.6 Neut # (Auto) 4000 Lymph # (Auto) 1300 [place] # (Auto) 300 Eos # (Auto) 300 Baso # (Auto) 100 PT 12.4 INR 1.1 APTT 32 D-Dimer Sodium 140 Potassium 4.2 Chloride 106 Carbon Dioxide 27 BUN 27 H Creatinine 1.18 Estimated GFR 58.7 L BUN/Creatinine Ratio 22.9 H Glucose 107 Lactate Calcium 9.4 Magnesium 2.0 Total Bilirubin 0.7 AST 22 ALT 12 Alkaline Phosphatase 92 Total Creatine Kinase 52 L CK-MB (CK-2) TNP CK-MB (CK-2) Rel Index TNP Troponin I < 0.012 NT-Pro-B Natriuret Pep Total Protein 8.2 Albumin 4.3 Globulin 3.9 Albumin/Globulin Ratio 1.1 Triglycerides Cholesterol LDL Cholesterol, Calc HDL Cholesterol TSH Free T4 Urine RBC Urine WBC Ur Transition Epith Cell Urine Bacteria Ur Culture Indicated? COVID-19 PCR 04/24/20 04/24/20 04/24/20 17:15 17:15 17:15 WBC RBC Hgb Hct MCV MCH MCHC RDW Plt Count Neut % (Auto) Lymph % (Auto) [place] % (Auto) Eos % (Auto) Baso % (Auto) Neut # (Auto) Lymph # (Auto) [place] # (Auto) Eos # (Auto) Baso # (Auto) PT INR APTT D-Dimer Sodium Potassium Chloride Carbon Dioxide BUN Creatinine Estimated GFR BUN/Creatinine Ratio Glucose Lactate 1.8 Calcium Magnesium Total Bilirubin AST ALT Alkaline Phosphatase Total Creatine Kinase CK-MB (CK-2) CK-MB (CK-2) Rel Index Troponin I NT-Pro-B Natriuret Pep Total Protein Albumin Globulin Albumin/Globulin Ratio Triglycerides Cholesterol LDL Cholesterol, Calc HDL Cholesterol TSH 8.08 H Free T4 Urine RBC Urine WBC Ur Transition Epith Cell Urine Bacteria Ur Culture Indicated? COVID-19 PCR Negative 04/24/20 04/24/20 04/24/20 17:15 17:15 19:20 WBC RBC Hgb Hct MCV MCH MCHC RDW Plt Count Neut % (Auto) Lymph % (Auto) [place] % (Auto) Eos % (Auto) Baso % (Auto) Neut # (Auto) Lymph # (Auto) [place] # (Auto) Eos # (Auto) Baso # (Auto) PT INR APTT D-Dimer Sodium Potassium Chloride Carbon Dioxide BUN Creatinine Estimated GFR BUN/Creatinine Ratio Glucose Lactate Calcium Magnesium Total Bilirubin AST ALT Alkaline Phosphatase Total Creatine Kinase CK-MB (CK-2) CK-MB (CK-2) Rel Index Troponin I NT-Pro-B Natriuret Pep 1130 H Total Protein Albumin Globulin Albumin/Globulin Ratio Triglycerides Cholesterol LDL Cholesterol, Calc HDL Cholesterol TSH Free T4 1.07 Urine RBC 5-10/hpf H Urine WBC 10-30/hpf H Ur Transition Epith Cell 5-10/hpf H Urine Bacteria Many (>30) H Ur Culture Indicated? Specimen cultured COVID-19 PCR 04/25/20 04/25/20 04/25/20 01:18 03:05 03:05 WBC 5.1 RBC 4.01 L Hgb 11.0 L Hct 34.1 L MCV 85.0 MCH 27.4 MCHC 32.2 RDW 15.3 H Plt Count 111 L Neut % (Auto) 60.2 Lymph % (Auto) 23.0 L [place] % (Auto) 8.9 Eos % (Auto) 6.7 H Baso % (Auto) 1.2 Neut # (Auto) 3100 Lymph # (Auto) 1200 [place] # (Auto) 500 Eos # (Auto) 300 Baso # (Auto) 100 PT INR APTT D-Dimer Sodium 138 Potassium 4.3 Chloride 106 Carbon Dioxide 30 BUN 29 H Creatinine 1.27 H Estimated GFR 53.9 L BUN/Creatinine Ratio 22.8 H Glucose 99 Lactate Calcium 8.8 Magnesium 1.8 Total Bilirubin AST ALT Alkaline Phosphatase Total Creatine Kinase 44 L CK-MB (CK-2) TNP CK-MB (CK-2) Rel Index TNP Troponin I < 0.012 NT-Pro-B Natriuret Pep 932 H Total Protein Albumin Globulin Albumin/Globulin Ratio Triglycerides 107 Cholesterol 115 L LDL Cholesterol, Calc 55 HDL Cholesterol 39 L TSH Free T4 Urine RBC Urine WBC Ur Transition Epith Cell Urine Bacteria Ur Culture Indicated? COVID-19 PCR 04/25/20 03:05 WBC RBC Hgb Hct MCV MCH MCHC RDW Plt Count Neut % (Auto) Lymph % (Auto) [place] % (Auto) Eos % (Auto) Baso % (Auto) Neut # (Auto) Lymph # (Auto) [place] # (Auto) Eos # (Auto) Baso # (Auto) PT INR APTT D-Dimer 893 H Sodium Potassium Chloride Carbon Dioxide BUN Creatinine Estimated GFR BUN/Creatinine Ratio Glucose Lactate Calcium Magnesium Total Bilirubin AST ALT Alkaline Phosphatase Total Creatine Kinase CK-MB (CK-2) CK-MB (CK-2) Rel Index Troponin I NT-Pro-B Natriuret Pep Total Protein Albumin Globulin Albumin/Globulin Ratio Triglycerides Cholesterol LDL Cholesterol, Calc HDL Cholesterol TSH Free T4 Urine RBC Urine WBC Ur Transition Epith Cell Urine Bacteria Ur Culture Indicated? COVID-19 PCR PFSH Medical History Balance disorder CAD (coronary artery disease) Chronic GERD Closed hip fracture Depression Gait disorder Hypothyroidism Surgical History History of right knee joint replacement Family History Mother Breast cancer Father Kidney infection Social History household members: spouse Smoking Status: Former smoker alcohol intake: current Assessment & Plan Assessment & Plan narrative: This is an 84-year-old male patient who has been living at home under the care of his who has had previous visits for debility and immobility and can no longer be care for by his at home. Patient describes weakness and immobility for 2 months with increased leg swell ing over the last 2 weeks possibly secondary to new DVT or possible new heart failure. 1. New onset atrial fibrillation, slow ventricular response, present on admission, active. -patient denies complaints of chest pain, palpitations or shortness of breath but does have worsening bilateral LE edema. -12 lead EKG finds atrial fibrillation with, atrial flutter with a slow ventricular response at 55 with a right bundle branch block without evidence of ischemia or infarct. Previous EKGs show sinus rhythm with first-degree AVB and right bundle branch block. -total CK is 52, troponin is less than 0.012. Electrolytes are within normal range, Potassium is 4.2 and magnesium is 2.0. TSH is elevated 8.08 however T4 is normal range at 1.07. Will obtain a lipid panel. -patient with new onset symptoms of congestive heart failure discussed below possibly related to onset of atrial fibrillation without prior history. -patient has been started on therapeutic at [facility] for left lower extremity DVT . Chads2 Vasc score is 5 for high risk, has bled score is 2 for intermediate risk. -TTE pending. -will closely follow hemodynamic stability with ventricular rate variable from mid 40s to 60s. 2. New onset congestive heart failure, unknown if systolic or diastolic, present on admission, active. -patient with new onset congestive heart failure with the patient reporting bilateral lower extremity swelling onset 2 weeks ago. Patient denies chest pain shortness of breath cough or wheezing. -bilateral lower extremity edema to the level of the knee. Patient denies weight gain. No lower extremity venous stasis skin changes and no ulcers. -chest x-ray finds cardiomegaly with minimal interstitial prominence. -ordered Lasix 20 mg now and 20 mg daily. Follow weights and daily intake and output. 3. Acute Left lower extremity DVT, present on admission, active. -patient has been immobile for 2 weeks and reports symmetrical bilateral leg swelling. -venous duplex completed on 04/14/2020 was negative for DVT. Venous duplex in the ER finding thrombus in the left common femoral and superficial femoral veins. -continue Eliquis 10 mg by mouth twice daily for 7 days to be followed by Eliquis 5 mg twice daily. -will monitor for complications of bleeding. 4. Urinary tract infection, acute, present on admission, active -patient with weakness and urinary frequency and found to have urinary tract infection. -previous UTI isolates included E coli, Pseudomonas arthrosis and Klebsiella pneumoniae. -based on sensitivities from previous culture started on Levaquin 750 mg IV daily, will follow up urine culture. 4. Immobility, debilitated, chronic, stable. -patient has decreased mobility since his hip fracture in July of 2019. -post fracture discharged to [facility], was discharged only to return for additional 3 weeks therapy due to inability to maintain in the home environment. -patient subsequently discharged and had home health services. Patient presented to the ER in September 2019 for failure to thrive with inability to get out of bed or walk, home health services escalated at that time. -patient has no further home support services and his and daughter have been attempting to manage his care. The patient has had increasing debility secondary to problems noted above. -discussion previously surrounded long-term care setting but was deemed too expensive therefore patient returned to home. -PT and OT requested to consult, evaluate and treat. Likely discharge to SNF at discharge. 5. Acquired Hypothyroidism, chronic, stable. -TSH is elevated 8.08, T4 is within normal range at 1.07. -will continue home regimen of levothyroxine 112 mcg daily. 6. GERD, chronic, stable. -patient is asymptomatic for GI symptoms no nausea or epigastric tenderness. -patient has been taking omeprazole 20 mg daily, ordered famotidine 20 mg daily to avoid complications of PPI therapy in the geriatric population. 7. Depression, chronic, stable -patient denies depression symptoms, no thoughts of self-harm or suicidality. -continue sertraline 150 mg daily. VTE prophylaxis: Eliquis IV fluid: Saline lock Diet: Heart healthy 2 g low-sodium Code status: Full code, the patient designates his is surrogate decision maker. Patient currently admitted under observation status, pending TTE as noted above. If symptoms of weakness and LE edema are due to new heart failure may require inpatient status. Anticipate discharge to SNF based on PT recommendations. Quality VTE Deep Vein Thrombosis/Pulmonary Embolism Present on Admission: Yes
--- NOTE | 2020-04-25 15:21 | PC.NURSE ---
Late note: Assumed care of patient at 0700. Patient A/O x3, needed reminded of the day. Patient on room air, denies SOB, chest pain or dizziness. Tele intact, Afib/BBB pulses irregularly irregular, 3+ edema noted in bilateral lower extremities. Patient using urinal in bed, clear yellow urine. Bowel tones active x4, abdomen soft/non-tender. Denies pain except when right knee is touched. Tamra used to transport patient to [facility], maximum assist. Patient bathed with help of aide. Patient transported back to bed with tamra. PT worked with patient and patient once again up to BS, stand and pivoted back to bed with FWW and 3 person assist.
[2020-04-25] MEDS: ACETAMINOPHEN 325 MG TABLET 650 MG PO (18:31)
[2020-04-25] MEDS: OXYCODONE IR 5 MG TABLET PO ×2 (18:32→23:57)
[2020-04-25] MEDS: FAMOTIDINE 20 MG TABLET PO (20:18)
[2020-04-25] MEDS: ATORVASTATIN 20 MG TABLET 40 MG PO (20:18)
[2020-04-25] MEDS: DOXAZOSIN 4 MG TABLET 8 MG PO (20:18)
[2020-04-25] MEDS: levoFLOXacin 750 MG/150 ML PIGGYBACK 100 MG IV (21:52)
[2020-04-26 05:05] VITALS: BP 112/70; PULSE 51; RESP 18; TEMP 36.8; O2SAT 95
[2020-04-26 05:37] LABS: Add Manual Diff / Slide Review NO; Basophils Absolute Auto 100 /uL (0-100); Basophils Percent Auto 1.2 % (0-2); Eosinophils Absolute Auto 400 /uL (0-450); Eosinophils Percent Auto 7.1 % (2-4); Hematocrit 34.7 % (41-53); Hemoglobin 11.3 g/dL (13.5-17.5); Lymphocytes Absolute Auto 1400 /uL (1100-4500); Lymphocytes Percent Auto 28.9 % (25-40); Mean Corpuscular HGB Conc 32.4 % (30-36); Mean Corpuscular Hemoglobin 27.5 PG (26-34); Mean Corpuscular Volume 84.7 fL (80-100); Monocytes Absolute Auto 500 /uL (0-900); Monocytes Percent Auto 9.3 % (3-14); Neutrophils Absolute Auto 2700 /uL (1500-7000); Neutrophils Percent Auto 53.5 % (50-75); Platelet Count 111 X10^3/uL (150-400); Red Blood Cell Count 4.09 X10^6/uL (4.5-5.9); Red Cell Distribution Width 15.3 % (11.6-14.8)
[2020-04-26 05:58] LABS: Alanine Aminotransferase 11 IU/L (<50); Albumin 3.5 g/dL (3.5-5.0); Albumin Globulin Ratio 1.1 (1.0-2.8); Alkaline Phosphatase 86 U/L (38-126); Aspartate Aminotransferase 18 IU/L (17-59); BUN Creatinine Ratio 18.6 (6-22); Bilirubin Total 0.9 mg/dL (0.2-1.3); Bilirubin Unconjugated 0.8 mg/dL (0.0-1.1); Blood Urea Nitrogen 24 mg/dL (9-20); Calcium 8.8 mg/dL (8.4-10.2); Carbon Dioxide 32 mmol/L (22-32); Chloride 102 mmol/L (98-107); Estimated Glomerular Filt Rate 52.9 mL/min (>60); Globulin 3.3 g/dL (1.7-4.1); Glucose 90 mg/dL (80-110); HEMOLYSIS < 15 (0-50); Magnesium 1.8 mg/dL (1.6-2.3); Sodium 135 mmol/L (137-145); Total Protein 6.8 g/dL (6.3-8.2)
[2020-04-26] MEDS: LEVOTHYROXINE 112 MCG TABLET PO (06:17)
[2020-04-26] MEDS: polyethylene glycoL 3350 17 GM POWD.PACK PO ×2 (06:17→10:39)
[2020-04-26 08:39] VITALS: BP 124/66; PULSE 60; RESP 16; TEMP 36.6; O2SAT 95
--- NOTE | 2020-04-26 08:52 | P.DS_ITS ---
History of Present Illness History of Present Illness Date Patient Seen: 04/26/20 Time Patient Seen: 08:53 Chief complaint: Bilateral Lower Extremity Swelling Narrative: As per AMY Durbin: Mr. Serge Hunt is an 84-year-old male with a past medical history significant for coronary artery disease, hypothyroidism, GERD, depression, balance and gait disorder who presents to the ER via EMS with inability to walk. The patient has had longstanding chronic problem with debility since he sustaining hip fracture in July of 2019. The underwent left hip surgery and was discharged to [facility] for rehabilitation and was discharged home only to return for an additional 3 weeks of therapy. The p atient has had decreasing mobility for the last 2 months and has previously had home health care which is no longer in place. Describes increased leg swelling the last 2 weeks. He denies any other complaints and in fact repeatedly states everything is fine. He denies recent cold or flu symptoms, fevers or chills or known COVID-19 exposures. He denies headaches or dizziness and has no visual ch anges, nasal congestion or sore throat. He denies neck or back pain, recent falls or trauma. He has had no chest pain and denies palpitations. He reports no shortness of breath cough or wheezing though the patient is inactive and not aerobically challenged. She denies complaints of epigastric or abdominal pain, no nausea vomiting. He denies difficulty urinating and is status post TURP which resolved prior nocturia, endorses urinary frequency. He states his last bowel movement was 2 days ago but denies discomfort. The patient has previously been evaluated for failure to thrive on admission in September at which time was noted the patient could not get out of bed or walk. The patient reports up until 2 weeks ago he could mobilize minimally with a walker and is now too weak to mobilize. Upon arrival to the ER the patient is afebrile with a temperature of 98.3?, heart rate of 64, pressure 169/74, respirations of 16 saturating 96% on room air. Imaging reveals cardiomegaly on chest x-ray with minimal interstitial prominence, venous duplex obtained today finds a left lower extremity DVT. Previous venous duplex completed 04/14/2020 was negative for DVT. On laboratory analysis he has white count of 6.1 with no shift, hemoglobin 12.2, hematocrit 38.4 platelets 121. He has a PT of 12.4, INR 1.1 and a PTT of 32. On chemistries is electrolytes are within normal limits and has a potassium of 4.2 and magnesium of 2.0. He has a BUN elevated 27 with a creatinine of 118 consistent with baseline. He has a nonfasting glucose of 107. His liver functions are all within normal limits and has an albumin of 4.3. Lactic acid is 1.8. He has a total CK of 52 and a troponin that is less than 0.012. ProBNP is 1135. TSH is elevated at 8.08 with a normal T4 at 1.57. Urinalysis is positive for leukocyte esterase, wbc's and many bacteria, negative for nitrates. Twelve lead EKG is obtained personally reviewed finding atrial fibrillation-flutter with [place] slow ventricular response at 55, right bundle branch block without evidence of ischemia or infarct. The patient is started on Eliquis 10 mg p.o. twice daily for DVT the emergency department in the patient is admitted to the medicine service for new onset atrial fibrillation with new onset congestive heart failure and DVT. Discharge Providers Provider Date of admission: 04/24/20 20:15 Discharge Date: 04/26/20 Primary care physician: Dinora Sampson MD Consults: 04/24/20 20:16 Consult to Dietitian, Adult Routine Comment: Reason For Exam: New diagnosis heart failure, history CAD 04/24/20 20:17 Consult to Discharge Planning Routine Comment: Previous placement issues,no current home care svc 04/24/20 20:22 Consult to Home Health Routine Comment: Previous care through [facility] Reason For Exam: Immobility, failure to thrive 04/24/20 22:54 Consult to Physical Therapy Evaluate & Treat Comment: Debilitated, weakness, DVT left leg Physician Instructions: Evaluate and Treat 04/24/20 22:55 Consult to [employer]ON INSPECTOR - [employer] Seller Routine Comment: Debilitated, weakness, DVT left leg from home RADON INSPECTOR Consult: [facility] Need Consult to Occupational Therapy Evaluate & Treat Comment: Debilitated, weakness, DVT left leg Physician Instructions: Evaluate and treat Discharge provider: Live Morales DO Summary Hospital Course Discharge Diagnosis: Please see hospital course by problem list noted below. Hospital Course: This is an 84-year-old male patient who has been living at home under the care of his who has had previous visits for debility and immobility and can no longer be care for by his at home. Patient describes weakness and immobility for 2 months with increased leg swelling over the last 2 weeks possibly secondary to new DVT or venous insufficiency. 1. New onset atrial fibrillation, slow ventricular response, unable to further clinically determine type, present on admission, active. -patient denies complaints of chest pain, palpitations or shortness of breath but does have worsening bilateral LE edema. -12 lead EKG finds atrial fibrillation with, atrial flutter with a slow ventricular response at 55 with a right bundle branch block without evidence of ischemia or infarct. Previous EKGs show sinus rhythm with first-degree AVB and right bundle branch block. -total CK is 52, troponin is less than 0.012. Electrolytes are within normal range, Potassium is 4.2 and magnesium is 2.0. TSH is elevated 8.08 however T4 is normal range at 1.07. Will obtain a lipid panel. -patient with new onset symptoms of congestive heart failure discussed below possibly related to onset of atrial fibrillation without prior history. -patient has been started on therapeutic at [facility] for left lower extremity DVT. Chads2 Vasc score is 5 for high risk, has bled score is 2 for intermediate risk. -TTE showed a normal EF with stable wall motion abnormalities and no valvular pathologies. Unable to assess for diastolic dysfunction given AFib. -on telemetry patient had slow atrial fibrillation as low as the mid 30, but remained asymptomatic. 2. Bilateral lower extremity swelling, present on admission, active. -bilateral lower extremity edema to the level of the knee. Patient denies weight gain. No lower extremity venous stasis skin changes and no ulcers. -chest x-ray finds cardiomegaly with minimal interstitial prominence. Echocardiogram is as noted above and it is seemingly less likely his symptoms are related to heart failure. -continue Lasix 20 mg daily as an outpatient. Suspect that his lower extremity swelling is due to venous insufficiency from his recent surgery and now DVT. Continue leg elevation as much as possible, consider vascular surgery consultation as an outpatient. -Continue pain control and anticoagulation as noted above. 3. Acute Left lower extremity DVT, present on admission, active. -patient has been immobile for 2 weeks and reports symmetrical bilateral leg swelling. -venous duplex completed on 04/14/2020 was negative for DVT. Venous duplex in the ER 04/24 finding thrombus in the left common femoral and superficial femoral veins. -continue Eliquis 10 mg by mouth twice daily for 4 more additional days days to be followed by Eliquis 5 mg twice daily indefinitely given atrial fibrillation. -no signs or symptoms of bleeding. 4. Urinary tract infection, acute, present on admission, active -patient presented with weakness and urinary frequency and found to have urinary tract infection. -previous UTI isolates included E coli, Pseudomonas arthrosis and Klebsiella pneumoniae. -based on sensitivities from previous culture started on Levaquin 750 mg IV daily, urine culture is still pending. Recommend continued levaquin therapy for 4 additional days. 4. Immobility, debilitated, chronic, stable. -patient has decreased mobility since his hip fracture in July of 2019. -post fracture discharged to [facility], was discharged only to return for additional 3 weeks therapy due to inability to maintain in the home environment. -patient subsequently discharged and had home health services. Patient presented to the ER in September 2019 for failure to thrive with inability to get out of bed or walk, home health services escalated at that time. -patient has no further home support services and his and daughter have been attempting to manage his care. The patient has had increasing debility secondary to problems noted above. -discussion previously surrounded long-term care setting but was deemed too expensive therefore patient returned to home. -PT and OT recommended SNF. 5. Acquired Hypothyroidism, chronic, stable. -TSH is elevated 8.08, T4 is within normal range at 1.07. -will continue home regimen of levothyroxine 112 mcg daily. Repeat TSH recommended in 4-6 weeks. 6. GERD, chronic, stable. -patient is asymptomatic for GI symptoms no nausea or epigastric tenderness. -patient has been taking omeprazole 20 mg daily, can continue as an outpatient. 7. Depression, chronic, stable -patient denies depression symptoms, no thoughts of self-harm or suicidality. -continue sertraline 150 mg daily. Exam Vital Signs (past 8 hours): - 04/26/20 05:05 Temperature 98.2 F Pulse Rate 51 L Respiratory Rate 18 Blood Pressure 112/70 Pulse Oximetry 95 Oxygen Delivery Method Room Air Oxygen Flow Rate 0 Narrative Exam Narrative: GENERAL APPEARANCE: well developed, adequately nourished male, lying semi recumbent in bed briskly responsive and in no acute distress. HEENT: Normocephalic, PERRLA, conjunctiva clear, EOMs intact without nystagmus, no sinus tenderness to percussion, no rhinorrhea, mucous membranes are moist and pink without lesions or exudate. NECK/THYROID: neck supple, no JVD, no thyromegaly, trachea midline. LYMPH NODES: no cervical or supraclavicular lymphadenopathy. SKIN: [place], warm and dry, no visible lesions, rashes, no venous stasis ulcers or evidence of chronic skin changes bilateral lower extremities HEART: Irregular rhythm with bradycardic rate, S1-S2, 1/6 systolic murmur, no rubs or gallops, brisk capillary refill, 2 to 3+ edema extending to the knee. LUNGS: clear to auscultation bilaterally, no coarseness crackles or wheezing, no cough present CHEST: Symmetrical movement, no accessory muscle use, good tidal volume. ABDOMEN: Soft, round and nontender to palpation, no guarding or peritoneal signs, no organomegaly, no flank or suprapubic tenderness, active bowel tones. BACK: Normal curvature, nontender to palpation. EXTREMITIES: Distal CMS intact, strength is 2/5 and symmetrical, no deformities or joint effusions. NEUROLOGIC: AAO x person place situation, impaired recall with intermittent perseveration, no lateralizing neurologic deficits, cranial nerves II-XII grossly intact, sensation intact to light touch, hearing grossly normal to speech. PSYCH: Good eye contact, cooperative, stable behavior. Objective Imaging Echo: Radiologist's impression: The patient was in atrial fibrillation with heart rates between 52-68 bpm during the exam. A. fib is new. The left ventricle is normal in size. Left ventricular ejection fraction is estimated to be 65 +/- 5%. The right ventricle is mildly dilated. The right ventricular systolic function is normal. No significant valvular pathology seen. 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 4.6 cm in diameter. In July 2013, it was 4.2 cm in diameter. Labs Result Diagrams: 04/26/20 05:00 04/26/20 05:00 Labs: Laboratory Results - last 24 hr 04/26/20 04/26/20 05:00 05:00 WBC 5.0 RBC 4.09 L Hgb 11.3 L Hct 34.7 L MCV 84.7 MCH 27.5 MCHC 32.4 RDW 15.3 H Plt Count 111 L Neut % (Auto) 53.5 Lymph % (Auto) 28.9 [place] % (Auto) 9.3 Eos % (Auto) 7.1 H Baso % (Auto) 1.2 Neut # (Auto) 2700 Lymph # (Auto) 1400 [place] # (Auto) 500 Eos # (Auto) 400 Baso # (Auto) 100 Sodium 135 L Potassium 4.0 Chloride 102 Carbon Dioxide 32 BUN 24 H Creatinine 1.29 H Estimated GFR 52.9 L BUN/Creatinine Ratio 18.6 Glucose 90 Calcium 8.8 Magnesium 1.8 Total Bilirubin 0.9 Conjugated Bilirubin 0.0 Unconjugated Bilirubin 0.8 AST 18 ALT 11 Alkaline Phosphatase 86 Total Protein 6.8 Albumin 3.5 Globulin 3.3 Albumin/Globulin Ratio 1.1 PFSH Medical History Balance disorder CAD (coronary artery disease) Chronic GERD Closed hip fracture Depression Gait disorder Hypothyroidism Surgical History History of right knee joint replacement Family History Mother Breast cancer Father Kidney infection Social History household members: spouse Smoking Status: Former smoker alcohol intake: current Discharge Plan Discharge Plan Patient Disposition: SNF Provider Discharge Comment: This is an 84-year-old male patient who has been living at home under the care of his who has had previous visits for debility and immobility and can no longer be care for by his at home. Patient describes weakness and immobility for 2 months with increased leg swelling over the last 2 weeks possibly secondary to new DVT and likely venous insufficiency. 1. New onset atrial fibrillation, slow ventricular response, present on admission, active. -patient denies complaints of chest pain, palpitations or shortness of breath but does have worsening bilateral LE edema. -12 lead EKG finds atrial fibrillation with, atrial flutter with a slow ventricular response at 55 with a right bundle branch block without evidence of ischemia or infarct. Previous EKGs show sinus rhythm with first-degree AVB and right bundle branch block. -total CK is 52, troponin is less than 0.012. Electrolytes are within normal range, Potassium is 4.2 and magnesium is 2.0. TSH is elevated 8.08 however T4 is normal range at 1.07. Will obtain a lipid panel. -patient with new onset symptoms of congestive heart failure discussed below possibly related to onset of atrial fibrillation without prior history. -patient has been started [facility] for left lower extremity DVT . Chads2 Vasc score is 5 for high risk, has bled score is 2 for intermediate risk. -TTE showed a normal EF with stable wall motion abnormalities and no valvular pathologies. Unable to assess for diastolic dysfunction given AFib. -on telemetry patient had slow atrial fibrillation as low as the mid 30s. He remained asymptomatic. 2. Bilateral lower extremity swelling, present on admission, active. -bilateral lower extremity edema to the level of the knee. Patient denies weight gain. No lower extremity venous stasis skin changes and no ulcers. -chest x-ray finds cardiomegaly with minimal interstitial prominence. Echocardiogram is as noted above and it is seemingly less likely his symptoms are related to heart failure. -continue Lasix 20 mg daily as an outpatient. Suspect that his lower extremity swelling is due to venous insufficiency from his recent surgery and now DVT. Continue leg elevation as much as possible, consider vascular surgery consultation as an outpatient. -Continue pain control and anticoagulation as noted above. 3. Acute Left lower extremity DVT, present on admission, active. -patient has been immobile for 2 weeks and reports symmetrical bilateral leg swelling. -venous duplex completed on 04/14/2020 was negative for DVT. Venous duplex in the ER 04/24 finding thrombus in the left common femoral and superficial femoral veins. -continue Eliquis 10 mg by mouth twice daily for 4 more additional days days to be followed by Eliquis 5 mg twice daily indefinitely given atrial fibrillation. -no signs or symptoms of bleeding. 4. Urinary tract infection, acute, present on admission, active -patient presented with weakness and urinary frequency and found to have urinary tract infection. -previous UTI isolates included E coli, Pseudomonas arthrosis and Klebsiella pneumoniae. -based on sensitivities from previous culture started on Levaquin 750 mg IV daily, urine culture is still pending. Recommend continued levaquin therapy for 4 additional days. 4. Immobility, debilitated, chronic, stable. -patient has decreased mobility since his hip fracture in July of 2019. -post fracture discharged to [facility], was discharged only to return for additional 3 weeks therapy due to inability to maintain in the home environment. -patient subsequently discharged and had home health services. Patient presented to the ER in September 2019 for failure to thrive with inability to get out of bed or walk, home health services escalated at that time. -patient has no further home support services and his and daughter have been attempting to manage his care. The patient has had increasing debility secondary to problems noted above. -discussion previously surrounded long-term care setting but was deemed too expensive therefore patient returned to home. -PT and OT recommended SNF. 5. Acquired Hypothyroidism, chronic, stable. -TSH is elevated 8.08, T4 is within normal range at 1.07. -will continue home regimen of levothyroxine 112 mcg daily. Repeat TSH recommended in 4-6 weeks. 6. GERD, chronic, stable. -patient is asymptomatic for GI symptoms no nausea or epigastric tenderness. -patient has been taking omeprazole 20 mg daily, can continue as an outpatient. 7. Depression, chronic, stable -patient denies depression symptoms, no thoughts of self-harm or suicidality. -continue sertraline 150 mg daily. I certify the postop hospital [facility] care is medically necessary on a continuing basis for any conditions for which he/ she received care during this hospitalization.: Yes The receiving facility has agreed to accept transfer and provide medical treatment.: Yes Discharge orders & Medications Prescriptions: New acetaminophen 325 mg Tablet 650 mg PO Q6HR PRN (Reason: Fever/Mild Pain (1-3)) 30 Days Qty: 60 RF: 0 apixaban 5 mg tablet See Rx Instructions .ROUTE .COMPLEX 30 Days Qty: 120 RF: 0 oxycodone 5 mg Tablet 5 mg PO Q4HR PRN (Reason: Pain, Moderate (4-6)) 7 Days Qty: 25 RF: 0 levofloxacin 750 mg tablet 750 mg PO DAILY 4 Days Qty: 4 RF: 0 furosemide 20 mg tablet 20 mg PO DAILY 30 Days Qty: 30 RF: 0 Continued omeprazole 20 MG capsule,delayed release(DR/EC) 20 mg PO DAILY Qty: 0 RF: 0 levothyroxine [Synthroid] 112 MCG tablet 112 mcg PO QAM Qty: 0 RF: 0 aspirin 81 MG tablet,delayed release (DR/EC) 81 mg PO QDAY Qty: 0 RF: 0 doxazosin [Cardura] 8 MG tablet 8 mg PO BEDTIME Qty: 0 RF: 0 sertraline 100 MG tablet 150 mg PO DAILY Qty: 0 RF: 0 sennosides [senna] 8.6 mg Tablet 17.2 mg PO DAILY Qty: 60 RF: 0 polyethylene glycol 3350 17 gram Powder In Packet 17 gram PO DAILY PRN (Reason: Constipation) Qty: 510 RF: 0 docusate sodium [DOK] 100 mg Capsule 100 mg PO BID Qty: 60 RF: 0 calcium carbonate-vitamin D3 [Oyster Shell Calcium-Vit D3] 500 mg(1,250mg) - 200 unit Tablet 1 tab PO BIDWM Qty: 60 RF: 0 mirtazapine 15 mg tablet 15 mg ONCE HS RF: 0 atorvastatin 40 mg tablet 40 mg PO BEDTIME RF: 0 Follow up/Referrals: Dinora Sampson MD [Primary Care Provider] - Discharge Health Status Multidrug resistant organism: No MDRO Precautions: [place] Diet/Activity/Treatments Diet: Diet as Tolerated and Low-sodium Special Rehabilitation Services Reason for rehabilitation: Recovery r/t decondition Rehab type: Physical therapy and Occupational therapy Discharge Data Primary Care Provider: Dinora Sampson Attending Provider: Live Morales VTE Deep Vein Thrombosis/Pulmonary Embolism Present on Admission: Yes
[2020-04-26] MEDS: APIXABAN 5 MG TABLET 10 MG PO ×2 (09:58→21:10)
[2020-04-26] MEDS: FUROSEMIDE 20 MG/2 ML VIAL IV (09:58)
[2020-04-26] MEDS: DOCUSATE 100 MG CAPSULE PO ×2 (09:58→21:10)
[2020-04-26] MEDS: SERTRALINE 50 MG TABLET 150 MG PO (09:58)
[2020-04-26] MEDS: MAG HYDROX/ALUM/SIMETH 30 ML UDC PO (09:59)
[2020-04-26] MEDS: BISACODYL 5 MG TABLET 10 MG PO (10:39)
--- NOTE | 2020-04-26 11:01 | OT.IP.TRT ---
Occupational Therapy Treatment Note M2 OT-IP Current Condition Start: 04/25/20 12:07 Freq: Status: Active Protocol: Document 04/25/20 12:08 RM (Rec: 04/25/20 12:48 RM [id number]) Occupational Therapy Current Condition Current Condition Evaluation Date 04/25/20 Treatment Diagnosis CHF w/ LLE DVT and UTI Diagnosis Onset Date 04/24/20 Weight Bearing Status Weight Bearing Status Weight Bear as Tolerated M3 OT- IP Subjective and Pain Start: 04/25/20 12:07 Freq: Status: Active Protocol: Document 04/26/20 11:18 [facility] (Rec: 04/26/20 11:32 [facility] [id number]) OT- Subjective Occupational Therapy Visit Type Type Treatment Note Visit Start Time 10:48 Visit Stop Time 11:01 Total Visit Minutes 13 Occupational Therapy Visit Comments Patient Comments [place] [facility] [place]. Patient/Caregiver Goals Return home with his , but interested in rehab to improve his function. OT Pain Assessment Pain When Pain Assessed At Rest Pain Present Pain Present Denied Pain M4 OT- IP ADL's Start: 04/25/20 12:07 Freq: Status: Active Protocol: Document 04/26/20 11:18 [facility] (Rec: 04/26/20 11:32 [facility] [id number]) OT [id number] Comments OT Self-Feeding Comments NOt at meal time. OT ADL-Grooming Comments OT Grooming Comments NOt performed. OT ADL-Dressing General Eval Lower Body Dressing Ability Total Assistance Areas Needing Assistance Socks OT ADL-Toileting General Evaluation Toileting Ability Maximum Assistance Areas Needing Assistance Empty Catheter or Colostomy, Manage Clothing,Perform Perineal Hygiene Devices Toileting Assistive Devices Commode Comments OT Toileting Comments MAX A for all hygiene needs, pt able to hold the urinal in place after set-up. OT ADL-Bathing Comments OT Bathing Comments Not at this time. M5 OT- IP IADL's Start: 04/25/20 12:07 Freq: Status: Active Protocol: Document 04/25/20 12:08 RM (Rec: 04/25/20 12:48 RM [id number]) OT-Instrumental Activities of Daily Living Deficits IADL Deficits Identified Deficits Home Safety Awareness Awareness of Need for Assistance at Home Good Awareness Home Safety Comments Concern for adequate level of care at home d/t progressive functional decline. Recommend support to discuss long-term care planning as he may be appropriate to transition to a higher level of care following his rehab stay. M6 OT- IP Functional Cognition Start: 04/25/20 12:07 Freq: Status: Active Protocol: Document 04/25/20 12:08 RM (Rec: 04/25/20 12:48 RM [id number]) Cognitive Factors Limiting Selfcare Function Cognitive Ability Level of Alertness Alert Patient Orientation Name,Month,Year,Place, Situation Attention Span Ability Capable of Focused Attention, Capable of Sustained Attention Ability to Follow Commands Able to Follow One Step Commands Memory Description Short Term Impaired Safety Awareness Underestimates Need for Assistance Problem Solving Ability Needs Assist to Identify Solutions Cognitive Comments Cognitive Assessment Comments Mini-Cog completed 04/25/20 Word Recall: 2/3 Clock Draw: /2 TOTAL SCORE: 3/5 A cut point of <3 on Mini-Cog has been validated for dementia screening. When greater sensitivity is desired , a cut point of <4 is recommended as it may indicate a need for further evaluation of cognitive status OT- Vision and Hearing OT- Hearing Assessment OT- Hearing Assessment Hearing Impaired OT- Vision Assessment Visual Acuity Glasses For Reading Visual Attentiveness WFL M7 OT- IP Mobility and Balance Start: 04/25/20 12:07 Freq: Status: Active Protocol: Document 04/26/20 11:18 [facility] (Rec: 04/26/20 11:32 [facility] [id number]) OT- Bed Mobility Assessment Sit to Supine Sit to Supine Assist Maximum Assistance,2 Person Assistance OT-Transfer Assessment Sit to and From Stand Sit to and from Stand Maximum Assistance,2 Person Assistance Transfers Transfer Ability Maximum Assistance,2 Person Assistance Technique Transfer Destination Bed,Bedside Commode,Chair Transfer Technique Stand Step Pivot Devices Transfer Assistive Devices Front Wheeled Walker Comments Mobility Comments MAX A x 2-3 to stand from BSC and use of FWW to transfer to the bed. Pt having difficulty to initiate moving RLE to pivot his feet back to the bed . OT- Gait Assessment Comments Gait Ability Comments Transfer only at this time. OT- Balance Assessment Sitting Balance and Reactions Static Sitting Balance Ability Good Dynamic Sitting Balance Ability Fair Standing Balance and Reactions Static Standing Balance Ability Poor Dynamic Standing Balance Ability Poor M8 OT- IP Objective Assessments Start: 04/25/20 12:07 Freq: Status: Active Protocol: Document 04/25/20 12:08 RM (Rec: 04/25/20 12:48 RM [id number]) OT Gross Range of Motion Upper Extremity Range of Motion Assessment Right Impaired ROM Impairments Decreased shld flex on RUE to approx 100* w/ shld elevation w/ flex and suspect rotator cuff injury. OT Strength Upper Extremity Strength Assessment Bilaterally Impaired Shoulder 4-/5 Elbow 5/5 Forearm 5/5 Hand 4-/5 Hand Medical Service Representative Strength Hand Dominance Right OT Sensation Assessment Edema Edema Present Edema Comments BLE edema, L worse than R M9 OT- IP Assessment and Plan Start: 04/25/20 12:07 Freq: Status: Active Protocol: Document 04/26/20 11:18 [facility] (Rec: 04/26/20 11:32 [facility] [id number]) OT Summary Assessment and Plan Potential Rehabilitation Potential Good Summary OT Impairments Pain,Range of Motion,Strength, Balance,Functional Cognition, Functional Mobility,Dressing, Toileting,Bathing,Toilet Transfers,Shower Transfers, Activity Tolerance Progress Towards Goals Progressing Toward Goals Assessment Summary Pt still needing extensive assist 2-3 person for transfers and looking to go to skilled rehab prior to going home. Goals Dressing Goal Moderate Assistance,Dressing Stick,Long Handled Shoe Horn, Assembler Handbags,Sock Aid Toileting Goal Moderate Assistance Toilet Transfer Goal Moderate Assistance,Bedside Commode Days to Meet Goals 6 Frequency of Treatment Frequency Of Treatment Once a Day Treatment Plan OT Treatment Plan ADL Training,Functional Cognition Training,Functional Mobility,Neuromuscular Re- education,Therapeutic Exercises,Patient/Family Education,Discharge Planning Discharge Recommendations OT Discharge Recommendations SNF Rehab Home Equipment Needs Defer to SNF Transportation Needs at Discharge Wheelchair/Cabulance
--- NOTE | 2020-04-26 11:18 | CM.DPNOTE ---
Faxed OT/PT notes on 04/26/20 per Kassandra to [facility]. Mayi Rivera CM Asst.
--- NOTE | 2020-04-26 11:25 | DIET.PN ---
Dietary Progress Note Assessment: 84yo M admitted with aFib and CHF. pMHx of CAD, Hyperthyroidism, GERD, depression. Pt has experienced increased LLE edema for past 2 weeks with reduced mobility. Pt currently receiving 20mg lasix/d. RD consult for heart failure. Pt describes typical day of eating as sausage egg mcmuffin from [employer] for breakfast, Bagel with cream cheese or cottage cheese with fruit for lunch and pork schnitzel with potatoes and a vegetable for dinner. Pt reports they also get prepared foods/meals from the store. Pt says he is not a big eater and only eats when he is hungry. Pt says he drinks 2 oz fireball a day when he is drinking. HT: 180.34cm WT:112.5kg BMI: 34.6 Labs: NTpBNP: 1340 on admit MNA:14 Luis Fernando:18 Nutrition Diagnosis: Excessive sodium intake r/t food and nutrition related knowledge deficit aeb pt reports eating high sodium foods regularly, pt unaware of dietary recommendations for CAD, pt experiencing LLE 1+ pitting edema, new onset of congestive heart failure. Interventions: 1. Educated pt on following a low sodium diet and choosing low sodium options. Pt says he will try to remember the recommendations. Reinforced education with handout on heart healthy low sodium diet. 2. Recc. limiting alcohol to 2 drinks/d maximum. Diet Order: EER: <2g sodium per day
--- NOTE | 2020-04-26 11:58 | PT.IPTN ---
Physical Therapy Treatment Note M2 PT-IP Current Condition Start: 04/25/20 09:04 Freq: NEEDED Status: Active Protocol: Document 04/25/20 12:00 AW (Rec: 04/25/20 12:20 AW [id number]) Physical Therapy Current Condition Current Condition Evaluation Date 04/25/20 Treatment Diagnosis BLE edema, LLE DVT, a fib, CHF , difficulty in walking Onset Date 02/19/20 M3 PT-IP Subjective Start: 04/25/20 09:04 Freq: NEEDED Status: Active Protocol: Document 04/26/20 11:48 [facility] (Rec: 04/26/20 12:20 [facility] [id number]) Subjective Physical Therapy Visit Type Type Treatment Note Visit Start Time 09:35 Visit Stop Time 10:04 Total Visit Minutes 29 Notes SPT Maciej led session under direct supervision of PT Lyly . Number of CHRONOMETER ADJUSTER Visits 0 Physical Therapy Visit Comments Patient Comments Pt is agreeable to do PT. Therapy Pain Assessment Pain When Pain Assessed During Weight Bearing Pain Present Pain Present Pain Reported Location R knee Intensity 8 Scale Used Numeric (0 - 10) Description Aching Pain Behaviors Facial Grimacing,Guarding Pain Management Techniques Timing of Activity with Medications M4 PT-IP Mobility and Gait Start: 04/25/20 09:04 Freq: NEEDED Status: Active Protocol: Document 04/26/20 11:48 [facility] (Rec: 04/26/20 12:20 [facility] [id number]) PT-Bed Mobility Assessment Supine to Sit Supine to Sit Moderate Assistance,1 Person Assistance,Head of Bed Elevated Scooting Scooting to Edge of Bed Minimal Assistance PT-Transfer Assessment Sit to and From Stand Sit to and from Stand Moderate Assistance,2 Person Assistance,Use of Upper Extremities Equipment Transfer Assistive Device Gait Belt,Front Wheeled Walker Orthotic/Prosthetic Devices or Brace: No Transfers Transfer Destination Chair Transfer Ability Level of Assist Moderate Assistance,2 Person Assistance,Use of Upper Extremities Comments Mobility Comments Pt was inclined in bed upon arrival. Pt completed supine to sit at L EOB with elevated HOB, use of BUE, and 1P min assist. Pt was able to sit up on EOB without any assistance required 1P min assist for scooting to EOB in sitting. Pt then performed sit to stand with FWW and 2P mod assist. Pt demonstrated lack of B knee and hip extension in standing. Cues were provided to straighten out the knees and stand up straight. Pt also demonstrated lateral trunk lean to the L side and lack of WB on the RLE d/t increased R knee pain. Pt then performed stand-step pivot into the chair that was positioned on the L side. Pt had difficulty moving his L foot and was only able to scoot minimally. Pt was able to take a bigger step with R foot but with decreased foot clearance. Pt performed stand to sit in the chair with FWW and 2P mod assist. After resting for ~1 min, pt stood up again and amb ~3 ft with 2P mod assist and FWW. Pt was able to advance his R foot forward with FWW but had difficulty bringing his L foot. Pt moved forward by rocking in staggered stance with R foot forward. Pt then sat down in the chair with 2P mod assist and B armrests. Call light placed within reach and chair alarm armed for safety. Gait Assessment Gait Gait Assistance Required: Minimum Assistance,2 Person Assist Distance (Feet) 3 Assistive Devices Assistive Device Gait Belt,Front Wheeled Walker Orthotic/Prosthetic Devices or Brace: No Gait Deviations General Gait Pattern Antalgic,Decreased Stride Length,Decreased Feet Clearance,Flexed Trunk Factors Limiting Gait Function Factors Limiting Gait Function Decreased Sensation,Decreased Strength,Difficulty Following Directions,Limited Range of Motion,Pain,Poor Balance,Poor Safety Awareness Comments Gait Comments See mobility comments. Stair Climbing Assessment Comments Stair Climbing Comments Not assessed. PT-Balance Assessment Sitting Balance and Reactions Static Sitting Balance Ability Good Dynamic Sitting Balance Ability Fair Standing Balance and Reactions Static Standing Balance Ability Poor Dynamic Standing Balance Ability Poor M5 PT-IP Objective Assessments Start: 04/25/20 09:04 Freq: NEEDED Status: Active Protocol: Document 04/25/20 12:00 AW (Rec: 04/25/20 12:20 AW [id number]) Orientation Orientation/Cognition Level of Alertness Confusional State Orientation Name,Month,Year,Place, Situation Language Function Ability Hard of Hearing Safety Awareness Decreased Safety Awareness Memory Description Short Term Impaired,Senior Living Impaired Gross Range of Motion Lower Extremity ROM Assessment Bilaterally Impaired Strength Lower Extremity Strength Assessment Bilaterally Impaired Comments Strength Comments RLE grosslly 4/5. LLE grossly 4-/5 except ankle dorsiflexion and hip 3-/5. Sensation Assessment Sensation Gross Sensation Right LE Impaired,Left LE Impaired Light Touch Impaired Muscle Tone Muscle Tone WNL Yes Other Assessments Other Other Assessments Pitting edema 2+ to 3+ BLE M6 PT-IP Treatment Start: 04/25/20 09:04 Freq: NEEDED Status: Active Protocol: Document 04/26/20 11:48 [facility] (Rec: 04/26/20 12:20 [facility] [id number]) Physical Therapy Treatment Education Education Provided Safety Other Treatments Other Treatment Performed Provided education on safety, role of PT, plan of care, and rehab potential. M7 PT-IP Assessment and Plan Start: 04/25/20 09:04 Freq: NEEDED Status: Active Protocol: Document 04/26/20 11:48 [facility] (Rec: 04/26/20 12:20 [facility] [id number]) PT Summary Assessment and Plan Potential Rehabilitation Potential Fair Status of Condition at Evaluation Stable Summary Impairments Pain,ROM,Strength,Balance, Sensation,Cognition,Bed Mobility,Transfers,Gait, Activity Tolerance Assessment Summary Pt demonstrates improved activity tolerance from yesterday. Pt required 2P mod assist to perform sit to stand , transfer to chair, amb ~3 ft . Pt demonstrates lack of WB on RLE and difficulty moving his LLE in standing. Pt will need 24/7 assistance. PT anticipates pt will d/c SNF once medically cleared. Goals Bed Mobility Goal Contact Guard Assistance Transfer Goal Minimal Assistance,Front Wheeled Walker Gait Goal Minimal Assistance,Front Wheel Walker Gait Distance 50 Frequency of Treatment Frequency Of Treatment Once a Day Treatment Plan Physical Therapy Treatment Plan Bed Mobility Training,Transfer Training,Gait Training, Therapeutic Exercise,Balance Retraining,Discharge Planning, Hot or Cold Pack,Neuromuscular Re-ed Other Recommendations and Next Treatment transfers, ther ex Focus Recommendations To Nursing Amount of Assist Needed 2 Person Assist,Mechanical Lift Discharge Recommendations PT Discharge Recommendations SNF Rehab Transportation Needs at Discharge Wheelchair/Cabulance,Stretcher /Ambulance Treatment was provided by Maciej Ulloa, SPT and supervised by Lyly Jang, PT. I personally reviewed this note and agree with its contents.
[2020-04-26 12:19] VITALS: BP 137/74; PULSE 57; RESP 16; TEMP 37; O2SAT 97
--- NOTE | 2020-04-26 12:30 | CM.DPC ---
DCP/continued: Received notification from provider that patient medically stable for d/c to SNF today. Reviewed notes indicating that [facility] evaluating for admit. Placed call to [facility] this AM. They report that they have accepted but need to obtain authorization from [employer]. Spoke with RN and she will update family. P: Awaiting confirmation from [facility] that they can accept after authorization received. MARY Spence
--- NOTE | 2020-04-26 15:49 | CM.DPC ---
DCP/continued: Reviewed chart. No call from [facility] as of 2:00pm. Placed call to facility to check on whether or not they have or can get authorization today? At this time they are unsure. ACCOUNT MANAGEMENT SPECIALIST asked facility to call [place] to expedite authorization. As of 4:00pm no authorization had been obtained. Dr. Morales notified and nursing notified. Copy of orders, PASRR, and original script placed in red folder. team to follow up in AM. Met with patient to provide him with update. He is aware and agreeable. P: Anticipate d/c to [facility] once authorization obtained. MARY Spence
[2020-04-26 16:00] VITALS: BP 123/59; PULSE 64; RESP 18; TEMP 36.7; O2SAT 97
[2020-04-26 20:45] VITALS: BP 141/78; PULSE 56; RESP 18; TEMP 36.6
[2020-04-26 21:10] VITALS: BP 141/78; PULSE 56
[2020-04-26] MEDS: DOXAZOSIN 4 MG TABLET 8 MG PO (21:10)
[2020-04-26] MEDS: FAMOTIDINE 20 MG TABLET PO (21:10)
[2020-04-26] MEDS: ATORVASTATIN 20 MG TABLET 40 MG PO (21:10)
[2020-04-26] MEDS: levoFLOXacin 750 MG/150 ML PIGGYBACK 100 MG IV (21:11)
[2020-04-27] VITALS: BP 110/59; PULSE 67; RESP 18; TEMP 36.7; O2SAT 98
[2020-04-27 05:00] VITALS: BP 109/61; PULSE 62; RESP 18; TEMP 36.6; O2SAT 95
[2020-04-27 05:39] LABS: Add Manual Diff / Slide Review NO; Basophils Absolute Auto 0 /uL (0-100); Basophils Percent Auto 0.3 % (0-2); Eosinophils Absolute Auto 200 /uL (0-450); Hemoglobin 11.2 g/dL (13.5-17.5); Lymphocytes Absolute Auto 1200 /uL (1100-4500); Lymphocytes Percent Auto 24.7 % (25-40); Mean Corpuscular Hemoglobin 27.7 PG (26-34); Monocytes Absolute Auto 400 /uL (0-900); Monocytes Percent Auto 7.9 % (3-14); Neutrophils Absolute Auto 3100 /uL (1500-7000); Neutrophils Percent Auto 62.1 % (50-75); Platelet Count 105 X10^3/uL (150-400); Red Blood Cell Count 4.05 X10^6/uL (4.5-5.9); Red Cell Distribution Width 15.4 % (11.6-14.8); White Blood Cell Count 4.9 X10^3/uL (4.5-11.0)
[2020-04-27 05:47] LABS: Alanine Aminotransferase 10 IU/L (<50); Albumin 3.4 g/dL (3.5-5.0); Alkaline Phosphatase 80 U/L (38-126); Aspartate Aminotransferase 18 IU/L (17-59); BUN Creatinine Ratio 18.9 (6-22); Bilirubin Total 0.8 mg/dL (0.2-1.3); Bilirubin Unconjugated 0.8 mg/dL (0.0-1.1); Blood Urea Nitrogen 23 mg/dL (9-20); Calcium 8.9 mg/dL (8.4-10.2); Carbon Dioxide 31 mmol/L (22-32); Chloride 105 mmol/L (98-107); Estimated Glomerular Filt Rate 56.5 mL/min (>60); Globulin 3.3 g/dL (1.7-4.1); Glucose 93 mg/dL (80-110); HEMOLYSIS < 15 (0-50); Magnesium 1.9 mg/dL (1.6-2.3); Sodium 138 mmol/L (137-145); Total Protein 6.7 g/dL (6.3-8.2)
[2020-04-27] MEDS: LEVOTHYROXINE 112 MCG TABLET PO (06:38)
--- NOTE | 2020-04-27 08:10 | PM.DS.1 ---
History of Present Illness History of Present Illness Date Patient Seen: 04/27/20 Time Patient Seen: 08:10 Chief complaint: Bilateral Lower Extremity Swelling Narrative: As per AMY Durbin: Mr. Serge Hunt is an 84-year-old male with a past medical history significant for coronary artery disease, hypothyroidism, GERD, depression, balance and gait disorder who presents to the ER via EMS with inability to walk. The patient has had longstanding chronic problem with debility since he sustaining hip fracture in July of 2019. The underwent left hip surgery and was discharged to [facility] for rehabilitation and was discharged home only to return for an additional 3 weeks of therapy. The patient has had decreasing mobility for the last 2 months and has previously had home health care which is no longer in place. Describes increased leg swelling the last 2 weeks. He denies any other complaints and in fact repeatedly states everything is fine. He denies recent cold or flu symptoms, fevers or chills or known COVID-19 exposures. He denies headaches or dizziness and has no visual changes, nasal congestion or sore throat. He denies neck or back pain, recent falls or trauma. He has had no chest pain and denies palpitations. He reports no shortness of breath cough or wheezing though the patient is inactive and not aerobically challenged. She denies complaints of epigastric or abdominal pain, no nausea vomiting. He denies difficulty urinating and is status post TURP which resolved prior nocturia, endorses urinary frequency. He states his last bowel movement was 2 days ago but denies discomfort. The patient has previously been evaluated for failure to thrive on admission in September at which time was noted the patient could not get out of bed or walk. The patient reports up until 2 weeks ago he could mobilize minimally with a walker and is now too weak to mobilize. Upon arrival to the ER the patient is afebrile with a temperature of 98.3?, heart rate of 64, pressure 169/74, respirations of 16 saturating 96% on room air. Imaging reveals cardiomegaly on chest x-ray with minimal interstitial prominence, venous duplex obtained today finds a left lower extremity DVT. Previous venous duplex completed 04/14/2020 was negative for DVT. On laboratory analysis he has white count of 6.1 with no shift, hemoglobin 12.2, hematocrit 38.4 platelets 121. He has a PT of 12.4, INR 1.1 and a PTT of 32. On chemistries is electrolytes are within normal limits and has a potassium of 4.2 and magnesium of 2.0. He has a BUN elevated 27 with a creatinine of 118 consistent with baseline. He has a nonfasting glucose of 107. His liver functions are all within normal limits and has an albumin of 4.3. Lactic acid is 1.8. He has a total CK of 52 and a troponin that is less than 0.012. ProBNP is 1135. TSH is elevated at 8.08 with a normal T4 at 1.57. Urinalysis is positive for leukocyte esterase, wbc's and many bacteria, negative for nitrates. Twelve lead EKG is obtained personally reviewed finding atrial fibrillation-flutter with [place] slow ventricular response at 55, right bundle branch block without evidence of ischemia or infarct. The patient is started on Eliquis 10 mg p.o. twice daily for DVT the emergency department in the patient is admitted to the medicine service for new onset atrial fibrillation with new onset congestive heart failure and DVT. Discharge Providers Provider Date of admission: 04/24/20 20:15 Discharge Date: 04/27/20 Primary care physician: Dinora Sampson MD Consults: 04/24/20 20:16 Consult to Dietitian, Adult Routine Comment: Reason For Exam: New diagnosis heart failure, history CAD 04/24/20 20:17 Consult to Discharge Planning Routine Comment: Previous placement issues,no current home care svc 04/24/20 20:22 Consult to Home Health Routine Comment: Previous care through [facility] Reason For Exam: Immobility, failure to thrive 04/24/20 22:54 Consult to Physical Therapy Evaluate & Treat Comment: Debilitated, weakness, DVT left leg Physician Instructions: Evaluate and Treat 04/24/20 22:55 Consult to [employer] - [employer] Clerk Routine Comment: Debilitated, weakness, DVT left leg from home [employer] Consult: [facility] Need Consult to Occupational Therapy Evaluate & Treat Comment: Debilitated, weakness, DVT left leg Physician Instructions: Evaluate and treat Discharge provider: Live Morales DO Summary Hospital Course Discharge Diagnosis: Please see hospital course by problem list noted below Hospital Course: This is an 84-year-old male patient who has been living at home under the care of his who has had previous visits for debility and immobility and can no longer be care for by his at home. Patient described weakness and immobility for 2 months with increased leg swelling over the last 2 weeks possibly secondary to new DVT or venous insufficiency. He was admitted for new onset atrial fibrillation and inability to ambulate. Discharge was delayed until insurance authorization for SNF was obtained. 1. New onset atrial fibrillation, slow ventricular response, unable to further clinically determine type, present on admission, active. -patient denied complaints of chest pain, palpitations or shortness of breath but did have worsening bilateral LE edema as noted below. -12 lead EKG on admission showed atrial fibrillation with, atrial flutter with a slow ventricular response at 55 with a right bundle branch block without evidence of ischemia or infarct. Previous EKGs showed sinus rhythm with first-degree AVB and right bundle branch block. -total CK is 52, troponin is less than 0.012. Electrolytes are within normal range, Potassium is 4.2 and magnesium is 2.0. TSH is elevated 8.08 however T4 is normal range at 1.07. -patient with new onset symptoms of congestive heart failure discussed below possibly related to onset of atrial fibrillation without prior history. -patient was started on therapeutic at [facility] for left lower extremity DVT. Chads2 Vasc score is 5 for high risk, has bled score is 2 for intermediate risk. -TTE showed a normal EF with stable wall motion abnormalities and no valvular pathologies. Unable to assess for diastolic dysfunction given AFib. -on telemetry patient had slow atrial fibrillation as low as the mid 30, but remained asymptomatic. No rate control needed. 2. Bilateral lower extremity swelling, present on admission, active. -bilateral lower extremity edema to the level of the knee. Patient denies weight gain. No lower extremity venous stasis skin changes and no ulcers. -chest x-ray finds cardiomegaly with minimal interstitial prominence. Echocardiogram is as noted above and it is seemingly less likely his symptoms are related to heart failure. -continue Lasix 20 mg daily as an outpatient. Suspect that his lower extremity swelling is due to venous insufficiency from his recent surgery and now DVT. Continue leg elevation as much as possible, consider vascular surgery consultation as an outpatient. -Continue pain control and anticoagulation as noted above. 3. Acute Left lower extremity DVT, present on admission, active. -patient has been immobile for 2 weeks and reports symmetrical bilateral leg swelling. -venous duplex completed on 04/14/2020 was negative for DVT. Venous duplex in the ER 04/24 finding thrombus in the left common femoral and superficial femoral veins. -continue Eliquis 10 mg by mouth twice daily for 4 more additional days days to be followed by Eliquis 5 mg twice daily indefinitely given atrial fibrillation. 4. Urinary tract infection, acute, present on admission, active -patient presented with weakness and urinary frequency and found to have urinary tract infection. -previous UTI isolates included E coli, Pseudomonas arthrosis and Klebsiella pneumoniae. Ultimately cultures grew MRSA after discharge. Recommended doxycycline given culture results as an outpatient. 5. Acquired Hypothyroidism, chronic, stable. -TSH is elevated 8.08, T4 is within normal range at 1.07. -will continue home regimen of levothyroxine 112 mcg daily. Repeat TSH recommended in 4-6 weeks. 6. GERD, chronic, stable. -patient is asymptomatic for GI symptoms no nausea or epigastric tenderness. -patient has been taking omeprazole 20 mg daily, can continue as an outpatient. 7. Depression, chronic, stable -patient denies depression symptoms, no thoughts of self-harm or suicidality. -continue sertraline 150 mg daily. Exam Vital Signs (past 8 hours): - 04/27/20 05:00 Temperature 97.9 F Pulse Rate 62 Respiratory Rate 18 Blood Pressure 109/61 Pulse Oximetry 95 Oxygen Delivery Method Room Air Oxygen Flow Rate 0 Narrative Exam Narrative: GENERAL APPEARANCE: well developed, adequately nourished male, lying semi recumbent in bed briskly responsive and in no acute distress. HEENT: Normocephalic, PERRLA, conjunctiva clear, EOMs intact without nystagmus, no sinus tenderness to percussion, no rhinorrhea, mucous membranes are moist and pink without lesions or exudate. NECK/THYROID: neck supple, no JVD, no thyromegaly, trachea midline. LYMPH NODES: no cervical or supraclavicular lymphadenopathy. SKIN: [place], warm and dry, no visible lesions, rashes, no venous stasis ulcers or evidence of chronic skin changes bilateral lower extremities HEART: Irregular rhythm with bradycardic rate, S1-S2, 1/6 systolic murmur, no rubs or gallops, brisk capillary refill, 2 to 3+ edema extending to the knee. LUNGS: clear to auscultation bilaterally, no coarseness crackles or wheezing, no cough present CHEST: Symmetrical movement, no accessory muscle use, good tidal volume. ABDOMEN: Soft, round and nontender to palpation, no guarding or peritoneal signs, no organomegaly, no flank or suprapubic tenderness, active bowel tones. BACK: Normal curvature, nontender to palpation. EXTREMITIES: Distal CMS intact, strength is 2/5 and symmetrical, no deformities or joint effusions. NEUROLOGIC: AAO x person place situation, impaired recall with intermittent perseveration, no lateralizing neurologic deficits, cranial nerves II-XII grossly intact, sensation intact to light touch, hearing grossly normal to speech. PSYCH: Good eye contact, cooperative, stable behavior. Objective Labs Result Diagrams: 04/27/20 05:25 04/27/20 05:25 Labs: Laboratory Results - last 24 hr 04/27/20 04/27/20 05:25 05:25 WBC 4.9 RBC 4.05 L Hgb 11.2 L Hct 34.0 L MCV 84.0 MCH 27.7 MCHC 33.0 RDW 15.4 H Plt Count 105 L Neut % (Auto) 62.1 Lymph % (Auto) 24.7 L [place] % (Auto) 7.9 Eos % (Auto) 5.0 H Baso % (Auto) 0.3 Neut # (Auto) 3100 Lymph # (Auto) 1200 [place] # (Auto) 400 Eos # (Auto) 200 Baso # (Auto) 0 Sodium 138 Potassium 4.0 Chloride 105 Carbon Dioxide 31 BUN 23 H Creatinine 1.22 Estimated GFR 56.5 L BUN/Creatinine Ratio 18.9 Glucose 93 Calcium 8.9 Magnesium 1.9 Total Bilirubin 0.8 Conjugated Bilirubin 0.0 Unconjugated Bilirubin 0.8 AST 18 ALT 10 Alkaline Phosphatase 80 Total Protein 6.7 Albumin 3.4 L Globulin 3.3 Albumin/Globulin Ratio 1.0 PFSH Medical History Balance disorder CAD (coronary artery disease) Chronic GERD Closed hip fracture Depression Gait disorder Hypothyroidism Surgical History History of right knee joint replacement Family History Mother Breast cancer Father Kidney infection Social History household members: spouse Smoking Status: Former smoker alcohol intake: current Discharge Plan Discharge Plan Patient Disposition: SNF Provider Discharge Comment: This is an 84-year-old male patient who has been living at home under the care of his who has had previous visits for debility and immobility and can no longer be care for by his at home. Patient describes weakness and immobility for 2 months with increased leg swelling over the last 2 weeks possibly secondary to new DVT and likely venous insufficiency. 1. New onset atrial fibrillation, slow ventricular response, present on admission, active. -patient denies complaints of chest pain, palpitations or shortness of breath but does have worsening bilateral LE edema. -12 lead EKG finds atrial fibrillation with, atrial flutter with a slow ventricular response at 55 with a right bundle branch block without evidence of ischemia or infarct. Previous EKGs show sinus rhythm with first-degree AVB and right bundle branch block. -total CK is 52, troponin is less than 0.012. Electrolytes are within normal range, Potassium is 4.2 and magnesium is 2.0. TSH is elevated 8.08 however T4 is normal range at 1.07. Will obtain a lipid panel. -patient with new onset symptoms of congestive heart failure discussed below possibly related to onset of atrial fibrillation without prior history. -patient has been started on therapeutic at [facility] for left lower extremity DVT. Chads2 Vasc score is 5 for high risk, has bled score is 2 for intermediate risk. -TTE showed a normal EF with stable wall motion abnormalities and no valvular pathologies. Unable to assess for diastolic dysfunction given AFib. -on telemetry patient had slow atrial fibrillation as low as the mid 30s. He remained asymptomatic. 2. Bilateral lower extremity swelling, present on admission, active. -bilateral lower extremity edema to the level of the knee. Patient denies weight gain. No lower extremity venous stasis skin changes and no ulcers. -chest x-ray finds cardiomegaly with minimal interstitial prominence. Echocardiogram is as noted above and it is seemingly less likely his symptoms are related to heart failure. -continue Lasix 20 mg daily as an outpatient. Suspect that his lower extremity swelling is due to venous insufficiency from his recent surgery and now DVT. Continue leg elevation as much as possible, consider vascular surgery consultation as an outpatient. -Continue pain control and anticoagulation as noted above. 3. Acute Left lower extremity DVT, present on admission, active. -patient has been immobile for 2 weeks and reports symmetrical bilateral leg swelling. -venous duplex completed on 04/14/2020 was negative for DVT. Venous duplex in the ER 04/24 finding thrombus in the left common femoral and superficial femoral veins. -continue Eliquis 10 mg by mouth twice daily for 4 more additional days days to be followed by Eliquis 5 mg twice daily indefinitely given atrial fibrillation. -no signs or symptoms of bleeding. 4. Urinary tract infection, acute, present on admission, active -patient presented with weakness and urinary frequency and found to have urinary tract infection. -previous UTI isolates included E coli, Pseudomonas arthrosis and Klebsiella pneumoniae. -based on sensitivities from previous culture started on Levaquin 750 mg IV daily, urine culture is still pending. Recommend continued levaquin therapy for 4 additional days. 4. Immobility, debilitated, chronic, stable. -patient has decreased mobility since his hip fracture in July of 2019. -post fracture discharged to [facility], was discharged only to return for additional 3 weeks therapy due to inability to maintain in the home environment. -patient subsequently discharged and had home health services. Patient presented to the ER in September 2019 for failure to thrive with inability to get out of bed or walk, home health services escalated at that time. -patient has no further home support services and his and daughter have been attempting to manage his care. The patient has had increasing debility secondary to problems noted above. -discussion previously surrounded long-term care setting but was deemed too expensive therefore patient returned to home. -PT and OT recommended SNF. 5. Acquired Hypothyroidism, chronic, stable. -TSH is elevated 8.08, T4 is within normal range at 1.07. -will continue home regimen of levothyroxine 112 mcg daily. Repeat TSH recommended in 4-6 weeks. 6. GERD, chronic, stable. -patient is asymptomatic for GI symptoms no nausea or epigastric tenderness. -patient has been taking omeprazole 20 mg daily, can continue as an outpatient. 7. Depression, chronic, stable -patient denies depression symptoms, no thoughts of self-harm or suicidality. -continue sertraline 150 mg daily. I certify the postop hospital senior living care is medically necessary on a continuing basis for any conditions for which he/ she received care during this hospitalization.: Yes The receiving facility has agreed to accept transfer and provide medical treatment.: Yes Discharge orders & Medications Prescriptions: New acetaminophen 325 mg Tablet 650 mg PO Q6HR PRN (Reason: Fever/Mild Pain (1-3)) 30 Days Qty: 60 RF: 0 apixaban 5 mg tablet See Rx Instructions .ROUTE .COMPLEX 30 Days Qty: 120 RF: 0 oxycodone 5 mg Tablet 5 mg PO Q4HR PRN (Reason: Pain, Moderate (4-6)) 7 Days Qty: 25 RF: 0 furosemide 20 mg tablet 20 mg PO DAILY 30 Days Qty: 30 RF: 0 Continued omeprazole 20 MG capsule,delayed release(DR/EC) 20 mg PO DAILY Qty: 0 RF: 0 levothyroxine [Synthroid] 112 MCG tablet 112 mcg PO QAM Qty: 0 RF: 0 aspirin 81 MG tablet,delayed release (DR/EC) 81 mg PO QDAY Qty: 0 RF: 0 doxazosin [Cardura] 8 MG tablet 8 mg PO BEDTIME Qty: 0 RF: 0 sertraline 100 MG tablet 150 mg PO DAILY Qty: 0 RF: 0 sennosides [senna] 8.6 mg Tablet 17.2 mg PO DAILY Qty: 60 RF: 0 polyethylene glycol 3350 17 gram Powder In Packet 17 gram PO DAILY PRN (Reason: Constipation) Qty: 510 RF: 0 docusate sodium [DOK] 100 mg Capsule 100 mg PO BID Qty: 60 RF: 0 calcium carbonate-vitamin D3 [Oyster Shell Calcium-Vit D3] 500 mg(1,250mg) -200 unit Tablet 1 tab PO BIDWM Qty: 60 RF: 0 mirtazapine 15 mg tablet 15 mg ONCE HS RF: 0 atorvastatin 40 mg tablet 40 mg PO BEDTIME RF: 0 Follow up/Referrals: Dinora Sampson MD [Primary Care Provider] - Discharge Health Status Multidrug resistant organism: No MDRO Precautions: [place] Diet/Activity/Treatments Diet: Diet as Tolerated and Low-sodium [facility] Reason for rehabilitation: Recovery r/t decondition Rehab type: Physical therapy and Occupational therapy Visit Report/Discharge Packet Instructions: DI for Prescription Opioid Use Discharge Data Primary Care Provider: Dinora Sampson Attending Provider: Live Morales VTE Deep Vein Thrombosis/Pulmonary Embolism Present on Admission: Yes
[2020-04-27] MEDS: SERTRALINE 50 MG TABLET 150 MG PO (08:45)
[2020-04-27] MEDS: FUROSEMIDE 20 MG/2 ML VIAL IV (08:46)
[2020-04-27] MEDS: DOCUSATE 100 MG CAPSULE PO (08:46)
[2020-04-27 08:48] VITALS: PULSE 62; RESP 18; O2SAT 95
[2020-04-27] MEDS: APIXABAN 5 MG TABLET 10 MG PO (08:48)
[2020-04-27 08:58] VITALS: BP 121/76; PULSE 57; RESP 16; TEMP 36.8; O2SAT 98
--- NOTE | 2020-04-27 11:08 | PC.NURSE ---
Assess- Patient is A&Ox3, his ankles and feet are with 4+ pitting edema. He is unable to ambulate and is a estela lift. Patient can turn a bit in bed with turning assistance of bed. He denies pain, was given iv lasix and is incontinent of urine, he will use the urinal. Sitting up in the chair now, he is a estela lift to transfer to bed.
--- NOTE | 2020-04-27 11:55 | PT.IPTN ---
Physical Therapy Treatment Note M2 PT-IP Current Condition Start: 04/25/20 09:04 Freq: NEEDED Status: Active Protocol: Document 04/25/20 12:00 AW (Rec: 04/25/20 12:20 AW [id number]) Physical Therapy Current Condition Current Condition Evaluation Date 04/25/20 Treatment Diagnosis BLE edema, LLE DVT, a fib, CHF , difficulty in walking Onset Date 02/19/20 M3 PT-IP Subjective Start: 04/25/20 09:04 Freq: NEEDED Status: Active Protocol: Document 04/27/20 11:46 (Rec: 04/27/20 11:54 [id number]) Subjective Physical Therapy Visit Type Type Treatment Note Visit Start Time 11:30 Visit Stop Time 11:46 Total Visit Minutes 16 Number of HOMEMAKING REHABILITATION CONSULTANT Visits 0 Physical Therapy Visit Comments Patient Comments I want to get back to bed Therapy Pain Assessment Pain When Pain Assessed During Weight Bearing Pain Present Pain Present Pain Reported Location R knee Intensity 6 Scale Used Numeric (0 - 10) Description Aching Pain Behaviors Facial Grimacing,Guarding Pain Management Techniques Timing of Activity with Medications M4 PT-IP Mobility and Gait Start: 04/25/20 09:04 Freq: NEEDED Status: Active Protocol: Document 04/27/20 11:46 HH (Rec: 04/27/20 11:54 [id number]) PT-Bed Mobility Assessment Rolling Type of Rolling Roll to Right,Roll to Left Level of Assist Contact Guard Assistance Sit to Supine Sit to Supine Moderate Assistance,1 Person Assistance Scooting Scooting to Edge of Bed Minimal Assistance Scooting Up and Down in Bed Minimal Assistance PT-Transfer Assessment Sit to and From Stand Sit to and from Stand Moderate Assistance,1 Person Assistance,Use of Upper Extremities Equipment Transfer Assistive Device Gait Belt,Front Wheeled Walker Orthotic/Prosthetic Devices or Brace: No Transfers Transfer Destination Bed,Chair Transfer Ability Level of Assist Moderate Assistance,Use of Upper Extremities Comments Mobility Comments Pt was in chair upon PT arrival. Requesting to return to to bed. Pt reported he had BM on his brief. Nursing Ilsa came to assist clean up. Pt initially stood up with mod A by pushing off from chair armrests then slowly transition his UEs on FWW with mod A x1. Pt showed retropulsion and needed constant assistance to keep him upright. He was able to stand x4 mins for clean up. He then took 2steps forward with PT assistance on stabilizing FWW, followed by stand pivot to EOB. Pt then showed poor eccentric control from stand to sit. He needed mod A for sit to supine especially his BLEs. He was then able to roll R and L for gown management. Pt rested in bed comfortably wiht call light placed within reach. Bed alarm activated. Gait Assessment Gait Gait Assistance Required: Minimum Assistance,2 Person Assist Distance (Feet) 2 Assistive Devices Assistive Device Gait Belt,Front Wheeled Walker Orthotic/Prosthetic Devices or Brace: No Gait Deviations General Gait Pattern Antalgic,Decreased Stride Length,Decreased Feet Clearance,Flexed Trunk Factors Limiting Gait Function Factors Limiting Gait Function Decreased Sensation,Decreased Strength,Difficulty Following Directions,Limited Range of Motion,Pain,Poor Balance,Poor Safety Awareness Comments Gait Comments See mobility comments. Stair Climbing Assessment Comments Stair Climbing Comments Not assessed. PT-Balance Assessment Sitting Balance and Reactions Static Sitting Balance Ability Good Dynamic Sitting Balance Ability Fair Standing Balance and Reactions Static Standing Balance Ability Fair Dynamic Standing Balance Ability Poor Device Used FWW M5 PT-IP Objective Assessments Start: 04/25/20 09:04 Freq: NEEDED Status: Active Protocol: Document 04/25/20 12:00 AW (Rec: 04/25/20 12:20 AW [id number]) Orientation Orientation/Cognition Level of Alertness Confusional State Orientation Name,Month,Year,Place, Situation Language Function Ability Hard of Hearing Safety Awareness Decreased Safety Awareness Memory Description Short Term Impaired,Crm Manager Impaired Gross Range of Motion Lower Extremity ROM Assessment Bilaterally Impaired Strength Lower Extremity Strength Assessment Bilaterally Impaired Comments Strength Comments RLE grosslly 4/5. LLE grossly 4-/5 except ankle dorsiflexion and hip 3-/5. Sensation Assessment Sensation Gross Sensation Right LE Impaired,Left LE Impaired Light Touch Impaired Muscle Tone Muscle Tone WNL Yes Other Assessments Other Other Assessments Pitting edema 2+ to 3+ BLE M6 PT-IP Treatment Start: 04/25/20 09:04 Freq: NEEDED Status: Active Protocol: Document 04/26/20 11:48 DE (Rec: 04/26/20 12:20 DE [id number]) Physical Therapy Treatment Education Education Provided Safety Other Treatments Other Treatment Performed Provided education on safety, role of PT, plan of care, and rehab potential. M7 PT-IP Assessment and Plan Start: 04/25/20 09:04 Freq: NEEDED Status: Active Protocol: Document 04/27/20 11:46 (Rec: 04/27/20 11:54 [id number]) PT Summary Assessment and Plan Potential Rehabilitation Potential Fair Status of Condition at Evaluation Stable Summary Impairments Pain,ROM,Strength,Balance, Sensation,Cognition,Bed Mobility,Transfers,Gait, Activity Tolerance Progress Towards Goals Slow Progress due to Pain,Slow Progress due to Medical Issues,Slow Progress due to Activity Tolerance Assessment Summary Pt shows less assistance (1PA) needed for transfers and bed mobility, but cont to have very limited mobility. He will need [facility] and rehab care to improve his mobility and strength prior to safely d/c home. Goals Bed Mobility Goal Contact Guard Assistance Transfer Goal Minimal Assistance,Front Wheeled Walker Gait Goal Minimal Assistance,Front Wheel Walker Gait Distance 50 Frequency of Treatment Frequency Of Treatment Once a Day Treatment Plan Physical Therapy Treatment Plan Bed Mobility Training,Transfer Training,Gait Training, Therapeutic Exercise,Balance Retraining,Discharge Planning, Hot or Cold Pack,Neuromuscular Re-ed Other Recommendations and Next Treatment transfers, ther ex Focus Recommendations To Nursing Amount of Assist Needed 2 Person Assist Discharge Recommendations PT Discharge Recommendations SNF Rehab Transportation Needs at Discharge Wheelchair/Cabulance,Stretcher /Ambulance
[2020-04-27 13:00] VITALS: BP 115/65; PULSE 53; RESP 16; TEMP 36.7; O2SAT 94
--- NOTE | 2020-04-27 16:13 | CM.DPC ---
DCP/continued: Placed call to [facility] this AM re: authorization? Per Karen at [facility] she will call insurance to check on authorization. In addition, PIERCER OPERATOR in agreement to call as well. After approximately 2hrs on the phone with both [employer]/ and contracted provider they use for SNF's in [place] obtained authorization for patient to go to [facility]. Patient aware and agreeable to plan. New orders obtained and signed by provider. Per provider and RN patient unsafe to sit up for any length of time for transport. Therefore, non-urgent BLS arranged through [facility]. dewatering filtering supervisor scheduled for approximately 4:45pm. RN aware. Placed call to patient's daughter/Gale with patient's permission. She too is aware and agreeable to d/c plan. Verbal consent provided for [facility] today at noon. P: [facility] CC today via non-urgent BLS transport. Authorization obtained for SNF this afternoon at approximately 3:30pm. MARY Spence
--- NOTE | 2020-04-27 17:00 | PC.NURSE ---
A&Oxx3. Report given to RN at [facility]. DC via ambulance. IV removed. paper work given to to Ambulance personnel. pt denied any pain, sob or n/v. all belongings returned to patient.
--- NOTE | 2020-04-28 08:11 | CM.DPNOTE ---
Faxed MRSA culture result to [facility] per Dr. Morales on 04/28/20. Mayi Rivera CM Asst.
== END 2020-04-27 16:43 ==
LOC: ED 20:11 → AC 20:16
PROVIDERS: Nurse Practitioner Adult Health; Admitting Provider Internal Medicine; Emergency Provider Nurse Practitioner Family; PCP Internal Medicine; Referring Provider Nurse Practitioner Family; Visit Provider Internal Medicine
DX: M79.672 Pain in left foot (principal); M79.671 Pain in right foot; I25.10 Atherosclerotic heart disease of native coronary artery without angina pectoris; F32.9 Major depressive disorder, single episode, unspecified; K21.9 Gastro-esophageal reflux disease without esophagitis; E03.9 Hypothyroidism, unspecified; N40.0 Benign prostatic hyperplasia without lower urinary tract symptoms; I48.91 Unspecified atrial fibrillation; I45.10 Unspecified right bundle-branch block; M79.89 Other specified soft tissue disorders; I82.412 Acute embolism and thrombosis of left femoral vein; N39.0 Urinary tract infection, site not specified; R53.2 Functional quadriplegia; Z11.59 Encounter for screening for other viral diseases
CPT/HCPCS: 36415; 71045; 71275; 80048; 80053; 80061; 80076; 81003; 81015; 82550; 83605; 83735; 83880; 84439; 84443; 84484; 85025; 85379; 85610; 85730; 87077; 87086; 87147; 87185; 87186; 87635; 93005; 93306; 93970; 94762; 96365; 96366; 96375; 96376; 97116; 97162; 97167; 97530; 97535; 99282; 99285; G0378; A9270; J1940; J1956; Q9967

== ENCOUNTER 2021-06-22 10:37 | Emergency (ER) | payer MEDICARE, MEDICAID, SELFPAY ==
[2020-04-24 20:29] VITALS: BMI 34.7
[2021-06-22 10:45] VITALS: BP 175/81; PULSE 50; RESP 16; TEMP 36.2; O2SAT 99
--- NOTE | 2021-06-22 11:16 | ED_ITS ---
HPI - Extremity Injury (Lower) General Chief Complaint: Extremity Injury, Lower Stated Complaint: Can't walk on right foot Time Seen by Provider: 06/22/21 11:02 Source: patient and EMS Mode of arrival: EMS History of Present Illness HPI Narrative: Patient is an 85-year-old male who is here for evaluation of right foot/heel discomfort. Symptoms started within the past 24 hours. There was no specific incident because they discomfort. States that it feels like pins and needles in his right heel. He does have right calf pain and right knee pain but this is not new. The discomfort does not extend down into his forefoot or toes. No fevers. Is normally ambulatory. Has not tried anything for the symptoms prior to arrival. Related Data Home Medications Medication Instructions Recorded Confirmed omeprazole 20 mg capsule,delayed 20 mg PO DAILY #0 11/19/10 04/24/20 release levothyroxine 112 mcg tablet 112 mcg PO QAM #0 12/24/11 04/24/20 (Synthroid) aspirin 81 mg tablet,delayed 81 mg PO QDAY #0 02/21/17 04/25/20 release doxazosin 8 mg tablet (Cardura) 8 mg PO BEDTIME #0 02/21/17 04/24/20 sertraline 100 mg tablet 150 mg PO DAILY #0 02/21/17 04/24/20 atorvastatin 40 mg tablet 40 mg PO BEDTIME 04/24/20 04/24/20 mirtazapine 15 mg tablet 15 mg ONCE HS 04/24/20 04/24/20 Previous Rx's Medication Instructions Recorded calcium carbonate 500 mg-vitamin 1 tab PO BIDWM #60 tab 08/08/19 D3 5 mcg (200 unit) tablet (Oyster Shell Calcium-Vitamin D3) docusate sodium 100 mg capsule 100 mg PO BID #60 cap 08/08/19 (DOK) polyethylene glycol 3350 17 gram 17 gram PO DAILY PRN #510 gram 08/08/19 oral powder packet sennosides 8.6 mg tablet (senna) 17.2 mg PO DAILY #60 tab 08/08/19 Allergies Allergy/AdvReac Type Severity Reaction Status Date / Time Opioids - Morphine Analogues Allergy Unknown ITCHING Verified 06/22/21 10:49 Review of Systems Musculoskeletal Musculoskeletal: Reports system reviewed and no additional complaints, except as documented and Reports as per HPI Integumentary/Breasts Skin/Breast: Reports system reviewed and no additional complaints, except as documented and Reports as per HPI Neurologic Neurologic: Reports system reviewed and no additional complaints, except as documented and Reports as per HPI Hematologic/Lymphatic On Anticoagulants: No Patient History Medical History Balance disorder CAD (coronary artery disease) Chronic GERD Closed hip fracture Depression Gait disorder Hypothyroidism Surgical History History of right knee joint replacement Family History Mother Breast cancer Father Kidney infection Social History household members: spouse Smoking Status: Former smoker alcohol intake: current Smoking Status: Former smoker alcohol intake frequency: 0-2 drinks per day Substance Use Type: does not use Exam Initial Vital Signs Initial Vital Signs: Vital Signs Temperature 97.1 F L 06/22/21 10:45 Pulse Rate 50 L 06/22/21 10:45 Respiratory Rate 16 06/22/21 10:45 Blood Pressure 175/81 H 06/22/21 10:45 Pulse Oximetry 99 06/22/21 10:45 HENMT Head: normal to inspection and normocephalic Resp Effort & Inspection: normal respiratory effort Cardio Pulses: dorsalis pedis present on the right Skin General: no rashes or lesions noted Neuro General: patient alert and patient awake Other: Has tingling to palpation over the plantar aspect of the right hindfoot. Extrem Other: No gross deformities of the knee or calf or foot on the right. No edema. Psych Appearance: grossly normal and well kempt Course Orders Ordered: ED Orders 06/22/21 11:17 XR foot RT min 3V Stat Vital Signs Vital signs: Vital Signs - 8 hr 06/22/21 12:30 06/22/21 16:16 Pulse Rate 47 L 54 L Respiratory Rate 19 20 Blood Pressure 174/74 H 167/73 H Pulse Oximetry 96 96 MDM - Extremity Injury (Lower) Imaging Data Extremity x-ray #1: Radiologist's Impression: [address] [address] XRay Report Signed Patient: Serge Hunt MR#: [id number] : 1935 Acct:[id number] Age/Sex: 85 / M Date of Service: 06/22/21 Loc: ED Accession Number: [id number] ?? Procedure: XR foot RT min 3V Ordering Provider: Jozef Moreno D.O. PROCEDURE:? XR FOOT RT MIN 3V ? INDICATIONS:? Right heel pain/plantar aspect ? TECHNIQUE:? 3 views of the foot were acquired.? ? COMPARISON:? None. ? FINDINGS:? ? Bones:? No acute fractures or dislocations.? No suspicious bony lesions.? There is generalized osteopenia.? Mcqs-wg-felypukv degenerative changes are seen at the 1st metatarsophalangeal joint.? Mild degenerative changes are seen at the interphalangeal joints of the toes.? Plantar calcaneal enthesophyte is present. ? Soft tissues:? Mild nonspecific soft tissue edema is seen in the ankle. ? IMPRESSION:? 1. No acute osseous abnormality.? If clinical suspicion and/or symptoms persist, additional imaging with repeat plain films, or advanced imaging (e.g. CT, MRI) may be helpful for further assessment. 2. Small plantar calcaneal enthesophyte. 3. [id number]-gc-[id number] degenerative changes in the forefoot. ? ? Dictated by: Liu Blunt M.D. on 06/22/2021 at 12:02 ? ? Approved by: Liu Blunt M.D. on 06/22/2021 at 12:15?? MDM Narrative Medical decision making narrative: Patient is x-ray shows no signs of fracture. There are no skin changes over the area that would make me concerned for cellulitis. Patient is not diabetic. He describes the symptoms more as a tingling and needle like rather than discomfort. No indication for splinting. No indication for antibiotics. Will hold on crutches as I am concerned that this would be a trip as it for the patient. Would also like to hold on opioid pain medication for concerns that this would also cause him to fall as well. Will have him take Tylenol and ibuprofen. He was given return precautions. Expressed understanding and agreement. Discharge Plan Departure Patient Disposition: Home Clinical Impression: Neuropathy Instructions: Peripheral Neuropathy Activity Restrictions/Additional Instructions: The x-ray today shows no signs of a fracture in there is also no signs of an infection. I recommend that you take Tylenol/ibuprofen for discomfort. You can walk on your right foot as tolerated. Contact your primary doctor for a follow- up. Return to the emergency department for any new or worsening symptoms. Prescriptions: No Action omeprazole 20 MG capsule,delayed release(DR/EC) 20 mg PO DAILY Qty: 0 0RF levothyroxine [Synthroid] 112 MCG tablet 112 mcg PO QAM Qty: 0 0RF aspirin 81 MG tablet,delayed release (DR/EC) 81 mg PO QDAY Qty: 0 0RF doxazosin [Cardura] 8 MG tablet 8 mg PO BEDTIME Qty: 0 0RF sertraline 100 MG tablet 150 mg PO DAILY Qty: 0 0RF sennosides [senna] 8.6 mg Tablet 17.2 mg PO DAILY Qty: 60 0RF polyethylene glycol 3350 17 gram Powder In Packet 17 gram PO DAILY PRN (Reason: Constipation) Qty: 510 0RF docusate sodium [DOK] 100 mg Capsule 100 mg PO BID Qty: 60 0RF calcium carbonate-vitamin D3 [Oyster Shell Calcium-Vit D3] 500 mg(1,250mg) - 200 unit Tablet 1 tab PO BIDWM Qty: 60 0RF mirtazapine 15 mg tablet 15 mg ONCE HS 0RF atorvastatin 40 mg tablet 40 mg PO BEDTIME 0RF Referrals: Dinora Sampson MD [Primary Care Provider] -
--- NOTE | 2021-06-22 11:17 | DI.RAD.S_ITS ---
PROCEDURE: XR FOOT RT MIN 3V INDICATIONS: Right heel pain/plantar aspect TECHNIQUE: 3 views of the foot were acquired. COMPARISON: None. FINDINGS: Bones: No acute fractures or dislocations. No suspicious bony lesions. There is generalized osteopenia. Yspj-hb-[id number] degenerative changes are seen at the 1st metatarsophalangeal joint. Mild degenerative changes are seen at the interphalangeal joints of the toes. Plantar calcaneal enthesophyte is present. Soft tissues: Mild nonspecific soft tissue edema is seen in the ankle. IMPRESSION: 1. No acute osseous abnormality. If clinical suspicion and/or symptoms persist, additional imaging with repeat plain films, or advanced imaging (e.g. CT, MRI) may be helpful for further assessment. 2. Small plantar calcaneal enthesophyte. 3. Gtsw-ok-rixrlank degenerative changes in the forefoot. Dictated by: Liu Blunt M.D. on 06/22/2021 at 12:02 Approved by: Liu Blunt M.D. on 06/22/2021 at 12:15
[2021-06-22 12:30] VITALS: BP 174/74; PULSE 47; RESP 19; O2SAT 96
[2021-06-22 16:16] VITALS: BP 167/73; PULSE 54; RESP 20; O2SAT 96
== END 2021-06-22 16:18 | disposition home or self-care (01) ==
PROVIDERS: Emergency Provider Emergency Medicine; PCP Internal Medicine
DX: G62.9 Polyneuropathy, unspecified (principal)
CPT/HCPCS: 73630; 99283

== ENCOUNTER 2021-08-09 08:05 | Emergency (ER) | payer MEDICARE, MEDICAID, SELFPAY ==
[2020-04-24 20:29] VITALS: BMI 34.7
[2021-08-09 08:17] VITALS: BP 141/69; PULSE 70; RESP 18; TEMP 36.2; O2SAT 99; BMI 33.9
--- NOTE | 2021-08-09 08:24 | DI.RAD.S_ITS ---
PROCEDURE: XR KNEE RT 3V INDICATIONS: pain TECHNIQUE: 3 views of the knee were acquired. COMPARISON: [facility], CR, KNEE 3V RIGHT, 04/17/2017, 10:18. [facility], CR, XR KNEE RT 3V, 11/27/2019, 10:22, [facility], CR, XR KNEE LT 3V, 11/27/2019, 10:22. [facility], CR, XR KNEE ARTHRITIC SERIES BI, 07/05/2021, 13:53. FINDINGS: Bones: No acute fractures or dislocations. Remote fractures are seen the right proximal tibia. No suspicious bony lesions. Extensive postoperative change the proximal tibia can be seen, without alfredo findings failure or loosening. There is at least moderate lateral and medial femorotibial joint space narrowing seen, with associated remodeling changes including subchondral sclerosis and osteophyte formation along the jointline. On the sunrise view, there is mild patellofemoral joint space narrowing seen. Osteophyte formation can be seen along the margins of the patella. Soft tissues: There is a moderate right knee joint effusion. No suspicious soft tissue calcifications. IMPRESSION: No alfredo, acute abnormality is seen by plain film. Moderate joint effusion. Extensive degenerative changes are seen. Postoperative and remote posttraumatic changes are seen. Dictated by: Alfred Carpio M.D. on 08/09/2021 at 7:58 Approved by: Alfred Carpio M.D. on 08/09/2021 at 8:01
--- NOTE | 2021-08-09 09:04 | ED.EXTPRO ---
HPI - Extremity Problem General Chief complaint: Extremity Problem,Nontraumatic Stated complaint: Rt. knee pain Time Seen by Provider: 08/09/21 08:23 Source: patient and EMS Mode of arrival: EMS History of Present Illness HPI Narrative: 86-year-old male is here for evaluation of right knee pain. Approximately 1 year ago had a left hip surgery and it seems like since then he has had right knee pain although it has worsened over the past couple days. He does have oxycodone at home. He is not taken that recently he states that it often gives him constipation. He has seen orthopedics in the past for right knee pain. He states he was told it was ?bone on bone ?he has received injections in his knee but states it only lasts a very short period of time. The orthopedic surgeon stated that he is not a candidate for surgery. He reports no new injuries to his right knee. He did not fall. Related Data Home Medications Medication Instructions Recorded Confirmed omeprazole 20 mg capsule,delayed 20 mg PO DAILY #0 11/19/10 04/24/20 release levothyroxine 112 mcg tablet 112 mcg PO QAM #0 12/24/11 04/24/20 (Synthroid) aspirin 81 mg tablet,delayed 81 mg PO QDAY #0 02/21/17 04/25/20 release doxazosin 8 mg tablet (Cardura) 8 mg PO BEDTIME #0 02/21/17 04/24/20 sertraline 100 mg tablet 150 mg PO DAILY #0 02/21/17 04/24/20 atorvastatin 40 mg tablet 40 mg PO BEDTIME 04/24/20 04/24/20 mirtazapine 15 mg tablet 15 mg ONCE HS 04/24/20 04/24/20 Previous Rx's Medication Instructions Recorded calcium carbonate 500 mg-vitamin 1 tab PO BIDWM #60 tab 08/08/19 D3 5 mcg (200 unit) tablet (Oyster Shell Calcium-Vitamin D3) docusate sodium 100 mg capsule 100 mg PO BID #60 cap 08/08/19 (DOK) polyethylene glycol 3350 17 gram 17 gram PO DAILY PRN #510 gram 08/08/19 oral powder packet sennosides 8.6 mg tablet (senna) 17.2 mg PO DAILY #60 tab 08/08/19 Allergies Allergy/AdvReac Type Severity Reaction Status Date / Time Opioids - Morphine Analogues Allergy Unknown ITCHING Verified 06/22/21 10:49 Review of Systems Constitutional Constitutional: Denies fever(s) Musculoskeletal Comments: Right knee pain Integumentary/Breasts Comments: No rashes Neurologic Comments: No neurologic changes Hematologic/Lymphatic On Anticoagulants: No Patient History Medical History Balance disorder CAD (coronary artery disease) Chronic GERD Closed hip fracture Depression Gait disorder Hypothyroidism Surgical History History of right knee joint replacement Family History Mother Breast cancer Father Kidney infection Social History household members: spouse Smoking Status: Former smoker alcohol intake: current Smoking Status: Former smoker alcohol intake frequency: 0-2 drinks per day Substance Use Type: does not use Exam Initial Vital Signs Initial Vital Signs: Vital Signs Temperature 97.2 F L 08/09/21 08:17 Pulse Rate 70 08/09/21 08:17 Respiratory Rate 18 08/09/21 08:17 Blood Pressure 141/69 H 08/09/21 08:17 Pulse Oximetry 99 08/09/21 08:17 HENMT Head: normal to inspection and normocephalic Resp Effort & Inspection: normal respiratory effort Cardio Rate: regular rate Rhythm: regular rhythm Skin General: no rashes or lesions noted Neuro General: patient alert, patient awake and moves all extremities Extrem Other: Patient with discomfort a palpation throughout the right knee however he can flex and extend somewhat. His right ankle is unremarkable. Is right hip is unremarkable. Course Orders Ordered: ED Orders 08/09/21 08:24 XR knee RT 3V Stat Discontinued Medications Hydrocodone Bitart/Acetaminophen (Hydrocodone/Acet 5/325 Tablet) 1 tab PO NOW ONE Stop: 08/09/21 10:25 Last Admin: 08/09/21 10:31 Dose: 1 tab Documented by: SADIE Vital Signs Vital signs: Vital Signs - 8 hr 08/09/21 10:22 08/09/21 11:47 Pulse Rate 59 L 54 L Respiratory Rate 20 Blood Pressure 129/76 153/99 H Pulse Oximetry 97 97 MDM - Extremity (Nontraumatic) Imaging Data Extremity x-ray #1: Radiologist's Impression: [address] [address] XRay Report Signed Patient: Serge Hunt MR#: [id number] : 1935 Acct:[id number] Age/Sex: 86 / M Date of Service: 08/09/21 Loc: ED Accession Number: [id number] ?? Procedure: XR knee RT 3V Ordering Provider: Jozef Moreno D.O. PROCEDURE:? XR KNEE RT 3V ? INDICATIONS:? pain ? TECHNIQUE:? 3 views of the knee were acquired.? ? COMPARISON:? [facility], CR, KNEE 3V RIGHT, 04/17/2017, 10:18.? [facility], CR, XR KNEE RT 3V, 11/27/2019, 10:22, [facility], CR, XR KNEE LT 3V, 11/27/2019, 10:22.? [facility], CR, XR KNEE ARTHRITIC SERIES BI, 07/05/2021, 13:53. ? FINDINGS:? ? Bones:? No acute fractures or dislocations.? Remote fractures are seen the right proximal tibia.? No suspicious bony lesions.? ? Extensive postoperative change the proximal tibia can be seen, without alfredo findings failure or loosening. ? There is at least moderate lateral and medial femorotibial joint space narrowing seen, with associated remodeling changes including subchondral sclerosis and osteophyte formation along the jointline.? On the sunrise view, there is mild patellofemoral joint space narrowing seen. Osteophyte formation can be seen along the margins of the patella. ? Soft tissues:? There is a moderate right knee joint effusion.? No suspicious soft tissue calcifications.? ? ? IMPRESSION:? No alfredo, acute abnormality is seen by plain film. ? Moderate joint effusion. ? Extensive degenerative changes are seen. ? Postoperative and remote posttraumatic changes are seen. ? Dictated by: Alfred Carpio M.D. on 08/09/2021 at 7:58 ? ? Approved by: Alfred Carpio M.D. on 08/09/2021 at 8:01?? MDM Narrative Medical decision making narrative: X-ray shows no acute changes to his right knee no fractures. No suspicion for infection. No suspicion for gout. I do suspect that this is arthritis or potentially a meniscus injury or potentially both. He does have a walker at home. We discussed a good bowel regimen to try to avoid the constipation issues with his home pain medication. He will contact his primary doctor for a follow-up. He expressed understanding and agreement. Discharge Plan Departure Patient Disposition: Home Clinical Impression: Knee pain Instructions: DI for Knee Pain Activity Restrictions/Additional Instructions: I do recommend that you follow-up with your orthopedic provider and also your primary care doctor. The x-ray today does not show any signs of a fracture. I do suspect that this is either caused by arthritis or by meniscus tear. You can take your oxycodone as needed. You can use the wheelchair is needed as well. Return to the emergency department for any new symptoms. Prescriptions: No Action omeprazole 20 MG capsule,delayed release(DR/EC) 20 mg PO DAILY Qty: 0 0RF levothyroxine [Synthroid] 112 MCG tablet 112 mcg PO QAM Qty: 0 0RF aspirin 81 MG tablet,delayed release (DR/EC) 81 mg PO QDAY Qty: 0 0RF doxazosin [Cardura] 8 MG tablet 8 mg PO BEDTIME Qty: 0 0RF sertraline 100 MG tablet 150 mg PO DAILY Qty: 0 0RF sennosides [senna] 8.6 mg Tablet 17.2 mg PO DAILY Qty: 60 0RF polyethylene glycol 3350 17 gram Powder In Packet 17 gram PO DAILY PRN (Reason: Constipation) Qty: 510 0RF docusate sodium [DOK] 100 mg Capsule 100 mg PO BID Qty: 60 0RF calcium carbonate-vitamin D3 [Oyster Shell Calcium-Vit D3] 500 mg(1,250mg) -200 unit Tablet 1 tab PO BIDWM Qty: 60 0RF mirtazapine 15 mg tablet 15 mg ONCE HS 0RF atorvastatin 40 mg tablet 40 mg PO BEDTIME 0RF Referrals: Dinora Sampson MD [Primary Care Provider] -
[2021-08-09 10:22] VITALS: BP 129/76; PULSE 59; RESP 20; O2SAT 97
[2021-08-09] MEDS: HYDROCODONE/ACET 5/325 TABLET 1 TAB PO (10:31)
[2021-08-09 11:47] VITALS: BP 153/99; PULSE 54; O2SAT 97
== END 2021-08-09 12:11 | disposition home or self-care (01) ==
PROVIDERS: Emergency Provider Emergency Medicine; PCP Internal Medicine
DX: M25.561 Pain in right knee (principal); Z87.891 Personal history of nicotine dependence; Z88.5 Allergy status to narcotic agent
CPT/HCPCS: 73562; 99283

== ENCOUNTER 2021-08-16 11:13 | Observation (INO) | payer MEDICARE, MEDICAID, SELFPAY ==
[2020-04-24 20:29] VITALS: BMI 34.7
[2021-08-16] VITALS (20 sets, daily range): BP systolic 102–152; BP diastolic 53–89; PULSE 58–76; RESP 18; TEMP 36.1–36.6; O2SAT 90–99; BMI 33.9
[2021-08-16 12:59] LABS: Bacteria Urine Many (>30); RBC Urine 5-10/HPF (0-5/HPF); Squamous Epithelial Cell Urine 1-5 /HPF (0-5/HPF); Transitional Epi Cells Urine 1-5/HPF (0-5/HPF); WBC Urine >100/HPF (0-5/HPF)
[2021-08-16] MEDS: TRIMETH/SULFA 160/800 (DS) TABLET 1 TAB PO (13:36)
--- NOTE | 2021-08-16 13:39 | CM.SWNOTE ---
Addendum entered by Brenda Blackwood 08/16/21 17:05: MANAGER FIELD SERVICES/DCP Note MANAGER FIELD SERVICES and ED provider discuss with patient about his family and caregiver's concerns. Patient asks if he can get an MRI for his knee and get surgery. Patient is informed that surgery is not an option for patient. Patient initially states his concern for going to a SNF and rehabbing due to his pain. Patient endorses he would like to talk with his daughter and spouse, ED provider gives permission in the ED for them to both visit patient given the circumstance. MANAGER FIELD SERVICES calls patient's daughter Lily and she endorses concern that patient's mobility significantly declined since Sunday and patient cannot stand up and almost dropped to the floor. Lily and spouse Ilsa plan to visit patient. PT evaluates patient and endorses that patient can only stand with a two person assist and leans back, patient is not able to ambulate at this time. Per ED provider Dennis Duncan PA-C, patient is admitted to acute care for further evaluation. POC for patient is SNF rehab. MARY Hemphill Original Note: MANAGER FIELD SERVICES/CORNELIOP Assessment MANAGER FIELD SERVICES receives consult for patient. Patient is 86 y/o male who presents with knee pain and concern for not being able to stand or walk. Patient endorses his pain is bone on bone and he has experienced this pain for a year and a half. Patient had right knee joint replacement a year ago. Patient has hx of Balance dx, CAD, Chronic GERD, closed hip fracture, Depression, Gait Disorder and Hypothyroidism. Patient's PCP Is Dr. Dinora Sampson at the [facility]. Patient has Medicaid, [facility], and [facility]. MANAGER FIELD SERVICES enters room to meet with patient. Patient denies concern at home other than his pain. Patient states that his assists in caring for him as well as caregiver. Patient endorses he needs assistance for most ADLs, dressing self, showering and toileting. MANAGER FIELD SERVICES asks about HH and PT and patient declines interest in PT and states that it hurts to move. Patient endorses that he went to SNFs [facility] a few years ago after his knee surgery. Patient endorses an injury on his left arm from being stuck in his bed when his and daughters were trying to pull him up. Patient states that he has a wheelchair and walker at home and would like to look into getting a scooter. Patient endorses he has a hospital bed in the living room. Patient's movement and mobility is reliant on assistance of two people at a time. Patient states he resides at home with his and has a daughter that lives locally, a daughter in [place] and in [place], [place]. Patient has [facility] case management director Tahmina Thakkar (Ph. # [phone]). MANAGER FIELD SERVICES calls case management director who reports that she called 911 for patient due to his mobility decline and excruciating pain. Caregiver sees patient 3 days a week for 2-3 hours at a time and patient qualifies for 96 hours a month but there is no more caregiver availability. MANAGER FIELD SERVICES requests for patient to be re-evaluated for higher level of care and Tahmina reports that there will not be any availability for more caregiver hours. Tahmina states that she has concern for patient being stuck in bed in his urine and feces for 3 days. MANAGER FIELD SERVICES asks if she will report to APS, and she states that it is not self neglect because he needs more care. MANAGER FIELD SERVICES discusses that at this time there is no medical reason to admit patient and MANAGER FIELD SERVICES is seeking coordination for safe plan of discharge. Tahmina states that she does not think it is safe for patient to d/c to home as patient's spouse can not care for patient needs until he returns to baseline and caregiver cannot meet patient needs as he is in need of a two person assist. Tahmina reports concern for 's ability to care for patient and concern for the safety of patient returning to home. MANAGER FIELD SERVICES reviews the above with ED provider Dakota Collins PA-C. Plan: MANAGER FIELD SERVICES to continue to coordinate POC and ED provider to continue to medically evaluate patient. MARY Hemphill Discharge Planning/Care Management CM Discharge Assessment Start: 08/16/21 13:58 Freq: Status: Active Protocol: Document 08/16/21 13:58 LN (Rec: 08/16/21 14:05 LN [id number]) Discharge Planning Assessment Assigned Inflated Pad Buffer MARY Gutierrez Advance Directives? Yes Advance Directives on File No History Provided By Patient,Medical Record Has Patient been admitted in last 30 No days? Prior Living Arrangements House Household Members spouse Type of transportation used prior to Relies on Others admit Independent with ADL's No Is patient alert and oriented? Yes Needs Assistance With Bathing,Toileting DME Already Rented / Owned Wheelchair,FWW / Walker Name of Agency [facility] Contact Phone [phone] Clinicals Faxed No Hours / Month 96 hours a month Comment Patient's Caregiver is Cheryl, he can only come to home from 11am-2pm Mondays, Wednesdays and Fridays. Patient/Family Preference Custodial Facility Comment Availability of SNFs Please Provide Date Initial DC 08/16/21 Assessment Was Performed
--- NOTE | 2021-08-16 14:06 | ED.LOWEXIN ---
HPI - Extremity Injury (Lower) <Dakota Collins PA-C - Last Filed: 08/16/21 18:29> General Chief Complaint: Extremity Injury, Lower Stated Complaint: Rt. knee pain unable to stand Time Seen by Provider: 08/16/21 12:14 Source: patient and EMS Mode of arrival: EMS History of Present Illness HPI Narrative: 86-year-old male with past medical history congestive heart failure, DVT, knee pain, CAD, depression, GERD, balance disorder, gait disorder, hypothyroidism presents to the ED with right-sided knee pain, inability to bear weight and walk on it. Patient was seen at our ED on 08/09/2021 for knee pain, had negative x-rays, discharged home. Patient states that his knee pain has worsened since he got home, is unable to bear weight and walk, was sent by ambulance from home by his family due to inability to take care of the patient. Patient's daughter reports that the family and home health aides have been unable to move him, due to which she has been lying in his urine and feces for 3 days. Patient denies fever, chills, chest pain, shortness of breath, abdominal pain, nausea, vomiting, dysuria. Patient had hip surgery in 2019, following which his mobility has suffered greatly and he is also incontinent of urine. Patient has frequent UTIs. Related Data Home Medications Medication Instructions Recorded Confirmed omeprazole 20 mg capsule,delayed 20 mg PO DAILY #0 11/19/10 04/24/20 release levothyroxine 112 mcg tablet 112 mcg PO QAM #0 12/24/11 04/24/20 (Synthroid) aspirin 81 mg tablet,delayed 81 mg PO QDAY #0 02/21/17 04/25/20 release doxazosin 8 mg tablet (Cardura) 8 mg PO BEDTIME #0 02/21/17 04/24/20 sertraline 100 mg tablet 150 mg PO DAILY #0 02/21/17 04/24/20 atorvastatin 40 mg tablet 40 mg PO BEDTIME 04/24/20 04/24/20 mirtazapine 15 mg tablet 15 mg ONCE HS 04/24/20 04/24/20 Previous Rx's Medication Instructions Recorded calcium carbonate 500 mg-vitamin 1 tab PO BIDWM #60 tab 08/08/19 D3 5 mcg (200 unit) tablet (Oyster Shell Calcium-Vitamin D3) docusate sodium 100 mg capsule 100 mg PO BID #60 cap 08/08/19 (DOK) polyethylene glycol 3350 17 gram 17 gram PO DAILY PRN #510 gram 08/08/19 oral powder packet sennosides 8.6 mg tablet (senna) 17.2 mg PO DAILY #60 tab 08/08/19 Allergies Allergy/AdvReac Type Severity Reaction Status Date / Time Opioids - Morphine Analogues Allergy Unknown ITCHING Verified 08/16/21 11:24 Review of Systems <Dakota Collins PA-C - Last Filed: 08/16/21 18:29> Review of Systems ROS Unobtainable: All systems reviewed & are unremarkable except as noted in HPI and below Constitutional Constitutional: Denies chills, Denies fatigue, Denies fever(s), Denies frequent falls, Denies lethargy and Denies weakness Eyes Eyes: Denies change in vision, Denies eye discharge, Denies irritation and Denies loss of vision ENT Ears, Nose, Mouth, and Throat: Denies change in voice, Denies dizziness, Denies neck pain, Denies sore throat and Denies throat swelling Cardiovascular Cardiovascular: Denies chest pain, Denies irregular heart rhythm, Denies lightheadedness, Denies palpitations, Denies dyspnea, Denies dyspnea on exertion and Denies orthopnea Respiratory Respiratory: Denies cough, Denies dyspnea, Denies dyspnea on exertion and Denies wheezing Gastrointestinal Gastrointestinal: Denies abdominal pain, Denies change in bowel habits, Denies diarrhea, Denies nausea and Denies vomiting Genitourinary Genitourinary: Denies hematuria, Denies flank pain, Reports urinary incontinence and Denies urinary urgency Musculoskeletal Musculoskeletal: Denies back pain, Denies muscle weakness, Denies neck pain, Denies numbness and Denies tingling Comments: Right-sided knee pain, unable to bear weight, walk Integumentary/Breasts Skin/Breast: Denies pruritus, Denies erythema, Denies rash and Denies wounds Neurologic Neurologic: Denies behavioral changes, Denies confusion, Denies dizziness, Denies frequent falls, Denies loss of vision, Denies numbness, Denies tingling and Denies weakness Psychiatric Psychiatric: Denies anxiety, Denies behavioral changes, Denies confusion, Denies depression, Denies homicidal ideation and Denies suicidal ideation Endocrine Endocrine: Denies fatigue, Denies flushing and Denies palpitations Hematologic/Lymphatic Hematologic/Lymphatic: Denies easy bruising Allergic/Immunologic Allergic/Immunologic: Denies urticaria, Denies throat swelling and Denies wheezing Patient History <Dakota Collins PA-C - Last Filed: 08/16/21 18:29> Medical History Balance disorder CAD (coronary artery disease) Chronic GERD Closed hip fracture Depression Gait disorder Hypothyroidism Surgical History History of right knee joint replacement Family History Mother Breast cancer Father Kidney infection Social History household members: spouse Smoking Status: Former smoker alcohol intake: current Smoking Status: Former smoker alcohol intake frequency: 0-2 drinks per day Substance Use Type: does not use Exam <Dakota Collins PA-C - Last Filed: 08/16/21 18:29> Initial Vital Signs Initial Vital Signs: Vital Signs Temperature 97.9 F 08/16/21 11:25 Pulse Rate 76 08/16/21 11:25 Respiratory Rate 18 08/16/21 11:25 Blood Pressure 152/63 H 08/16/21 11:25 Pulse Oximetry 95 08/16/21 11:25 Const General: cooperative, healthy appearing and comfortable HENMD Head: normal to inspection Ears: hearing grossly normal bilaterally Throat: posterior oropharynx normal Eyes General: appearance normal, both eyes and all related structures Resp Effort & Inspection: normal respiratory effort Auscultation: clear to auscultation bilaterally Cardio Rate: regular rate Rhythm: regular rhythm GI Other: Abdomen is soft, nondistended, nontender to palpation. General: No CVA tenderness Skin Other: Skin tear noted on right buttock Neuro General: patient alert, patient awake and patient oriented x3 Extrem Other: Right knee does not appear to be swollen, erythematous, deformed. Patient's mobility limited by pain. Psych Appearance: grossly normal Mental Status: mental status grossly normal <Jozef Moreno DO - Last Filed: 08/16/21 18:59> Initial Vital Signs Initial Vital Signs: Vital Signs Temperature 97.9 F 08/16/21 11:25 Pulse Rate 76 08/16/21 11:25 Respiratory Rate 18 08/16/21 11:25 Blood Pressure 152/63 H 08/16/21 11:25 Pulse Oximetry 95 08/16/21 11:25 Course <Dakota Collins PA-C - Last Filed: 08/16/21 18:29> Orders Ordered: ED Orders 08/16/21 11:25 Consult to ENVIRONMENTAL SAFETY SPECIALIST - Relay Telegrapher Stat 08/16/21 12:30 Urine Culture Stat Urine Microscopic Stat 08/16/21 14:25 CBC Auto Diff [Complete Blood Count AUTO DIFF] Stat CMP [Comprehensive Metabolic Panel] Stat Lactate (Lactic Acid) Stat 08/16/21 14:26 Blood Culture Stat 08/16/21 14:33 Consult to Physical Therapy Evaluate & Treat 08/16/21 14:36 COVID19 -Nasal swab/Pre-Proc Stat Heparin Sodium (Porcine) (Heparin 5,000 Unit/Ml Vial) 5,000 unit SUBCUT Q8HR ENRIQUE Naloxone HCl (Naloxone 0.4 Mg/Ml Vial) 0.2 mg IV Q2MIN PRN PRN Reason: Opiate Reversal Discontinued Medications Ceftriaxone Sodium 1,000 mg/ (Sodium Chloride) 100 mls @ 200 mls/hr IV NOW ONE Stop: 08/16/21 13:06 Last Admin: 08/16/21 13:25 Dose: Not Given Documented by: BRAN Sodium Chloride (Normal Saline 0.9%) 1,000 mls @ 1,000 mls/hr IV BOLUS ONE Stop: 08/16/21 15:53 Last Infusion: 08/16/21 17:30 Dose: 150 mls/hr Documented by: Admin: 08/16/21 15:10 Dose: 1,000 mls/hr Documented by: ALAYNA Ketorolac Tromethamine (Ketorolac 30 Mg/Ml Vial) 15 mg IV NOW ONE Stop: 08/16/21 14:16 Last Admin: 08/16/21 14:29 Dose: 15 mg Documented by: ALAYNA Trimethoprim/Sulfamethoxazole (Trimeth/Sulfa 160/800 (Ds) Tablet) 1 tab PO NOW ONE Stop: 08/16/21 13:22 Last Admin: 08/16/21 13:36 Dose: 1 tab Documented by: ALAYNA Vital Signs Vital signs: Vital Signs - 8 hr 08/16/21 11:25 08/16/21 12:19 08/16/21 12:20 Temperature 97.9 F Pulse Rate 66 60 70 Respiratory Rate 18 Blood Pressure 132/82 133/63 Pulse Oximetry 96 94 92 08/16/21 12:30 08/16/21 13:01 08/16/21 13:30 Temperature Pulse Rate Respiratory Rate Blood Pressure 119/71 132/63 117/66 Pulse Oximetry 08/16/21 13:35 08/16/21 14:00 08/16/21 14:01 Temperature Pulse Rate 66 67 66 Respiratory Rate Blood Pressure 102/64 Pulse Oximetry 90 L 96 94 08/16/21 14:30 08/16/21 15:00 08/16/21 15:30 Temperature Pulse Rate 60 72 67 Respiratory Rate Blood Pressure Pulse Oximetry 96 95 96 08/16/21 15:36 08/16/21 16:00 08/16/21 16:01 Temperature Pulse Rate 63 74 76 Respiratory Rate Blood Pressure 107/71 104/53 L Pulse Oximetry 96 93 92 08/16/21 16:31 Temperature Pulse Rate 65 Respiratory Rate Blood Pressure 123/62 Pulse Oximetry 97 <Jozef Moreno DO - Last Filed: 08/16/21 18:59> Orders Ordered: ED Orders 08/16/21 11:25 Consult to ENVIRONMENTAL SAFETY SPECIALIST - Relay Telegrapher Stat 08/16/21 12:30 Urine Culture Stat Urine Microscopic Stat 08/16/21 14:25 CBC Auto Diff [Complete Blood Count AUTO DIFF] Stat CMP [Comprehensive Metabolic Panel] Stat Lactate (Lactic Acid) Stat 08/16/21 14:26 Blood Culture Stat 08/16/21 14:33 Consult to Physical Therapy Evaluate & Treat 08/16/21 14:36 COVID19 -Nasal swab/Pre-Proc Stat Heparin Sodium (Porcine) (Heparin 5,000 Unit/Ml Vial) 5,000 unit SUBCUT Q8HR ENRIQUE Naloxone HCl (Naloxone 0.4 Mg/Ml Vial) 0.2 mg IV Q2MIN PRN PRN Reason: Opiate Reversal Discontinued Medications Ceftriaxone Sodium 1,000 mg/ (Sodium Chloride) 100 mls @ 200 mls/hr IV NOW ONE Stop: 08/16/21 13:06 Last Admin: 08/16/21 13:25 Dose: Not Given Documented by: BSMEN Sodium Chloride (Normal Saline 0.9%) 1,000 mls @ 1,000 mls/hr IV BOLUS ONE Stop: 08/16/21 15:53 Last Infusion: 08/16/21 17:30 Dose: 150 mls/hr Documented by: Admin: 08/16/21 15:10 Dose: 1,000 mls/hr Documented by: ALAYNA Ketorolac Tromethamine (Ketorolac 30 Mg/Ml Vial) 15 mg IV NOW ONE Stop: 08/16/21 14:16 Last Admin: 08/16/21 14:29 Dose: 15 mg Documented by: ALAYNA Trimethoprim/Sulfamethoxazole (Trimeth/Sulfa 160/800 (Ds) Tablet) 1 tab PO NOW ONE Stop: 08/16/21 13:22 Last Admin: 08/16/21 13:36 Dose: 1 tab Documented by: ALAYNA Vital Signs Vital signs: Vital Signs - 8 hr 08/16/21 11:25 08/16/21 12:19 08/16/21 12:20 Temperature 97.9 F Pulse Rate 66 60 70 Respiratory Rate 18 Blood Pressure 132/82 133/63 Pulse Oximetry 96 94 92 08/16/21 12:30 08/16/21 13:01 08/16/21 13:30 Temperature Pulse Rate Respiratory Rate Blood Pressure 119/71 132/63 117/66 Pulse Oximetry 08/16/21 13:35 08/16/21 14:00 08/16/21 14:01 Temperature Pulse Rate 66 67 66 Respiratory Rate Blood Pressure 102/64 Pulse Oximetry 90 L 96 94 08/16/21 14:30 08/16/21 15:00 08/16/21 15:30 Temperature Pulse Rate 60 72 67 Respiratory Rate Blood Pressure Pulse Oximetry 96 95 96 08/16/21 15:36 08/16/21 16:00 08/16/21 16:01 Temperature Pulse Rate 63 74 76 Respiratory Rate Blood Pressure 107/71 104/53 L Pulse Oximetry 96 93 92 08/16/21 16:31 Temperature Pulse Rate 65 Respiratory Rate Blood Pressure 123/62 Pulse Oximetry 97 MDM - Extremity Injury (Lower) <Dakota Collins PA-C - Last Filed: 08/16/21 18:29> Lab Data Lab results narrative: Creatinine 1.36. UA positive for UTI. Result diagrams: 08/16/21 14:25 08/16/21 14:25 Labs: Lab Results 08/16/21 08/16/21 08/16/21 Range/Units 12:30 14:25 14:25 WBC 6.3 (4.5-11.0) X10^3/uL RBC 4.80 (4.5-5.9) X10^6/uL Hgb 11.0 L (13.5-17.5) g/dL Hct 35.3 L (41-53) % MCV 73.7 L (80-100) fL MCH 23.0 L (26-34) PG MCHC 31.2 (30-36) % RDW 19.7 H (11.6-14.8) % Plt Count 177 (150-400) X10^3/uL Neut % (Auto) 72.0 (50-75) % Lymph % (Auto) 14.8 L (25-40) % [place] % (Auto) 7.6 (3-14) % Eos % (Auto) 4.7 H (2-4) % Baso % (Auto) 0.9 (0-2) % Neut # (Auto) 4500 (6276-7421) /uL Lymph # (Auto) 900 L (0046-4499) /uL [place] # (Auto) 500 (0-900) /uL Eos # (Auto) 300 (0-450) /uL Baso # (Auto) 100 (0-100) /uL Sodium 139 (137-145) mmol/L Potassium 4.3 (3.4-5.1) mmol/L Chloride 105 (98-107) mmol/L Carbon Dioxide 27 (22-32) mmol/L BUN 19 (9-20) mg/dL Creatinine 1.36 H (0.66-1.25) mg/dL Estimated GFR 49.6 L (>60) mL/min BUN/Creatinine Ratio 14.0 (6-22) Glucose 102 (80-110) mg/dL Lactate (0.7-2.1) mmol/L Calcium 9.0 (8.4-10.2) mg/dL Total Bilirubin 0.9 (0.2-1.3) mg/dL AST 35 (17-59) IU/L ALT 13 (<50) IU/L Alkaline Phosphatase 94 (38-126) U/L Total Protein 8.0 (6.3-8.2) g/dL Albumin 4.2 (3.5-5.0) g/dL Globulin 3.8 (1.7-4.1) g/dL Albumin/Globulin Ratio 1.1 (1.0-2.8) Urine RBC 5-10/hpf H (0-5/HPF) Urine WBC >100/hpf H (0-5/HPF) Ur Squamous Epith Cells 1-5 /hpf (0-5/HPF) Ur Transition Epith Cell 1-5/hpf (0-5/HPF) Urine Bacteria Many (>30) H (None) Ur Culture Indicated? TNP SARS-CoV-2 (PCR) (Negative) 08/16/21 08/16/21 Range/Units 14:25 14:36 WBC (4.5-11.0) X10^3/uL RBC (4.5-5.9) X10^6/uL Hgb (13.5-17.5) g/dL Hct (41-53) % MCV (80-100) fL MCH (26-34) PG MCHC (30-36) % RDW (11.6-14.8) % Plt Count (150-400) X10^3/uL Neut % (Auto) (50-75) % Lymph % (Auto) (25-40) % [place] % (Auto) (3-14) % Eos % (Auto) (2-4) % Baso % (Auto) (0-2) % Neut # (Auto) (7902-6727) /uL Lymph # (Auto) (8697-7939) /uL [place] # (Auto) (0-900) /uL Eos # (Auto) (0-450) /uL Baso # (Auto) (0-100) /uL Sodium (137-145) mmol/L Potassium (3.4-5.1) mmol/L Chloride (98-107) mmol/L Carbon Dioxide (22-32) mmol/L BUN (9-20) mg/dL Creatinine (0.66-1.25) mg/dL Estimated GFR (>60) mL/min BUN/Creatinine Ratio (6-22) Glucose (80-110) mg/dL Lactate 1.4 (0.7-2.1) mmol/L Calcium (8.4-10.2) mg/dL Total Bilirubin (0.2-1.3) mg/dL AST (17-59) IU/L ALT (<50) IU/L Alkaline Phosphatase (38-126) U/L Total Protein (6.3-8.2) g/dL Albumin (3.5-5.0) g/dL Globulin (1.7-4.1) g/dL Albumin/Globulin Ratio (1.0-2.8) Urine RBC (0-5/HPF) Urine WBC (0-5/HPF) Ur Squamous Epith Cells (0-5/HPF) Ur Transition Epith Cell (0-5/HPF) Urine Bacteria (None) Ur Culture Indicated? SARS-CoV-2 (PCR) Negative (Negative) Urine Dip Bedside Urine Glucose Negative Bedside Urine Bilirubin - Negative Bedside Urine Ketone - Negative Urine Specific [place] 1.020 Bedside Urine Occult Blood ++ Bedside Urine pH 6.0 Bedside Urine Protein + 30 Bedside Urine Urobilinogen - Negative Bedside Urine Nitrite - Negative Bedside Urine Leukocytes ++ 125 Esterase MDM Narrative Medical decision making narrative: 86-year-old male with past medical history congestive heart failure, DVT, knee pain, CAD, depression, GERD, balance disorder, gait disorder, hypothyroidism presents to the ED with right-sided knee pain, inability to bear weight and walk on it. UA ordered due to patient's frequent history of UTIs any incontinence. UA positive for UTI. Will order labs to rule out sepsis, electrolyte derangements. Will order blood cultures prior to starting antibiotics. Social work consulted for possible placement to facility for higher care. Will reassess. Physical therapy was consulted, and for the PT eval, patient needs a 2 person assist to stand. Patient also exhibits some balance issues. Patient agrees to be placed at a facility that can provide higher level of care and rehabilitation after conferring with his and daughter. Dr. Valadez the hospitalist was consulted and he agrees to admit the patient as inpatient in preparation for placement to a facility and continue treatment of a UTI. Patient was stable throughout the ED stay and has sound judgment and decision making ability.. <Jozef Moreno, DO - Last Filed: 08/16/21 18:59> Lab Data Labs: Lab Results 08/16/21 08/16/21 08/16/21 Range/Units 12:30 14:25 14:25 WBC 6.3 (4.5-11.0) X10^3/uL RBC 4.80 (4.5-5.9) X10^6/uL Hgb 11.0 L (13.5-17.5) g/dL Hct 35.3 L (41-53) % MCV 73.7 L (80-100) fL MCH 23.0 L (26-34) PG MCHC 31.2 (30-36) % RDW 19.7 H (11.6-14.8) % Plt Count 177 (150-400) X10^3/uL Neut % (Auto) 72.0 (50-75) % Lymph % (Auto) 14.8 L (25-40) % [place] % (Auto) 7.6 (3-14) % Eos % (Auto) 4.7 H (2-4) % Baso % (Auto) 0.9 (0-2) % Neut # (Auto) 4500 (5554-2152) /uL Lymph # (Auto) 900 L (7873-5920) /uL [place] # (Auto) 500 (0-900) /uL Eos # (Auto) 300 (0-450) /uL Baso # (Auto) 100 (0-100) /uL Sodium 139 (137-145) mmol/L Potassium 4.3 (3.4-5.1) mmol/L Chloride 105 (98-107) mmol/L Carbon Dioxide 27 (22-32) mmol/L BUN 19 (9-20) mg/dL Creatinine 1.36 H (0.66-1.25) mg/dL Estimated GFR 49.6 L (>60) mL/min BUN/Creatinine Ratio 14.0 (6-22) Glucose 102 (80-110) mg/dL Lactate (0.7-2.1) mmol/L Calcium 9.0 (8.4-10.2) mg/dL Total Bilirubin 0.9 (0.2-1.3) mg/dL AST 35 (17-59) IU/L ALT 13 (<50) IU/L Alkaline Phosphatase 94 (38-126) U/L Total Protein 8.0 (6.3-8.2) g/dL Albumin 4.2 (3.5-5.0) g/dL Globulin 3.8 (1.7-4.1) g/dL Albumin/Globulin Ratio 1.1 (1.0-2.8) Urine RBC 5-10/hpf H (0-5/HPF) Urine WBC >100/hpf H (0-5/HPF) Ur Squamous Epith Cells 1-5 /hpf (0-5/HPF) Ur Transition Epith Cell 1-5/hpf (0-5/HPF) Urine Bacteria Many (>30) H (None) Ur Culture Indicated? TNP SARS-CoV-2 (PCR) (Negative) 08/16/21 08/16/21 Range/Units 14:25 14:36 WBC (4.5-11.0) X10^3/uL RBC (4.5-5.9) X10^6/uL Hgb (13.5-17.5) g/dL Hct (41-53) % MCV (80-100) fL MCH (26-34) PG MCHC (30-36) % RDW (11.6-14.8) % Plt Count (150-400) X10^3/uL Neut % (Auto) (50-75) % Lymph % (Auto) (25-40) % [place] % (Auto) (3-14) % Eos % (Auto) (2-4) % Baso % (Auto) (0-2) % Neut # (Auto) (1699-1670) /uL Lymph # (Auto) (6505-8717) /uL [place] # (Auto) (0-900) /uL Eos # (Auto) (0-450) /uL Baso # (Auto) (0-100) /uL Sodium (137-145) mmol/L Potassium (3.4-5.1) mmol/L Chloride (98-107) mmol/L Carbon Dioxide (22-32) mmol/L BUN (9-20) mg/dL Creatinine (0.66-1.25) mg/dL Estimated GFR (>60) mL/min BUN/Creatinine Ratio (6-22) Glucose (80-110) mg/dL Lactate 1.4 (0.7-2.1) mmol/L Calcium (8.4-10.2) mg/dL Total Bilirubin (0.2-1.3) mg/dL AST (17-59) IU/L ALT (<50) IU/L Alkaline Phosphatase (38-126) U/L Total Protein (6.3-8.2) g/dL Albumin (3.5-5.0) g/dL Globulin (1.7-4.1) g/dL Albumin/Globulin Ratio (1.0-2.8) Urine RBC (0-5/HPF) Urine WBC (0-5/HPF) Ur Squamous Epith Cells (0-5/HPF) Ur Transition Epith Cell (0-5/HPF) Urine Bacteria (None) Ur Culture Indicated? SARS-CoV-2 (PCR) Negative (Negative) Urine Dip Bedside Urine Glucose Negative Bedside Urine Bilirubin - Negative Bedside Urine Ketone - Negative Urine Specific [place] 1.020 Bedside Urine Occult Blood ++ Bedside Urine pH 6.0 Bedside Urine Protein + 30 Bedside Urine Urobilinogen - Negative Bedside Urine Nitrite - Negative Bedside Urine Leukocytes ++ 125 Esterase Discharge Plan Departure Patient Disposition: Admitted As Inpatient Clinical Impression: Acute UTI Admit Date/Time: 08/16/21 17:04 Admit Provider: Sofia Hernandez <Jozef Moreno, - Last Filed: 08/16/21 18:59> Cosign ED Attending Cosignature Attestation: Dr Moreno Co-Sign Statement: I was available for consultation during this patient's emergency department visit. This chart is signed by myself for administrative purposes only. I did not have direct contact with this patient during this visit. They were seen independently by the APC.
[2021-08-16] MEDS: KETOROLAC 30 MG/ML VIAL 15 MG IV (14:29)
[2021-08-16 14:34] LABS: Add Manual Diff / Slide Review NO; Basophils Absolute Auto 100 /uL (0-100); Basophils Percent Auto 0.9 % (0-2); Eosinophils Absolute Auto 300 /uL (0-450); Eosinophils Percent Auto 4.7 % (2-4); Hematocrit 35.3 % (41-53); Lymphocytes Absolute Auto 900 /uL (1100-4500); Lymphocytes Percent Auto 14.8 % (25-40); Mean Corpuscular HGB Conc 31.2 % (30-36); Mean Corpuscular Volume 73.7 fL (80-100); Monocytes Absolute Auto 500 /uL (0-900); Monocytes Percent Auto 7.6 % (3-14); Neutrophils Absolute Auto 4500 /uL (1500-7000); Platelet Count 177 X10^3/uL (150-400); Red Cell Distribution Width 19.7 % (11.6-14.8); White Blood Cell Count 6.3 X10^3/uL (4.5-11.0)
[2021-08-16 14:49] LABS: Alanine Aminotransferase 13 IU/L (<50); Albumin 4.2 g/dL (3.5-5.0); Albumin Globulin Ratio 1.1 (1.0-2.8); Alkaline Phosphatase 94 U/L (38-126); Aspartate Aminotransferase 35 IU/L (17-59); Bilirubin Total 0.9 mg/dL (0.2-1.3); Blood Urea Nitrogen 19 mg/dL (9-20); Carbon Dioxide 27 mmol/L (22-32); Chloride 105 mmol/L (98-107); Estimated Glomerular Filt Rate 49.6 mL/min (>60); Globulin 3.8 g/dL (1.7-4.1); Glucose 102 mg/dL (80-110); Potassium 4.3 mmol/L (3.4-5.1); Sodium 139 mmol/L (137-145)
[2021-08-16 14:50] LABS: HEMOLYSIS 75 (0-50)
[2021-08-16 14:52] LABS: Lactate (Lactic Acid) 1.4 mmol/L (0.7-2.1)
[2021-08-16] MEDS: SODIUM CHLORIDE 0.9% 1,000 ML 1000 ML IV (15:10)
[2021-08-16 15:29] LABS: COVID19 -Nasal RAPID Negative (Negative)
--- NOTE | 2021-08-16 16:04 | PT.IIE ---
Medical History (Last Reviewed 08/09/21 @ 17:07 by Jozef Moreno DO) Balance disorder CAD (coronary artery disease) Chronic GERD Closed hip fracture Depression Gait disorder Hypothyroidism Physical Therapy Inpatient Evaluation/Re-Eval M1 PT/OT-IP Prior Functional Status Start: 08/16/21 17:02 Freq: Status: Active Protocol: Document 08/16/21 16:05 AB (Rec: 08/16/21 17:20 AB [email or web address]) Medical Review Prior Functional Status Medical History Reviewed Yes Communication able to make needs known but with confusion and difficulty following directions Mobility and Gait daughter and spouse in room and provided information: stated that pt at baseline has been needing assistance but was able to stand with one person assist and transfer using FWW. At times, able to ambulate using FWW close SBA short distances but usually just sits on his lift recliner or uses a manual w/c or tranport chair for outdoor. stated that pt with c/o increase R knee pain that started ~ 1 1/2 weeks ago and pt then unable to stand despite of assistance provided . Activities of Daily Living and IADL's spouse assists pt with brief change since pt is not able to ambulate to the toilet. pt has a bedside commode but spouse stated that the bedside commode's opening is too small for pt so pt's just goes on his brief and spouse changes pt. pt uses a urinal for voiding. Social History Household Members spouse Living Arrangements House Number of Floors (Floors) One Floor Number of Stairs To Enter/Railing? 2 steps without rails Home Environment High Toilet,Tub/Shower Home Equipment Front Wheel Walker,Manual Wheelchair,Bedside Commode,Tub Transfer Bench,Hand Held Shower,Lift Recliner,Hospital Bed,Grab Bars Near Toilet,Grab Bars In Shower Additional Social History Comment has a caregiver that comes in MWF 11-2 pm to assist but mainly pt's spouse assists pt. M2 PT-IP Current Condition Start: 08/16/21 17:02 Freq: Status: Active Protocol: Document 08/16/21 16:05 AB (Rec: 08/16/21 17:20 AB [email or web address]) Physical Therapy Current Condition Current Condition Evaluation Date 08/16/21 Treatment Diagnosis R knee pain; difficulty in walking Onset Date 08/16/21 M3 PT-IP Subjective Start: 08/16/21 17:02 Freq: Status: Active Protocol: Document 08/16/21 16:05 AB (Rec: 08/16/21 17:20 AB [email or web address]) Subjective Physical Therapy Visit Type Type Initial Evaluation Visit Start Time 16:05 Visit Stop Time 17:00 Total Visit Minutes 55 Number of LCPC Visits 0 Physical Therapy Visit Comments Patient Comments agreed to do PT Therapy Pain Assessment Pain When Pain Assessed During Mobility Pain Present Pain Present Pain Reported Location Right Knee Intensity 5 Scale Used Numeric (0 - 10) Pain Behaviors Facial Grimacing,Guarding Pain Management Techniques Modification of Treatment,Re- positioning,Timing of Activity with Medications M4 PT-IP Mobility and Gait Start: 08/16/21 17:02 Freq: Status: Active Protocol: Document 08/16/21 16:05 AB (Rec: 08/16/21 17:20 [email or web address]) PT-Bed Mobility Assessment Supine to Sit Supine to Sit Maximum Assistance,1 Person Assistance,2 Person Assistance ,Head of Bed Elevated Sit to Supine Sit to Supine Total Assistance,2 Person Assistance Scooting Scooting to Edge of Bed Maximum Assistance PT-Transfer Assessment Sit to and From Stand Sit to and from Stand Maximum Assistance,2 Person Assistance,Use of Upper Extremities Equipment Transfer Assistive Device Gait Belt,Front Wheeled Walker Comments Mobility Comments pt completed supine to sit HOB elevated max A x 1-2 and max cues. increase posterior trunk lean requiring max A x 1 -2 for sitting balance. pt with difficulty following directions and requires max cues with all tasks. completed sit to stand max A x 2 and max cues and continues to require posterior trunk leaning. instructed pt to sit to EOB max A x 2 for controlled descent. pt needs brief change. NAC assisted with brief management. pt completed sit to stand max A x 2 and max cues and dependent with brief management. continues to have posterior trunk lean and max cues for instructions and safety. sat back on EOB. total A x 2 for sit to supine. positioned in bed. nyasia light within reach. Left pt with spouse and daughter in room. informed case therapist and nurse regarding pt's mobility. Gait Assessment Comments Gait Comments unable PT-Balance Assessment Sitting Balance and Reactions Static Sitting Balance Ability Poor Dynamic Sitting Balance Ability Poor Standing Balance and Reactions Static Standing Balance Ability Poor Dynamic Standing Balance Ability Poor Device Used FWW M5 PT-IP Objective Assessments Start: 08/16/21 17:02 Freq: Status: Active Protocol: Document 08/16/21 16:05 AB (Rec: 08/16/21 17:20 AB [email or web address]) Orientation Orientation/Cognition Level of Alertness Alert Language Function Ability No Deficits Noted Safety Awareness Decreased Safety Awareness Memory Description Short Term Impaired Comments with confusion and difficulty folllowing directions Gross Range of Motion Lower Extremity ROM Assessment Right Impaired Impairments R knee pain guarding limiting ROM Strength Lower Extremity Strength Assessment Right Impaired Hip 4-/5 Knee 3+/5 Coordination Assessment Gross Coordination Gross Coordination WNL Sensation Assessment Sensation Gross Sensation WNL Muscle Tone Muscle Tone WNL Yes M6 PT-IP Treatment Start: 08/16/21 17:02 Freq: Status: Active Protocol: Document 08/16/21 16:05 AB (Rec: 08/16/21 17:20 AB [email or web address]) Physical Therapy Treatment Education Education Provided Safety M7 PT-IP Assessment and Plan Start: 08/16/21 17:02 Freq: Status: Active Protocol: Document 08/16/21 16:05 AB (Rec: 08/16/21 17:20 AB [email or web address]) PT Summary Assessment and Plan Potential Rehabilitation Potential Fair Status of Condition at Evaluation Evolving Summary Impairments Pain,ROM,Strength,Balance, Coordination,Sensation,Tone, Cognition,Bed Mobility, Transfers,Gait,Activity Tolerance Assessment Summary PT eval received from ER to assess pt's mobility and appropriate for d/c back home. pt currently requiring max A x 2 with all tasks with P sitting and standing balance. pt is not safe to d/c home and will require SNF rehab to improve mobility and decrease burden of care. Goals Bed Mobility Goal Minimal Assistance Transfer Goal Minimal Assistance,Front Wheeled Walker Gait Goal Minimal Assistance,Front Wheel Walker Gait Distance 50 Other Goals improve bed mobility , transfers CGA using fWW and ambulation using FWW CGA 75 ft up/down 2 steps mod A Days to Meet Goals 10 Frequency of Treatment Frequency Of Treatment Once a Day Treatment Plan Physical Therapy Treatment Plan Bed Mobility Training,Transfer Training,Gait Training, Therapeutic Exercise,Balance Retraining,Post Op Education, Discharge Planning,Hot or Cold Pack,Neuromuscular Re-ed, Coordination Retraining,Manual Therapy Recommendations To Nursing Amount of Assist Needed Mechanical Lift Discharge Recommendations PT Discharge Recommendations SNF Rehab Transportation Needs at Discharge Wheelchair/Cabulance
--- NOTE | 2021-08-16 16:52 | PC.NURSE ---
Assisted Physical Therapist with standing patient. Patient very slow to directions often leaning back when instructed to lean forward. Physical Therapy was able to get patient to stand but was slow to follow directions. This SQL DATABASE ADMINISTRATOR asked patient if he understood the directions he was given to which he stated 'yes'. This SQL DATABASE ADMINISTRATOR asked patient what the physical therapist was asking him to do and he was able to accurately state the directions back to us. Reported this information to patient's provider.
--- NOTE | 2021-08-16 18:30 | P.HP_ITS ---
History of Present Illness History of Present Illness Chief complaint: Rt. knee pain unable to stand Narrative: 86yo male with a hx of LLE DVT, atrial fibrillation, hx of CAD with LAD stent, and osteoarthritis that presents with severe right knee pain, making him unable to ambulate. The patient and his family want to know if he qualifies for a correction facility. The patient states this has been an issue for some time now, but it acutely worsened over the past 2 weeks or so. During this time, he's noticed that the right knee joint has become more swollen. He denies any tenderness to palpation, recent fall, injury, or trauma, and denies erythema or fever/chills. He reports that outpatient orthopedics has informed him that there's too much [id number] in his right knee joint, which along with his advanced age, makes him a poor surgical candidate. The patient endorses a right tibia surgery after a traumatic fracture, and lower lumbar spinal surgery. He reports taking his medicine daily, but states that he does not know them by name. However, his does, and reports she knows the indications, too. The patient admits to smoking 2-3 ppd, ever since the age of 14. He denies any other drug or EtOH use. He denies any relevant family hx. He lives at home with his . 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 Patient History Medical History Balance disorder CAD (coronary artery disease) Chronic GERD Closed hip fracture Depression Gait disorder Hypothyroidism Surgical History History of right knee joint replacement Family & Social History Family History Mother Breast cancer Father Kidney infection Social History: household members spouse Prior Living Arrangements House Safety & Behavioral: Feels Safe in Current Yes Environment Suicidal Ideation Description None Tobacco & Substance use: Smoking Status Former smoker alcohol intake current alcohol intake frequency 0-2 drinks per day Substance Use Type does not use Meds Home Medications and Allergies Home Medications Medication Instructions Recorded Confirmed Type omeprazole 20 mg capsule,delayed 20 mg PO DAILY #0 11/19/10 04/24/20 History release levothyroxine 112 mcg tablet 112 mcg PO QAM #0 12/24/11 04/24/20 History (Synthroid) aspirin 81 mg tablet,delayed 81 mg PO QDAY #0 02/21/17 04/25/20 History release doxazosin 8 mg tablet (Cardura) 8 mg PO BEDTIME #0 02/21/17 04/24/20 History sertraline 100 mg tablet 150 mg PO DAILY #0 02/21/17 04/24/20 History calcium carbonate 500 mg-vitamin 1 tab PO BIDWM #60 tab 08/08/19 04/25/20 Rx D3 5 mcg (200 unit) tablet (Oyster Shell Calcium-Vitamin D3) docusate sodium 100 mg capsule 100 mg PO BID #60 cap 08/08/19 04/25/20 Rx (DOK) polyethylene glycol 3350 17 gram 17 gram PO DAILY PRN #510 gram 08/08/19 04/25/20 Rx oral powder packet sennosides 8.6 mg tablet (senna) 17.2 mg PO DAILY #60 tab 08/08/19 04/25/20 Rx atorvastatin 40 mg tablet 40 mg PO BEDTIME 04/24/20 04/24/20 History mirtazapine 15 mg tablet 15 mg ONCE HS 04/24/20 04/24/20 History Allergies Allergy/AdvReac Type Severity Reaction Status Date / Time Opioids - Morphine Analogues Allergy Unknown ITCHING Verified 08/16/21 11:24 Review of Systems Constitutional Comments: Denies fever/chills, night sweats, unintentional weight loss. Cardiovascular Comments: Denies CP, palpitations, peripheral edema. Respiratory Comments: Denies cough, SOB, wheezing. Gastrointestinal Comments: Denies abd pain, n/v/d. Musculoskeletal Comments: Endorses right knee pain. Integumentary/Breasts Comments: Denies new skin rashes. Exam Vital Signs (past 8 hours): - 08/16/21 11:25 08/16/21 12:19 08/16/21 12:20 Temperature 97.9 F Pulse Rate 66 60 70 Respiratory Rate 18 Blood Pressure 132/82 133/63 Pulse Oximetry 96 94 92 08/16/21 12:30 08/16/21 13:01 08/16/21 13:30 Temperature Pulse Rate Respiratory Rate Blood Pressure 119/71 132/63 117/66 Pulse Oximetry 08/16/21 13:35 08/16/21 14:00 08/16/21 14:01 Temperature Pulse Rate 66 67 66 Respiratory Rate Blood Pressure 102/64 Pulse Oximetry 90 L 96 94 08/16/21 14:30 08/16/21 15:00 08/16/21 15:30 Temperature Pulse Rate 60 72 67 Respiratory Rate Blood Pressure Pulse Oximetry 96 95 96 08/16/21 15:36 08/16/21 16:00 08/16/21 16:01 Temperature Pulse Rate 63 74 76 Respiratory Rate Blood Pressure 107/71 104/53 L Pulse Oximetry 96 93 92 08/16/21 16:31 08/16/21 17:22 08/16/21 17:58 Temperature 97 F L Pulse Rate 65 61 58 L Respiratory Rate 18 Blood Pressure 123/62 126/59 L 127/89 Pulse Oximetry 97 99 97 Oxygen Delivery Method Room Air Const Other: Patient laying in bed comfortably upon my entering the room, in no apparent acute distress. Eyes Other: No scleral icterus appreciated. Neck Other: No carotid bruits noted. Resp Other: Lungs clear to auscultation bilaterally. Cardio Other: RRR. S1 and S2 normal, with no extra heart sounds or murmurs appreciated. GI Other: Soft, non-distended, non-tender. Bowel sounds present. Skin Other: No grossly abnormal skin lesions noted. Extrem Other: Right knee with visibile effusion, that is non-erythematous, non-tender, and not warm to touch. Limited passive/active ROM of the right knee, likely due to pain. Objective Labs Result Diagrams: 08/16/21 14:25 08/16/21 14:25 Labs: Laboratory Results - last 24 hr 08/16/21 08/16/21 08/16/21 12:30 14:25 14:25 WBC 6.3 RBC 4.80 Hgb 11.0 L Hct 35.3 L MCV 73.7 L MCH 23.0 L MCHC 31.2 RDW 19.7 H Plt Count 177 Neut % (Auto) 72.0 Lymph % (Auto) 14.8 L [place] % (Auto) 7.6 Eos % (Auto) 4.7 H Baso % (Auto) 0.9 Neut # (Auto) 4500 Lymph # (Auto) 900 L [place] # (Auto) 500 Eos # (Auto) 300 Baso # (Auto) 100 Sodium 139 Potassium 4.3 Chloride 105 Carbon Dioxide 27 BUN 19 Creatinine 1.36 H Estimated GFR 49.6 L BUN/Creatinine Ratio 14.0 Glucose 102 Lactate Calcium 9.0 Total Bilirubin 0.9 AST 35 ALT 13 Alkaline Phosphatase 94 Total Protein 8.0 Albumin 4.2 Globulin 3.8 Albumin/Globulin Ratio 1.1 Urine RBC 5-10/hpf H Urine WBC >100/hpf H Ur Squamous Epith Cells 1-5 /hpf Ur Transition Epith Cell 1-5/hpf Urine Bacteria Many (>30) H Ur Culture Indicated? TNP SARS-CoV-2 (PCR) 08/16/21 08/16/21 14:25 14:36 WBC RBC Hgb Hct MCV MCH MCHC RDW Plt Count Neut % (Auto) Lymph % (Auto) [place] % (Auto) Eos % (Auto) Baso % (Auto) Neut # (Auto) Lymph # (Auto) [place] # (Auto) Eos # (Auto) Baso # (Auto) Sodium Potassium Chloride Carbon Dioxide BUN Creatinine Estimated GFR BUN/Creatinine Ratio Glucose Lactate 1.4 Calcium Total Bilirubin AST ALT Alkaline Phosphatase Total Protein Albumin Globulin Albumin/Globulin Ratio Urine RBC Urine WBC Ur Squamous Epith Cells Ur Transition Epith Cell Urine Bacteria Ur Culture Indicated? SARS-CoV-2 (PCR) Negative Assessment & Plan Assessment & Plan narrative: Assessment: 1. Right knee severe osteoarthritis with effusion 2. Hx of CAD with LAD stent 3. Hx of atrial fibrillation 4. Hx of LLE DVT 5. Hypothyroidism 6. Depression 7. BPH Plan: 1. Will discuss with orthopedics whether joint effusion aspiration might offer some symptomatic relief. 2. Will continue home aspirin 81 mg daily and atorvastatin 40 mg daily. 3. Prior notes indicate patient was prescribed Eliquis in the past. However, patient does not recall if he's taking said med at home. He reports his knows all his meds and indications. 4. This was diagnosed in April 2020, with notes indicating patient was placed on Eliquis. 5. Will continue home levothyroxine 112 mcg daily, once medication rec onciliation complete. 6. Will continue home sertraline 150 mg daily, along with mirtazipine 15 mg da mike. 7. Will continue home doxazosin 8 mg daily. VTE prophylaxis: Heparin 5000 tid Code: Full I have utilized all available immediate resources to reconcile the patient's medications. Time Spent With Patient Critical Care time: I spent a total of [] minutes of critical care time on this patient's care today; this time is exclusive of procedural time. Quality MIPS - Admit I confirm the patient?s Advance Care Plan is present, Code status is documented, Surrogate decision maker is in patient?s record [If Yes, STOP here]: Yes
[2021-08-16] MEDS: HEPARIN 5,000 UNIT/ML VIAL 5000 UNIT SUBCUT (21:54)
[2021-08-17] MEDS: HEPARIN 5,000 UNIT/ML VIAL 5000 UNIT SUBCUT (06:08)
[2021-08-17 07:00] VITALS: BP 139/69; PULSE 66; RESP 18; TEMP 36.3; O2SAT 97
[2021-08-17 07:58] VITALS: O2SAT 96
[2021-08-17] MEDS: LEVOTHYROXINE 112 MCG TABLET PO (09:20)
[2021-08-17] MEDS: SENNOSIDES 8.6 MG TABLET 17.2 MG PO (09:21)
[2021-08-17] MEDS: SERTRALINE 50 MG TABLET 150 MG PO (09:21)
[2021-08-17] MEDS: FUROSEMIDE 20 MG TABLET PO (09:21)
[2021-08-17] MEDS: ASPIRIN EC 81 MG TABLET PO (09:21)
--- NOTE | 2021-08-17 11:44 | OT.IPNOTE ---
Pt not wanting to get up as right knee too painful during movement and wanting to wwait to see what ortho consult says first. To check on the pt later.
--- NOTE | 2021-08-17 11:44 | OT.IPNOTE ---
Attempted OT eval and able to get prior level of care from pt. Pt insistent on not getting up due to his knee pain and prefers to have his knee drained before trying to get up at this time. Per Hospitalist pending availability by Ortho may be done today or tomorrow. no charge
[2021-08-17 11:55] VITALS: O2SAT 94
--- NOTE | 2021-08-17 12:44 | CM.DPNOTE ---
Per Wilma, Faxed snf referral packet to [facility] and received fax conf. Emailed KALEY Colón & Jason ZEE. Mayi Rivera CM Assist.
[2021-08-17] MEDS: APIXABAN 5 MG TABLET PO ×2 (13:25→21:51)
--- NOTE | 2021-08-17 13:27 | PM.CN ---
History of Present Illness Consult details Date Patient Seen: 08/17/21 Time Patient Seen: 12:15 Chief complaint: Rt. knee pain unable to stand Requesting provider: Sofia Hernandez Narrative: Mr. Henriquez is a 86 yo M with chronic right knee DJD with worsening pain and inability to walk on his right leg due to knee pain. Orthopedic service is consulted for additional recommendations. Meds Home Medications and Allergies Home Medications Medication Instructions Recorded Confirmed Type omeprazole 20 mg capsule,delayed 20 mg PO DAILY #0 11/19/10 08/16/21 History release levothyroxine 112 mcg tablet 112 mcg PO QAM #0 12/24/11 08/16/21 History (Synthroid) aspirin 81 mg tablet,delayed 81 mg PO QDAY #0 02/21/17 08/16/21 History release doxazosin 8 mg tablet (Cardura) 8 mg PO BEDTIME #0 02/21/17 08/16/21 History sertraline 100 mg tablet 150 mg PO DAILY #0 02/21/17 08/16/21 History sennosides 8.6 mg tablet (senna) 17.2 mg PO DAILY #60 tab 08/08/19 08/16/21 Rx atorvastatin 40 mg tablet 40 mg PO BEDTIME 04/24/20 08/16/21 History mirtazapine 15 mg tablet 15 mg BEDTIME 04/24/20 08/16/21 History apixaban 5 mg tablet (Eliquis) 5 mg PO BID 08/16/21 08/16/21 History furosemide 20 mg PO DAILY 08/16/21 08/16/21 History polyethylene glycol 3350 17 gram 17 gram PO PRN PRN 08/16/21 08/16/21 History oral powder packet Allergies Allergy/AdvReac Type Severity Reaction Status Date / Time Opioids - Morphine Analogues Allergy Unknown ITCHING Verified 08/16/21 11:24 Review of Systems Review of Systems ROS: Yes All systems reviewed with the patient and are negative except as otherwise documented Exam Vital Signs (past 8 hours): - 08/17/21 07:00 08/17/21 07:58 08/17/21 11:55 Temperature 97.3 F L Pulse Rate 66 Respiratory Rate 18 Blood Pressure 139/69 Pulse Oximetry 97 96 94 Oxygen Delivery Method Room Air Oxygen Flow Rate 0 Extrem Other: RLE with moderate knee effusion. the knee is not red, no increased warmth and patient is able to perform ROM with mild pain. No s/s of DVT. Objective Labs Result Diagrams: 08/16/21 14:25 08/16/21 14:25 Labs: Laboratory Results - last 24 hr 08/16/21 08/16/21 08/16/21 14:25 14:25 14:25 WBC 6.3 RBC 4.80 Hgb 11.0 L Hct 35.3 L MCV 73.7 L MCH 23.0 L MCHC 31.2 RDW 19.7 H Plt Count 177 Neut % (Auto) 72.0 Lymph % (Auto) 14.8 L [place] % (Auto) 7.6 Eos % (Auto) 4.7 H Baso % (Auto) 0.9 Neut # (Auto) 4500 Lymph # (Auto) 900 L [place] # (Auto) 500 Eos # (Auto) 300 Baso # (Auto) 100 Sodium 139 Potassium 4.3 Chloride 105 Carbon Dioxide 27 BUN 19 Creatinine 1.36 H Estimated GFR 49.6 L BUN/Creatinine Ratio 14.0 Glucose 102 Lactate 1.4 Calcium 9.0 Total Bilirubin 0.9 AST 35 ALT 13 Alkaline Phosphatase 94 Total Protein 8.0 Albumin 4.2 Globulin 3.8 Albumin/Globulin Ratio 1.1 SARS-CoV-2 (PCR) 08/16/21 14:36 WBC RBC Hgb Hct MCV MCH MCHC RDW Plt Count Neut % (Auto) Lymph % (Auto) [place] % (Auto) Eos % (Auto) Baso % (Auto) Neut # (Auto) Lymph # (Auto) [place] # (Auto) Eos # (Auto) Baso # (Auto) Sodium Potassium Chloride Carbon Dioxide BUN Creatinine Estimated GFR BUN/Creatinine Ratio Glucose Lactate Calcium Total Bilirubin AST ALT Alkaline Phosphatase Total Protein Albumin Globulin Albumin/Globulin Ratio SARS-CoV-2 (PCR) Negative [facility] Medical History Balance disorder CAD (coronary artery disease) Chronic GERD Closed hip fracture Depression Gait disorder Hypothyroidism Surgical History History of right knee joint replacement Family History Mother Breast cancer Father Kidney infection Social History household members: spouse Tobacco & Substance Use Smoking Status: Former smoker alcohol intake: current Assessment & Plan Assessment & Plan narrative: 86 yo M with right knee severe DJD and acute worsening of his right knee pain. He can progress WBAT to RLE with PT. He can f/u with orthopedic clinic in 2 weeks for additional evaluation and recommendation. He had hx of right tibia ORIF with possible hardware protruding into the knee joint. If his symptoms persist, he may require surgical treatment on elective basis that involves HWR and possible TKA. He has no s/s of sepsis in his knee. His knee pain is due to chronic DJD with acute inflammation. Time Spent With Patient Critical Care time: I spent a total of [] minutes of critical care time on this patient's care today; this time is exclusive of procedural time.
--- NOTE | 2021-08-17 13:36 | PM.PN.1 ---
Subjective Subjective Interval history: The patient reports improvement of his right knee pain this morning. He reports being excited to work with PT/OT today. He reports eating and drinking OK. Denies any active complaints. Exam Vital Signs (past 8 hours): - 08/17/21 07:00 08/17/21 07:58 08/17/21 11:55 Temperature 97.3 F L Pulse Rate 66 Respiratory Rate 18 Blood Pressure 139/69 Pulse Oximetry 97 96 94 Oxygen Delivery Method Room Air Oxygen Flow Rate 0 Narrative Exam Narrative: Const Other: Patient laying in bed comfortably upon my entering the room, in no apparent acute distress. Eyes Other: No scleral icterus appreciated. Neck Other: No carotid bruits noted. Resp Other: Lungs clear to auscultation bilaterally. Cardio Other: RRR. S1 and S2 normal, with no extra heart sounds or murmurs appreciated. GI Other: Soft, non-distended, non-tender. Bowel sounds present. Skin Other: No grossly abnormal skin lesions noted. Extrem Other: Right knee with visibile effusion, that is non-erythematous, non-tender, and not warm to touch. Limited passive/active ROM of the right knee, likely due to pain. Objective Labs Result Diagrams: 08/16/21 14:25 08/16/21 14:25 Labs: Laboratory Results - last 24 hr 08/16/21 08/16/21 08/16/21 14:25 14:25 14:25 WBC 6.3 RBC 4.80 Hgb 11.0 L Hct 35.3 L MCV 73.7 L MCH 23.0 L MCHC 31.2 RDW 19.7 H Plt Count 177 Neut % (Auto) 72.0 Lymph % (Auto) 14.8 L [place] % (Auto) 7.6 Eos % (Auto) 4.7 H Baso % (Auto) 0.9 Neut # (Auto) 4500 Lymph # (Auto) 900 L [place] # (Auto) 500 Eos # (Auto) 300 Baso # (Auto) 100 Sodium 139 Potassium 4.3 Chloride 105 Carbon Dioxide 27 BUN 19 Creatinine 1.36 H Estimated GFR 49.6 L BUN/Creatinine Ratio 14.0 Glucose 102 Lactate 1.4 Calcium 9.0 Total Bilirubin 0.9 AST 35 ALT 13 Alkaline Phosphatase 94 Total Protein 8.0 Albumin 4.2 Globulin 3.8 Albumin/Globulin Ratio 1.1 SARS-CoV-2 (PCR) 03/29/22 14:36 WBC RBC Hgb Hct MCV MCH MCHC RDW Plt Count Neut % (Auto) Lymph % (Auto) [place] % (Auto) Eos % (Auto) Baso % (Auto) Neut # (Auto) Lymph # (Auto) [place] # (Auto) Eos # (Auto) Baso # (Auto) Sodium Potassium Chloride Carbon Dioxide BUN Creatinine Estimated GFR BUN/Creatinine Ratio Glucose Lactate Calcium Total Bilirubin AST ALT Alkaline Phosphatase Total Protein Albumin Globulin Albumin/Globulin Ratio SARS-CoV-2 (PCR) Negative PFSH Medical History Balance disorder CAD (coronary artery disease) Chronic GERD Closed hip fracture Depression Gait disorder Hypothyroidism Surgical History History of right knee joint replacement Family History Mother Breast cancer Father Kidney infection Social History household members: spouse Smoking Status: Former smoker alcohol intake: current Assessment & Plan Assessment & Plan narrative: Assessment: 1. Right knee severe osteoarthritis with effusion 2. Hx of CAD with LAD stent 3. Hx of atrial fibrillation 4. Hx of LLE DVT 5. Hypothyroidism 6. Depression 7. BPH Plan: 1. Appreciate orthopedic consult recommendations regarding joint aspiration. 2. Will continue home aspirin 81 mg daily and atorvastatin 40 mg daily. 3. Will continue home Eliquis 5 mg bid 4. This was diagnosed in April 2020, with notes indicating patient was placed on Eliquis. 5. Will continue home levothyroxine 112 mcg daily. 6. Will continue home sertraline 150 mg daily, along with mirtazipine 15 mg daily. 7. Will continue home doxazosin 8 mg daily. VTE prophylaxis: Heparin 5000 tid Time Spent With Patient Critical Care time: I spent a total of [] minutes of critical care time on this patient's care today; this time is exclusive of procedural time.
--- NOTE | 2021-08-17 13:53 | OT.IP.EVAL ---
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 Hypothyroidism Surgical History (Last Reviewed 08/16/21 @ 18:24 by Dakota Collins PA-C) History of right knee joint replacement Occupational Therapy Inpatient Evaluation/Re-Eval M1 PT/OT-IP Prior Functional Status Start: 08/17/21 14:54 Freq: NEEDED Status: Active Protocol: Document 08/17/21 14:54 [facility] (Rec: 08/17/21 15:10 [facility] [id number]) Medical Review Prior Functional Status Medical History Reviewed Yes Communication able to make needs known but with confusion and difficulty following directions Mobility and Gait daughter and spouse in room and provided information: stated that pt at baseline has been needing assistance but was able to stand with one person assist and transfer using FWW. At times, able to ambulate using FWW close SBA short distances but usually just sits on his lift recliner or uses a manual w/c or transport chair for outdoor. stated that pt with c/o increase R knee pain that started ~ 1 1/2 weeks ago and pt then unable to stand despite of assistance provided . Activities of Daily Living and IADL's spouse assists pt with brief change since pt is not able to ambulate to the toilet. pt has a bedside commode but spouse stated that the bedside commode's opening is too small for pt so pt's just goes on his brief and spouse changes pt. pt uses a urinal for voiding. Pt's states she assists with LB dressing and hygiene after toileting needs even prior to his right knee pain. Social History Household Members spouse Living Arrangements House Number of Floors (Floors) One Floor Number of Stairs To Enter/Railing? 2 steps without rails Home Environment High Toilet,Tub/Shower Home Equipment Front Wheel Walker,Manual Wheelchair,Bedside Commode,Tub Transfer Bench,Hand Held Shower,Lift Recliner,Hospital Bed,Grab Bars Near Toilet,Grab Bars In Shower Additional Social History Comment has a caregiver that comes in F 11-2 pm to assist for IADL needs and showering but mainly pt's spouse assists pt. M2 OT-IP Current Condition Start: 08/17/21 14:54 Freq: Status: Active Protocol: Document 08/17/21 14:54 [facility] (Rec: 08/17/21 15:10 [facility] [id number]) Occupational Therapy Current Condition Current Condition Evaluation Date 08/17/21 Treatment Diagnosis Right knee pain, , UTI, decreased mobility Diagnosis Onset Date 08/16/21 Weight Bearing Status Weight Bearing Status Weight Bear as Tolerated Allowed Weight Bearing Amount (enter % WBAT per ortho consult or #) (%) M3 OT- IP Subjective and Pain Start: 08/17/21 14:54 Freq: Status: Active Protocol: Document 08/17/21 14:54 [facility] (Rec: 08/17/21 15:10 [facility] [id number]) OT- Subjective Occupational Therapy Visit Type Type Initial Evaluation Visit Start Time 14:27 Visit Stop Time 14:53 Total Visit Minutes 26 Occupational Therapy Visit Comments Patient Comments Pt agreed to get up and pt's present for the beginning of OT eval to answer questions regarding OT needs. Patient/Caregiver Goals TO get better. OT Pain Assessment Pain When Pain Assessed During Mobility Pain Present Pain Present Pain Reported Location Right Knee Intensity 4 M4 OT- IP ADL's Start: 08/17/21 14:54 Freq: Status: Active Protocol: Document 08/17/21 14:54 [facility] (Rec: 08/17/21 15:10 [facility] [id number]) OT [id number] Comments OT Self-Feeding Comments Not at meal time. OT ADL-Grooming Comments OT Grooming Comments NOt performed. OT ADL-Dressing General Eval Lower Body Dressing Ability Total Assistance OT ADL-Toileting Comments OT Toileting Comments Pt not having to go at this time. OT ADL-Bathing Comments OT Bathing Comments Sponge bath more appropriate at this time. M5 OT- IP IADL's Start: 08/17/21 14:54 Freq: Status: Active Protocol: Document 08/17/21 14:54 [facility] (Rec: 08/17/21 15:10 [facility] [id number]) OT-Instrumental Activities of Daily Living Home Safety Awareness Home Safety Comments Pt a little confused and needing step by step commands to follow. Pt also a bit hard of hearing. M6 OT- IP Functional Cognition Start: 08/17/21 14:54 Freq: Status: Active Protocol: Document 08/17/21 14:54 [facility] (Rec: 08/17/21 15:10 [facility] [id number]) Cognitive Factors Limiting Selfcare Function Cognitive Ability Level of Alertness Alert,Confusional State Patient Orientation Name,Place,Situation Attention Span Ability Capable of Focused Attention, Capable of Sustained Attention Ability to Follow Commands Able to Follow One Step Commands with Increased Time, Able to Follow One Step Commands with Repetition Cognitive Comments Cognitive Assessment Comments Pt like to joke around at lot. Pt needing increased time to follow directions and often needing repeated cues. OT- Vision and Hearing OT- Vision Assessment Visual Acuity Glasses For Reading Vision Assessment Comments Pt is hard of hearing. M7 OT- IP Mobility and Balance Start: 08/17/21 14:54 Freq: Status: Active Protocol: Document 08/17/21 14:54 [facility] (Rec: 08/17/21 15:10 [facility] [id number]) OT- Bed Mobility Assessment Supine to Sit Supine to Sit Assist Moderate Assistance,Maximum Assistance,2 Person Assistance ,Bedrails Sit to Supine Sit to Supine Assist Maximum Assistance,2 Person Assistance Scooting Scooting Up and Down in Bed Maximum Assistance,Total Assistance,2 Person Assistance OT-Transfer Assessment Sit to and From Stand Sit to and from Stand Maximum Assistance,Total Assistance,2 Person Assistance Comments Mobility Comments Pt needing MAXA x 2-3 to stand and unable to unweight his LLE due to right knee pain and not able to take any steps at this time. OT- Gait Assessment Comments Gait Ability Comments Tamra lift more appropriate at this time as unable to take any steps at this time. OT- Balance Assessment Sitting Balance and Reactions Static Sitting Balance Ability Poor Dynamic Sitting Balance Ability Poor Standing Balance and Reactions Static Standing Balance Ability Poor Comments Other Balance Tests/Deviations/Treatment Pt sits in posterior tilt and : leans to the left and needing MODA for his balance while seated on the edge of the bed. M8 OT- IP Objective Assessments Start: 08/17/21 14:54 Freq: Status: Active Protocol: Document 08/17/21 14:54 [facility] (Rec: 08/17/21 15:10 [facility] [id number]) OT Gross Range of Motion Upper Extremity Range of Motion ROM Impairments Grossly WFL for shoulder flexion for BUE OT Strength Comments Strength Comments Not formally tested at least 3 -/5 during pt's assist for bed mobility needs. OT-Muscle Tone Assessment Muscle Tone WNL Yes M9 OT- IP Assessment and Plan Start: 08/17/21 14:54 Freq: Status: Active Protocol: Document 08/17/21 14:54 [facility] (Rec: 08/17/21 15:10 [facility] [id number]) OT Summary Assessment and Plan Potential Rehabilitation Potential Excellent Analytic Complexity at Evaluation Moderate Summary OT Impairments Pain,Strength,Balance, Functional Cognition, Functional Mobility,Self- Feeding,Grooming,Dressing, Toileting,Bathing,Toilet Transfers,Shower Transfers, Activity Tolerance Progress Towards Goals Slow Progress due to Pain,Slow Progress due to Medical Issues,Slow Progress due to Activity Tolerance,Slow Progress due to Cognition Assessment Summary Pt MOD complexity and now needing MAX to Total assist x2 to stand to FWW and not able to take any steps at this time . Prior to his right knee pain per able to walk 10 ft with FWW with SBA. At this time pt's level of care is too great for his elderly to assist him at home. Pt would benefit from skilled rehab. Goals Self-Feeding Goal Independent Grooming Goal Independent Dressing Goal Moderate Assistance Toileting Goal Moderate Assistance Bathing Goal Moderate Assistance Toilet Transfer Goal Contact Guard Assistance Shower Transfer Goal Contact Guard Assistance Days to Meet Goals 30 Frequency of Treatment Frequency Of Treatment Once a Day Treatment Plan OT Treatment Plan ADL Training,Functional Cognition Training,Functional Mobility,Patient/Family Education,Discharge Planning Other Treatment Recommendations and Next Transfer to [facility] [place] with FWW MAX Treatment Focus Ax2. Discharge Recommendations OT Discharge Recommendations SNF Rehab Transportation Needs at Discharge Wheelchair/Cabulance
--- NOTE | 2021-08-17 14:58 | PT.IPTN ---
Physical Therapy Treatment Note M2 PT-IP Current Condition Start: 08/16/21 17:02 Freq: Status: Active Protocol: Document 08/17/21 14:32 SP (Rec: 08/17/21 17:09 SP [id number]) Physical Therapy Current Condition Current Condition Evaluation Date 08/16/21 Treatment Diagnosis R knee pain; difficulty in walking Onset Date 08/16/21 M3 PT-IP Subjective Start: 08/16/21 17:02 Freq: Status: Active Protocol: Document 08/17/21 14:32 SP (Rec: 08/17/21 17:09 SP [id number]) Subjective Physical Therapy Visit Type Type Treatment Note Visit Start Time 14:32 Visit Stop Time 14:58 Total Visit Minutes 26 Notes Co Tx with OT. Number of COMMERCIAL SPECIALIST Visits 1 Physical Therapy Visit Comments Patient Comments Pt agreeable to working with therapy. Therapy Pain Assessment Pain When Pain Assessed During Mobility Pain Present Pain Present Pain Reported Location Right Knee Scale Used not quantified during mobility Pain Behaviors Facial Grimacing,Guarding, Holding Area,Wincing Pain Management Techniques Distraction,Modification of Treatment,Re-positioning, Timing of Activity with Medications M4 PT-IP Mobility and Gait Start: 08/16/21 17:02 Freq: Status: Active Protocol: Document 08/17/21 14:32 SP (Rec: 08/17/21 17:09 SP [id number]) PT-Bed Mobility Assessment Rolling Type of Rolling Log Rolling,Bilateral Level of Assist Maximal Assistance,1 Person Assistance Sit to Supine Sit to Supine Maximum Assistance,2 Person Assistance,Bedrails Scooting Scooting to Edge of Bed Maximum Assistance PT-Transfer Assessment Sit to and From Stand Sit to and from Stand Maximum Assistance,1 Person Assistance,2 Person Assistance ,Use of Upper Extremities Equipment Transfer Assistive Device Gait Belt,Front Wheeled Walker Transfers Transfer Destination Bed Transfer Technique sit<> stand at EOB only Comments Mobility Comments Pt working with OT when arrived. Slight elevation HOB supine>sit Max A x2 for R>L LLE to EOB and trunk righting, use of R bed rail and pulling from therapist hand then extra support of OT at upper back. Scoot to EOB Max A x2 with use transfer pad and bed handle, max cues for trunk forward to decrease support due to retro leaning. Sitting balance at EOB Max x 2 initially>Max x1 then CG-Min with mod cues for taller posture more forward. Sit<> stand Max A x2 initially at EOB, demonstrated L lateral lean improved with cues for WBing into RLE improved and body centering BLE and heavy WB BUE on FWW up to 20s total, Max A x2 to sit. 2nd assessment STS Max A x3, increased L lateral and retro lean unable to correct after 5 sec so assist back to EOB. Lateral scoot up EOB Max A x2 2 then unable progress further. Sit>supine Max A x3-4 person for trunk support and BLE into bed then centering and scoot up in bed Max A x4 with bed in Trendelenburg positioning for staff back safety. COMMERCIAL SPECIALIST assisted with LR Max A x1 with instruction on BUE use of bed rail and assisted LLE support as needed , R and L while nursing provided bedding change. SALES LEAD GENERATOR and nurse took over care to pt when COMMERCIAL SPECIALIST left. Gait Assessment Comments Gait Comments Unable, Tamra lift more appropriate at this time as unable to take any steps at this time. PT-Balance Assessment Sitting Balance and Reactions Static Sitting Balance Ability Poor Dynamic Sitting Balance Ability Poor Standing Balance and Reactions Static Standing Balance Ability Poor Dynamic Standing Balance Ability Poor Device Used FWW M5 PT-IP Objective Assessments Start: 08/16/21 17:02 Freq: Status: Active Protocol: Document 08/16/21 16:05 AB (Rec: 08/16/21 17:20 AB [id number]) Orientation Orientation/Cognition Level of Alertness Alert Language Function Ability No Deficits Noted Safety Awareness Decreased Safety Awareness Memory Description Short Term Impaired Comments with confusion and difficulty folllowing directions Gross Range of Motion Lower Extremity ROM Assessment Right Impaired Impairments R knee pain guarding limiting ROM Strength Lower Extremity Strength Assessment Right Impaired Hip 4-/5 Knee 3+/5 Coordination Assessment Gross Coordination Gross Coordination WNL Sensation Assessment Sensation Gross Sensation WNL Muscle Tone Muscle Tone WNL Yes M6 PT-IP Treatment Start: 08/16/21 17:02 Freq: Status: Active Protocol: Document 08/17/21 14:32 SP (Rec: 08/17/21 17:09 SP [id number]) Physical Therapy Treatment Education Education Provided Safety M7 PT-IP Assessment and Plan Start: 08/16/21 17:02 Freq: Status: Active Protocol: Document 08/17/21 14:32 SP (Rec: 08/17/21 17:09 SP [id number]) PT Summary Assessment and Plan Potential Rehabilitation Potential Fair Status of Condition at Evaluation Evolving Summary Impairments Pain,ROM,Strength,Balance, Coordination,Sensation,Tone, Cognition,Bed Mobility, Transfers,Gait,Activity Tolerance Progress Towards Goals Slow Progress due to Pain,Slow Progress due to Activity Tolerance Assessment Summary Pt currently requiring max A x 2-3 with bed mob and standing w/ FWW, sitting balance CG- Mod Ax1. pt will require SNF rehab to improve mobility. Goals Bed Mobility Goal Minimal Assistance Transfer Goal Minimal Assistance,Front Wheeled Walker Gait Goal Minimal Assistance,Front Wheel Walker Gait Distance 50 Other Goals improve bed mobility , transfers CGA using fWW and ambulation using FWW CGA 75 ft up/down 2 steps mod A Days to Meet Goals 10 Frequency of Treatment Frequency Of Treatment Once a Day Treatment Plan Physical Therapy Treatment Plan Bed Mobility Training,Transfer Training,Gait Training, Therapeutic Exercise,Balance Retraining,Post Op Education, Discharge Planning,Hot or Cold Pack,Neuromuscular Re-ed, Coordination Retraining,Manual Therapy Other Recommendations and Next Treatment ther ex, bed mob, standing, Focus transfers Recommendations To Nursing Amount of Assist Needed Mechanical Lift Discharge Recommendations PT Discharge Recommendations SNF Rehab Transportation Needs at Discharge Wheelchair/Cabulance
[2021-08-17 19:00] VITALS: O2SAT 95
[2021-08-17 20:00] VITALS: BP 139/71; PULSE 59; RESP 18; TEMP 36.7; O2SAT 95
[2021-08-17] MEDS: ATORVASTATIN 20 MG TABLET 40 MG PO (21:49)
[2021-08-17 21:50] VITALS: BP 139/71; PULSE 59
[2021-08-17] MEDS: DOXAZOSIN 4 MG TABLET 8 MG PO (21:50)
[2021-08-17] MEDS: MIRTAZAPINE 15 MG TABLET PO (21:51)
[2021-08-18] MEDS: PANTOPRAZOLE DR 20 MG TABLET PO (06:32)
[2021-08-18] MEDS: LEVOTHYROXINE 112 MCG TABLET PO (06:32)
[2021-08-18 09:20] VITALS: O2SAT 95
[2021-08-18] MEDS: SENNOSIDES 8.6 MG TABLET 17.2 MG PO (09:20)
[2021-08-18] MEDS: FUROSEMIDE 20 MG TABLET PO (09:20)
[2021-08-18] MEDS: SERTRALINE 50 MG TABLET 150 MG PO (09:20)
[2021-08-18] MEDS: ASPIRIN EC 81 MG TABLET PO (09:20)
[2021-08-18] MEDS: APIXABAN 5 MG TABLET PO (09:20)
[2021-08-18 09:32] VITALS: BP 161/63; PULSE 65; RESP 20; TEMP 36.7; O2SAT 97
[2021-08-18 09:52] VITALS: O2SAT 95
--- NOTE | 2021-08-18 10:24 | PM.PN.1 ---
Subjective Subjective Interval history: The patient reports improvement in his right knee pain. He denies any active complaints. He endorses eating and drinking well, and denies any urinary/BM issues. Exam Vital Signs (past 8 hours): - 08/18/21 09:32 08/18/21 09:52 Temperature 98.1 F Pulse Rate 65 Respiratory Rate 20 Blood Pressure 161/63 H Pulse Oximetry 97 95 Oxygen Delivery Method Room Air Oxygen Flow Rate 0 Narrative Exam Narrative: Const Other: Patient laying in bed comfortably upon my entering the room, in no apparent acute distress. Eyes Other: No scleral icterus appreciated. Resp Other: Lungs clear to auscultation bilaterally. Cardio Other: RRR. S1 and S2 normal, with no extra heart sounds or murmurs appreciated. GI Other: Soft, non-distended, non-tender. Bowel sounds present. Skin Other: No grossly abnormal skin lesions noted. Extrem Other: Right knee with visibile effusion, that is non-erythematous, non-tender, and not warm to touch. Limited passive/active ROM of the right knee, likely due to pain. Objective Labs Result Diagrams: 08/16/21 14:25 08/16/21 14:25 [facility] Medical History Balance disorder CAD (coronary artery disease) Chronic GERD Closed hip fracture Depression Gait disorder Hypothyroidism Surgical History History of right knee joint replacement Family History Mother Breast cancer Father Kidney infection Social History household members: spouse Smoking Status: Former smoker alcohol intake: current Assessment & Plan Assessment & Plan narrative: Assessment: 1. Right knee severe osteoarthritis with effusion 2. Hx of CAD with LAD stent 3. Hx of atrial fibrillation 4. Hx of LLE DVT 5. Hypothyroidism 6. Depression 7. BPH Plan: 1. Appreciate orthopedic consult recommendations regarding no need for joint aspiration. 2. Will continue home aspirin 81 mg daily and atorvastatin 40 mg daily. 3. Will continue home Eliquis 5 mg bid 4. This was diagnosed in April 2020, with notes indicating patient was placed on Eliquis. 5. Will continue home levothyroxine 112 mcg daily. 6. Will continue home sertraline 150 mg daily, along with mirtazipine 15 mg daily. 7. Will continue home doxazosin 8 mg daily. VTE prophylaxis: Home Eliquis Time Spent With Patient Critical Care time: I spent a total of [] minutes of critical care time on this patient's care today; this time is exclusive of procedural time.
--- NOTE | 2021-08-18 10:27 | P.DS_ITS ---
History of Present Illness History of Present Illness Chief complaint: Rt. knee pain unable to stand Narrative: 86yo male with a hx of LLE DVT, atrial fibrillation, hx of CAD with LAD stent, and osteoarthritis that presents with severe right knee pain, making him unable to ambulate. The patient and his family want to know if he qualifies for a residential facility. The patient states this has been an issue for some time now, but it acutely worsened over the past 2 weeks or so. During this time, he's noticed that the right knee joint has become more swollen. He denies any tenderness to palpation, recent fall, injury, or trauma, and denies erythema or fever/chills. He reports that outpatient orthopedics has informed him that there's too much [id number] in his right knee joint, which along with his advanced age, makes him a poor surgical candidate. The patient endorses a right tibia surgery after a traumatic fracture, and lower lumbar spinal surgery. He reports taking his medicine daily, but states that he does not know them by name. However, his does, and reports she knows the indications, too. The patient admits to smoking 2-3 ppd, ever since the age of 14. He denies any other drug or EtOH use. He denies any relevant family hx. He lives at home with his . 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 Discharge Providers Provider Date of admission: 08/16/21 17:04 Discharge Date: 08/18/21 Primary care physician: Dniora Sampson MD Consults: 08/16/21 11:25 Consult to SALES ATTENDANT - Hairspring Inspector Stat Comment: 08/16/21 14:33 Consult to Physical Therapy Evaluate & Treat Comment: Physician Instructions: Evaluate and Treat 08/16/21 18:29 Consult to Discharge Planning Routine Comment: Consult to Occupational Therapy Evaluate & Treat Comment: Physician Instructions: Evaluate and treat Consult to Physical Therapy Evaluate & Treat Comment: Physician Instructions: Evaluate and Treat Discharge provider: Sofia Hernandez MD Summary Hospital Course Discharge Diagnosis: Assessment: 1. Right knee severe osteoarthritis with effusion 2. Hx of CAD with LAD stent 3. Hx of atrial fibrillation 4. Hx of LLE DVT 5. Hypothyroidism 6. Depression 7. BPH Plan: 1. Appreciate orthopedic consult recommendations regarding no need for joint aspiration. PT/OT recommends SNF. 2. Will continue home aspirin 81 mg daily and atorvastatin 40 mg daily. 3. Will continue home Eliquis 5 mg bid 4. This was diagnosed in April 2020, with notes indicating patient was placed on Eliquis. 5. Will continue home levothyroxine 112 mcg daily. 6. Will continue home sertraline 150 mg daily, along with mirtazipine 15 mg daily. 7. Will continue home doxazosin 8 mg daily. Exam Vital Signs (past 8 hours): - 08/18/21 09:32 08/18/21 09:52 Temperature 98.1 F Pulse Rate 65 Respiratory Rate 20 Blood Pressure 161/63 H Pulse Oximetry 97 95 Oxygen Delivery Method Room Air Oxygen Flow Rate 0 Objective Labs Result Diagrams: 08/16/21 14:25 08/16/21 14:25 PFSH Medical History Balance disorder CAD (coronary artery disease) Chronic GERD Closed hip fracture Depression Gait disorder Hypothyroidism Surgical History History of right knee joint replacement Family History Mother Breast cancer Father Kidney infection Social History household members: spouse Smoking Status: Former smoker alcohol intake: current Discharge Assessment & Plan Assessment and Plan Assessment: Assessment: 1. Right knee severe osteoarthritis with effusion 2. Hx of CAD with LAD stent 3. Hx of atrial fibrillation 4. Hx of LLE DVT 5. Hypothyroidism 6. Depression 7. BPH Plan: 1. Appreciate orthopedic consult recommendations regarding no need for joint aspiration. PT/OT recommends SNF. 2. Will continue home aspirin 81 mg daily and atorvastatin 40 mg daily. 3. Will continue home Eliquis 5 mg bid 4. This was diagnosed in April 2020, with notes indicating patient was placed on Eliquis. 5. Will continue home levothyroxine 112 mcg daily. 6. Will continue home sertraline 150 mg daily, along with mirtazipine 15 mg daily. 7. Will continue home doxazosin 8 mg daily. Discharge Plan Discharge Plan Patient Disposition: SNF I certify the postop hospital residential care is medically necessary on a continuing basis for any conditions for which he/ she received care during this hospitalization.: Yes The receiving facility has agreed to accept transfer and provide medical treatment.: Yes Discharge orders & Medications Prescriptions: Continued omeprazole 20 MG capsule,delayed release(DR/EC) 20 mg PO DAILY Qty: 0 0RF levothyroxine [Synthroid] 112 MCG tablet 112 mcg PO QAM Qty: 0 0RF aspirin 81 MG tablet,delayed release (DR/EC) 81 mg PO QDAY Qty: 0 0RF doxazosin [Cardura] 8 MG tablet 8 mg PO BEDTIME Qty: 0 0RF sertraline 100 MG tablet 150 mg PO DAILY Qty: 0 0RF sennosides [senna] 8.6 mg Tablet 17.2 mg PO DAILY Qty: 60 0RF mirtazapine 15 mg tablet 15 mg BEDTIME 0RF atorvastatin 40 mg tablet 40 mg PO BEDTIME 0RF polyethylene glycol 3350 17 gram powder in packet 17 gram PO PRN PRN (Reason: Constipation) 0RF Eliquis 5 mg Tablet 5 mg PO BID 0RF furosemide 20 mg tablet 20 mg PO DAILY 0RF Follow up/Referrals: Dinora Sampson MD [Primary Care Provider] - Discharge Data Primary Care Provider: Dinora Sampson Attending Provider: Sofia Hernandez
--- NOTE | 2021-08-18 11:46 | CM.DPNOTE ---
DC Note Therapy team and medical team recommending SNF before return home and patient/spouse agreeable to this plan Provided SNF MCR choice list to patient yesterday and he explained he had no preference; did admit he needed SNF care and understood that an auth would be needed from [facility] SNF search yesterday and today led to acceptance at [facility]; Reta has secured auth through [facility] today and [facility] transport, p/u at 1200 Updated patient and spouse Ilsa who remain agreeable. PASRR completed. Awaiting lab results for updated C19 PCR [facility] Meneses updated, report number given CIRILO See has faxed DC med list/signed ppk Plan: DC to [email or web address]
[2021-08-18 11:58] LABS: COVID19 -Nasal RAPID Negative (Negative)
== END 2021-08-18 12:26 ==
LOC: ED 17:03 → AC 08-17 08:01
PROVIDERS: Admitting Provider Student in an Organized Health Care Education/Training Program; Emergency Provider Student in an Organized Health Care Education/Training Program; PCP Internal Medicine; Referring Provider Student in an Organized Health Care Education/Training Program; Visit Provider Student in an Organized Health Care Education/Training Program
DX: M25.461 Effusion, right knee (principal); M17.11 Unilateral primary osteoarthritis, right knee; R26.89 Other abnormalities of gait and mobility; I50.9 Heart failure, unspecified; R32 Unspecified urinary incontinence; E03.9 Hypothyroidism, unspecified; K21.9 Gastro-esophageal reflux disease without esophagitis; F32.9 Major depressive disorder, single episode, unspecified; I25.10 Atherosclerotic heart disease of native coronary artery without angina pectoris; Z86.718 Personal history of other venous thrombosis and embolism; N40.0 Benign prostatic hyperplasia without lower urinary tract symptoms; Z20.822 Contact with and (suspected) exposure to COVID-19
CPT/HCPCS: 36415; 80053; 81003; 81015; 83605; 85025; 87040; 87077; 87086; 87147; 87186; 87635; 94760; 96372; 96374; 97162; 97166; 97530; 99284; C9803; G0378; J1644; J1885